=== PATIENT | female | born 1950 | race Two or more races ===

== ENCOUNTER → 2016-09-16 | Outpatient (CLI) | payer MEDICARE, OTHER ==
--- NOTE | 2016-09-16 10:32 | REP ---
Clinical: Cough. Technique: PA and lateral. Comparison: 05/30/2013. Findings: Progressive interstitial changes noted. No acute consolidation, effusion, or pneumothorax. Mediastinum and cardiac silhouette normal. Skeletal structures intact. Impression: Progressive interstitial changes. No acute cardiopulmonary process. If the patient remains symptomatic consider chest CT for further investigation. Signed by Gamaliel Charles MD 09/16/2016 10:22 A
== END ==
LOC: M WUC 09:57
PROVIDERS: ATTEND Nurse Practitioner Family
DX: R05 Cough (principal)

== ENCOUNTER → 2016-10-03 | Outpatient (REF) | payer MEDICARE, OTHER | LOC: M LAB REF 13:34 | PROVIDERS: ATTEND Physician Assistant | DX: M54.5 Low back pain (principal); Z79.899 Other long term (current) drug therapy ==

== ENCOUNTER → 2016-10-06 | Outpatient (CLI) | payer MEDICARE, OTHER ==
--- NOTE | 2016-10-06 17:00 | REP ---
Lumbar spine series: Five views. History: Low back pain. Comparison study: July 17, 2010. Findings: Lumbar vertebral body heights are preserved. There is degenerative disc disease at the L3-4, L4-5 and L5-S1. This is a little more pronounced than on the 2009 prior study, although not new. No subluxation is seen. There is osteoarthritic facet narrowing and sclerosis at L3-4 on the left and at the L4-5 and L5-S1 on the right. Sacrum and SI joints are intact. Psoas margins are symmetric. Impression: Degenerative spondylosis changes radiographically slightly more pronounced than on the June 2010 prior study. Signed by Ananda Keys MD 10/06/2016 07:20 P
== END ==
LOC: M WUC 15:05
PROVIDERS: ATTEND Nurse Practitioner Family
DX: M47.816 Spondylosis without myelopathy or radiculopathy, lumbar region (principal); M47.817 Spondylosis without myelopathy or radiculopathy, lumbosacral region

== ENCOUNTER → 2016-11-25 | Outpatient (REF) | payer MEDICARE, OTHER | LOC: M LAB REF 14:30 | PROVIDERS: ATTEND Physician Assistant | DX: M54.5 Low back pain (principal); Z79.899 Other long term (current) drug therapy ==

== ENCOUNTER → 2017-01-26 | Outpatient (CLI) | payer MEDICARE, OTHER ==
--- NOTE | 2017-01-26 19:49 | REP ---
Clinical: Left lower quadrant abdominal pain. Technique: Upright view of the chest with supine and upright views of the abdomen and pelvis. 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 No acute cardiopulmonary process or free air below the diaphragm to suspect pneumoperitoneum. Supine and upright views of the abdomen and pelvis demonstrate nonspecific bowel gas pattern without obstruction or perforation. No organomegaly. No abnormal calcifications. Skeletal structures demonstrate age-related degenerative changes. Impression: Nonspecific bowel gas pattern. Signed by Gamaliel Charles MD 01/26/2017 07:41 P
== END ==
LOC: M WUC 19:01
PROVIDERS: ATTEND Physician Assistant
DX: R10.32 Left lower quadrant pain (principal)

== ENCOUNTER → 2017-05-06 | Outpatient (CLI) | payer MEDICARE, OTHER ==
--- NOTE | 2017-05-06 14:30 | REP ---
Chest two views HISTORY: Chest pain Comparison: 01/26/2017 A diffuse increase in interstitial markings is present in the lungs consistent with chronic interstitial change. The heart is normal in size. The pulmonary vasculature is normal in appearance. The bony structure is intact. IMPRESSION: Chronic interstitial change. Signed by Berhane Godfrey MD 05/06/2017 02:22 P
== END ==
LOC: M WUC 14:06
PROVIDERS: ATTEND Nurse Practitioner Family
DX: R07.89 Other chest pain (principal)

== ENCOUNTER → 2019-04-19 | Outpatient (CLI) | payer MEDICARE, OTHER ==
[~2019-04-19] MED LIST: ISOVUE-370 76% 100ML VIAL (Q9967) As Ordered ONE
--- NOTE | 2019-04-19 17:25 | REP ---
CT of the abdomen and pelvis: The study is initially performed without IV contrast including the abdomen but excluding the pelvis. This is followed by scanning with IV contrast including the abdomen and pelvis. No bowel contrast is utilized. Comparison is 04/07/2016. There is fecalization almost the entire small bowel content as a distinct interval change. This is accompanied by mild small bowel distension. This is compatible with stasis. There is no evidence of small bowel obstruction.. The there is a mild/moderate volume of bowel content throughout the colon. There is no colonic distension or obstruction. There is no ascites. There is no pneumoperitoneum. There is a minimal volume of subcutaneous and intraperitoneal body fat as previously. The visualized lung aleman are unremarkable. The hepatic parenchyma is homogeneous. There are is enhancement of the gallbladder wall, however the gallbladder is not distended and there is no cholelithiasis. Gallbladder is nondistended and, in fact, is slightly collapsed. This is of uncertain significance, however, acalculous cholecystitis is a possibility. There is no pericholecystic fluid. The pancreas, spleen, adrenals and kidneys are unremarkable. The abdominal aorta is unremarkable. There is no adenopathy or ascites. Pelvis: The bladder is distended but otherwise unremarkable. The There is a hysterectomy. Vaginal cuff and adnexa are unremarkable. There is no ascites. Impression: There is a fecalization almost the entire small bowel as an interval change. This is compatible with small bowel stasis. There is no evidence of small bowel obstruction. There is a moderate volume of fecal residue in the colon. There is no evidence of colon distension or obstruction. There is no pneumoperitoneum or ascites. There is gallbladder wall thickening and gallbladder wall enhancement, however, there is no cholelithiasis or pericholecystic fluid. Gallbladder wall is not distended and is slightly collapsed. This is of uncertain significance but may represent acalculous cholecystitis. These results are discussed with the patient's nurse practitioner, ROSA MARIA Malcolm, upon completion of the study. Electronically Signed by Len Rahman MD 04/19/2019 05:16 P
== END ==
LOC: M RAD 16:14
PROVIDERS: ATTEND Nurse Practitioner Adult Health
DX: R10.9 Unspecified abdominal pain (principal)
CPT/HCPCS: 74178; 82150; 83690; Q9967

== ENCOUNTER → 2019-04-19 | Outpatient (REF) | payer MEDICARE, OTHER ==
[2019-04-19 18:34] LABS: AMYLASE 97 U/L (25-115); LIPASE 406 U/L (73-393)
== END ==
LOC: M LAB REF 18:00
PROVIDERS: ATTEND Nurse Practitioner Adult Health
DX: R10.9 Unspecified abdominal pain (principal)

== ENCOUNTER → 2019-06-27 | Outpatient (CLI) | payer MEDICARE, OTHER ==
[2019-06-27 18:06] LABS: ALBUMIN 3.5 GM/DL (3.2-5.2); ALT/SGPT 35 U/L (12-78); BILIRUBIN,TOTAL 0.4 MG/DL (0.2-1.0); BLOOD UREA NITROGEN 31 MG/DL (7-18); CALCIUM LEVEL 9.2 MG/DL (8.8-10.2); CARBON DIOXIDE LEVEL 27 MEQ/L (21-32); CHLORIDE LEVEL 104 MEQ/L (98-107); CREATININE FOR GFR 0.62 MG/DL (0.55-1.30); GLOMERULAR FILTRATION RATE > 60.0 (>45); GLUCOSE, FASTING 67 MG/DL (70-100); LIPASE 146 U/L (73-393); POTASSIUM SERUM 3.8 MEQ/L (3.5-5.1); SODIUM LEVEL 139 MEQ/L (136-145); TOTAL PROTEIN 6.4 GM/DL (6.4-8.2)
[2019-06-27 18:23] LABS: BASO # 0.1 10^3/uL (0.0-0.2); BASO % 0.5 % (0.0-1.0); EOS % 0.3 % (0.0-3.0); HEMATOCRIT 40.9 % (36.0-47.0); HEMOGLOBIN 12.8 g/dl (12.0-15.5); LYMPH % 20.2 % (24.0-44.0); MEAN CORPUSCULAR HEMOGLOBIN 29.3 pg (27.0-33.0); MEAN CORPUSCULAR HGB CONC 31.3 g/dl (32.0-36.5); MEAN CORPUSCULAR VOLUME 93.6 fl (80.0-96.0); MONO # 0.7 10^3/uL (0.0-0.8); MONO % 6.8 % (0.0-5.0); NEUTROPHILS % 71.9 % (36.0-66.0); PLATELET COUNT, AUTOMATED 236 10^3/uL (150-450); RED BLOOD COUNT 4.37 10^6/uL (4.00-5.40); WHITE BLOOD COUNT 9.8 10^3/uL (4.0-10.0)
== END ==
LOC: M WUC 14:29
PROVIDERS: ATTEND Physician Assistant
DX: R10.9 Unspecified abdominal pain (principal)

== ENCOUNTER → 2019-07-04 | Outpatient (REF) | payer MEDICARE, OTHER | LOC: M LAB REF 16:46 | PROVIDERS: ATTEND Nurse Practitioner Adult Health | DX: R30.0 Dysuria (principal) ==

== ENCOUNTER → 2019-10-18 | Outpatient (CLI) | payer MEDICARE, OTHER ==
[2019-10-18 15:33] LABS: PLATELET COUNT, AUTOMATED 227 10^3/uL (150-450)
[2019-10-18 15:37] LABS: COLLAGEN EPINEPHRINE 162 SECONDS (74-162)
[2019-10-18 15:53] LABS: PROTHROMBIN TIME 12.9 SECONDS (11.8-14.0)
[2019-10-18 15:54] LABS: PARTIAL THROMBOPLASTIN TIME 36.2 SECONDS (25.0-38.4)
== END ==
LOC: M WUC 14:19
PROVIDERS: ATTEND Physician Assistant
DX: M53.3 Sacrococcygeal disorders, not elsewhere classified (principal); M47.817 Spondylosis without myelopathy or radiculopathy, lumbosacral region

== ENCOUNTER → 2019-10-18 | Outpatient (REF) | payer MEDICARE, OTHER | LOC: M LABDRAW1 11:29 | PROVIDERS: ATTEND Physician Assistant | DX: Z01.812 Encounter for preprocedural laboratory examination (principal); D69.1 Qualitative platelet defects; M53.3 Sacrococcygeal disorders, not elsewhere classified; M47.817 Spondylosis without myelopathy or radiculopathy, lumbosacral region ==

== ENCOUNTER → 2019-11-17 | Outpatient (REF) | payer MEDICARE, OTHER | LOC: M LAB REF 16:01 | PROVIDERS: ATTEND Registered Nurse | DX: R30.0 Dysuria (principal); R10.32 Left lower quadrant pain ==

== ENCOUNTER → 2019-11-23 | Outpatient (REF) | payer MEDICARE, OTHER | LOC: M LAB 19:38 | PROVIDERS: ATTEND Physician Assistant | DX: R10.9 Unspecified abdominal pain (principal) ==

== ENCOUNTER → 2019-11-24 | Outpatient (CLI) | payer MEDICARE, OTHER ==
[2019-11-24 11:43] LABS: BASO % 0.4 % (0.0-1.0); HEMATOCRIT 43.7 % (36.0-47.0); HEMOGLOBIN 14.1 g/dl (12.0-15.5); LYMPH # 1.2 10^3/uL (1.5-5.0); LYMPH % 11.6 % (24.0-44.0); MEAN CORPUSCULAR HEMOGLOBIN 29.3 pg (27.0-33.0); MEAN CORPUSCULAR HGB CONC 32.3 g/dl (32.0-36.5); MEAN CORPUSCULAR VOLUME 90.7 fl (80.0-96.0); MONO # 0.7 10^3/uL (0.0-0.8); MONO % 6.4 % (0.0-5.0); NEUTROPHILS # 8.4 10^3/uL (1.5-8.5); NEUTROPHILS % 81.3 % (36.0-66.0); PLATELET COUNT, AUTOMATED 293 10^3/uL (150-450); RED BLOOD COUNT 4.82 10^6/uL (4.00-5.40); WHITE BLOOD COUNT 10.3 10^3/uL (4.0-10.0)
[2019-11-24 12:26] LABS: ALBUMIN 3.9 GM/DL (3.2-5.2); ALT/SGPT 46 U/L (12-78); BILIRUBIN,TOTAL 0.4 MG/DL (0.2-1.0); BLOOD UREA NITROGEN 19 MG/DL (7-18); CALCIUM LEVEL 9.4 MG/DL (8.8-10.2); CARBON DIOXIDE LEVEL 23 MEQ/L (21-32); CHLORIDE LEVEL 105 MEQ/L (98-107); CREATININE FOR GFR 0.69 MG/DL (0.55-1.30); GLOMERULAR FILTRATION RATE > 60.0 (>45); GLUCOSE, FASTING 118 MG/DL (70-100); LIPASE 87 U/L (73-393); POTASSIUM SERUM 3.2 MEQ/L (3.5-5.1); SODIUM LEVEL 138 MEQ/L (136-145); TOTAL PROTEIN 6.9 GM/DL (6.4-8.2)
== END ==
LOC: M WUC 10:17
PROVIDERS: ATTEND Physician Assistant
DX: R10.9 Unspecified abdominal pain (principal)

== ENCOUNTER → 2020-01-04 | Outpatient (REF) | payer MEDICARE, OTHER | LOC: M LAB REF 12:11 | PROVIDERS: ATTEND Internal Medicine | DX: M81.0 Age-related osteoporosis without current pathological fracture (principal) ==

== ENCOUNTER → 2020-05-17 | Outpatient (CLI) | payer MEDICARE, OTHER ==
--- NOTE | 2020-05-17 16:12 | REPMRS ---
Patient History The patient states she had a clinical breast exam in April 2020. No known family history of cancer. Benign radio exam breast specimen, June 01, 2015. Benign localization of breast nodule of the left breast, June 01, 2015. Benign radio exam breast specimen of the left breast, November 27, 2014. Benign localization of breast nodule of the left breast, November 27, 2014. 3D TOMOSYNTHESIS WAS PERFORMED. [facility] lifetime risk for breast cancer is 3.1%. Volpara breast density d. Digital Woman Screen Mammo: May 17, 2020 - Exam #: [id number] Bilateral CC and MLO view(s) were taken. Technologist: RT Richard Prior study comparison: January 16, 2016, digital mammo diagnostic bilateral, performed at [facility]. April 30, 2015, left breast digital mammo diagnostic unilateral, performed at [facility]. FINDINGS: The breast tissue is heterogeneously dense. This may lower the sensitivity of mammography. There has been no change in the appearance of the mammogram from the prior studies. There is a moderate amount of residual fibroglandular tissue which is fairly symmetric. There is no interval development of dominant mass, areas of architectural distortion, or clustered microcalcification typical of malignancy. Assessment: BI-RADS/ACR category 1 mammogram. Negative Mammogram. Recommendation Routine screening mammogram in 1 year (for women over age 40). This mammogram was interpreted with the aid of an FDA-approved computer-aided dectection system. Electronically Signed By: Len Vick MD 05/17/20 [id number]
--- NOTE | 2020-05-17 17:07 | REP ---
INDICATION: DENSE BREASTS. COMPARISON: 07/04/2016. TECHNIQUE: Real-time sonographic evaluation of bilateral breasts performed diffusely including the retroareolar regions bilaterally.. FINDINGS: No cystic or solid nodule is seen in any portion of either breast. IMPRESSION: BIRADS/ACR category 1, negative bilateral whole breast ultrasound. RECOMMENDATION: Follow-up recommended in 1 year if clinically indicated. <Electronically signed by Len Vick > 05/17/20 [id number]
== END ==
LOC: M WHC 14:07
PROVIDERS: ATTEND Internal Medicine
DX: Z12.31 Encounter for screening mammogram for malignant neoplasm of breast (principal)

== ENCOUNTER → 2020-07-06 | Outpatient (REF) | payer MEDICARE, OTHER | LOC: M LAB REF 10:32 | PROVIDERS: ATTEND Internal Medicine | DX: M81.0 Age-related osteoporosis without current pathological fracture (principal) ==

== ENCOUNTER → 2020-08-17 | Outpatient (REF) | payer MEDICARE, OTHER ==
[~2020-08-17] MED LIST changes: +AMIT24CA7 PO; +ATOR1TAB19 PO; +BEPR1.5D2 OU; +CEQU0.09 OU; +HYDR2.5C; +INVE1SUS OS; -ISOVUE-370 76% 100ML VIAL (Q9967) As Ordered ONE; +K-TA10TA2 PO; +KLOR20TA42 PO; +LINZ290C PO; +MUPI2OI; +PROL60SO IM; +VITA50005 PO
== END ==
LOC: M WUC 19:14
PROVIDERS: ATTEND Physician Assistant
DX: R30.0 Dysuria (principal)

== ENCOUNTER 2020-08-22 14:07 | Emergency (ER) | payer MEDICARE, OTHER ==
[~2020-08-22] VITALS: Ht 154.9 cm; Wt 45.0 kg
[2020-08-22] MEDS ORDERED: INVE1SUS OS (14:24)
[2020-08-22] MEDS ORDERED: ATOR1TAB19 PO (14:24)
[2020-08-22] MEDS ORDERED: PROL60SO IM (14:24)
[2020-08-22] MEDS ORDERED: KLOR20TA42 PO (14:24)
[2020-08-22] MEDS ORDERED: BEPR1.5D2 OU (14:24)
[2020-08-22] MEDS ORDERED: AMIT24CA7 PO (14:24)
[2020-08-22] MEDS ORDERED: VITA50005 PO (14:24)
[2020-08-22] MEDS ORDERED: CEQU0.09 OU (14:24)
[2020-08-22] MEDS ORDERED: MUPI2OI (14:24)
[2020-08-22] MEDS ORDERED: LINZ290C PO (14:24)
[2020-08-22] MEDS ORDERED: HYDR2.5C (14:24)
[2020-08-22 16:21] LABS: BASO # 0.1 10^3/uL (0.0-0.2); BASO % 0.7 % (0.0-1.0); EOS # 0.3 10^3/uL (0.0-0.5); EOS % 3.7 % (0.0-3.0); HEMATOCRIT 39.7 % (36.0-47.0); HEMOGLOBIN 12.7 g/dl (12.0-15.5); LYMPH # 1.1 10^3/uL (1.5-5.0); LYMPH % 12.4 % (24.0-44.0); MEAN CORPUSCULAR HEMOGLOBIN 28.8 pg (27.0-33.0); MONO # 0.7 10^3/uL (0.0-0.8); MONO % 8.1 % (0.0-5.0); NEUTROPHILS # 6.5 10^3/uL (1.5-8.5); NEUTROPHILS % 74.8 % (36.0-66.0); PLATELET COUNT, AUTOMATED 235 10^3/uL (150-450); RED BLOOD COUNT 4.41 10^6/uL (4.00-5.40); WHITE BLOOD COUNT 8.7 10^3/uL (4.0-10.0)
[2020-08-22 16:50] LABS: BLOOD UREA NITROGEN 22 MG/DL (7-18); CARBON DIOXIDE LEVEL 24 MEQ/L (21-32); CHLORIDE LEVEL 107 MEQ/L (98-107); CK-MB VALUE MASS 4.1 NG/ML (<3.6); CPK CREATINE PHOSPHOKINASE 122 U/L (26-192); CREATININE FOR GFR 0.64 MG/DL (0.55-1.30); GLOMERULAR FILTRATION RATE > 60.0 (>45); GLUCOSE, FASTING 85 MG/DL (70-100); MAGNESIUM LEVEL 2.1 MG/DL (1.8-2.4); MB/CK RELATIVE INDEX 3.36 (< OR =4); SODIUM LEVEL 142 MEQ/L (136-145); TROPONIN I < 0.02 NG/ML (< 0.10)
[2020-08-22] MEDS ORDERED: K-TA10TA2 PO (17:12)
[2020-08-22] MEDS ORDERED: POTASSIUM CHLORIDE 10 MEQ SR TABLET PO ONE (17:15)
[2020-08-22 17:28] VITALS: BP 120/59
--- NOTE | 2020-08-22 19:16 | ECGEPIP ---
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
== END 2020-08-22 17:52 | disposition home or self-care (01) ==
LOC: M ED 14:07
DX: E87.6 Hypokalemia (principal); E78.5 Hyperlipidemia, unspecified; K58.9 Irritable bowel syndrome, unspecified; Z79.899 Other long term (current) drug therapy; Z88.0 Allergy status to penicillin; Z88.5 Allergy status to narcotic agent; Z88.8 Allergy status to other drugs, medicaments and biological substances

== ENCOUNTER → 2020-09-12 | Outpatient (REF) | payer MEDICARE, OTHER | LOC: M LAB REF 16:15 | PROVIDERS: ATTEND Physician Assistant Medical | DX: R30.0 Dysuria (principal) ==

== ENCOUNTER → 2020-10-16 | Outpatient (CLI) | payer MEDICARE, OTHER ==
[2020-10-16 16:42] LABS: BASO # 0.1 10^3/uL (0.0-0.2); BASO % 0.8 % (0.0-1.0); EOS # 0.1 10^3/uL (0.0-0.5); EOS % 0.8 % (0.0-3.0); HEMATOCRIT 40.5 % (36.0-47.0); HEMOGLOBIN 12.8 g/dl (12.0-15.5); LYMPH # 1.9 10^3/uL (1.5-5.0); LYMPH % 24.5 % (24.0-44.0); MEAN CORPUSCULAR HGB CONC 31.6 g/dl (32.0-36.5); MEAN CORPUSCULAR VOLUME 91.8 fl (80.0-96.0); MONO # 0.6 10^3/uL (0.0-0.8); MONO % 8.1 % (2.0-8.0); NEUTROPHILS % 65.4 % (36.0-66.0); PLATELET COUNT, AUTOMATED 268 10^3/uL (150-450); RED BLOOD COUNT 4.41 10^6/uL (4.00-5.40); WHITE BLOOD COUNT 7.7 10^3/uL (4.0-10.0)
[2020-10-16 17:41] LABS: ALBUMIN 3.9 GM/DL (3.2-5.2); ALT/SGPT 42 U/L (12-78); BILIRUBIN,TOTAL 0.5 MG/DL (0.2-1.0); BLOOD UREA NITROGEN 22 MG/DL (7-18); CALCIUM LEVEL 8.8 MG/DL (8.8-10.2); CARBON DIOXIDE LEVEL 27 MEQ/L (21-32); CHLORIDE LEVEL 109 MEQ/L (98-107); CK-MB VALUE MASS 3.2 NG/ML (<3.6); CPK CREATINE PHOSPHOKINASE 73 U/L (26-192); CREATININE FOR GFR 0.68 MG/DL (0.55-1.30); FREE T4 0.83 NG/DL (0.76-1.46); GLOMERULAR FILTRATION RATE > 60.0 (>45); GLUCOSE, FASTING 83 MG/DL (70-100); MB/CK RELATIVE INDEX 4.38 (< OR =4); POTASSIUM SERUM 3.5 MEQ/L (3.5-5.1); SODIUM LEVEL 141 MEQ/L (136-145); TOTAL PROTEIN 6.6 GM/DL (6.4-8.2); TROPONIN I < 0.02 NG/ML (< 0.10)
== END ==
LOC: M WUC 15:37
PROVIDERS: ATTEND Physician Assistant
DX: R07.1 Chest pain on breathing (principal); R12 Heartburn; Z79.899 Other long term (current) drug therapy

== ENCOUNTER → 2020-10-30 | Outpatient (CLI) | payer MEDICARE, OTHER ==
--- NOTE | 2020-11-03 04:24 | ECWPNPC ---
PATIENT NAME: AUGUSTINE SANTOYO : 1950 GENDER: FEMALE VISIT DATE: 10/30/2020 DISCHARGE DATE: 10/30/20 1507 VISIT LOCKED DATE TIME: PHYSICIAN: ALLY MEDINA RESOURCE: ALLY MEDINA REASON FOR APPOINTMENT 1. CERVICAL PAIN/TPI HISTORY OF PRESENT ILLNESS GENERAL: 70-YEAR-OLD FEMALE BEING REFERRED BY [facility] FOR LEFT SIDED NECK PAIN. PATIENT NOTICED PAIN IN THIS REGION AFTER LIFTING HEAVY BAGS THIS PAST FALL. ALSO SUFFERS FROM RIGHT TROCHANTERIC BURSITIS WHICH RESPONDED WELL TO STEROID INJECTION A MONTH AGO. STATES SHE HAD AN INJECTION IN THE MUSCLE TISSUE IN THE LEFT NECK WHICH HELPED BUT SHE HAS ONE SPECIFIC SPOT ON THE LEFT SIDE OCCIPITAL REGION THAT REMAINS TENDER WITH PALPATION. SHE NOTICES THIS MAINLY AT NIGHT AND SOMETIMES IT WILL EVOLVE INTO A HEADACHE. REVIEWED MRI OF THE CERVICAL SPINE AND DISCUSSED TREATMENT PLAN. - - -. FALL RISK SCREENING: SCREENING : NO FALLS REPORTED IN THE LAST YEAR , : NO FALLS REPORTED IN THE LAST YEAR. PAIN SCREENING: PATIENT HAS A COMPLAINT OF ACUTE OR CHRONIC PAIN :YES LOCATION OF PAIN:NECK INTENSITY OF PAIN (SCALE OF 1 TO 10):3 WHAT DOES YOUR PAIN FEEL LIKE:SORE DURATION:MAINLY DURING THE NIGHT PAIN IS INCREASED BY:OTHERS DULL HEADACHE PAIN IS DECREASED BY:USE OF PAIN MEDICATIONS NURSING NOTE: - - -. PAIN CENTER INTAKE QUESTIONS: DO YOU HAVE A HISTORY OF MRSA? :NO DO YOU TAKE A BLOOD THINNERS? :NO BABY ASPRIN DO YOU HAVE ANY BLEEDING DISORDERS? :NO ANY NEW NUMBNESS OR WEAKNESS IN YOUR LEGS OR ARMS? :NO ANY PACEMAKER,DEFIBRILLATOR, OR DORSAL COLUMN STIMULATOR? :NO DO YOU HAVE ANY RASHES OR OPEN SORES? :NO ARE YOU ALLERGIC TO IV DYE? :NO ARE YOU DIABETIC? :NO ANY NEW PROBLEMS WITH YOUR MEDICATIONS? :NO HAVE YOU RECEIVED A VACCINE IN THE PAST 30 DAYS? :YES IF SO WHAT VACCINE AND WHEN? 2ND COVID 09/26/2020 DO YOU PLAN TO RECEIVE A VACCINE IN THE NEXT 21 DAYS? :NO DO YOU NEED ANY PRESCRIPTION? :NO DO YOU TAKE ANY IMMUNOSUPPRESSIVE MEDICATIONS? :NO CURRENT MEDICATIONS TAKING VITAMIN D 09922 U CAPSULE 1 CAPSULE ORALLY ONCE A WK. TAKING AMITIZA 24 MCG CAPSULE 1 CAPSULE WITH FOOD ORALLY TWICE A DAY TAKING LINZESS 290 MCG CAPSULE 1 CAPSULE ORALLY ONCE A DAY TAKING LODOXAMIDE TROMETHAMINE 0.1 % SOLUTION 1 DROP INTO AFFECTED EYE OPHTHALMIC FOUR TIMES A DAY TAKING ZOCOR 10 10 MG TABLET 1 TAB(S) ORAL ONCE A DAY TAKING ASPIRIN 81 81 MG TABLET DELAYED RELEASE 1 TABLET ORALLY ONCE A DAY TAKING ATORVASTATIN CALCIUM 10 MG TABLET 1 TABLET ORALLY ONCE A DAY NOT-TAKING PROLIA 60 MG/ML SOLUTION 1 ML SUBCUTANEOUS Q6M NOT-TAKING EUFLEXXA 20 MG/2ML SOLUTION PREFILLED SYRINGE 2 ML INTRA-ARTICULAR NOT-TAKING TIZANIDINE HCL 4 MG TABLET 1 TABLET NEEDED ORALLY THREE TIMES A DAY NOT-TAKING SIMVASTATIN 10 MG TABLET 1 TABLET IN THE EVENING ORALLY ONCE A DAY MEDICATION LIST REVIEWED AND RECONCILED WITH THE PATIENT PAST MEDICAL HISTORY POSTMENOPAUSE HIGH CHOLESTEROL IBS VIT D DEFICIENCY ALLERGIES HX ENDOMETRIOSIS/DUB OSTEOPOROSIS ON PROLIA DISABLED DUE TO BACK INJURY ENTHESSOPATHY OF HIP REGION PURE HYPERCHOLESTEROLEMIA IBM ANXIETY TUBERCULOSIS ALLERGIES PENICILLIN: RASH - SIDE EFFECTS - ONSET DATE 08/10/2013 PREDNISONE: HIVES - SIDE EFFECTS - ONSET DATE 04/05/2020 SURGICAL HISTORY TONSILLECTOMY LEFT EYE SURGERY 2010 HYSTERECTOMY/BSO--DUE TO BLEEDING AND ENDOMETRIOSIS 1985 LAPAROSCOPIC/ENDOMETRIOSIS 1984 COLONOSCOPY ([facility]ANTOS) 11/2013 BREAST BIOPSY BENIGN 11/27/14 & 06/01/15 BACK SURG RIGHT SHOULDER ROTATOR CUFF SURGERY BREAST BIOPSIES 2X PLANTAR FASCIITIS RIGHT FOOT CORNEA TRANS PLANT LEFT EYE FAMILY HISTORY FATHER: 85 YRS, LIVER CANCER MOTHER: ALIVE 100 YRS, HTN, HYPOTHYROIDISM, KIDNEY DISEASE, HEART DISEASE W/STENTS SIBLINGS: 21 YRS, SISTER-HODGKIN'S DISEASE. OTHER SISTERS, LIVING, NO HEALTH CONCERNS 3 SISTER(S) - HEALTHY. DENIES BREAST, COLON OR OVARIAN CANCERS. NO CHILDREN. SOCIAL HISTORY GENERAL: TOBACCO USE ARE YOU A:NEVER SMOKER LATEX QUESTIONNAIRE LATEX ALLERGY : HAVE YOU EVER DEVELOPED ANY TYPE OF REACTION AFTER HANDLING LATEX PRODUCTS SUCH RUBBER GLOVES, CONDOMS, DIAPHRAGMS, BALLOONS, SOCKS, OR UNDERWEAR?NO LATEX ALLERGY : HAVE YOU EVER DEVELOPED ANY TYPE OF REACTION DURING OR AFTER DENTAL APPOINTMENT, VAGINAL/RECTAL EXAMINATION, SURGICAL PROCEDURE, OR ANY OTHER EXPOSURE?NO LATEX RISK : HAVE YOU EVER HAD ANY DIFFICULTY BREATHING OR HIVES AFTER EATING OR HANDLING ANY FRUITS, OR VEGETABLES; SUCH KIWI, BANANAS, STONE FRUITS, OR CHESTNUTSNO LATEX RISK : DO YOU HAVE A PREVIOUS PERSONAL HISTORY OF MORE THAN NINE SURGERIES, SPINA BIFIDA, OR REPEATED CATHERIZATIONS? NO LATEX RISK : ARE YOU FREQUENTLY EXPOSED TO LATEX PRODUCTS IN YOUR OCCUPATION?NO DATE ASKED : 10/30/2020 ALCOHOL USE: NO. RECREATIONAL DRUG USE DENIES. CAFFEINE NONE. LANGUAGE LANGUAGES SPOKEN:COMORAN LEARNING BARRIERS / SPECIAL NEEDS BARRIERS TO LEARNING?NO HEARING IMPAIRED?NO VISION IMPAIRED?YES :CORRECTIVE LENSES COGNITIVELY IMPAIRED?NO READINESS TO LEARN?YES LEARNING PREFERENCES?NO LEARNING CAPABILITIES PRESENT?YES EMOTIONAL BARRIERS?NO SPECIAL DEVICES?NO DIRECTOR DERMATOLOGY NEEDED?NO DOMESTIC VIOLENCE DENIES, 11/02/14 HITS=N/A, NO PARTNER. 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 EXERCISE: GOES TO [employer], ALSO WALKS. MARITAL STATUS: SINGLE. OTHERS AT HOME: LIVES WITH MOTHER. HOUSING: OWNS HOME. HOSPITALIZATION/MAJOR DIAGNOSTIC PROCEDURE SEE ABOVE REVIEW OF SYSTEMS CONSTITUTIONAL: ANY RECENT FEVER NO . CHILLS NO . WEIGHT CHANGE OF UNKNOWN REASONS NO . GASTROENTEROLOGY: NEW UNEXPLAINABLE CHANGES IN BOWEL CONTROL NO . CONSTIPATION NO . GENITOURINARY: ANY NEW CHANGE IN BLADDER CONTROL? NO . NEUROLOGY: NEW ONSET DIZZINESS OR NEUROLOGICAL CHANGES NOT MENTIONED NO . NEW NUMBNESS OR PAIN PATTERNS NOT MENTIONED AND PERTINENT TO TODAY'S VISIT NO . CARDIOLOGY: NEW CHEST PRESSURE NO . PATIENT DENIES NO . RESPIRATORY: UNEXPLAINABLE COUGH NO . NEW SHORTNESS OF BREATH NO . VITAL SIGNS WT 100 LBS, HT 61 IN, BMI 18.89 INDEX, BP 104/59 MM HG, HR 58 /MIN, RR 18 /MIN, TEMP 96.7 F, OXYGEN SAT % 99%, SAFE IN ENV? (Y/N) YEST.ARLET LEA. EXAMINATION GENERAL EXAMINATION: GENERALNO ACUTE DISTRESS, WELL NOURISHED AND HYDRATED. PSYCHAPPROPRIATE MOOD AND AFFECT . FACE:UNREMARKABLE. NECK:NO LYMPHADENOPATHY, SUPPLE, NO THYROMEGALLY. LUNGS:CLEAR TO AUSCULTATION BILATERALLY, NO WHEEZES, RHONCHI, RALES. HEART:NO MURMURS, REGULAR RATE AND RHYTHM. MUSCULOSKELETAL: MUSCLE STRENGTH TESTING 5/5 BILATERAL UPPER/LOWER EXTREMITIES. CERVICAL: FIBROUS BAND OF TISSUE AT PROXIMAL TRAPEZIUS 5 CM DIAMETER.PAIN IN THIS AREA IS AGGREVATED WITH ROJM NECK. DIAGNOSTIC TESTS REVIEWED CERVICAL MRI. ASSESSMENTS MYALGIA, OTHER SITE - M79.18 (PRIMARY) TREATMENT MYALGIA, OTHER SITE NOTES: DISCUSSED TREATMENT OPTIONS TO INCLUDE TRIGGER POINT INJECTIONS AND MYOFASCIAL RELEASE TECHNIQUES IN PHYSICAL THERAPY. I WILL SEND HER TO PHYSICAL THERAPY 2 TIMES A WEEK FOR 6 WEEKS SPECIFICALLY FOR MYOFASCIAL RELEASE/MASSAGE LEFT TRAPEZIUS, SCALENE PROXIMAL REGION/OCCIPITAL. FOLLOW-UP PT /MYOFASCIAL RELEASE IN 6-8 WEEKS. CONSIDER SOFT TISSUE IMAGING OF THE LEFT NECK SHOULD SYMPTOMS PERSIST. REFERRAL TO:PHYSICAL THERAPY INNOVATIVEPHYSICAL THERAPIST REASON:PT 2 TIMES A WEEK X6 WEEKS SPECIFICALLY FOR MYOFASCIAL RELEASE LEFT NECK AND PROXIMAL TRAPEZIUS SCALENE OCCIPITAL REGION PROCEDURE CODES FA211 ESTABILISHED PATIENT [facility] CHARGE DISPOSITION & COMMUNICATION FOLLOW UP 6 WEEKS/8 WEEKS (REASON: FOLLOW-UP ON PT LEFT NECK/MYOFASCIAL RELEASE) ELECTRONICALLY SIGNED BY ROSA MARIA OSEGUERA ON 11/02/2020 AT 03:54 PM EDT DISCLAIMER : THIS IS A VISIT SUMMARY EXTRACTED FROM THE [employer] CHART. IT IS NOT A COPY OF THE [employer] PROGRESS NOTE. TARUN
== END ==
LOC: M PAIN 14:00
PROVIDERS: ATTEND Nurse Practitioner Family
DX: M79.18 Myalgia, other site (principal); E78.00 Pure hypercholesterolemia, unspecified; K58.9 Irritable bowel syndrome, unspecified; E55.9 Vitamin D deficiency, unspecified; F41.9 Anxiety disorder, unspecified; Z79.82 Long term (current) use of aspirin; Z79.899 Other long term (current) drug therapy; Z88.0 Allergy status to penicillin; Z88.8 Allergy status to other drugs, medicaments and biological substances

== ENCOUNTER → 2020-11-07 | Outpatient (CLI) | payer MEDICARE, OTHER ==
--- NOTE | 2020-11-07 12:31 | REP ---
INDICATION: PAIN. COMPARISON: 05/06/2017 the latest prior FINDINGS: The superior mediastinal structures are midline. The cardiac silhouette is unremarkable in size, shape, and position. The diaphragmatic surfaces of the lungs are regular, and the costophrenic angles are clear. The pulmonary aleman are unchanged. Scattered fibrotic changes and lung field hyperexpansion noted status quo.. No acute patchy parenchymal opacities or pleural effusions have developed. The imaged osseous structures are intact. IMPRESSION: There is no acute cardiopulmonary disease. Stable chest. <Electronically signed by Nate Camarena > 11/07/20 [id number]
--- NOTE | 2020-11-07 12:33 | REP ---
INDICATION: PAIN. COMPARISON: None TECHNIQUE: Four views FINDINGS: Multiple views of the left ribs show no fracture or osseous lesion. IMPRESSION: Negative left rib series. <Electronically signed by Nate Camarena > 11/07/20 [id number]
== END ==
LOC: M WUC 11:40
PROVIDERS: ATTEND Nurse Practitioner Adult Health
DX: R10.9 Unspecified abdominal pain (principal)

== ENCOUNTER → 2020-11-13 | Outpatient (REF) | payer MEDICARE, OTHER | LOC: M LAB REF 15:41 | PROVIDERS: ATTEND Physician Assistant | DX: R30.0 Dysuria (principal) ==

== ENCOUNTER → 2020-12-18 | Outpatient (CLI) | payer MEDICARE, OTHER ==
--- NOTE | 2020-12-20 04:16 | ECWPNPC ---
PATIENT NAME: AUGUSTINE SANTOYO : 1950 GENDER: FEMALE VISIT DATE: 12/18/2020 DISCHARGE DATE: 12/18/20 1442 VISIT LOCKED DATE TIME: PHYSICIAN: ALLY MEDINA RESOURCE: ALLY MEDINA REASON FOR APPOINTMENT 1. FOLLOW-UP ON PT LEFT NECK/MYOFASCIAL RELEASE HISTORY OF PRESENT ILLNESS DEPRESSION SCREENING: PHQ-2 (2015 EDITION) LITTLE INTEREST OR PLEASURE IN DOING THINGS?NOT AT ALL FEELING DOWN, DEPRESSED, OR HOPELESS?NOT AT ALL TOTAL SCORE0 GENERAL: HERE FOR F/U AFTER PT THAT WAS STARTED 6 WEEKS AGO.PATIENT REPORTS >80 % IMPROVEMENT IN LEFT NECK PAIN SINCE STARTING PT.REPORTING RESOLUTION OF HEADACHES SINCE STARTING PT.CONTINUES WITH SOME RESIDUAL TRAPEZIUS PAIN.REPORTING SIGNIFICANT IMPROVEMENT WITH ROJM OF NECK.REPORTING IMPROVEMENT WITH TOLERATING HOUSEWORK ACTIVITIES. -. FALL RISK SCREENING: SCREENING : NO FALLS REPORTED IN THE LAST YEAR. PAIN SCREENING: PATIENT HAS A COMPLAINT OF ACUTE OR CHRONIC PAIN :YES LOCATION OF PAIN:NECK INTENSITY OF PAIN (SCALE OF 1 TO 10):3 WHAT DOES YOUR PAIN FEEL LIKE:CONTINOUS IT JUST HURTS DURATION:CONTINOUS, CONSTANT PAIN IS INCREASED BY:OTHERS PHYSICAL THERAPY PAIN IS DECREASED BY:USE OF PAIN MEDICATIONS NURSING NOTE: -. PAIN CENTER INTAKE QUESTIONS: DO YOU HAVE A HISTORY OF MRSA? :NO DO YOU TAKE A BLOOD THINNERS? :NO BABY ASPRIN DO YOU HAVE ANY BLEEDING DISORDERS? :NO ANY NEW NUMBNESS OR WEAKNESS IN YOUR LEGS OR ARMS? :NO ANY PACEMAKER,DEFIBRILLATOR, OR DORSAL COLUMN STIMULATOR? :NO DO YOU HAVE ANY RASHES OR OPEN SORES? :NO ARE YOU ALLERGIC TO IV DYE? :NO ARE YOU DIABETIC? :NO ANY NEW PROBLEMS WITH YOUR MEDICATIONS? :NO HAVE YOU RECEIVED A VACCINE IN THE PAST 30 DAYS? :YES IF SO WHAT VACCINE AND WHEN? 2ND COVID 09/26/2020 DO YOU PLAN TO RECEIVE A VACCINE IN THE NEXT 21 DAYS? :NO DO YOU NEED ANY PRESCRIPTION? :NO DO YOU TAKE ANY IMMUNOSUPPRESSIVE MEDICATIONS? :NO CURRENT MEDICATIONS TAKING VITAMIN D 32585 U CAPSULE 1 CAPSULE ORALLY ONCE A WK. TAKING AMITIZA 24 MCG CAPSULE 1 CAPSULE WITH FOOD ORALLY TWICE A DAY TAKING LINZESS 290 MCG CAPSULE 1 CAPSULE ORALLY ONCE A DAY TAKING LODOXAMIDE TROMETHAMINE 0.1 % SOLUTION 1 DROP INTO AFFECTED EYE OPHTHALMIC FOUR TIMES A DAY TAKING ZOCOR 10 10 MG TABLET 1 TAB(S) ORAL ONCE A DAY TAKING ASPIRIN 81 81 MG TABLET DELAYED RELEASE 1 TABLET ORALLY ONCE A DAY TAKING ATORVASTATIN CALCIUM 10 MG TABLET 1 TABLET ORALLY ONCE A DAY NOT-TAKING PROLIA 60 MG/ML SOLUTION 1 ML SUBCUTANEOUS Q6M NOT-TAKING EUFLEXXA 20 MG/2ML SOLUTION PREFILLED SYRINGE 2 ML INTRA-ARTICULAR NOT-TAKING TIZANIDINE HCL 4 MG TABLET 1 TABLET NEEDED ORALLY THREE TIMES A DAY NOT-TAKING SIMVASTATIN 10 MG TABLET 1 TABLET IN THE EVENING ORALLY ONCE A DAY MEDICATION LIST REVIEWED AND RECONCILED WITH THE PATIENT PAST MEDICAL HISTORY POSTMENOPAUSE HIGH CHOLESTEROL IBS VIT D DEFICIENCY ALLERGIES HX ENDOMETRIOSIS/DUB OSTEOPOROSIS ON PROLIA DISABLED DUE TO BACK INJURY ENTHESSOPATHY OF HIP REGION PURE HYPERCHOLESTEROLEMIA IBM ANXIETY TUBERCULOSIS ALLERGIES PENICILLIN: RASH - SIDE EFFECTS - ONSET DATE 08/10/2013 PREDNISONE: HIVES - SIDE EFFECTS - ONSET DATE 04/05/2020 SOCIAL HISTORY GENERAL: TOBACCO USE ARE YOU A:: NEVER SMOKER. LATEX QUESTIONNAIRE LATEX ALLERGY : HAVE YOU EVER DEVELOPED ANY TYPE OF REACTION AFTER HANDLING LATEX PRODUCTS SUCH RUBBER GLOVES, CONDOMS, DIAPHRAGMS, BALLOONS, SOCKS, OR UNDERWEAR?NO LATEX ALLERGY : HAVE YOU EVER DEVELOPED ANY TYPE OF REACTION DURING OR AFTER DENTAL APPOINTMENT, VAGINAL/RECTAL EXAMINATION, SURGICAL PROCEDURE, OR ANY OTHER EXPOSURE?NO LATEX RISK : HAVE YOU EVER HAD ANY DIFFICULTY BREATHING OR HIVES AFTER EATING OR HANDLING ANY FRUITS, OR VEGETABLES; SUCH KIWI, BANANAS, STONE FRUITS, OR CHESTNUTSNO LATEX RISK : DO YOU HAVE A PREVIOUS PERSONAL HISTORY OF MORE THAN NINE SURGERIES, SPINA BIFIDA, OR REPEATED CATHERIZATIONS? NO LATEX RISK : ARE YOU FREQUENTLY EXPOSED TO LATEX PRODUCTS IN YOUR OCCUPATION?NO DATE ASKED : 12/18/2020 ALCOHOL USE: NO. RECREATIONAL DRUG USE DENIES. CAFFEINE NONE. LANGUAGE LANGUAGES SPOKEN:SLOVAK LEARNING BARRIERS / SPECIAL NEEDS BARRIERS TO LEARNING?NO HEARING IMPAIRED?NO VISION IMPAIRED?YES :CORRECTIVE LENSES COGNITIVELY IMPAIRED?NO READINESS TO LEARN?YES LEARNING PREFERENCES?NO LEARNING CAPABILITIES PRESENT?YES EMOTIONAL BARRIERS?NO SPECIAL DEVICES?NO LAW SECRETARY NEEDED?NO DOMESTIC VIOLENCE DENIES, 11/02/14 HITS=N/A, NO PARTNER. 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 EXERCISE: GOES TO [employer], ALSO WALKS. MARITAL STATUS: SINGLE. OTHERS AT HOME: LIVES WITH MOTHER. HOUSING: OWNS HOME. REVIEW OF SYSTEMS CONSTITUTIONAL: ANY RECENT FEVER NO . CHILLS NO . WEIGHT CHANGE OF UNKNOWN REASONS NO . GASTROENTEROLOGY: NEW UNEXPLAINABLE CHANGES IN BOWEL CONTROL NO . CONSTIPATION NO . GENITOURINARY: ANY NEW CHANGE IN BLADDER CONTROL? NO . NEUROLOGY: NEW ONSET DIZZINESS OR NEUROLOGICAL CHANGES NOT MENTIONED NO . NEW NUMBNESS OR PAIN PATTERNS NOT MENTIONED AND PERTINENT TO TODAY'S VISIT NO . CARDIOLOGY: NEW CHEST PRESSURE NO . PATIENT DENIES NO . RESPIRATORY: UNEXPLAINABLE COUGH NO . NEW SHORTNESS OF BREATH NO . VITAL SIGNS WT 99.0 LBS, HT 61 IN, BMI 18.70 INDEX, BP 118/64 MM HG, HR 62 /MIN, RR 18 /MIN, TEMP 97.0 F, OXYGEN SAT % 97%, SAFE IN ENV? (Y/N) YES, NA INITIALS AW 1413T.ARLET LEA. EXAMINATION GENERAL EXAMINATION: GENERALAWAKE,ALERT ,PLEASANT . PSYCHAFFECT NORMAL . LUNGS:LUNG WISEMAN ARE CLEAR TO AUSCULTATION BILATERALLY. GOOD MOVEMENT OF AIR . HEART:S1, S2 IN A REGULAR RATE AND RHYTHM. NO SIGNIFICANT MURMURS, RUBS OR GALLOPS NOTED . ASSESSMENTS MYALGIA, OTHER SITE - M79.18 (PRIMARY) TREATMENT MYALGIA, OTHER SITE NOTES: CONTINUE PT/HOME EXCERSISE AND STRETCHING. PROCEDURE CODES FA211 ESTABILISHED PATIENT [facility] CHARGE DISPOSITION & COMMUNICATION FOLLOW UP 2 MONTHS (REASON: F/U PT/CONSIDER TPI) ELECTRONICALLY SIGNED BY ROSA MARIA OSEGUERA ON 12/19/2020 AT 02:36 PM EDT DISCLAIMER : THIS IS A VISIT SUMMARY EXTRACTED FROM THE [employer] CHART. IT IS NOT A COPY OF THE [employer] PROGRESS NOTE. PRAKASHD
== END ==
LOC: M PAIN 14:00
PROVIDERS: ATTEND Nurse Practitioner Family
DX: M79.18 Myalgia, other site (principal); E78.00 Pure hypercholesterolemia, unspecified; K58.9 Irritable bowel syndrome, unspecified; E55.9 Vitamin D deficiency, unspecified; M81.0 Age-related osteoporosis without current pathological fracture; F41.9 Anxiety disorder, unspecified; Z79.82 Long term (current) use of aspirin; Z79.899 Other long term (current) drug therapy; Z88.0 Allergy status to penicillin; Z88.8 Allergy status to other drugs, medicaments and biological substances

== ENCOUNTER → 2020-12-25 | Outpatient (REF) | payer MEDICARE, OTHER | LOC: M WUC 22:10 | PROVIDERS: ATTEND Nurse Practitioner Family | DX: R30.0 Dysuria (principal) ==

== ENCOUNTER → 2021-01-09 | Outpatient (CLI) | payer MEDICARE, OTHER ==
--- NOTE | 2021-01-09 09:14 | REP ---
INDICATION: PULSATILE MASS,? ANEURYSM. COMPARISON: None. TECHNIQUE: Real-time sonographic evaluation of the abdominal aorta performed. FINDINGS: There is no sonographic evidence of abdominal aortic aneurysm. Maximum AP diameter of abdominal aorta: Proximal (at diaphragm):1.9 cm. At renal artery level: 1.6 cm Mid abdominal aorta:1.4 cm. Distal abdominal aorta (prebifurcation): 1.3 cm. Maximum AP diameter common iliac arteries: Right: 7 mm. Left: 7mm. IMPRESSION: No sonographic evidence of abdominal aortic aneurysm. <Electronically signed by Len Vick > 01/09/21 0935
== END ==
LOC: M RAD 07:22
PROVIDERS: ATTEND Nurse Practitioner Adult Health
DX: E87.6 Hypokalemia (principal)

== ENCOUNTER → 2021-01-18 | Outpatient (CLI) | payer MEDICARE, OTHER ==
[~2021-01-18] MED LIST changes: +ERGO500029 PO; -VITA50005 PO
--- NOTE | 2021-01-21 23:21 | ECWPNPC ---
PATIENT NAME: AUGUSTINE SANTOOY : 1950 GENDER: FEMALE VISIT DATE: 01/18/2021 DISCHARGE DATE: 01/18/21 1207 VISIT LOCKED DATE TIME: PHYSICIAN: ALLY MEDINA RESOURCE: ALLY MEDINA REASON FOR APPOINTMENT 1. INCREASED PAIN HISTORY OF PRESENT ILLNESS GENERAL: HERE FOR FOLLOW-UP OF PERSISTENT LEFT-SIDED NECK PAIN. PATIENT HAS BEEN ATTENDING PHYSICAL THERAPY PER OUR ORDER AND REPORTS IMPROVEMENT BUT CONTINUES TO HAVE PERSISTENT LEFT NECK PAIN. PAIN DOES NOT AWAKEN HER AT NIGHT. PAIN DOES NOT DISRUPT HER ACTIVITIES. STATES SHE WANTS TO GO TO PHYSICAL THERAPY 1 TIME A WEEK AND NOT TWICE. DISCUSSED TRIGGER POINT INJECTIONS AND POTENTIAL RISKS AND BENEFITS WERE REVIEWED. PATIENT WOULD LIKE TO HOLD OFF ON INJECTIONS BUT MAY CALL US ON THURSDAY IF SHE FEELS PAIN IS NOT IMPROVING . SHE WILL TRY TOPICAL VOLTAREN GEL WE DISCUSSED TODAY WELL NEW MUSCLE RELAXANT WHICH I PRIMARY CARE STARTED A FEW DAYS AGO. -. FALL RISK SCREENING: SCREENING : NO FALLS REPORTED IN THE LAST YEAR. PAIN SCREENING: PATIENT HAS A COMPLAINT OF ACUTE OR CHRONIC PAIN :YES LOCATION OF PAIN:NECK LEFT INTENSITY OF PAIN (SCALE OF 1 TO 10):0 WHAT DOES YOUR PAIN FEEL LIKE:OTHER NOT IN ANY PAIN PAIN IS INCREASED BY:OTHERS TURNING HER HEAD PAIN IS DECREASED BY:USE OF PAIN MEDICATIONS ALEVE NURSING NOTE: -. PAIN CENTER INTAKE QUESTIONS: DO YOU HAVE A HISTORY OF MRSA? :NO DO YOU TAKE A BLOOD THINNERS? :NO BABY ASPRIN DO YOU HAVE ANY BLEEDING DISORDERS? :NO ANY NEW NUMBNESS OR WEAKNESS IN YOUR LEGS OR ARMS? :NO ANY PACEMAKER,DEFIBRILLATOR, OR DORSAL COLUMN STIMULATOR? :NO DO YOU HAVE ANY RASHES OR OPEN SORES? :NO ARE YOU ALLERGIC TO IV DYE? :NO ARE YOU DIABETIC? :NO ANY NEW PROBLEMS WITH YOUR MEDICATIONS? :NO HAVE YOU RECEIVED A VACCINE IN THE PAST 30 DAYS? :YES IF SO WHAT VACCINE AND WHEN? 2ND COVID 09/26/2020 DO YOU PLAN TO RECEIVE A VACCINE IN THE NEXT 21 DAYS? :NO DO YOU NEED ANY PRESCRIPTION? :NO DO YOU TAKE ANY IMMUNOSUPPRESSIVE MEDICATIONS? :NO CURRENT MEDICATIONS TAKING VITAMIN D 45365 U CAPSULE 1 CAPSULE ORALLY ONCE A WK. TAKING AMITIZA 24 MCG CAPSULE 1 CAPSULE WITH FOOD ORALLY TWICE A DAY TAKING LINZESS 290 MCG CAPSULE 1 CAPSULE ORALLY ONCE A DAY TAKING ASPIRIN 81 81 MG TABLET DELAYED RELEASE 1 TABLET ORALLY ONCE A DAY TAKING ATORVASTATIN CALCIUM 10 MG TABLET 1 TABLET ORALLY ONCE A DAY TAKING ALEVE 220 MG TABLET 1 TABLET WITH FOOD OR MILK NEEDED ORALLY EVERY 12 HRS TAKING POTASSIUM 20MG 1 TAB ORAL TWICE A DAY NOT-TAKING LODOXAMIDE TROMETHAMINE 0.1 % SOLUTION 1 DROP INTO AFFECTED EYE OPHTHALMIC FOUR TIMES A DAY NOT-TAKING ZOCOR 10 10 MG TABLET 1 TAB(S) ORAL ONCE A DAY NOT-TAKING IBUPROFEN 800 MG TABLET 1 TABLET WITH FOOD OR MILK NEEDED ORALLY THREE TIMES A DAY NOT-TAKING PROLIA 60 MG/ML SOLUTION 1 ML SUBCUTANEOUS Q6M NOT-TAKING EUFLEXXA 20 MG/2ML SOLUTION PREFILLED SYRINGE 2 ML INTRA-ARTICULAR NOT-TAKING TIZANIDINE HCL 4 MG TABLET 1 TABLET NEEDED ORALLY THREE TIMES A DAY NOT-TAKING SIMVASTATIN 10 MG TABLET 1 TABLET IN THE EVENING ORALLY ONCE A DAY MEDICATION LIST REVIEWED AND RECONCILED WITH THE PATIENT PAST MEDICAL HISTORY POSTMENOPAUSE HIGH CHOLESTEROL IBS VIT D DEFICIENCY ALLERGIES HX ENDOMETRIOSIS/DUB OSTEOPOROSIS ON PROLIA DISABLED DUE TO BACK INJURY ENTHESSOPATHY OF HIP REGION PURE HYPERCHOLESTEROLEMIA IBM ANXIETY TUBERCULOSIS ALLERGIES PENICILLIN: RASH - SIDE EFFECTS - ONSET DATE 08/10/2013 PREDNISONE: HIVES - SIDE EFFECTS - ONSET DATE 04/05/2020 SOCIAL HISTORY GENERAL: TOBACCO USE ARE YOU A:: NEVER SMOKER. LATEX QUESTIONNAIRE LATEX ALLERGY : HAVE YOU EVER DEVELOPED ANY TYPE OF REACTION AFTER HANDLING LATEX PRODUCTS SUCH RUBBER GLOVES, CONDOMS, DIAPHRAGMS, BALLOONS, SOCKS, OR UNDERWEAR?NO LATEX ALLERGY : HAVE YOU EVER DEVELOPED ANY TYPE OF REACTION DURING OR AFTER DENTAL APPOINTMENT, VAGINAL/RECTAL EXAMINATION, SURGICAL PROCEDURE, OR ANY OTHER EXPOSURE?NO LATEX RISK : HAVE YOU EVER HAD ANY DIFFICULTY BREATHING OR HIVES AFTER EATING OR HANDLING ANY FRUITS, OR VEGETABLES; SUCH KIWI, BANANAS, STONE FRUITS, OR CHESTNUTSNO LATEX RISK : DO YOU HAVE A PREVIOUS PERSONAL HISTORY OF MORE THAN NINE SURGERIES, SPINA BIFIDA, OR REPEATED CATHERIZATIONS? NO LATEX RISK : ARE YOU FREQUENTLY EXPOSED TO LATEX PRODUCTS IN YOUR OCCUPATION?NO DATE ASKED : 01/18/2021 ALCOHOL USE: NO. RECREATIONAL DRUG USE DENIES. CAFFEINE NONE. LANGUAGE LANGUAGES SPOKEN:KAZAKH LEARNING BARRIERS / SPECIAL NEEDS BARRIERS TO LEARNING?NO HEARING IMPAIRED?NO VISION IMPAIRED?YES :CORRECTIVE LENSES COGNITIVELY IMPAIRED?NO READINESS TO LEARN?YES LEARNING PREFERENCES?NO LEARNING CAPABILITIES PRESENT?YES EMOTIONAL BARRIERS?NO SPECIAL DEVICES?NO SHIRT TURNER NEEDED?NO DOMESTIC VIOLENCE DENIES, 11/02/14 HITS=N/A, NO PARTNER. 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 EXERCISE: GOES TO [employer], ALSO WALKS. MARITAL STATUS: SINGLE. OTHERS AT HOME: LIVES WITH MOTHER. HOUSING: OWNS HOME. REVIEW OF SYSTEMS CONSTITUTIONAL: ANY RECENT FEVER NO . CHILLS NO . WEIGHT CHANGE OF UNKNOWN REASONS NO . GASTROENTEROLOGY: NEW UNEXPLAINABLE CHANGES IN BOWEL CONTROL NO . CONSTIPATION NO . GENITOURINARY: ANY NEW CHANGE IN BLADDER CONTROL? NO . NEUROLOGY: NEW ONSET DIZZINESS OR NEUROLOGICAL CHANGES NOT MENTIONED NO . NEW NUMBNESS OR PAIN PATTERNS NOT MENTIONED AND PERTINENT TO TODAY'S VISIT NO . CARDIOLOGY: NEW CHEST PRESSURE NO . PATIENT DENIES NO . RESPIRATORY: UNEXPLAINABLE COUGH NO . NEW SHORTNESS OF BREATH NO . VITAL SIGNS WT 97.8 LBS, HT 61 IN, BMI 18.48 INDEX, BP 108/55 MM HG, HR 55 /MIN, RR 18 /MIN, TEMP 98.2 F, OXYGEN SAT % 99%, SAFE IN ENV? (Y/N) YES, NA INITIALS AL 11:29T.ARLET LEA. EXAMINATION GENERAL EXAMINATION: GENERALNO ACUTE DISTRESS, WELL NOURISHED AND HYDRATED. PSYCHAPPROPRIATE MOOD AND AFFECT . LUNGS:CLEAR TO AUSCULTATION BILATERALLY, NO WHEEZES, RHONCHI, RALES. HEART:NO MURMURS, REGULAR RATE AND RHYTHM. MUSCULOSKELETAL: TRIGGER POINTS: NOTED OVER LEFT TRAPEZIUS/SCAPULAR REGION.. ASSESSMENTS MYALGIA, OTHER SITE - M79.18 (PRIMARY) TREATMENT MYALGIA, OTHER SITE NOTES: PATIENT WILL TRY VOLTAREN GEL TO LEFT NECK 2 TIMES A DAY AND WILL DO HOME STRETCHING EXERCISES THAT WE HAVE GIVEN HER A HANDOUT ON TODAY FOR LEFT NECK PAIN. SHE WILL ALSO START MUSCLE RELAXANT, TIZANIDINE 4 MG TABLET THAT PRIMARY CARE HAS ORDERED TODAY. WE HAVE SENT HER PER HER REQUEST TO PHYSICAL THERAPY 1 TIME A WEEK X6 WEEKS AND THEY WILL EVALUATE HER FOR TENS UNIT FOR HOME CARE. PATIENT MAY CALL AND WANT TO HAVE TRIGGER POINT INJECTIONS TO LEFT NECK THAT WE DISCUSSED TODAY BUT SHE WANTS TO TRY CONSERVATIVE CARE FIRST. I REVIEWED POTENTIAL RISKS AND BENEFITS OF TRIGGER POINT INJECTION AND PATIENT WOULD LIKE TO HOLD OFF AND THINK ABOUT THIS POTENTIAL RISKS MAKES HER NERVOUS. FOLLOW-UP AT PAIN CENTER SCHEDULED IN 6 WEEKS. PRINTED INFORMATION ON NECK STRETCHING EXERCISES FOR PATIENT- AMINATA LEA. REFERRAL TO:PHYSICAL THERAPY INNOVATIVEPHYSICAL THERAPIST REASON:1 TIME A WEEK X6 WEEKS FOR LEFT-SIDED NECK PAIN, ESTABLISH HOME STRETCHING EXERCISES, EVALUATE FOR TENS THERAPY FOR HOME PROCEDURE CODES [id number] ESTABILISHED PATIENT [facility] CHARGE DISPOSITION & COMMUNICATION FOLLOW UP 6 WEEKS (REASON: LEFT NECK PAIN, FOLLOW-UP ON PHYSICAL THERAPY) ELECTRONICALLY SIGNED BY ROSA MARIA OSEGUERA ON 01/21/2021 AT 12:47 PM EDT DISCLAIMER : THIS IS A VISIT SUMMARY EXTRACTED FROM THE [employer] CHART. IT IS NOT A COPY OF THE [employer] PROGRESS NOTE. TARUN
== END ==
LOC: M PAIN 11:30
PROVIDERS: ATTEND Nurse Practitioner Family
DX: M79.18 Myalgia, other site (principal); E78.00 Pure hypercholesterolemia, unspecified; M54.2 Cervicalgia; K58.9 Irritable bowel syndrome, unspecified; E55.9 Vitamin D deficiency, unspecified; M81.0 Age-related osteoporosis without current pathological fracture; F41.9 Anxiety disorder, unspecified; Z79.82 Long term (current) use of aspirin; Z79.899 Other long term (current) drug therapy; Z88.0 Allergy status to penicillin; Z88.8 Allergy status to other drugs, medicaments and biological substances

== ENCOUNTER → 2021-02-14 | Outpatient (CLI) | payer MEDICARE, OTHER ==
--- NOTE | 2021-02-20 03:52 | ECWPNPC ---
PATIENT NAME: AUGUSTINE SANTOYO : 1950 GENDER: FEMALE VISIT DATE: 02/14/2021 DISCHARGE DATE: 02/14/21 1450 VISIT LOCKED DATE TIME: PHYSICIAN: ALLY MEDINA RESOURCE: ALLY MEDINA REASON FOR APPOINTMENT 1. WANTS TPI HISTORY OF PRESENT ILLNESS GENERAL: HERE FOR FOLLOW-UP OF PERSISTENT LEFT NECK PAIN. CONTINUES TO HAVE LEFT NECK PAIN THAT RADIATES INTO LEFT-SIDED HEADACHE. CANNOT TOLERATE MUSCLE RELAXANT MEDICATIONS THAT HAVE BEEN TRIED RECENTLY BY PRIMARY CARE. USING VOLTAREN GEL TO THE LEFT NECK THAT IS HELPING. PATIENT WOULD LIKE TO TRY TRIGGER POINT INJECTIONS AFTER DISCUSSING POTENTIAL RISKS THAT WE DISCUSSED TODAY. SHE ATTENDED PHYSICAL THERAPY FOR A SHORT TIME OVER THE PAST 6 WEEKS THAT WAS ONLY SOMEWHAT HELPFUL. -. FALL RISK SCREENING: SCREENING : NO FALLS REPORTED IN THE LAST YEAR. PAIN SCREENING: PATIENT HAS A COMPLAINT OF ACUTE OR CHRONIC PAIN :YES LOCATION OF PAIN:NECK LEFT INTENSITY OF PAIN (SCALE OF 1 TO 10):2 WHAT DOES YOUR PAIN FEEL LIKE:INTERMITTENT, THROBBING, SORE DURATION:INTERMITTENT PAIN IS INCREASED BY:OTHERS HEADACHE PAIN IS DECREASED BY:OTHERS ALEVE NURSING NOTE: -. PAIN CENTER INTAKE QUESTIONS: DO YOU HAVE A HISTORY OF MRSA? :NO DO YOU TAKE A BLOOD THINNERS? :NO BABY ASPRIN DO YOU HAVE ANY BLEEDING DISORDERS? :NO ANY NEW NUMBNESS OR WEAKNESS IN YOUR LEGS OR ARMS? :NO ANY PACEMAKER,DEFIBRILLATOR, OR DORSAL COLUMN STIMULATOR? :NO DO YOU HAVE ANY RASHES OR OPEN SORES? :NO ARE YOU ALLERGIC TO IV DYE? :NO ARE YOU DIABETIC? :NO ANY NEW PROBLEMS WITH YOUR MEDICATIONS? :NO HAVE YOU RECEIVED A VACCINE IN THE PAST 30 DAYS? :NO DO YOU PLAN TO RECEIVE A VACCINE IN THE NEXT 21 DAYS? :NO DO YOU NEED ANY PRESCRIPTION? :NO DO YOU TAKE ANY IMMUNOSUPPRESSIVE MEDICATIONS? :NO CURRENT MEDICATIONS TAKING VITAMIN D 06495 U CAPSULE 1 CAPSULE ORALLY ONCE A WK. TAKING AMITIZA 24 MCG CAPSULE 1 CAPSULE WITH FOOD ORALLY TWICE A DAY TAKING LINZESS 290 MCG CAPSULE 1 CAPSULE ORALLY ONCE A DAY TAKING ASPIRIN 81 81 MG TABLET DELAYED RELEASE 1 TABLET ORALLY ONCE A DAY TAKING ATORVASTATIN CALCIUM 10 MG TABLET 1 TABLET ORALLY ONCE A DAY TAKING ALEVE 220 MG TABLET 1 TABLET WITH FOOD OR MILK NEEDED ORALLY EVERY 12 HRS TAKING POTASSIUM 20MG 1 TAB ORAL TWICE A DAY NOT-TAKING LODOXAMIDE TROMETHAMINE 0.1 % SOLUTION 1 DROP INTO AFFECTED EYE OPHTHALMIC FOUR TIMES A DAY NOT-TAKING ZOCOR 10 10 MG TABLET 1 TAB(S) ORAL ONCE A DAY NOT-TAKING IBUPROFEN 800 MG TABLET 1 TABLET WITH FOOD OR MILK NEEDED ORALLY THREE TIMES A DAY NOT-TAKING PROLIA 60 MG/ML SOLUTION 1 ML SUBCUTANEOUS Q6M NOT-TAKING EUFLEXXA 20 MG/2ML SOLUTION PREFILLED SYRINGE 2 ML INTRA-ARTICULAR NOT-TAKING TIZANIDINE HCL 4 MG TABLET 1 TABLET NEEDED ORALLY THREE TIMES A DAY NOT-TAKING SIMVASTATIN 10 MG TABLET 1 TABLET IN THE EVENING ORALLY ONCE A DAY MEDICATION LIST REVIEWED AND RECONCILED WITH THE PATIENT PAST MEDICAL HISTORY POSTMENOPAUSE HIGH CHOLESTEROL IBS VIT D DEFICIENCY ALLERGIES HX ENDOMETRIOSIS/DUB OSTEOPOROSIS ON PROLIA DISABLED DUE TO BACK INJURY ENTHESSOPATHY OF HIP REGION PURE HYPERCHOLESTEROLEMIA IBM ANXIETY TUBERCULOSIS HEADACHE 2ND COVID 09/26/2020 ALLERGIES PENICILLIN: RASH - SIDE EFFECTS - ONSET DATE 08/10/2013 PREDNISONE: HIVES - SIDE EFFECTS - ONSET DATE 04/05/2020 SOCIAL HISTORY GENERAL: TOBACCO USE ARE YOU A:: NEVER SMOKER. LATEX QUESTIONNAIRE LATEX ALLERGY : HAVE YOU EVER DEVELOPED ANY TYPE OF REACTION AFTER HANDLING LATEX PRODUCTS SUCH RUBBER GLOVES, CONDOMS, DIAPHRAGMS, BALLOONS, SOCKS, OR UNDERWEAR?NO LATEX ALLERGY : HAVE YOU EVER DEVELOPED ANY TYPE OF REACTION DURING OR AFTER DENTAL APPOINTMENT, VAGINAL/RECTAL EXAMINATION, SURGICAL PROCEDURE, OR ANY OTHER EXPOSURE?NO LATEX RISK : HAVE YOU EVER HAD ANY DIFFICULTY BREATHING OR HIVES AFTER EATING OR HANDLING ANY FRUITS, OR VEGETABLES; SUCH KIWI, BANANAS, STONE FRUITS, OR CHESTNUTSNO LATEX RISK : DO YOU HAVE A PREVIOUS PERSONAL HISTORY OF MORE THAN NINE SURGERIES, SPINA BIFIDA, OR REPEATED CATHERIZATIONS? NO LATEX RISK : ARE YOU FREQUENTLY EXPOSED TO LATEX PRODUCTS IN YOUR OCCUPATION?NO DATE ASKED : 02/14/2021 ALCOHOL USE: NO. RECREATIONAL DRUG USE DENIES. CAFFEINE NONE. LANGUAGE LANGUAGES SPOKEN:LIBERIAN LEARNING BARRIERS / SPECIAL NEEDS BARRIERS TO LEARNING?NO HEARING IMPAIRED?NO VISION IMPAIRED?YES :CORRECTIVE LENSES COGNITIVELY IMPAIRED?NO READINESS TO LEARN?YES LEARNING PREFERENCES?NO LEARNING CAPABILITIES PRESENT?YES EMOTIONAL BARRIERS?NO SPECIAL DEVICES?NO CHEMICAL CELL CHANGER NEEDED?NO DOMESTIC VIOLENCE DENIES, 11/02/14 HITS=N/A, NO PARTNER. 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 EXERCISE: GOES TO [employer], ALSO WALKS. MARITAL STATUS: SINGLE. OTHERS AT HOME: LIVES WITH MOTHER. HOUSING: OWNS HOME. REVIEW OF SYSTEMS CONSTITUTIONAL: ANY RECENT FEVER NO . CHILLS NO . WEIGHT CHANGE OF UNKNOWN REASONS NO . GASTROENTEROLOGY: NEW UNEXPLAINABLE CHANGES IN BOWEL CONTROL NO . CONSTIPATION NO . GENITOURINARY: ANY NEW CHANGE IN BLADDER CONTROL? NO . NEUROLOGY: NEW ONSET DIZZINESS OR NEUROLOGICAL CHANGES NOT MENTIONED NO . NEW NUMBNESS OR PAIN PATTERNS NOT MENTIONED AND PERTINENT TO TODAY'S VISIT NO . CARDIOLOGY: NEW CHEST PRESSURE NO . PATIENT DENIES NO . RESPIRATORY: UNEXPLAINABLE COUGH NO . NEW SHORTNESS OF BREATH NO . VITAL SIGNS WT 97.4 LBS, HT 61 IN, BMI 18.40 INDEX, BP 116/65 MM HG, HR 66 /MIN, RR 18 /MIN, TEMP 97.0 F, OXYGEN SAT % 97%, SAFE IN ENV? (Y/N) YES, NA INITIALS AW 1412T.HEMA YEBOAH EXAMINATION GENERAL EXAMINATION: GENERALNO ACUTE DISTRESS, WELL NOURISHED AND HYDRATED. PSYCHAPPROPRIATE MOOD AND AFFECT . LUNGS:CLEAR TO AUSCULTATION BILATERALLY, NO WHEEZES, RHONCHI, RALES. HEART:NO MURMURS, REGULAR RATE AND RHYTHM. MUSCULOSKELETAL: TRIGGER POINTS: NOTED OVER LEFT TRAPEZIUS/SCAPULAR REGION.. ASSESSMENTS MYALGIA, OTHER SITE - M79.18 (PRIMARY) TREATMENT MYALGIA, OTHER SITE NOTES: TRIGGER POINT INJECTIONS LEFT NECK, LEFT SHOULDER, LEFT THORACIC PRINTED AND REVIEWED PRE PROCEDURE INFORMATION, PATIENT VERBALIZED UNDERSTANDING AMINATA YEBOAH PROCEDURE CODES FA211 ESTABILISHED PATIENT [facility] FACILITY CHARGE DISPOSITION & COMMUNICATION FOLLOW UP POSTPROCEDURE (REASON: TRIGGER POINT INJECTIONS LEFT NECK, LEFT SHOULDER, LEFT THORACIC) ELECTRONICALLY SIGNED BY ROSA MARIA OSEGUERA ON 02/19/2021 AT 03:32 PM EDT DISCLAIMER : THIS IS A VISIT SUMMARY EXTRACTED FROM THE [employer] CHART. IT IS NOT A COPY OF THE [employer] PROGRESS NOTE. TARUN
== END ==
LOC: M PAIN 14:00
PROVIDERS: ATTEND Nurse Practitioner Family
DX: M79.18 Myalgia, other site (principal); E78.00 Pure hypercholesterolemia, unspecified; K58.9 Irritable bowel syndrome, unspecified; E55.9 Vitamin D deficiency, unspecified; M81.0 Age-related osteoporosis without current pathological fracture; F41.9 Anxiety disorder, unspecified; Z79.899 Other long term (current) drug therapy; Z79.82 Long term (current) use of aspirin; Z88.0 Allergy status to penicillin; Z88.8 Allergy status to other drugs, medicaments and biological substances

== ENCOUNTER → 2021-02-23 | Outpatient (CLI) | payer MEDICARE, OTHER | LOC: M LABSMTC 09:15 | PROVIDERS: ATTEND Anesthesiology | DX: Z01.812 Encounter for preprocedural laboratory examination (principal); Z20.822 Contact with and (suspected) exposure to COVID-19 ==

== ENCOUNTER → 2021-02-28 | Outpatient (CLI) | payer MEDICARE, OTHER ==
[~2021-02-28] MED LIST changes: +BUPIVACAINE HCL 0.25% 10ML VIAL As Ordered ONE; +BUPIVACAINE HCL 0.25% 30ML VIAL As Ordered ONE
--- NOTE | 2021-03-06 01:16 | ECWPNPC ---
PATIENT NAME: AUGUSTINE SANTOYO : 1950 GENDER: FEMALE VISIT DATE: 02/28/2021 DISCHARGE DATE: 02/28/21 1457 VISIT LOCKED DATE TIME: PHYSICIAN: BELTRAN GALINDO MD RESOURCE: BELTRAN GALINDO MD REASON FOR APPOINTMENT 1. TRIGGER POINT INJECTIONS LEFT NECK, LEFT SHOULDER, LEFT THORACIC HISTORY OF PRESENT ILLNESS GENERAL: -. FALL RISK SCREENING: SCREENING : NO FALLS REPORTED IN THE LAST YEAR. PAIN SCREENING: PATIENT HAS A COMPLAINT OF ACUTE OR CHRONIC PAIN :YES LOCATION OF PAIN:LEFT SHOULDER INTENSITY OF PAIN (SCALE OF 1 TO 10):5 WHAT DOES YOUR PAIN FEEL LIKE:ACHING DURATION:INTERMITTENT PAIN IS INCREASED BY: COLD WEATHER PAIN IS DECREASED BY:USE OF PAIN MEDICATIONS NURSING NOTE: PT SHOWED UP TO PROCEDURE APPOINTMENT DRINKING TEA. PT REPORTS LAST TIME SHE ATE WAS 8:[address] GALINDO IS AWARE AND TO PROCEED WITH PROCEDURE. NO STEROIDS WERE USED TODAY. EM. PAIN CENTER INTAKE QUESTIONS: DO YOU HAVE A HISTORY OF MRSA? :NO DO YOU TAKE A BLOOD THINNERS? :NO DO YOU HAVE ANY BLEEDING DISORDERS? :NO ANY NEW NUMBNESS OR WEAKNESS IN YOUR LEGS OR ARMS? :NO ANY PACEMAKER,DEFIBRILLATOR, OR DORSAL COLUMN STIMULATOR? :NO DO YOU HAVE ANY RASHES OR OPEN SORES? :NO ARE YOU ALLERGIC TO IV DYE? :NO ARE YOU DIABETIC? :NO ANY NEW PROBLEMS WITH YOUR MEDICATIONS? :NO HAVE YOU RECEIVED A VACCINE IN THE PAST 30 DAYS? :NO DO YOU PLAN TO RECEIVE A VACCINE IN THE NEXT 21 DAYS? :NO DO YOU TAKE ANY IMMUNOSUPPRESSIVE MEDICATIONS? :NO ANY HISTORY OF SEIZURES? :NO ANY HISTORY OF CARDIAC ISSUES OR EVENTS? :NO DO YOU HAVE ANY KIDNEY OR LIVER DISEASE? :NO DO YOU HAVE SLEEP APNEA? :NO ANY RECENT HEAD INJURY? :NO DO YOU HAVE ANY NEW INFECTIONS? :NO IS THERE A CHANCE YOU COULD BE ? :NO ARE YOU BREAST FEEDING? :NO WHEN DID YOU LAST EAT? : 02/28/21829 WHEN DID YOU LAST DRINK? : 02/28/21 NOW WHAT DID YOU LAST DRINK? : CLEAR TEA NAME OF PERSON DRIVING YOU HOME? : [employer] DO YOU HAVE ANY OTHER QUESTIONS OR CONCERNS? : - CURRENT MEDICATIONS TAKING VITAMIN D 10419 U CAPSULE 1 CAPSULE ORALLY ONCE A WK. TAKING AMITIZA 24 MCG CAPSULE 1 CAPSULE WITH FOOD ORALLY TWICE A DAY TAKING LINZESS 290 MCG CAPSULE 1 CAPSULE ORALLY ONCE A DAY TAKING ASPIRIN 81 81 MG TABLET DELAYED RELEASE 1 TABLET ORALLY ONCE A DAY TAKING ATORVASTATIN CALCIUM 10 MG TABLET 1 TABLET ORALLY ONCE A DAY TAKING ALEVE 220 MG TABLET 1 TABLET WITH FOOD OR MILK NEEDED ORALLY EVERY 12 HRS TAKING POTASSIUM 20MG 1 TAB ORAL TWICE A DAY, NOTES: CHANGED TO DAILY NOT-TAKING LODOXAMIDE TROMETHAMINE 0.1 % SOLUTION 1 DROP INTO AFFECTED EYE OPHTHALMIC FOUR TIMES A DAY NOT-TAKING ZOCOR 10 10 MG TABLET 1 TAB(S) ORAL ONCE A DAY NOT-TAKING IBUPROFEN 800 MG TABLET 1 TABLET WITH FOOD OR MILK NEEDED ORALLY THREE TIMES A DAY NOT-TAKING PROLIA 60 MG/ML SOLUTION 1 ML SUBCUTANEOUS Q6M NOT-TAKING EUFLEXXA 20 MG/2ML SOLUTION PREFILLED SYRINGE 2 ML INTRA-ARTICULAR NOT-TAKING TIZANIDINE HCL 4 MG TABLET 1 TABLET NEEDED ORALLY THREE TIMES A DAY NOT-TAKING SIMVASTATIN 10 MG TABLET 1 TABLET IN THE EVENING ORALLY ONCE A DAY MEDICATION LIST REVIEWED AND RECONCILED WITH THE PATIENT PAST MEDICAL HISTORY POSTMENOPAUSE HIGH CHOLESTEROL IBS VIT D DEFICIENCY ALLERGIES HX ENDOMETRIOSIS/DUB OSTEOPOROSIS ON PROLIA DISABLED DUE TO BACK INJURY ENTHESSOPATHY OF HIP REGION PURE HYPERCHOLESTEROLEMIA IBM ANXIETY TUBERCULOSIS HEADACHE 2ND COVID 09/26/2020 ALLERGIES PENICILLIN: RASH - SIDE EFFECTS - ONSET DATE 08/10/2013 PREDNISONE: HIVES - SIDE EFFECTS - ONSET DATE 04/05/2020 SOCIAL HISTORY GENERAL: TOBACCO USE ARE YOU A:: NEVER SMOKER. LATEX QUESTIONNAIRE LATEX ALLERGY : HAVE YOU EVER DEVELOPED ANY TYPE OF REACTION AFTER HANDLING LATEX PRODUCTS SUCH RUBBER GLOVES, CONDOMS, DIAPHRAGMS, BALLOONS, SOCKS, OR UNDERWEAR?NO LATEX ALLERGY : HAVE YOU EVER DEVELOPED ANY TYPE OF REACTION DURING OR AFTER DENTAL APPOINTMENT, VAGINAL/RECTAL EXAMINATION, SURGICAL PROCEDURE, OR ANY OTHER EXPOSURE?NO LATEX RISK : HAVE YOU EVER HAD ANY DIFFICULTY BREATHING OR HIVES AFTER EATING OR HANDLING ANY FRUITS, OR VEGETABLES; SUCH KIWI, BANANAS, STONE FRUITS, OR CHESTNUTSNO LATEX RISK : DO YOU HAVE A PREVIOUS PERSONAL HISTORY OF MORE THAN NINE SURGERIES, SPINA BIFIDA, OR REPEATED CATHERIZATIONS? NO LATEX RISK : ARE YOU FREQUENTLY EXPOSED TO LATEX PRODUCTS IN YOUR OCCUPATION?NO DATE ASKED : 02/14/2021 ALCOHOL USE: NO. RECREATIONAL DRUG USE DENIES. CAFFEINE NONE. LANGUAGE LANGUAGES SPOKEN:MEXICAN LEARNING BARRIERS / SPECIAL NEEDS BARRIERS TO LEARNING?NO HEARING IMPAIRED?NO VISION IMPAIRED?YES :CORRECTIVE LENSES COGNITIVELY IMPAIRED?NO READINESS TO LEARN?YES LEARNING PREFERENCES?NO LEARNING CAPABILITIES PRESENT?YES EMOTIONAL BARRIERS?NO SPECIAL DEVICES?NO DELI MANAGER NEEDED?NO DOMESTIC VIOLENCE DENIES, 11/02/14 HITS=N/A, NO PARTNER. 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 EXERCISE: GOES TO [facility], ALSO WALKS. MARITAL STATUS: SINGLE. OTHERS AT HOME: LIVES WITH MOTHER. HOUSING: OWNS HOME. VITAL SIGNS WT 97.0 LBS, WT-KG 44 KG, HT 61 IN, BMI 18.40 INDEX, BP 140/63 MM HG, HR 68 /MIN, RR 18 /MIN, TEMP 97.0 F, OXYGEN SAT % 97%, SAFE IN ENV? (Y/N) Y, NA INITIALS AW 1411, REVIEWED BY: TACO. EXAMINATION GENERAL: A HISTORY AND PHYSICAL EXAM ON THE PATIENT WAS DONE ON 02/14/2021(DATE OF ORIGINAL ASSESSMENT) IN PREPARATION OF SURGERY/PROCEDURE. I HAVE NOW REASSESSED THIS PATIENT'S HEALTH STATUS AND PERFORMED AN UPDATED EXAM TODAY. ALL CHANGES IN THE PATIENT'S HISTORY, PHYSICAL EXAM, PRE-EXISTING CONDITONS, AND INDICATIONS/CONTRAINDICATIONS TO THE PLANNED PROCEDURE AND ANESTHESIA ARE DOCUMENTED AND EVALUATED BELOW. I ATTEST TO THE ADEQUACY AND APPROPRIATENESS OF MY ASSESSMENT, AND CONFIRM THE NECESSITY FOR THE PLANNED PROCEDURE. THE PATIENT IS ALERT, ORIENTED TIMES THREE AND COOPERATIVE. LUNGS ARE CLEAR TO AUSCULTATION. HEART SHOWS REGULAR RHYTHM, NO MURMURS AND NO GALLOPS. ASSESSMENTS MYALGIA, UNSPECIFIED SITE - M79.10 (PRIMARY) TREATMENT MYALGIA, UNSPECIFIED SITE COMPLETION OF PROCEDURAL VISIT WHEN MEETS [id number],ELIZABETH 02/28/2021 3:00:07 PM > CRITERIA MET PROCEDURES PAIN NURSING RECORD PROCEDURE IN ROOM 1410, PHYSICIAN IN ROOM 1441, START 1445, FINISH 1448, PHYSICIAN OUT OF ROOM 1449, OUT OF ROOM 1455, ECG N/A, PATIENT SHIELDED N/A, SAFETY STRAP N/A, PREP ALCOHOL DR. GALINDO, DRESSING ALVARO CUNNINGHAM RN LOC: 1. ALERT, ORIENTEDOCTAVIO ELIZABETH 02/28/2021 2:46:02 PM > RESP: 1. REGULAR, NO DYSPNEA, ALINE CUNNINGHAM 02/28/2021 2:46:07 PM > COLOR: 1. PINK, ALINE CUNNINGHAM 02/28/2021 2:46:11 PM > SKIN: 1. WARM, DRY, ALINE CUNNINGHAM 02/28/2021 2:46:14 PM > POSITION: 5. SITTING, ALINE CUNNINGHAM 02/28/2021 2:46:19 PM > VITALS: 118/67, 59, 16, 100%, ALINE CUNNINGHAM 02/28/2021 2:50:10 PM > NOTES Aleshia CUNNINGHAM RN, SORAIDA CUNNINGHAMBETH 02/28/2021 2:46:25 PM > COMPLETION OF PROCEDURE APPOINTMENT: POST PAIN 0 , DRESSING SITE DRY AND INTACT , IV N/A , GAIT STEADY , TEACHING COMPLETED, PATIENT ACKNOWLEDGES UNDERSTANDING YES , PROCEDURE APPOINTMENT COMPLETED AT 1255 PN TRIGGER POINT INJECTION NO STEROIDS PRE PROCEDURE DIAGNOSIS 1. MYALGIA 2. PAIN AT LEFT NECK AREA, LEFT SHOULDER AREA AND LEFT THORACIC AREA POST PROCEDURE DIAGNOSIS 1. MYALGIA 2. PAIN AT LEFT NECK AREA, LEFT SHOULDER AREA AND LEFT THORACIC AREA PROCEDURE TRIGGER POINT INJECTION AT LEFT NECK AREA, LEFT SHOULDER AREA AND LEFT THORACIC AREA SURGEON DR. BELTRAN GALINDO COMPOSITION FLOOR SETTER NONE ANESTHESIA LOCAL PRE PROCEDURE NOTE PATIENT WITH HISTORY OF CHRONIC PAIN AT LEFT NECK AREA, LEFT SHOULDER AREA AND LEFT THORACIC AREA. I EVALUATED THE PATIENT AND REVIEWED THE CHART. THERE IS EVIDENCE OF BANDS OF TISSUE WITH RESTRICTION OF MOVEMENT AND PRESENCE OF TRIGGER POINT AT THE LEFT NECK AREA, LEFT SHOULDER AREA AND LEFT THORACIC AREA. I WENT OVER THE RISKS, ALTERNATIVES, AND BENEFITS ASSOCIATED WITH THIS PROCEDURE. THE PATIENT WOULD LIKE TO PROCEED AND GAVE CONSENT TO PERFORM THE PROCEDURE. THE PATIENT DENIES UNEXPLAINABLE WEIGHT LOSS, FEVER, CHILLS, OR NEW CHANGES IN URINARY OR BOWEL CONTROL. THE PATIENT IS COVID-19 NEGATIVE DESCRIPTION OF PROCEDURE THE PATIENT WAS BROUGHT TO THE PROCEDURE ROOM AND PLACED IN THE SITTING POSITION. THE AREA WAS CLEANED WITH ALCOHOL. THE PROCEDURE WAS DONE USING ASEPTIC STERILE TECHNIQUES. A TIMEOUT WAS PERFORMED WHERE THE CONSENTED SITE WAS VERIFIED WITH EVERYONE IN THE ROOM. USING A 25-GAUGE NEEDLE, TRIGGER POINTS WERE INJECTED INTO THE LEFT NECK AREA, LEFT SHOULDER AREA AND LEFT THORACIC AREA WITH A TOTAL OF 40 ML OF BUPIVACAINE 0.25%. AGREED WITH THE PATIENT THE PROCEDURE WAS DONE WITHOUT STEROIDS. THERE WAS NO EVIDENCE OF BLOOD, PARESTHESIA OR CEREBROSPINAL FLUID DURING THE PROCEDURE. THE PATIENT WAS SENT TO THE RECOVERY ROOM. THE PATIENT WAS MOVING THE EXTREMITIES AND DOING WELL. THERE WAS NO COMPLICATION DURING THE PROCEDURE. EBL LESS THAN 5 ML. POST PROCEDURE NOTE THE PROCEDURE DONE WAS DISCUSSED WITH THE PATIENT. THE PATIENT WILL BE SEEN IN A FOLLOW UP IN THE NEXT FEW WEEKS. I AM LOOKING FOR LONG LASTING PAIN RELIEF FOR THE PATIENT WITH THIS INTERVENTION. INSTRUCTIONS WERE GIVEN, QUESTIONS WERE ANSWERED, AND THE PATIENT EXPRESSED UNDERSTANDING AND AGREES WITH THE PLAN. I, [employer], DOCUMENTED THE ABOVE INFORMATION ACTING A SCRIBE FOR DR. GALINDO. 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 IT IS NOT A COPY OF THE [employer] PROGRESS NOTE. TARUN
== END ==
LOC: M PAIN 14:00
PROVIDERS: ATTEND Anesthesiology
DX: M79.18 Myalgia, other site (principal); E78.00 Pure hypercholesterolemia, unspecified; K58.9 Irritable bowel syndrome, unspecified; E55.9 Vitamin D deficiency, unspecified; M81.0 Age-related osteoporosis without current pathological fracture; F41.9 Anxiety disorder, unspecified; Z79.899 Other long term (current) drug therapy; Z79.82 Long term (current) use of aspirin; Z88.0 Allergy status to penicillin; Z88.8 Allergy status to other drugs, medicaments and biological substances

== ENCOUNTER → 2021-04-15 | Outpatient (REF) | payer MEDICARE, OTHER ==
[~2021-04-15] MED LIST changes: -BUPIVACAINE HCL 0.25% 10ML VIAL As Ordered ONE; -BUPIVACAINE HCL 0.25% 30ML VIAL As Ordered ONE; -KLOR20TA42 PO; +POTA-141 PO
== END ==
LOC: M LAB REF 16:21
PROVIDERS: ATTEND Nurse Practitioner Adult Health
DX: R30.0 Dysuria (principal)

== ENCOUNTER → 2021-04-19 | Outpatient (CLI) | payer MEDICARE, OTHER | LOC: M PAIN 14:30 | PROVIDERS: ATTEND Anesthesiology | DX: M54.81 Occipital neuralgia (principal); M43.02 Spondylolysis, cervical region; M47.812 Spondylosis without myelopathy or radiculopathy, cervical region; G89.29 Other chronic pain; E55.9 Vitamin D deficiency, unspecified; Z86.59 Personal history of other mental and behavioral disorders; Z88.0 Allergy status to penicillin; Z88.8 Allergy status to other drugs, medicaments and biological substances; Z79.82 Long term (current) use of aspirin; Z79.899 Other long term (current) drug therapy ==

== ENCOUNTER → 2021-04-25 | Outpatient (CLI) | payer MEDICARE, OTHER ==
--- NOTE | 2021-04-25 14:29 | REP ---
INDICATION: CHRONIC SINUSITIS, HEADACHES. COMPARISON: None. TECHNIQUE: Five views of the paranasal sinuses. FINDINGS: The maxillary sinuses are clear. There is no evidence of ethmoid or sphenoid sinus opacification. Mastoid aeration is normal and symmetric. The frontal sinuses are quite small but appear clear. Bony orbital and paranasal sinus margins are intact. Nasopharynx and hypopharynx are unremarkable. There are degenerative disc changes in the cervical spine. IMPRESSION: No radiographic evidence of paranasal sinusitis. <Electronically signed by Hussain Keys > 04/25/21 1865
== END ==
LOC: M WUC 11:48
PROVIDERS: ATTEND Internal Medicine
DX: J32.9 Chronic sinusitis, unspecified (principal); R51.9 Headache, unspecified

== ENCOUNTER → 2021-05-10 | Outpatient (REF) | payer MEDICARE, OTHER | LOC: M WUC 15:49 | PROVIDERS: ATTEND Physician Assistant | DX: R30.0 Dysuria (principal) ==

== ENCOUNTER 2021-05-19 11:48 | Emergency (ER) | payer MEDICARE, OTHER ==
[~2021-05-19] VITALS: Ht 154.9 cm; Wt 44.5 kg
[2021-05-19] MEDS ORDERED: K-TA10TA PO (11:55)
[2021-05-19] MEDS ORDERED: ECOT81TA5 PO (11:55)
--- OUTSIDE RECORDS SUMMARY | 2021-05-19 11:59 | CCD | Continuity of Care Document ---
Author Author Dori KENYON [facility] Unknown Address [address] [place] [address] Phone [phone] Care Team Providers Care Rand Cementer Name Role Phone Zia Villanueva MD AUTM [phone] Salazar Parkeri AUTM [phone] Huong Perla M.D. AUTM [phone] Problems Description No Information Available Social History Type Date Description Comments Sex Unknown ETOH Use Denies alcohol use Tobacco Use Start: Unknown Patient has never smoked Tobacco Use Start: Unknown The Patient Has Never Vaped Smoking Status Reviewed: 05/10/21 The Patient Has Never Vaped Allergies and adverse reactions Active Allergies Criticality Reaction | Severity Comments Date Penicillins Unable to assess criticality 10/03/2008 Aspirin Unable to assess criticality 10/03/2008 Medications Active Medications SIG Qnty Indications Ordering Provide r Date Ondansetron 4mg Tablets Dispers dissolve 1 tablet in mouth every 8 hours as needed for nausea 14tabs R10.84 Zia Villanueva JR., M.D. 05/10/2021 Cephalexin 250mg Capsules take one capsule every 12 hours for 5 days 10caps Zia Villanueva JR., M.D. 05/10/2021 Amitiza 24mcg Capsules bid Unknown Vitamin D 2000Unit Tablets 2x weekly Unknown Potassium Chloride Talia ER 10Meq Tablets ER 20meg 3 times a day Unknown 00 Gas-X 80mg Chewtabs Unknown Atorvastatin Calcium 10mg Tablets Unknown Cequa 0.09% Solution Unknown Inveltys 1% Suspension Instill 1 Drop In The Left Eye Two Times A Day Unknown Linzess 290mcg Capsules Take One Capsule By Mouth Daily Unknown Omeprazole Unknown Spironolactone 25mg Tablets Unknown History Medications Doxycycline Monohydrate 100mg Tabl ets 1 tab by mouth twice a day for 10 days 20tabs J01.10 Zia Villanueva JR., M.D. 04/05/2021 - 05/09/2021 Rzozlctw-Fswrqnfyb-HY 1% Solution instill 4 drops to affected ear three times per day for seven days (both ears) 10ml Zia Villanueva JR., M.D. 04/05/2021 - 05/09/2021 Phenazopyridine HCL 200mg Tablets take one tab by mouth three times a day x 2 days 6tabs R30.0 Zia Villanueva JR., M.D. 11/13/2020 - 11/30/2020 Immunizations CPT Code Status Date Vaccine Lot # [id number] Given 10/16/2018 Tetanus (Td) Vaccine 7 Yrs> Vital Signs Date Vital Result Comment 05/10/2021 12:13pm BP Systolic 126 mmHg BP Diastolic 77 mmHg Heart Rate 93 /min Respiratory Rate 16 /min O2 % BldC Oximetry 96 % Body Temperature 97.5 F Weight 94.00 lb Height 61 inches 5'1" BMI (Body Mass Index) 17.8 kg/m2 Pain Level 5 04/05/2021 7:25pm BP Systolic 113 mmHg BP Diastolic 71 mmHg Heart Rate 59 /min Respiratory Rate 18 /min O2 % BldC Oximetry 98 % Body Temperature 97.9 F Weight 94.00 lb Height 61 inches 5'1" BMI (Body Mass Index) 17.8 kg/m2 Pain Level 6 Results Test Acquired Date Facility Test Result H/L Range Note Laboratory test finding 05/10/2021 [facility] [address] [place] [address] [phone] Urine Culture <pending> Laboratory test finding 12/25/2020 [facility] [address] [place], [place] [address] [phone] Urine Culture FULL REPORT IN L <SEE NOTE> Normal 1 Laboratory test finding 11/13/2020 [facility] [address] [place] [address] [phone] Urine Culture FULL REPORT IN L <SEE NOTE> Normal 2 1 FULL REPORT IN LAB NOTES ([facility] and [facility]). NO GROWTH CLINICAL SIGNIFICANCE 2 OR MORE ORGANISMS 2 FULL REPORT IN LAB NOTES ([facility] and [facility]). NO GROWTH CLINICAL SIGNIFICANCE 2 OR MORE ORGANISMS Procedures Date Code Description Status 05/10/2021 29217 Office/Outpatient Established Lo w MDM 20-29 Min Completed 04/05/2021 81168 Office/Outpatient Established Lo w MDM 20-29 Min Completed 12/25/2020 98693 Office/Outpatient Established Lo w MDM 20-29 Min Completed 11/30/2020 16992 Office/Outpatient Established Mo d MDM 30-39 Min Completed 11/13/2020 16459 Office/Outpatient Established Lo w MDM 20-29 Min Completed Medical Devices Description No Information Available Encounters Type Date Location Provider Dx Diagnosis Office Visit 05/10/2021 10:55a Main Office JUVENAL Johnson R10 .84 Generalized abdominal pain R30.0 Dysuria Office Visit 04/05/2021 6:55p Main Office JUVENAL Johnson H60 .313 Diffuse otitis externa, bilateral J06.9 Acute upper respiratory infe ction, unspecified Z20.828 Contact w and exposure to ot h viral communicable diseases Office Visit 12/25/2020 6:10p Main Office Marlen Mendoza, LYDIA R30. 0 Dysuria Office Visit 11/30/2020 3:35p Main Office JUVENAL Johnson R10 .84 Generalized abdominal pain Office Visit 11/13/2020 11:50a Main Office JUVENAL Johnson R30 .0 Dysuria Assessments Date Code Description Provider 05/10/2021 R10.84 Generalized abdominal pain [place] JUVENAL Bowden 05/10/2021 R30.0 Dysuria JUVENAL Hylton 04/05/2021 H60.313 Diffuse otitis externa, bilatera l JUVENAL Johnson 04/05/2021 J06.9 Acute upper respiratory infectio n, unspecified JUVENAL Johnson 04/05/2021 Z20.828 Contact with and (valadez spected) exposure to other viral communicable diseases JUVENAL Johnson 12/25/2020 R30.0 Dysuria Marlen muhammad NP 11/30/2020 R10.84 Generalized abdominal pain Kennedy JUVENAL Bowden 11/13/2020 R30.0 Dysuria JUVENAL Hylton Plan of Treatment No Information Available Functional Status Description No Information Available Mental Status Description No Information Available Referrals Refer to Reason for Referral Status Appt Date Tim Kenyon PA Created [facility] [address] [place] [address] [phone]
--- OUTSIDE RECORDS SUMMARY | 2021-05-19 11:59 | CCD | Continuity of Care Document ---
Author Author Dori GRIFFITH P.A. 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/17/1999 Enthesopathy of hip region Onset: 2000 Pure hypercholesterolemia Onset: 015 Social History Type Date Description Comments Sex Unknown Cigarette Use Denies Cigarette Use ETOH Use Denies alcohol use Tobacco Use Start: Unknown Patient has never smoked Allergies and adverse reactions Active Allergies Criticality Reaction | Severity Comments Date Penicillin Unable to assess criticality RASH 08/10/2013 Aspirin Unable to assess criticality RASH 08/10/2013 Prednisone Unable to assess criticality pt states is allergic, no systoms reported by patient 04/05/2020 Medications Active Medications SIG Qnty Indications Ordering Provide r Date Gel-One 30mg/3ML Prsy renuka knees MKM/DW 03/11/2021 M17.0 Vinicio Tobin MD 03/11/2021 Tizanidine HCL 4mg Tablets Take 1 Tablet By Mouth Twice Daily as Needed, MDD 2 14tabs Vinciio Tobin MD 04/05/2020 Lidocaine Pain Relief 4% Patches apply patch to affected area for 12 hours no more than two patches daily 10units Vinicio Tobin MD 03/15/2020 Euflexxa 20mg/2ML Soln Prefill Syr seymour renuka knee #1 mkm/ef 06/16/19 renuka knee #2 mkm/ma 07/08/19 renuka knee #3 08/09/2019 mkm/rs Kofi Garza MD 06/16/2019 Amitiza 24mcg Capsules 1 po q d 90caps Unknown Vitamin D (Ergocalciferol) 1.25mg (17727 Ut) Capsules M25.551 Unknown Linzess 290mcg Capsules take one tab by mouth daily, 30 minutes before first meal as needed M25.551 Unknown Immunizations Description No Information Available Vital Signs Date Vital Result Comment 05/02/2021 3:16pm Body Temperature 97.5 F Height 61 inches 5'1" Weight 94.00 lb BMI (Body Mass Index) 17.8 kg/m2 11/02/2018 1:15pm Height 61 inches 5'1" Weight 98.00 lb BMI (Body Mass Index) 18.5 kg/m2 Results Description No Information Available Procedures Date Code Description Status 05/02/2021 24188 Office/Outpatient Established Lo w MDM 20-29 Min Completed 05/02/202157238 Inject/Drain Joint/Bursa Major C ompleted 03/11/2021 31937 Office/Outpatient Established Mo d MDM 30-39 Min Completed 03/11/2021 08778 Inject/Drain Joint/Bursa Major C ompleted 03/11/2021 12831 Inject/Drain Joint/Bursa Major C ompleted 03/11/202117833 Injection Single/Mult Trigger Po int(S) 1 Or 2 Muscle Group(S) Completed 01/16/2021 96604 Office/Outpatient Established Lo w MDM 20-29 Min Completed 01/16/202178201 Inject/Drain Joint/Bursa Major C ompleted Medical Devices Description No Information Available Encounters Type Date Location Provider Dx Diagnosis Office Visit 05/02/2021 3:00p Juan Miguel Griffith PSantoshASantosh M70.61 Trochanteric bursitis, right hip M70.62 Trochanteric bursitis, left hip M17.0 Bilateral primary osteoarthr itis of knee M75.42 Impingement syndrome of left shoulder M79.18 Myalgia, other site Office Visit 03/11/2021 10:00a Belem Mendoza M17.0 Bilateral primary osteoarthritis of knee M75.42 Impingement syndrome of left shoulder M79.18 Myalgia, other site Office Visit 01/16/2021 2:00p Blanch Tim Grifftih, P.A. M70.61 Trochanteric bursitis, right hip M70.62 Trochanteric bursitis, left hip M17.0 Bilateral primary osteoarthr itis of knee Assessments Date Code Description Provider 05/02/2021 M70.61 Trochanteric bursitis, right hip Tim Griffith, P.A. 05/02/2021 M70.62 Trochanteric bursitis, left hip Tim Griffith, P.A. 05/02/2021 M17.0 Bilateral primary osteoarthritis of knee Tim Griffith, P.A. 05/02/2021 M75.42 Impingement syndrome of left mckayla ulder Tim Griffith, P.A. 05/02/2021 M79.18 Myalgia, other site Tim ernandez, P.A. 03/11/2021 M17.0 Bilateral primary osteoarthritis of knee Tim Griffith, P.A. 03/11/2021 M75.42 Impingement syndrome of left mckayla ulder Tim Griffith, P.A. 03/11/2021 M79.18 Myalgia, other site Tim ernandez, P.A. 01/16/2021 M70.61 Trochanteric bursitis, right hip Tim Griffith, P.A. 01/16/2021 M70.62 Trochanteric bursitis, left hip iTm Griffith, P.A. 01/16/2021 M17.0 Bilateral primary osteoarthritis of knee Tim Griffith, P.A. Plan of Treatment 05/02/2021 - Tim Griffith, P.A.* M70.61 Trochanteric bursitis, right hip * M70.62 Trochanteric bursitis, left hip * M17.0 Bilateral primary osteoarthritis of knee* Follow up:* [address] [facility] for renuka hip re-check * M75.42 Impingement syndrome of left shoulder * M79.18 Myalgia, other site Functional Status Description No Information Available Mental Status Description No Information Available Referrals Refer to Reason for Referral Status Appt Date Tim Griffith, PA Physical therapy neck per me dicare no auth req based on medical necessity, per TFL no auth req based on medical necessity, patient is going to ncog passed to pt dept sw. Created [address] [place] [address] [phone] Tim Griffith PA Physical therapy neck per me dicare no auth req based on medical necessity, per TFL no auth req based on medical necessity, patient is going to ncog passed to pt dept sw. Created [address] [place] [address] [phone] Tim Griffith PA 01/17/21 Gel-One Renuka knee, Pe r ins no auth req based on medical necessity,passed to [facility]. Created [facility] [place] [address] [phone]
--- OUTSIDE RECORDS SUMMARY | 2021-05-19 11:59 | CCD | Continuity of Care Document ---
Author Author Dori KENYON [facility] Unknown Address [address] [place] [address] Phone [phone] Care Team Providers Care Steam Heating Installer Name Role Phone Zia Villanueva MD AUTM [phone] Salazar Parkeri AUTM [phone] Huong Perla M.D. AUTM [phone] Problems Description No Information Available Social History [...] Zia Villanueva JR., M.D. 04/05/2021 - 05/09/2021 Xyrrukvp-Tgedikhvz-YF 1% Solution instill 4 drops to affected ear three times per day for seven days (both ears) 10ml Zia Villanueva JR., M.D. 04/05/2021 - 05/09/2021 Phenazopyridine HCL 200mg Tablets take one tab by mouth three times a day x 2 days 6tabs R30.0 Zia Villanueva JR., M.D. 11/13/2020 - 11/30/2020 Immunizations CPT Code Status Date Vaccine Lot # [id number] Given 10/16/2018 Tetanus (Td) Vaccine 7 Yrs> [...] H/L Range Note Laboratory test finding 05/10/2021 [facility] [address] [place] [address] [phone] Urine Culture <pending> Laboratory test finding 12/25/2020 [facility] [address] [place], [place] [address] [phone] Urine Culture FULL REPORT IN L <SEE NOTE> Normal 1 Laboratory test finding 11/13/2020 [facility] [address] [place] [address] [phone] Urine Culture FULL REPORT IN L <SEE NOTE> Normal 2 1 FULL REPORT IN LAB NOTES (eC W and [facility]). NO GROWTH CLINICAL SIGNIFICANCE 2 OR MORE ORGANISMS 2 FULL REPORT IN LAB NOTES (eC W and [facility]). NO GROWTH CLINICAL SIGNIFICANCE 2 OR MORE ORGANISMS Procedures Date Code Description Status 05/10/2021 03502 Office/Outpatient Established Lo w MDM 20-29 Min Completed 04/05/2021 22396 Office/Outpatient Established Lo w MDM 20-29 Min Completed 12/25/2020 05169 Office/Outpatient Established Lo w MDM 20-29 Min Completed 11/30/2020 10918 Office/Outpatient Established Mo d MDM 30-39 Min Completed 11/13/2020 23967 Office/Outpatient Established Lo w MDM 20-29 Min [...] Status Appt Date Tim Kenyon PA Created [facility] [address] [place] [address] [phone]
--- OUTSIDE RECORDS SUMMARY | 2021-05-19 11:59 | CCD ---
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 Active confirmed 422627086 Problem Other chronic pain G89.29 Active confirmed 8 2466461 Problem 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 Active confirmed 683703975 Problem Postmenopausal atrophic vaginitis 627.3 Active con firmed 37070855 Problem Symptomatic menopausal or female climacteric states 627.2 Active confirmed 68071004 Problem Facet arthropathy, cervical M47.812 Active confirme d 821444361 ALLERGIES Allergen (clinical drug ingredient) Drug/Non Drug Allergy do cumented on EMR Reaction Allergy Type Onset Date Status penicillin V Penicillin Rash Drug Allergy 08/10/2013 Active predniSONE Hives Drug Allergy 04/05/2020 Active ENCOUNTERS from 1950 to 2021-05-17 Encounter Location Date Provider Diagnosis [facility] [address] [facility] 3rd Floor [phone] [place] [address] Apr, Raf Wilson IMMUNIZATIONS No Information SOCIAL HISTORY Sex Assigned At : Social History Observation Description Sex Assigned At Unknown Language: Question Answer Notes Languages spoken: Malagasy REASON FOR REFERRAL No Information VITAL SIGNS No information MEDICATIONS Medication SIG (Take, Route, Frequency, Duration) Notes Start Da te End Date Status Zocor 10 10 mg 1 tab(s) oral once a day Not-Taking Simvastatin 10 MG 1 tablet in the evening Orally Once a day Not-Taking Euflexxa 20 MG/2ML 2 ml Intra-articular for 30 day(s) Not-Taking Aleve 220 MG 1 tablet with food or milk as needed Orally every 12 hrs Active Vitamin D 34866 U 1 capsule Orally twice a week Active Aspirin 81 81 MG 1 tablet Orally Once a day for 30 day(s) Active tiZANidine HCl 4 MG 1 tablet as needed Orally Three times a day Not-Taking Amitiza 24 MCG 1 capsule with food Orally Twice a day Active Spironolactone 25 MG 1 tablet Orally for 30 day(s) Active potassium 20mg 1 tab oral twice a day TID Active Linzess 290 MCG 1 capsule Orally Once a day Active Lodoxamide Tromethamine 0.1 % 1 drop into affected eye Ophthalmic Four times a day Not-Taking Atorvastatin Calcium 10 MG 1 tablet Orally Once a day for 30 day(s) Active Prolia 60 MG/ML 1 ml Subcutaneous q6m Not-Taking Ibuprofen 800 MG 1 tablet with food or milk a s needed Orally Three times a day for 30 Days November, Not-Taking PROCEDURES No Information RESULTS No Results REASON FOR VISIT Transportation issue MEDICAL (GENERAL) HISTORY Type Description Date Medical History postmenopause Medical History high cholesterol Medical History IBS Medical History Vit D deficiency Medical History allergies Medical History hx endometriosis/DUB Medical History osteoporosis on Prolia Medical History disabled due to back injury Medical History enthessopathy of hip region Medical History pure hypercholesterolemia Medical History [employer] Medical History ANXIETY Medical History TUBERCULOSIS Medical History HEADACHE Medical History 2nd covid 09/26/2020 Surgical History tonsillectomy Surgical History left eye surgery 2010 Surgical History hysterectomy/BSO--due to bleeding and en dometriosis 1984 Surgical History laparoscopic/endometriosis 1984 Surgical History colonoscopy (Abdoul) 11/2013 Surgical History breast biopsy benign 11/27/14 & 06/01/15 Surgical History BACK SURG Surgical History RIGHT shoulder rotator cuff surgery Surgical History breast biopsies 2x Surgical History plantar fasciitis right foot Surgical History cornea trans plant left eye Hospitalization History see above Goals Section No Information Health Concerns No Information MEDICAL EQUIPMENT No Information MENTAL STATUS No Information FUNCTIONAL STATUS No Information ASSESSMENTS No Information PLAN OF TREATMENT Next Appt Details Provider Name:Raf Steve, 2021-05-28 02:20:00 PM, [address], , [place], [address], Provider Name:Raf Wilson, 2021-07-12 02:30:00 PM, [address], , [place], [address], Insurance Providers Payer Name Payer Address Payer Phone Insured Name Patient Relati onship to Insured Coverage Start Date Coverage End Date FOR LIFE [address] [facility] [phone] [facility]INE NDIAYE [facility] MEDICARE Part A and B [phone] [facility] [phone] AUGUSTINE SANTOYO self
--- OUTSIDE RECORDS SUMMARY | 2021-05-19 11:59 | CCD | Continuity of Care Document ---
Author Author Dori KENYON [facility] Unknown Address [address] [place] [address] Phone [phone] Care Team Providers Care Police Chief Deputy Name Role Phone Zia Villanueva MD AUTM [phone] Salazar Parkeri AUTM [phone] Huong Perla M.D. AUTM [phone] Problems Description No Information Available Social History [...] Zia Villanueva JR., M.D. 04/05/2021 - 05/09/2021 Zzzcxnat-Wmjufmmfs-IH 1% Solution instill 4 drops to affected ear three times per day for seven days (both ears) 10ml Zia Villaneuva JR., M.D. 04/05/2021 - 05/09/2021 Phenazopyridine HCL 200mg Tablets take one tab by mouth three times a day x 2 days 6tabs R30.0 Zia Villanueva JR., M.D. 11/13/2020 - 11/30/2020 Immunizations CPT Code Status Date Vaccine Lot # [id number] Given 10/16/2018 Tetanus (Td) Vaccine 7 Yrs> [...] H/L Range Note Laboratory test finding 05/10/2021 [facility] [address] [place] [address] [phone] Urine Culture <pending> Laboratory test finding 12/25/2020 [facility] [address] [place], [place] [address] [phone] Urine Culture FULL REPORT IN L <SEE NOTE> Normal 1 Laboratory test finding 11/13/2020 [facility] [address] [place] [address] [phone] Urine Culture FULL REPORT IN L <SEE NOTE> Normal 2 1 FULL REPORT IN LAB NOTES (eC W and [facility]). NO GROWTH CLINICAL SIGNIFICANCE 2 OR MORE ORGANISMS 2 FULL REPORT IN LAB NOTES (eC W and [facility]). NO GROWTH CLINICAL SIGNIFICANCE 2 OR MORE ORGANISMS Procedures Date Code Description Status 05/10/2021 02403 Office/Outpatient Established Lo w MDM 20-29 Min Completed 04/05/2021 51531 Office/Outpatient Established Lo w MDM 20-29 Min Completed 12/25/2020 60237 Office/Outpatient Established Lo w MDM 20-29 Min Completed 11/30/2020 95261 Office/Outpatient Established Mo d MDM 30-39 Min Completed 11/13/2020 43959 Office/Outpatient Established Lo w MDM 20-29 Min [...] Appt Date Tim Kenyon PA Created [facility] [address] [place] [address] [phone]
--- OUTSIDE RECORDS SUMMARY | 2021-05-19 11:59 | CCD | Continuity of Care Document ---
Author Author [facility] Organization Unknown Address [address] [place] [address] [place] [address] Phone [phone] Care Team Providers Care Head Banquet Waitress Name Role Phone Zia Villanueva MD AUTM [phone] Salazar Gordon Publi AUTM [phone] Huong Perla M.D. AUTM [phone] Problems Description No Information Available Social History [...] Zia Villanueva JR., M.D. 04/05/2021 - 05/09/2021 Vtdafpah-Qusijryvd-VR 1% Solution instill 4 drops to affected ear three times per day for seven days (both ears) 10ml Zia Villanueva JR., M.D. 04/05/2021 - 05/09/2021 Phenazopyridine HCL 200mg Tablets take one tab by mouth three times a day x 2 days 6tabs R30.0 Zia Villanueva JR., M.D. 11/13/2020 - 11/30/2020 Immunizations CPT Code Status Date Vaccine Lot # [id number] Given 10/16/2018 Tetanus (Td) Vaccine 7 Yrs> [...] H/L Range Note Laboratory test finding 05/10/2021 [facility] [address] [place] [address] [phone] Urine Culture <pending> Laboratory test finding 12/25/2020 [facility] [address] [place], [place] [address] [phone] Urine Culture FULL REPORT IN L <SEE NOTE> Normal 1 Laboratory test finding 11/13/2020 [facility] [address] [place] [address] [phone] Urine Culture FULL REPORT IN L <SEE NOTE> Normal 2 1 FULL REPORT IN LAB NOTES (eC W and [facility]). NO GROWTH CLINICAL SIGNIFICANCE 2 OR MORE ORGANISMS 2 FULL REPORT IN LAB NOTES (eC W and Medent). NO GROWTH CLINICAL SIGNIFICANCE 2 OR MORE ORGANISMS Procedures Date Code Description Status 05/10/2021 48324 Office/Outpatient Established Lo w MDM 20-29 Min Completed 04/05/2021 14991 Office/Outpatient Established Lo w MDM 20-29 Min Completed 12/25/2020 78067 Office/Outpatient Established Lo w MDM 20-29 Min Completed 11/30/2020 89932 Office/Outpatient Established Mo d MDM 30-39 Min Completed 11/13/2020 55477 Office/Outpatient Established Lo w MDM 20-29 Min [...] Description No Information Available Referrals Refer to Dr Reason for Referral Status Appt Date Tim Bean PA Created [facility] [address] [place] [address] [phone]
--- OUTSIDE RECORDS SUMMARY | 2021-05-19 11:59 | CCD | Continuity of Care Document ---
Author Author Dori KENYON [facility] Unknown Address [address] [place] [address] Phone [phone] Care Team Providers Care Musical Instruments Assembler Name Role Phone Zia Villanueva MD AUTM [phone] Salazar Parkeri AUTM [phone] Huong Perla M.D. AUTM [phone] Problems Description No Information Available Social History [...] 12 hours for 5 days 10caps Zia Villauneva JR., M.D. 05/10/2021 Amitiza 24mcg Capsules bid [...] Zia Villanueva JR., M.D. 04/05/2021 - 05/09/2021 Fwysawmn-Fhmqptwfi-FR 1% Solution instill 4 drops to affected ear three times per day for seven days (both ears) 10ml Zia Villanueva JR., M.D. 04/05/2021 - 05/09/2021 Phenazopyridine HCL 200mg Tablets take one tab by mouth three times a day x 2 days 6tabs R30.0 Zia Villanueva JR., M.D. 11/13/2020 - 11/30/2020 Immunizations CPT Code Status Date Vaccine Lot # [id number] Given 10/16/2018 Tetanus (Td) Vaccine 7 Yrs> [...] H/L Range Note Laboratory test finding 05/10/2021 [facility] [address] [place] [address] [phone] Urine Culture <pending> Laboratory test finding 12/25/2020 [facility] [address] [place], [place] [id number] [phone] Urine Culture FULL REPORT IN L <SEE NOTE> Normal 1 Laboratory test finding 11/13/2020 [facility] [address] [place] [address] [phone] Urine Culture FULL REPORT IN L <SEE NOTE> Normal 2 1 FULL REPORT IN LAB NOTES ([facility] and [facility]). NO GROWTH CLINICAL SIGNIFICANCE 2 OR MORE ORGANISMS 2 FULL REPORT IN LAB NOTES ([facility] and [facility]). NO GROWTH CLINICAL SIGNIFICANCE 2 OR MORE ORGANISMS Procedures Date Code Description Status 05/10/2021 42836 Office/Outpatient Established Lo w MDM 20-29 Min Completed 04/05/2021 75234 Office/Outpatient Established Lo w MDM 20-29 Min Completed 12/25/2020 37522 Office/Outpatient Established Lo w MDM 20-29 Min Completed 11/30/2020 25950 Office/Outpatient Established Mo d MDM 30-39 Min Completed 11/13/2020 90550 Office/Outpatient Established Lo w MDM 20-29 Min [...] Status Appt Date Tim Kenyon PA Created [facility] [address] [place] [address] [phone]
--- OUTSIDE RECORDS SUMMARY | 2021-05-19 12:00 | CCD | Continuity of Care Document ---
Author Author Lab Schedule, Dori Mckinney Organization Unknown Address [address] [place] [address] Phone Unavailable Care Team Providers Care Terrazzo Roller Name Role Phone Berhane Cordova MD AUTM [phone] Fatimah Carolina MD AUTM Unavailable Zia Villanueva JR, MD AUTM Unavailable Juan F Hoskins MD AUTM Unavailable William Quintanilla DPM AUTM [phone] Dick Sorto DO AUTM [phone] Joel Bertrand MD AUTM [phone] Problems Active Problems Provider Date Pure hypercholesterolemia Zia Villanueva MD Onset: 03/25 Irritable bowel syndrome Zia Villanueva MD Onset: 2010 Vitamin D deficiency Zia Villanueva MD Onset: 03/25/2011 Osteoporosis Zia Villanueva MD Onset: 03/25/2011 Social History Type Date Description Comments Sex Unknown ETOH Use Never used alcohol Tobacco Use Start: Unknown Patient has never smoked Allergies, Adverse Reactions, Alerts Active Allergies Criticality Reaction | Severity Comments Date Aspirin Unable to assess criticality RASH 10/14/2010 Penicillins Unable to assess criticality RASH 10/14/2010 Percocet Unable to assess criticality loopy 05/14/2011 Medications Active Medications SIG Qnty Indications Ordering Provide r Date Potassium Chloride ER 20Meq Tablet s ER 1 by mouth three times a day 270tabs Zia Villanueva MD 02/20/2021 Spironolactone 25mg Tablets 1 by mouth every day 30tabs Zia Villanueva MD 02/20/2021 Tizanidine HCL 4mg Capsules take one capsule by mouth every 8 hours as needed 60caps Mckenzie Stewart, HETAL 01/15/2021 Clobetasol Propionate 0.05% Ointme nt apply to rash twice daily on vulva 60units YOSELIN Stratton 01/02/2021 Linzess 290mcg Capsules take one capsule by mouth as needed for exacerbation 90caps Zia patterson MD 09/17/2020 Mupirocin 2% Ointment twice times a day to rash on abdomen for 10 days 22gm Dori Red, [facility] [place] 08/09/2020 Betamethasone Valerate 0.1% Cream twice a day to rash for 14 days then as needed 45gm Mckenzie Stewart, HETAL 07/23/2020 Atorvastatin Calcium 10mg Tablets Take One Tablet By Mouth Every Day 90tabs Zia Villanueva MD 01/04/2020 Vitamin D (Ergocalciferol) 1.25mg (25393 Ut) Capsules Take 1 Capsule By Mouth Twice A Month 16caps Col liliane Villanueva MD 09/16/2019 Clotrimazole 10mg Beth dissolve in mouth 5x/day x 14 days. 70units Zia Villanueva MD 08/27/19 19 Shingrix 50mcg Suspension Rec administer 0.5 milliliters intramuscular, repeat in 2 to 6 months 2units Zia Villanueva MD 01/06/2018 Nystatin [id number] Suspension swish and spit 1 teaspoonful four times a day 150units B37.0 Zia Villanueva MD 09/19/2016 Triamcinolone Acetonide 0.1% Paste apply orally bid 5gm K12.0 ROSA MARIA Montalvo 09/12/2016 Simethicone 80mg Chewtabs one tab 4 times daily after meals and at bedtime 120units R10.9 Francois Montalvo NP 05/12/2016 Probiotic Capsules 1 by mouth every day 30caps K58.8 Zia Villanueva MD 05/12/2016 Amitiza 24mcg Capsules Take One Capsule By Mouth Twice A Day 180caps Zia Villanueva MD 01/07/20 16 Lidocaine HCL 2% Gel apply 1 inch to left buttock (rub in) tid as needed for pain 100ml Dori Kay, [employer] 03/21/2015 Anusol-HC 2.5% Cream apply externally Q12 hours prn 1tube Mckenzie Stewart, ANP 11/01/2013 Anusol-HC 25mg Suppository Insert One Suppository Rectally Every 8 Hours as Needed 12units Patricia Stewart, ANP 05/30/2013 Anusol-HC 2.5% Cream instill pr qid and topical prn 1units Zia Villanueva MD 05/26/2013 Prolia 60mg/ml Soln Prefill Syring e inject 60mg under the skin every 6 months 1units Zia bernard MD 03/15/2013 Furosemide 40mg Tablets Take One Tablet By Mouth Every Day as needed 30tabs Zia Villanueva MD 09/06/2007 History Medications Potassium Chloride ER 20Meq Tablet s ER Take One Tablet By Mouth Twice A Day 60tabs Zia Villanueva MD 12/03/2020 - 02/20/2021 Medications Administered in Office Medication SIG Qnty Indications Ordering Provider Date Prolia (denosumab) 60mg,SC injection, ND C#[id number] Injection Nurse Schedul e 01/11/2021 Therapeutic Injection Injection Nurse Schedule 01/11/2021 Covid-19 vaccine, Unspecified Inj ection Unknown 08/29/2020 Prolia (denosumab) 60mg,SC injection, ND C#[id number] Injection Zia bernard MD 07/06/2020 Therapeutic Injection Injection Zia Villanueva MD 07/06/2020 Administration Of Flu Vaccine Inj ection Zia Villanueva MD 05/02/2020 Prolia (denosumab) 60mg,SC injection, ND C#[id number] Injection Zia bernard MD 01/04/2020 Therapeutic Injection Injection Zia Villanueva MD 01/04/2020 Prolia (denosumab) 60mg,SC injection, ND C#[id number] Injection Zia bernard MD 06/29/2019 Chemotherpy Admin Subcutaneous/Im Non-Ho rmonal Anti-Neoplastic Injection Zia Villanueva MD 06/29/2019 Administration Of Flu Vaccine Inj ection Zia Villanueva MD 05/05/2019 Prolia (denosumab) 60mg,SC injection, ND C#[id number] Injection Zia bernard MD 01/12/2019 Chemotherpy Admin Subcutaneous/Im Non-Ho rmonal Anti-Neoplastic Injection Nurse [facility] 01/12/2019 Prolia (denosumab) 60mg,SC injection, ND C#[id number] Injection Nurse Sched e 06/04/2018 Chemotherpy Admin Subcutaneous/Im Non-Ho rmonal Anti-Neoplastic Injection Nurse [facility] 06/04/2018 Administration Of Flu Vaccine Inj ection Zia Villanueva MD 05/06/2018 Prolia (denosumab) 60mg,SC injection, ND C[facility][id number] [facility]2017 Chemotherpy Admin Subcutaneous/Im Non-Ho rmonal Anti-Neoplastic Injection Nurse [facility] 11/30/2017 Chemotherpy Admin Subcutaneous/Im Non-Ho rmonal Anti-Neoplastic Injection Zia Villanueva MD 06/03/2017 Administration Of Flu Vaccine Inj ection Zia Villanueva MD 05/18/2017 Prolia (denosumab) 60mg,SC injection, ND C#[id number] Injection Zia bernard MD 12/03/2016 Chemotherpy Admin Subcutaneous/Im Non-Ho rmonal Anti-Neoplastic Injection Nurse [facility] 12/03/2016 Chemotherpy Admin Subcutaneous/Im Non-Ho rmonal Anti-Neoplastic Injection Zia Villanueva MD 06/04/2016 Administration Of Flu Vaccine Inj ection Zia Villanueva MD 04/24/2016 Chemotherpy Admin Subcutaneous/Im Non-Ho rmonal Anti-Neoplastic Injection Nurse [facility] 11/29/2015 Chemotherpy Admin Subcutaneous/Im Non-Ho rmonal Anti-Neoplastic Injection Zia Villanueva MD 11/29/2015 Prolia (denosumab) 60mg,SC injection, ND C#[id number] [facility] Chemotherpy Admin Subcutaneous/Im Non-Ho rmonal Anti-Neoplastic Injection Zia Villanueva MD 05/31/2015 Administration Of Flu Vaccine Inj ection Zia Villanueva MD 05/01/2015 Chemotherpy Admin Subcutaneous/Im Non-Ho rmonal Anti-Neoplastic Injection Zia Villanueva MD 11/29/2014 Chemotherpy Admin Subcutaneous/Im Non-Ho rmonal Anti-Neoplastic Injection Zia Villanueva MD 05/31/2014 Administration Of Flu Vaccine Inj jeimyion Zia Villanueva MD 05/19/2014 Chemotherpy Admin Subcutaneous/Im Non-Ho rmonal Anti-Neoplastic Injection Zia Villanueva MD 12/07/2013 Therapeutic Injection Injection Nurse Schedule 12/07/2013 Therapeutic Injection Injection Nurse Schedule 06/08/2013 Administration Of Flu Vaccine Inj jeimyion Zia Villanueva MD 05/27/2013 Administration Of Flu Vaccine Inj sakshi Villanueva MD 04/21/2012 Reclast 1MG [id number] Injection Mckenzie Stewart, HETAL 12/03/2011 IV Infusion Up To 1 Hour Injection Mckenzie Stewart, HETAL 12/03/2011 Administration Of Flu Vaccine Inj sakshi Villanueva MD 05/14/2011 Administration Of Flu Vaccine Inj sakshi Villanueva MD 05/02/2009 Administration Of Flu Vaccine Inj jeimyion Zia Villanueva MD 05/10/2008 Administration Of Flu Vaccine Inj ection Georgia Salazar, HETAL 7 Immunizations CPT Code Status Date Vaccine Lot # [id number] Given 05/02/2020 Influenza Vaccin e Quadrivalent Preser/Antibiotic Free Im Use [id number] Given 01/04/2020 Pneumovax 23 [id number] Given 08/18/2019 Shingrix Zoster Vaccine (HZV), Recombinant, Subunit, Adjuvanted 38335 Given 05/11/2019 Shingrix Zoster Vaccine (HZV), Recombinant, Subunit, Adjuvanted 29493 Given 05/05/2019 Influenza Vaccin e Quadrivalent Preser/Antibiotic Free Im Use [id number] U-PneuC Given 01/04/2019 Prevnar 13 23478 Given 05/06/2018 Influenza Virus Vaccine, Quadrivalent (Cciiv4), Derived From 1 Given 05/18/2017 Influenza Vaccin e Quadrivalent Preser/Antibiotic Free Im Use [id number] Given 04/24/2016 Fluvirin Virus Vaccine 93410 01 94145 Given 01/24/2016 Pneumovax 23 07943 Given 05/06/2015 Zostavax Q2037 Given 05/01/2015 Fluvirin Virus Vaccine 97988 01 Q2037 Given 05/19/2014 Fluvirin Virus Vaccine 27374 21 Q2037 Given 05/27/2013 Fluvirin Virus Vaccine 35440 01 Q2037 Given 04/21/2012 Fluvirin Virus Vaccine 04416 01 Q2037 Given 05/14/2011 Fluvirin Virus Vaccine 47790 Given 05/02/2009 Influenza Virus Vaccine 62447 Given 05/10/2008 Influenza Virus Vaccine 62850 Given 05/06/2007 Influenza Virus Vaccine Vital Signs Date Vital Result Comment 01/15/2021 3:13pm BP Systolic 102 mmHg BP Diastolic 60 mmHg Heart Rate 58 /min Height 61 inches 5'1" Weight 97.00 lb O2 % BldC Oximetry 98 % BMI (Body Mass Index) 18.3 kg/m2 01/09/2021 2:26pm BP Systolic 100 mmHg BP Diastolic 58 mmHg Heart Rate 68 /min Height 61 inches 5'1" Weight 98.00 lb BMI (Body Mass Index) 18.5 kg/m2 Results Test Acquired Date Facility Test Result H/L Range Note Laboratory test finding 04/15/2021 [facility] [address] [place] [address] [phone] Urine Culture FULL REPORT IN L <SEE NOTE> Normal 1 Ua Dipstick Only 04/15/2021 [facility] Alum Plant Supervisor: [place] [address] [phone] Urine Color YELLOW Yellow Urine Appearance CLEAR Clear Urine PH 6.0 units 5.0 - 9.0 Urine Specific Red Bud 1.010 1.005 - 1.030 Urine Leukocytes NEGATIVE Negative Urine Blood NEGATIVE Negative Urine Protein NEGATIVE Negative -Trace Urine Glucose NEGATIVE mg/dL Negative Urine Nitrite NEGATIVE Negative Urine Ketone NEGATIVE mg/dL Negative Urine Bilirubin NEGATIVE Negative Urine Urobilinogen 0.2 mg/dL 0.2 - 1.0 Basic Metabolic Panel 03/27/2021 [facility] [employer] Supervisor: [place] [address] [phone] Glucose 76 mg/dL 74 - 99 2 BUN 20 mg/dL High 7 - 18 Creatinine 0.7 mg/dL 0.6 - 1.3 Sodium 138 mEq/L 136 - 145 Potassium 4.0 mEq/L 3.5 - 5.1 Chloride 103 mEq/L 98 - 107 Carbon Dioxide 30 mEq/L 21 - 32 Calcium 9.5 mg/dL 8.5 - 10.1 GFR >= 60 mL/min >60 GFR >= 60 mL/min >60 3 Basic Metabolic Panel 03/14/2021 [facility] Alum Plant Supervisor: Dr Zia Villanueva [place], [place] [id number] [phone] Glucose 74 mg/dL 74 - 99 4 BUN 26 mg/dL High 7 - 18 Creatinine 0.7 mg/dL 0.6 - 1.3 Sodium 136 mEq/L 136 - 145 Potassium 3.4 mEq/L Low 3.5 - 5.1 Chloride 102 mEq/L 98 - 107 Carbon Dioxide 23 mEq/L 21 - 32 Calcium 9.8 mg/dL 8.5 - 10.1 GFR >= 60 mL/min >60 GFR >= 60 mL/min >60 5 Basic Metabolic Panel 03/01/2021 [facility] Alum Plant Supervisor: [place] [address] [phone] Glucose 51 mg/dL Low 74 - 99 6 BUN 24 mg/dL High 7 - 18 Creatinine 0.6 mg/dL 0.6 - 1.3 Sodium 138 mEq/L 136 - 145 Potassium 3.5 mEq/L 3.5 - 5.1 Chloride 101 mEq/L 98 - 107 Carbon Dioxide 28 mEq/L 21 - 32 Calcium 9.5 mg/dL 8.5 - 10.1 GFR >= 60 mL/min >60 GFR >= 60 mL/min >60 7 Aldosterone/Renin Ratio 01/09/2021 [facility] [address] [place] [address] [phone] Renin Activity 3.831 ng/mL/hr Normal 0.167-5.380 Aldosterone 119.3 ng/dL High 0.0-30.0 Aldos/Renin Ratio 31.1 High 0.0-30.0 8 Complete Blood Count 01/09/2021 [facility] [employer]um Plant Supervisor: [place] [address] [phone] WBC 5.2 x10*3/UL 4.1 - 10.9 RBC 4.94 x10*6/UL 4.20 - 6.30 Hemoglobin 14.5 g/dL 12.0 - 18.0 Hematocrit 43.5 % 37.0 - 51.0 MCV 87.9 fL 80.0 - 97.0 MCH 29.4 pg 26.0 - 32.0 MCHC 33.4 g/dL 31.0 - 38.0 RDW 13.5 % 11.6 - 13.7 PLT 223 x10*3/UL 140 - 440 MPV 9.2 FL 7.8 - 11.0 Lymph % 28.5 % 10.0 - 58.5 Mid % 6.8 % 1.7 - 9.3 Neut % 64.7 % 37.0 - 92.0 Lymph # 1.4 x10*3/UL 0.6 - 4.1 Mid # 0.4 x10*3/UL 0.1 - 0.6 Neut # 3.4 x10*3/UL 2.0 - 7.8 Comprehensive Chem Profile 01/09/2021 [facility] [employer] Supervisor: [place] [address] [phone] Glucose 71 mg/dL Low 74 - 99 9 BUN 19 mg/dL High 7 - 18 Creatinine 0.6 mg/dL 0.6 - 1.3 Sodium 142 mEq/L 136 - 145 Potassium 3.9 mEq/L 3.5 - 5.1 Chloride 104 mEq/L 98 - 107 Carbon Dioxide 26 mEq/L 21 - 32 Calcium 9.4 mg/dL 8.5 - 10.1 Alk. Phosphatase 72 mg/dL 46 - 116 Total Bilirubin 0.3 mg/dL 0.2 - 1.0 Ast (Sgot) 26 U/L 15 - 37 Alt (SGPT) 52 U/L 12 - 78 Albumin 4.0 g/dL 3.4 - 5.0 Total Protein 6.9 g/dL 6.4 - 8.2 A/G Ratio 1.38 CALC 1.00 - 1.90 GFR >= 60 mL/min >60 GFR >= 60 mL/min >60 10 Lipid Profile 01/09/2021 [facility] [employer] Plant Supervisor: Dr Zia Villanueva [place], [place] [id number] [phone] Cholesterol 223 mg/dL High 131 - 200 Triglycerides 74 mg/dL 30 - 150 HDL Cholesterol 100 mg/dL High 35 - 60 LDL (Calculated) 108 CALC 50 - 159 Laboratory test finding 01/09/2021 [facility] Alum Plant Supervisor: Dr Zia Vill[place]ueva [place] [id number] [phone] Magnesium 2.0 mg/dL 1.8 - 2.4 Laboratory test finding 01/09/2021 [facility] [address] [place] [address] [phone] Phosphorus Level 4.2 mg/dL Normal 2.5-4.9 Ua Dipstick Only 01/02/2021 [facility] [employer] Supervisor: [place] [address] [phone] Urine Color YELLOW Yellow Urine Appearance CLEAR Clear Urine PH 6.5 units 5.0 - 9.0 Urine Specific Red Bud 1.020 1.005 - 1.030 Urine Leukocytes NEGATIVE Negative Urine Blood NEGATIVE Negative Urine Protein TRACE Negative -Trace Urine Glucose NEGATIVE mg/dL Negative Urine Nitrite NEGATIVE Negative Urine Ketone NEGATIVE mg/dL Negative Urine Bilirubin NEGATIVE Negative Urine Urobilinogen 0.2 mg/dL 0.2 - 1.0 Laboratory test finding 11/28/2020 [facility] [employer] Plant Supervisor: [place] [address] [phone] Potassium 3.2 mEq/L Low 3.5 - 5.1 11 Laboratory test finding 10/31/2020 [facility] darren Alum Plant Supervisor: [place] [address] [phone] Potassium 3.3 mEq/L Low 3.5 - 5.1 12 1 FULL REPORT IN LAB NOTES (eC W and [facility]). NO GROWTH 2 100-125 mg/dL PRE-DIABET ES/FASTING >126 mg/dL DIABETES/FASTING 3 CHRONIC KIDNEY DISEASE STAGI NG PER NKF STAGE I & II GFR >= 60 NORMAL TO MILDLY DECREASED STAGE III GFR 30-59 MODERATELY DECREASED STAGE IV GFR 15-29 SEVERELY DECREASED STAGE V GFR <15 VERY LITTLE GFR LEFT ESRD GFR <15 ON FULLING MILL OPERATOR 4 100-125 mg/dL PRE-DIABET ES/FASTING >126 mg/dL DIABETES/FASTING 5 CHRONIC KIDNEY DISEASE STAGI NG PER NKF STAGE I & II GFR >= 60 NORMAL TO MILDLY DECREASED STAGE III GFR 30-59 MODERATELY DECREASED STAGE IV GFR 15-29 SEVERELY DECREASED STAGE V GFR <15 VERY LITTLE GFR LEFT ESRD GFR <15 ON FULLING MILL OPERATOR 6 NOTE: RESULT VERIFIED. 100-125 mg/dL PRE-DIABETES/FASTING >126 mg/dL DIABETES/FASTING 7 CHRONIC KIDNEY DISEASE STAGI NG PER NKF STAGE I & II GFR >= 60 NORMAL TO MILDLY DECREASED STAGE III GFR 30-59 MODERATELY DECREASED STAGE IV GFR 15-29 SEVERELY DECREASED STAGE V GFR <15 VERY LITTLE GFR LEFT ESRD GFR <15 ON FULLING MILL OPERATOR 8 Units: ng/dL per ng/mL/ hr Performed at: - [facility] [id number] 61 [employer] Plant Supervisor: Reji Ramos MD, Phone: [phone] 9 100-125 mg/dL PRE-DIABET ES/FASTING >126 mg/dL DIABETES/FASTING 10 CHRONIC KIDNEY DISEASE STAGI NG PER NKF STAGE I & II GFR >= 60 NORMAL TO MILDLY DECREASED STAGE III GFR 30-59 MODERATELY DECREASED STAGE IV GFR 15-29 SEVERELY DECREASED STAGE V GFR <15 VERY LITTLE GFR LEFT ESRD GFR <15 ON FULLING MILL OPERATOR 11 NOTE: RESULT VERIFIED 12 NOTE: RESULT VERIFIED. Procedures Date Code Description Status 02/22/2021 05243 Complex Chronic Care Management SVC 1St 60 Min Completed 01/22/2021 23438 Complex Chronic Care Management SVC 1St 60 Min Completed 01/15/2021 20956 Office/Outpatient Established Lo w MDM 20-29 Min Completed 01/11/2021 93126 Therapeutic Injection Completed 01/09/2021 93039 Office/Outpatient Established Mo d MDM 30-39 Min Completed 01/02/2021 23238 Office/Outpatient Established Mo d MDM 30-39 Min Completed 12/18/2020 97208 Complex Chronic Care Management SVC 1St 60 Min Completed 11/07/2020 82476 Office/Outpatient Established Lo w MDM 20-29 Min Completed 05/17/2020 [id number] Mammogram Completed 01/16/2020 [id number] Bone Mineral Density Test Comple kameron 04/25/2019 [id number] Mammogram Completed 01/12/2019 [id number] Bone Mineral Density Test Comple kameron 04/05/2018 [id number] Mammogram Completed 01/20/2017 97893223 Mammogram Completed 12/16/2016 [id number] Bone Mineral Density Test Comple kameron 12/11/2016 33230225 Mammogram Completed 10/28/2016 400117145 Diabetic Retinal Eye Exam Comple kameron 01/16/2016 55051990 Mammogram Completed 04/30/2015 14588688 Mammogram Completed 10/12/2014 87172184 Mammogram Completed 09/29/2014 [id number] Mammogram Completed 09/29/2014 [id number] Bone Mineral Density Test Comple kameron 12/01/2013 81215186 Colonoscopy Completed 09/16/2013 87122104 Mammogram Completed 08/25/2012 69788703 Mammogram Completed 08/20/2011 69389714 Mammogram Completed 08/20/2011 [id number] Bone Mineral Density Test Comple kameron 08/14/2010 13144861 Mammogram Completed 08/01/2009 [id number] Bone Mineral Density Test Comple kameron 12/15/2005 84222503 Colonoscopy Completed Medical Devices Description No Information Available Encounters Type Date Location Provider Dx Diagnosis Office Visit 01/15/2021 3:00p [facility] ANP M54.2 Cervicalgia R42 Dizziness and giddiness Office Visit 01/09/2021 2:30p [facility] MD E87.6 Hypokalemia M81.0 Age-related osteoporosis w/o current pathological fracture K58.1 Irritable bowel syndrome wit h constipation M54.2 Cervicalgia E55.9 Vitamin D deficiency, unspec ified E78.00 Pure hypercholesterolemia, u nspecified Office Visit 01/02/2021 3:00p [facility] ANP 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, unspecified R10.816 Epigastric abdominal tendern ess Office Visit 11/07/2020 11:00a [facility] ANP R07.89 Other chest pain E87.6 Hypokalemia Assessments Date Code Description Provider 04/15/2021 R30.0 Dysuria Mckenzie Stewart, ANP 04/15/2021 R30.0 Dysuria Lab Schedule 03/27/2021 E87.6 Hypokalemia Zia lizarraga MD 03/27/2021 E87.6 Hypokalemia Lab Schedule 03/14/2021 E87.6 Hypokalemia Zia lizarraga MD 03/14/2021 E87.6 Hypokalemia Lab Schedule 03/01/2021 E87.6 Hypokalemia Zia lizarraga MD 03/01/2021 E87.6 Hypokalemia Lab Schedule 02/22/2021 M81.0 Age-related osteoporosis without current pathological fracture Zia Villanueva MD 02/22/2021 E78.00 Pure hypercholesterolemia, unspe cified Zia Villanueva MD 02/22/2021 E55.9 Vitamin D deficiency, unspecifie d Zia Villanueva MD 01/22/2021 E55.9 Vitamin D deficiency, unspecifie d Zia Villanueva MD 01/22/2021 E78.00 Pure hypercholesterolemia, unspe cified Zia Villanueva MD 01/22/2021 M81.0 Age-related osteoporosis without current pathological fracture Zia Villanueva MD 01/15/2021 M54.2 Cervicalgia Mckenzie Stweart, ANP 01/15/2021 R42 Dizziness and giddiness Mckenzie Stewart, ANP 01/11/2021 M81.0 Age-related osteoporosis without current pathological fracture Zia Villanueva MD 01/11/2021 M81.0 Age-related osteoporosis without current pathological fracture Nurse Schedule 01/09/2021 E87.6 Hypokalemia Zia lizarraga MD 01/09/2021 M81.0 Age-related osteoporosis without current pathological fracture Zia Villanueva MD 01/09/2021 K58.1 Irritable bowel syndrome with co nstipation Zia Villanueva MD 01/09/2021 M54.2 Cervicalgia Zia lizarraga MD 01/09/2021 E55.9 Vitamin D deficiency, unspecifie d Zia Villanueva MD 01/09/2021 E78.00 Pure hypercholesterolemia, unspe cified Zia Villanueva MD 01/02/2021 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6 Hypokalemia Lab Schedule Plan of Treatment Future Appointment(s):* 04/24/2021 11:40 am - Bird Villanueva DO at [facility] * 07/10/2021 7:50 am - Lab Schedule at [facility] * 07/10/2021 2:00 pm - Zia Villanueva MD at [facility] 01/09/2021 - Zia Villanueva MD* E87.6 Hypokalemia * M81.0 Age-related osteoporosis without current pathological fracture * K58.1 Irritable bowel syndrome with constipation * M54.2 Cervicalgia * E55.9 Vitamin D deficiency, unspecified * E78.00 Pure hypercholesterolemia, unspecified Functional Status Description No Information Available Mental Status Description No Information Available Referrals Description No Information Available
--- OUTSIDE RECORDS SUMMARY | 2021-05-19 12:00 | CCD | Continuity of Care Document ---
Author Author Dori GRIFFITH P.A. Organization Unknown Address [address] [place] [address] Phone [phone] Care Team Providers Care Coremaker Machine Name Role Phone Zia Villanueva MD AUTM [phone] Problems Active Problems Provider Date Displacement of [...] Twice Daily as Needed, MDD 2 14tabs Vinicio Tobin MD 04/05/2020 Lidocaine Pain Relief 4% [...] d 90caps Unknown Vitamin D (Ergocalciferol) 1.25mg (48865 Ut) Capsules M25.551 Unknown Linzess 290mcg Capsules [...] Available Procedures Date Code Description Status 05/02/2021 04642 Office/Outpatient Established Lo w MDM 20-29 Min Completed 05/02/2021 29940 Inject/Drain Joint/Bursa Major C ompleted 03/11/2021 46477 Office/Outpatient Established Mo d MDM 30-39 Min Completed 03/11/2021 68956 Inject/Drain Joint/Bursa Major C ompleted 03/11/2021 06299 Inject/Drain Joint/Bursa Major C ompleted 03/11/202171148 Injection Single/Mult Trigger Po int(S) 1 Or 2 Muscle Group(S) Completed 01/16/2021 21420 Office/Outpatient Established Lo w MDM 20-29 Min Completed 01/16/202199242 Inject/Drain Joint/Bursa Major C ompleted Medical Devices Description No Information Available Encounters Type Date Location Provider Dx Diagnosis Office Visit 05/02/2021 3:00p Juan Miguel Griffith, P.A. M17.0 Bilateral primary osteoarthritis of knee M75.42 Impingement syndrome of left shoulder M79.18 Myalgia, other site M70.61 Trochanteric bursitis, right hip M70.62 Trochanteric bursitis, left hip Office Visit 03/11/2021 10:00a Juan Miguel Griffith PSantoshA. M17.0 Bilateral primary osteoarthritis of knee M75.42 Impingement syndrome of left shoulder M79.18 Myalgia, other site Office Visit 01/16/2021 2:00p [place] Tim Griffith, P.A. M70.61 Trochanteric bursitis, right hip M70.62 Trochanteric bursitis, left hip M17.0 Bilateral primary osteoarthr itis of knee Assessments Date Code Description Provider 05/02/2021 M17.0 Bilateral primary osteoarthritis of knee Tim Griffith, P.A. 05/02/2021 M75.42 Impingement syndrome of left mckayla ulder Tim Griffith, P.A. 05/02/2021 M79.18 Myalgia, other site Tim ernandez, P.A. 05/02/2021 M70.61 Trochanteric bursitis, right hip Tim Griffith, P.A. 05/02/2021 M70.62 Trochanteric bursitis, left hip Tim Griffith, P.A. 03/11/2021 M17.0 Bilateral primary osteoarthritis of knee Tim Griffith, P.A. 03/11/2021 M75.42 Impingement syndrome of left mckayla ulder Tim Griffith, P.A. 03/11/2021 M79.18 Myalgia, other site Tim ernandez, P.A. 01/16/2021 M70.61 Trochanteric bursitis, right hip Tim Griffith, P.A. 01/16/2021 M70.62 Trochanteric bursitis, left hip Tim Griffith, P.A. 01/16/2021 M17.0 Bilateral primary osteoarthritis of knee Tim Griffith, P.A. Plan of Treatment 05/02/2021 - Tim Griffith, P.A.* M17.0 Bilateral primary osteoarthritis of knee* Follow up:* 3 months with [facility] for renuka hip re-check * M75.42 Impingement syndrome of left shoulder * M79.18 Myalgia, other site * M70.61 Trochanteric bursitis, right hip * M70.62 Trochanteric bursitis, left hip Functional Status Description No Information Available Mental Status Description No Information Available Referrals Refer to Dr Reason for Referral Status Appt Date Tim Griffith PA 01/17/21 Gel-One Renuka knee, Pe r ins no auth req based on medical necessity,passed to justine darnell Created [address] [place] [address] [address] [place] [id number] [phone]
--- OUTSIDE RECORDS SUMMARY | 2021-05-19 12:00 | CCD | Continuity of Care Document ---
Author Author Dori GRIFFITH P.A. Organization Unknown Address [address] [place] [address] Phone [phone] Care Team Providers Care Keyboard Action Assembler Name Role Phone Zia Villanueva MD AUTM [phone] Problems Active Problems Provider Date Displacement of [...] d 90caps Unknown Vitamin D (Ergocalciferol) 1.25mg (17654 Ut) Capsules M25.551 Unknown Linzess 290mcg Capsules [...] Available Procedures Date Code Description Status 05/02/2021 55643 Office/Outpatient Established Lo w MDM 20-29 Min Completed 05/02/2021 76290 Inject/Drain Joint/Bursa Major C ompleted 03/11/2021 81639 Office/Outpatient Established Mo d MDM 30-39 Min Completed 03/11/2021 95215 Inject/Drain Joint/Bursa Major C ompleted 03/11/2021 41627 Inject/Drain Joint/Bursa Major C ompleted 03/11/202161393 Injection Single/Mult Trigger Po int(S) 1 Or 2 Muscle Group(S) Completed 01/16/2021 78109 Office/Outpatient Established Lo w MDM 20-29 Min Completed 01/16/202170386 Inject/Drain Joint/Bursa Major C ompleted Medical Devices [...] Myalgia, other site Office Visit 01/16/2021 2:00p [place] Tim Griffith, P.A. M70.61 Trochanteric bursitis, right [...] of knee* Follow up:* 3 months with [facility] for renuka hip re-check * M75.42 Impingement [...] on medical necessity,passed to justine darnell Created [address] [place] [address] [address] [place] [id number] [phone]
--- OUTSIDE RECORDS SUMMARY | 2021-05-19 12:00 | CCD | Continuity of Care Document ---
Author Author Lab Schedule, Dori Mckinney Organization Unknown Address [address] [place] [address] Phone Unavailable Care Team Providers Care Shell Sorter Name Role Phone Berhane Cordova MD AUTM [phone] Fatimah Carolina MD AUTM Unavailable Zia Villanueva JR, MD AUTM Unavailable Juan F Hoskins MD AUTM Unavailable William Quintanilla DPM AUTM [phone] Dick Sorto DO AUTM [phone] Joel Bertrand MD AUTM [phone] Problems Active Problems Provider Date Pure hypercholesterolemia [...] for 10 days 22gm Dori Red, [facility] 08/09/2020 Betamethasone Valerate 0.1% Cream twice a day to rash for 14 days then as needed 45gm Mckenzie Stewart, HETAL 07/23/2020 Atorvastatin Calcium 10mg Tablets Take One Tablet By Mouth Every Day 90tabs Zia Villanueva MD 01/04/2020 Vitamin D (Ergocalciferol) 1.25mg (74290 Ut) Capsules Take 1 Capsule By Mouth Twice A Month 16caps Col liliane Villanueva MD 09/16/2019 Clotrimazole 10mg Beth dissolve in mouth 5x/day x 14 days. 70units Zia Villanueva MD 08/27/19 19 Shingrix 50mcg Suspension Rec administer 0.5 milliliters intramuscular, repeat in 2 to 6 months 2units Zia Villanueva MD 01/06/2018 Nystatin 002813Unay/ML Suspension swish and spit 1 teaspoonful four [...] as needed for pain 100ml Dori Kay, PROFESSIONAL DEVELOPMENT DIRECTOR 03/21/2015 Anusol-HC 2.5% Cream apply externally Q12 [...] Provider Date Prolia (denosumab) 60mg,SC injection, ND C#[id number] Injection Nurse Schedul e 01/11/2021 Therapeutic Injection Injection Nurse Schedule 01/11/2021 Covid-19 vaccine, Unspecified Inj ection Unknown 08/29/2020 Prolia (denosumab) 60mg,SC injection, ND C#[id number] Injection Zia bernard MD 07/06/2020 Therapeutic Injection Injection Zia Villanueva MD 07/06/2020 Administration Of Flu Vaccine Inj ection Zia Villanueva MD 05/02/2020 Prolia (denosumab) 60mg,SC injection, ND C#[id number] Injection Zia bernard MD 01/04/2020 Therapeutic Injection Injection Zia Vlilanueva MD 01/04/2020 Prolia (denosumab) 60mg,SC injection, ND C#[id number] Injection Zia bernard MD 06/29/2019 Chemotherpy Admin Subcutaneous/Im Non-Ho rmonal Anti-Neoplastic Injection Zia Villanueva MD 06/29/2019 Administration Of Flu Vaccine Inj ection Zia Villanueva MD 05/05/2019 Prolia (denosumab) 60mg,SC injection, ND C#[id number] Injection Zia bernard MD 01/12/2019 Chemotherpy Admin Subcutaneous/Im Non-Ho rmonal Anti-Neoplastic Injection Nurse [facility] 01/12/2019 Prolia (denosumab) 60mg,SC injection, ND C#[id number] Injection Nurse Sched e 06/04/2018 Chemotherpy Admin Subcutaneous/Im Non-Ho rmonal Anti-Neoplastic Injection Nurse [facility] 06/04/2018 Administration Of Flu Vaccine Inj ection Zia Villanueva MD 05/06/2018 Prolia (denosumab) 60mg,SC injection, ND C#[id number] [facility] 11/30/2017 Chemotherpy Admin Subcutaneous/Im Non-Ho rmonal Anti-Neoplastic Injection Nurse [facility] 11/30/2017 Chemotherpy Admin Subcutaneous/Im Non-Ho rmonal Anti-Neoplastic Injection Zia Villanueva MD 06/03/2017 Administration Of Flu Vaccine Inj ection Zia Villanueva MD 05/18/2017 Prolia (denosumab) 60mg,SC injection, ND C#[id number] Injection Zia bernard MD 12/03/2016 Chemotherpy Admin Subcutaneous/Im Non-Ho rmonal Anti-Neoplastic Injection Nurse [facility] 12/03/2016 Chemotherpy Admin Subcutaneous/Im Non-Ho rmonal Anti-Neoplastic Injection Zia Villanueva MD 06/04/2016 Administration Of Flu Vaccine Inj ection Zia Villanueva MD 04/24/2016 Chemotherpy Admin Subcutaneous/Im Non-Ho rmonal Anti-Neoplastic Injection Nurse [facility] 11/29/2015 Chemotherpy Admin Subcutaneous/Im Non-Ho rmonal Anti-Neoplastic Injection Zia Villanueva MD 11/29/2015 Prolia (denosumab) 60mg,SC injection, ND C#[id number] [facility] 05/31/2015 Chemotherpy Admin Subcutaneous/Im Non-Ho rmonal [...] Inj sakshi Villanueva MD 04/21/2012 Reclast 1MG [id number] Injection Mckenzie Stewart, HETAL 12/03/2011 IV Infusion Up To 1 Hour Injection Mckenzie Stewart, HETAL 12/03/2011 Administration Of Flu Vaccine Inj sakshi Villanueva MD 05/14/2011 Administration Of Flu Vaccine Inj sakshi Villanueva MD 05/02/2009 Administration Of Flu Vaccine Inj jeimyion Zia Villanueva MD 05/10/2008 Administration Of Flu Vaccine Inj ection Georgia Salazar, HETAL 7 Immunizations CPT Code Status Date Vaccine Lot # [id number] Given 05/02/2020 Influenza Vaccin e Quadrivalent Preser/Antibiotic Free Im Use [id number] 11626 Given 01/04/2020 Pneumovax 23 [id number] 92482 Given 08/18/2019 Shingrix Zoster Vaccine (HZV), Recombinant, Subunit, Adjuvanted 92919 Given 05/11/2019 Shingrix Zoster Vaccine (HZV), Recombinant, Subunit, Adjuvanted 98532 Given 05/05/2019 Influenza Vaccin e Quadrivalent Preser/Antibiotic Free Im Use [id number] U-PneuC Given 01/04/2019 Prevnar 13 31407 Given 05/06/2018 Influenza Virus Vaccine, Quadrivalent (Cciiv4), Derived From 0 Given 05/18/2017 Influenza Vaccin e Quadrivalent Preser/Antibiotic Free Im Use Q2037 Given 04/24/2016 Fluvirin Virus Vaccine 47244 01 07307 Given 01/24/2016 Pneumovax 23 01774 Given 05/06/2015 Zostavax Q2037 Given 05/01/2015 Fluvirin Virus Vaccine 30018 01 Q2037 Given 05/19/2014 Fluvirin Virus Vaccine 24641 21 Q2037 Given 05/27/2013 Fluvirin Virus Vaccine 02787 01 Q2037 Given 04/21/2012 Fluvirin Virus Vaccine 61086 01 Q2037 Given 05/14/2011 Fluvirin Virus Vaccine 53971 Given 05/02/2009 Influenza Virus Vaccine 96663 Given 05/10/2008 Influenza Virus Vaccine 32638 Given 05/06/2007 Influenza Virus Vaccine Vital Signs [...] H/L Range Note Laboratory test finding 04/15/2021 [facility] [address] [place] [address] [phone] Urine Culture FULL REPORT IN L <SEE NOTE> Normal 1 Ua Dipstick Only 04/15/2021 [facility] Water Technician: [place] [address] [phone] Urine Color YELLOW Yellow Urine Appearance CLEAR Clear Urine PH 6.0 units 5.0 - 9.0 Urine Specific [place] 1.010 1.005 - 1.030 Urine Leukocytes NEGATIVE Negative Urine Blood NEGATIVE Negative Urine Protein NEGATIVE Negative -Trace Urine Glucose NEGATIVE mg/dL Negative Urine Nitrite NEGATIVE Negative Urine Ketone NEGATIVE mg/dL Negative Urine Bilirubin NEGATIVE Negative Urine Urobilinogen 0.2 mg/dL 0.2 - 1.0 Basic Metabolic Panel 03/27/2021 [facility] Water Technician: [place] [address] [phone] Glucose 76 mg/dL 74 - 99 2 [...] mL/min >60 3 Basic Metabolic Panel 03/14/2021 [facility] Water Technician: Dr Zia Villanueva [place], [place] [id number] [phone] Glucose 74 mg/dL 74 - 99 4 [...] mL/min >60 5 Basic Metabolic Panel 03/01/2021 [facility] Water Technician: [place] [address] [phone] Glucose 51 mg/dL Low 74 - 99 [...] 60 mL/min >60 7 Aldosterone/Renin Ratio 01/09/2021 [facility] [address] [place] [address] [phone] Renin Activity 3.831 ng/mL/hr Normal 0.167-5.380 Aldosterone 119.3 ng/dL High 0.0-30.0 Aldos/Renin Ratio 31.1 High 0.0-30.0 8 Complete Blood Count 01/09/2021 [facility] Water Technician: [place] [address] [phone] WBC 5.2 x10*3/UL 4.1 - 10.9 RBC [...] 2.0 - 7.8 Comprehensive Chem Profile 01/09/2021 [facility] Water Technician: [place] [address] [phone] Glucose 71 mg/dL Low 74 - 99 [...] 60 mL/min >60 10 Lipid Profile 01/09/2021 [facility] Water Technician: Dr Zia Villanueva [place], [place] [id number] [phone] Cholesterol 223 mg/dL High 131 - 200 Triglycerides 74 mg/dL 30 - 150 HDL Cholesterol 100 mg/dL High 35 - 60 LDL (Calculated) 108 CALC 50 - 159 Laboratory test finding 01/09/2021 [facility] Water Technician: Dr Zia [place] [id number] [phone] Magnesium 2.0 mg/dL 1.8 - 2.4 Laboratory test finding 01/09/2021 [facility] [address] [place] [address] [phone] Phosphorus Level 4.2 mg/dL Normal 2.5-4.9 Ua Dipstick Only 01/02/2021 [facility] Water Technician: Dr [place] [address] [phone] Urine Color YELLOW Yellow Urine Appearance CLEAR Clear Urine PH 6.5 units 5.0 - 9.0 Urine Specific Austin 1.020 1.005 - 1.030 Urine Leukocytes NEGATIVE Negative Urine Blood NEGATIVE Negative Urine Protein TRACE Negative -Trace Urine Glucose NEGATIVE mg/dL Negative Urine Nitrite NEGATIVE Negative Urine Ketone NEGATIVE mg/dL Negative Urine Bilirubin NEGATIVE Negative Urine Urobilinogen 0.2 mg/dL 0.2 - 1.0 Laboratory test finding 11/28/2020 [facility] Water Technician: [place] [address] [phone] Potassium 3.2 mEq/L Low 3.5 - 5.1 11 Laboratory test finding 10/31/2020 [facility] darren Water Technician: [place] [address] [phone] Potassium 3.3 mEq/L Low 3.5 - 5.1 [...] LITTLE GFR LEFT ESRD GFR <15 ON ANIMAL NUTRITION TEACHER 4 100-125 mg/dL PRE-DIABET ES/FASTING >126 mg/dL DIABETES/FASTING 5 CHRONIC KIDNEY DISEASE STAGI NG PER NKF STAGE I & II GFR >= 60 NORMAL TO MILDLY DECREASED STAGE III GFR 30-59 MODERATELY DECREASED STAGE IV GFR 15-29 SEVERELY DECREASED STAGE V GFR <15 VERY LITTLE GFR LEFT ESRD GFR <15 ON ANIMAL NUTRITION TEACHER 6 NOTE: RESULT VERIFIED. 100-125 mg/dL PRE-DIABETES/FASTING >126 mg/dL DIABETES/FASTING 7 CHRONIC KIDNEY DISEASE STAGI NG PER NKF STAGE I & II GFR >= 60 NORMAL TO MILDLY DECREASED STAGE III GFR 30-59 MODERATELY DECREASED STAGE IV GFR 15-29 SEVERELY DECREASED STAGE V GFR <15 VERY LITTLE GFR LEFT ESRD GFR <15 ON ANIMAL NUTRITION TEACHER 8 Units: ng/dL per ng/mL/ hr Performed at: - [facility] [id number] Water Technician: Reji Ramos MD, Phone: [phone] 100-125 mg/dL PRE-DIABET ES/FASTING >126 mg/dL DIABETES/FASTING 10 CHRONIC KIDNEY DISEASE STAGI NG PER NKF STAGE I & II GFR >= 60 NORMAL TO MILDLY DECREASED STAGE III GFR 30-59 MODERATELY DECREASED STAGE IV GFR 15-29 SEVERELY DECREASED STAGE V GFR <15 VERY LITTLE GFR LEFT ESRD GFR <15 ON ANIMAL NUTRITION TEACHER 11 NOTE: RESULT VERIFIED 12 NOTE: RESULT VERIFIED. Procedures Date Code Description Status 02/22/2021 98844 Complex Chronic Care Management SVC 1St 60 Min Completed 01/22/2021 78666 Complex Chronic Care Management SVC 1St 60 Min Completed 01/15/2021 42465 Office/Outpatient Established Lo w MDM 20-29 Min Completed 01/11/2021 23335 Therapeutic Injection Completed 01/09/2021 48976 Office/Outpatient Established Mo d MDM 30-39 Min Completed 01/02/2021 48917 Office/Outpatient Established Mo d MDM 30-39 Min Completed 12/18/2020 31995 Complex Chronic Care Management SVC 1St 60 Min Completed 11/07/2020 30735 Office/Outpatient Established Lo w MDM 20-29 Min Completed 05/17/2020 [id number] Mammogram Completed 01/16/2020 [id number] Bone Mineral Density Test Comple akmeron 04/25/2019 [id number] Mammogram Completed 01/12/2019 078861543 Bone Mineral Density Test Comple kameron 04/05/2018 [id number] Mammogram Completed 01/20/2017 09808210 Mammogram Completed 12/16/2016 [id number] Bone Mineral Density Test Comple kameron 12/11/2016 [id number] Mammogram Completed 10/28/2016 [id number] Diabetic Retinal Eye Exam Comple kameron 01/16/2016 [id number] Mammogram Completed 04/30/2015 70160874 Mammogram Completed 10/12/2014 77451009 Mammogram Completed 09/29/2014 [id number] Mammogram Completed 09/29/2014 [id number] Bone Mineral Density Test Comple kameron 12/01/2013 10064993 Colonoscopy Completed 09/16/2013 [id number] Mammogram Completed 08/25/2012 56604030 Mammogram Completed 08/20/2011 [id number] Mammogram Completed 08/20/2011 [id number] Bone Mineral Density Test Comple kameron 08/14/2010 [id number] Mammogram Completed 08/01/2009 [id number] Bone Mineral Density Test Comple kameron 12/15/2005 [id number] Colonoscopy Completed Medical Devices Description No Information Available Encounters Type Date Location Provider Dx Diagnosis Office Visit 01/15/2021 3:00p [facility] M54.2 Cervicalgia R42 Dizziness and giddiness Office Visit 01/09/2021 2:30p [facility] MD E87.6 Hypokalemia M81.0 Age-related osteoporosis w/o current pathological fracture K58.1 Irritable bowel syndrome wit h constipation M54.2 Cervicalgia E55.9 Vitamin D deficiency, unspec ified E78.00 Pure hypercholesterolemia, u nspecified Office Visit 01/02/2021 3:00p [facility] ANP 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 * 07/10/2021 7:50 am - Lab Schedule at [facility] * 07/10/2021 2:00 pm - Zia Villanueva MD at [facility] 01/09/2021 - Zia Villanueva MD* E87.6 Hypokalemia * M81.0 Age-related osteoporosis without current pathological fracture * K58.1 Irritable bowel syndrome with constipation * M54.2 Cervicalgia * E55.9 Vitamin D deficiency, unspecified * E78.00 Pure hypercholesterolemia, unspecified Functional Status Description No Information Available Mental Status Description No Information Available Referrals Description No Information Available
--- OUTSIDE RECORDS SUMMARY | 2021-05-19 12:00 | CCD | Continuity of Care Document ---
Author Author Lab Schedule, Dori Mckinney Organization Unknown Address [address] [place] [address] Phone Unavailable Care Team Providers Care Parker Name Role Phone Berhane Cordova MD AUT[facility] [phone] Fatimah Carolina MD AUT[facility] Unavailable Zia Villanueva JR, MD [facility] Unavailable Juan F Hoskins MD AUTM Unavailable William Quintanilla DPM AUTM [phone] Dick Sorto DO AUTM [phone] Joel Bertrand MD AUTM [phone] Problems Active Problems Provider Date Pure hypercholesterolemia [...] Tablets 1 by mouth every day 30tabs iZa Villanueva MD 02/20/2021 Tizanidine HCL 4mg Capsules [...] abdomen for 10 days 22gm Dori Red, [facility] 08/09/2020 Betamethasone Valerate 0.1% Cream twice a day to rash for 14 days then as needed 45gm Mckenzie Stewart, [facility] 07/23/2020 Atorvastatin Calcium 10mg Tablets Take One Tablet By Mouth Every Day 90tabs Zia Villanueva MD 01/04/2020 Vitamin D (Ergocalciferol) 1.25mg (13755 Ut) Capsules Take 1 Capsule By Mouth Twice A Month 16caps Col liliane Villanueva MD 09/16/2019 Clotrimazole 10mg Beth dissolve in mouth 5x/day x 14 days. 70units Zia Villanueva MD 08/27/19 19 Shingrix 50mcg Suspension Rec administer 0.5 milliliters intramuscular, repeat in 2 to 6 months 2units Zia Villanueva MD 01/06/2018 Nystatin [id number] Suspension swish and spit 1 teaspoonful four [...] as needed for pain 100ml Dori Kay, [facility] 03/21/2015 Anusol-HC 2.5% Cream apply externally Q12 [...] Provider Date Prolia (denosumab) 60mg,SC injection, ND C#[id number] Injection Nurse Schedul e 01/11/2021 Therapeutic Injection Injection Nurse Schedule 01/11/2021 Covid-19 vaccine, Unspecified Inj ection Unknown 08/29/2020 Prolia (denosumab) 60mg,SC injection, ND C#[id number] Injection Zia bernard MD 07/06/2020 Therapeutic Injection Injection Zia Villanueva MD 07/06/2020 Administration Of Flu Vaccine Inj ection Zia Villanueva MD 05/02/2020 Prolia (denosumab) 60mg,SC injection, ND C#[id number] Injection Zia bernard MD 01/04/2020 Therapeutic Injection Injection Zia Villanueva MD 01/04/2020 Prolia (denosumab) 60mg,SC injection, ND C#[id number] Injection Zia bernard MD 06/29/2019 Chemotherpy Admin Subcutaneous/Im Non-Ho rmonal Anti-Neoplastic Injection Zia Villanueva MD 06/29/2019 Administration Of Flu Vaccine Inj ection Zia Villanueva MD 05/05/2019 Prolia (denosumab) 60mg,SC injection, ND C#[id number] Injection Zia bernard MD 01/12/2019 Chemotherpy Admin Subcutaneous/Im Non-Ho rmonal Anti-Neoplastic Injection Nurse [facility] 01/12/2019 Prolia (denosumab) 60mg,SC injection, ND C#[id number] Injection Nurse Sched e 06/04/2018 Chemotherpy Admin Subcutaneous/Im Non-Ho rmonal Anti-Neoplastic Injection Nurse [facility] 06/04/2018 Administration Of Flu Vaccine Inj ection Zia Villanueva MD 05/06/2018 Prolia (denosumab) 60mg,SC injection, ND C[facility][id number] [facility] Chemotherpy Admin Subcutaneous/Im Non-Ho rmonal Anti-Neoplastic Injection Nurse [facility] 11/30/2017 Chemotherpy Admin Subcutaneous/Im Non-Ho rmonal Anti-Neoplastic Injection Zia Villanueva MD 06/03/2017 Administration Of Flu Vaccine Inj ection Zia Villanueva MD 05/18/2017 Prolia (denosumab) 60mg,SC injection, ND C#[id number] Injection Zia bernard MD 12/03/2016 Chemotherpy Admin Subcutaneous/Im Non-Ho rmonal Anti-Neoplastic Injection Nurse [facility] 12/03/2016 Chemotherpy Admin Subcutaneous/Im Non-Ho rmonal Anti-Neoplastic Injection Zia Villanueva MD 06/04/2016 Administration Of Flu Vaccine Inj ection Zia Villanueva MD 04/24/2016 Chemotherpy Admin Subcutaneous/Im Non-Ho rmonal Anti-Neoplastic Injection Nurse [facility] 11/29/2015 Chemotherpy Admin Subcutaneous/Im Non-Ho rmonal Anti-Neoplastic Injection Zia Villanueva MD 11/29/2015 Prolia (denosumab) 60mg,SC injection, ND C#[id number] [facility] 05/31/2015 Chemotherpy Admin Subcutaneous/Im Non-Ho rmonal [...] Inj sakshi Villanueva MD 04/21/2012 Reclast 1MG [id number] Injection Mckenzie Stewart, [facility] 12/03/2011 IV Infusion Up To 1 Hour Injection Mckenzie Stewart, [facility] 12/03/2011 Administration Of Flu Vaccine Inj sakshi Villanueva MD 05/14/2011 Administration Of Flu Vaccine Inj sakshi Villanueva MD 05/02/2009 Administration Of Flu Vaccine Inj jeimyion Zia Villanueva MD 05/10/2008 Administration Of Flu Vaccine Inj ection Georgia Salazar, [facility] 7 Immunizations CPT Code Status Date Vaccine Lot # [id number] Given 05/02/2020 Influenza Vaccin e Quadrivalent Preser/Antibiotic Free Im Use [id number] 98174 Given 01/04/2020 Pneumovax 23 [id number] 24353 Given 08/18/2019 Shingrix Zoster Vaccine (HZV), Recombinant, Subunit, Adjuvanted 55702 Given 05/11/2019 Shingrix Zoster Vaccine (HZV), Recombinant, Subunit, Adjuvanted 21672 Given 05/05/2019 Influenza Vaccin e Quadrivalent Preser/Antibiotic Free Im Use [id number] U-PneuC Given 01/04/2019 Prevnar 13 14742 Given 05/06/2018 Influenza Virus Vaccine, Quadrivalent (Cciiv4), Derived From 1 Given 05/18/2017 Influenza Vaccin e Quadrivalent Preser/Antibiotic Free Im Use Q2037 Given 04/24/2016 Fluvirin Virus Vaccine 60960 01 30638 Given 01/24/2016 Pneumovax 23 04232 Given 05/06/2015 Zostavax Q2037 Given 05/01/2015 Fluvirin Virus Vaccine 98316 01 Q2037 Given 05/19/2014 Fluvirin Virus Vaccine 29962 21 Q2037 Given 05/27/2013 Fluvirin Virus Vaccine 31479 01 Q2037 Given 04/21/2012 Fluvirin Virus Vaccine 00764 01 Q2037 Given 05/14/2011 Fluvirin Virus Vaccine 48773 Given 05/02/2009 Influenza Virus Vaccine 41163 Given 05/10/2008 Influenza Virus Vaccine 33617 Given 05/06/2007 Influenza Virus Vaccine Vital Signs [...] H/L Range Note Laboratory test finding 04/15/2021 [facility] [address] [place] [address] [phone] Urine Culture <pending> Ua Dipstick Only 04/15/2021 [facility] Hydraulic Press Tender: [place] [address] [phone] Urine Color YELLOW Yellow Urine Appearance CLEAR Clear Urine PH 6.0 units 5.0 - 9.0 Urine Specific [place] 1.010 1.005 - 1.030 Urine Leukocytes NEGATIVE Negative Urine Blood NEGATIVE Negative Urine Protein NEGATIVE Negative -Trace Urine Glucose NEGATIVE mg/dL Negative Urine Nitrite NEGATIVE Negative Urine Ketone NEGATIVE mg/dL Negative Urine Bilirubin NEGATIVE Negative Urine Urobilinogen 0.2 mg/dL 0.2 - 1.0 Basic Metabolic Panel 03/27/2021 [facility] Hydraulic Press Tender: [place] [address] [phone] Glucose 76 mg/dL 74 - 99 1 BUN 20 mg/dL High 7 - 18 Creatinine 0.7 mg/dL 0.6 - 1.3 Sodium 138 mEq/L 136 - 145 Potassium 4.0 mEq/L 3.5 - 5.1 Chloride 103 mEq/L 98 - 107 Carbon Dioxide 30 mEq/L 21 - 32 Calcium 9.5 mg/dL 8.5 - 10.1 GFR >= 60 mL/min >60 GFR >= 60 mL/min >60 2 Basic Metabolic Panel 03/14/2021 [facility] Hydraulic Press Tender: Dr Zia Villanueva [place], [place] [id number] [phone] Glucose 74 mg/dL 74 - 99 3 BUN 26 mg/dL High 7 - 18 Creatinine 0.7 mg/dL 0.6 - 1.3 Sodium 136 mEq/L 136 - 145 Potassium 3.4 mEq/L Low 3.5 - 5.1 Chloride 102 mEq/L 98 - 107 Carbon Dioxide 23 mEq/L 21 - 32 Calcium 9.8 mg/dL 8.5 - 10.1 GFR >= 60 mL/min >60 GFR >= 60 mL/min >60 4 Basic Metabolic Panel 03/01/2021 [facility] Hydraulic Press Tender: [place] [address] [phone] Glucose 51 mg/dL Low 74 - 99 5 BUN 24 mg/dL High 7 - 18 Creatinine 0.6 mg/dL 0.6 - 1.3 Sodium 138 mEq/L 136 - 145 Potassium 3.5 mEq/L 3.5 - 5.1 Chloride 101 mEq/L 98 - 107 Carbon Dioxide 28 mEq/L 21 - 32 Calcium 9.5 mg/dL 8.5 - 10.1 GFR >= 60 mL/min >60 GFR >= 60 mL/min >60 6 Aldosterone/Renin Ratio 01/09/2021 [facility] [address] [place] [address] [phone] Renin Activity 3.831 ng/mL/hr Normal 0.167-5.380 Aldosterone 119.3 ng/dL High 0.0-30.0 Aldos/Renin Ratio 31.1 High 0.0-30.0 7 Complete Blood Count 01/09/2021 [facility] Hydraulic Press Tender: [place] [address] [phone] WBC 5.2 x10*3/UL 4.1 - 10.9 RBC [...] 2.0 - 7.8 Comprehensive Chem Profile 01/09/2021 [facility] Hydraulic Press Tender: [place] [address] [phone] Glucose 71 mg/dL Low 74 - 99 8 BUN 19 mg/dL High 7 - 18 [...] mL/min >60 GFR >= 60 mL/min >60 9 Lipid Profile 01/09/2021 [facility] Hydraulic Press Tender: Dr Zia [place]ueva [place] [id number] [phone] Cholesterol 223 mg/dL High 131 - 200 Triglycerides 74 mg/dL 30 - 150 HDL Cholesterol 100 mg/dL High 35 - 60 LDL (Calculated) 108 CALC 50 - 159 Laboratory test finding 01/09/2021 [facility] Hydraulic Press Tender: Dr Zia Villanueva [place] [address] [phone] Magnesium 2.0 mg/dL 1.8 - 2.4 Laboratory test finding 01/09/2021 [facility] [address] [place] [address] [phone] Phosphorus Level 4.2 mg/dL Normal 2.5-4.9 Ua Dipstick Only 01/02/2021 [facility] Hydraulic Press Tender: Dr Zia Villanueva [place] [id number] [phone] Urine Color YELLOW Yellow Urine Appearance CLEAR Clear Urine PH 6.5 units 5.0 - 9.0 Urine Specific [place] 1.020 1.005 - 1.030 Urine Leukocytes NEGATIVE Negative Urine Blood NEGATIVE Negative Urine Protein TRACE Negative -Trace Urine Glucose NEGATIVE mg/dL Negative Urine Nitrite NEGATIVE Negative Urine Ketone NEGATIVE mg/dL Negative Urine Bilirubin NEGATIVE Negative Urine Urobilinogen 0.2 mg/dL 0.2 - 1.0 Laboratory test finding 11/28/2020 [facility], Hydraulic Press Tender: Dr Zia Villanueva [place] [id number] [phone] Potassium 3.2 mEq/L Low 3.5 - 5.1 10 Laboratory test finding 10/31/2020 [facility], Hydraulic Press Tender: Dr [place]ia [place] [address] [phone] Potassium 3.3 mEq/L Low 3.5 - 5.1 11 1 100-125 mg/dL PRE-DIABET ES/FASTING >126 mg/dL DIABETES/FASTING 2 CHRONIC KIDNEY DISEASE STAGI NG PER NKF STAGE I & II GFR >= 60 NORMAL TO MILDLY DECREASED STAGE III GFR 30-59 MODERATELY DECREASED STAGE IV GFR 15-29 SEVERELY DECREASED STAGE V GFR <15 VERY LITTLE GFR LEFT ESRD GFR <15 ON WIDE LOAD ESCORT 3 100-125 mg/dL PRE-DIABET ES/FASTING >126 mg/dL DIABETES/FASTING 4 CHRONIC KIDNEY DISEASE STAGI NG PER NKF STAGE I & II GFR >= 60 NORMAL TO MILDLY DECREASED STAGE III GFR 30-59 MODERATELY DECREASED STAGE IV GFR 15-29 SEVERELY DECREASED STAGE V GFR <15 VERY LITTLE GFR LEFT ESRD GFR <15 ON WIDE LOAD ESCORT 5 NOTE: RESULT VERIFIED. 100-125 mg/dL PRE-DIABETES/FASTING >126 mg/dL DIABETES/FASTING 6 CHRONIC KIDNEY DISEASE STAGI NG PER NKF STAGE I & II GFR >= 60 NORMAL TO MILDLY DECREASED STAGE III GFR 30-59 MODERATELY DECREASED STAGE IV GFR 15-29 SEVERELY DECREASED STAGE V GFR <15 VERY LITTLE GFR LEFT ESRD GFR <15 ON WIDE LOAD ESCORT 7 Units: ng/dL per ng/mL/ hr Performed at: - [address] [id number] Hydraulic Press Tender: Reji Ramos MD, Phone: [phone] 8 100-125 mg/dL PRE-DIABET ES/FASTING >126 mg/dL DIABETES/FASTING 9 CHRONIC KIDNEY DISEASE STAGI NG PER NKF STAGE I & II GFR >= 60 NORMAL TO MILDLY DECREASED STAGE III GFR 30-59 MODERATELY DECREASED STAGE IV GFR 15-29 SEVERELY DECREASED STAGE V GFR <15 VERY LITTLE GFR LEFT ESRD GFR <15 ON WIDE LOAD ESCORT 10 NOTE: RESULT VERIFIED 11 NOTE: RESULT VERIFIED. Procedures Date Code Description Status 02/22/2021 71571 Complex Chronic Care Management SVC 1St 60 Min Completed 01/22/2021 80230 Complex Chronic Care Management SVC 1St 60 Min Completed 01/15/2021 58013 Office/Outpatient Established Lo w MDM 20-29 Min Completed 01/11/2021 09124 Therapeutic Injection Completed 01/09/2021 63316 Office/Outpatient Established Mo d MDM 30-39 Min Completed 01/02/2021 98676 Office/Outpatient Established Mo d MDM 30-39 Min Completed 12/18/2020 59573 Complex Chronic Care Management SVC 1St 60 Min Completed 11/07/2020 85533 Office/Outpatient Established Lo w MDM 20-29 Min Completed 05/17/2020 [id number] Mammogram Completed 01/16/2020 [id number] Bone Mineral Density Test Comple [facility] 04/25/2019 [id number] Mammogram Completed 01/12/2019 [id number] Bone Mineral Density Test Comple [facility] 04/05/2018 [id number] Mammogram Completed 01/20/2017 [id number] Mammogram Completed 12/16/2016 [id number] Bone Mineral Density Test Comple [facility] 12/11/2016 [id number] Mammogram Completed 10/28/2016 [id number] Diabetic Retinal Eye Exam Comple [facility] 01/16/2016 [id number] Mammogram Completed 04/30/2015 [id number] Mammogram Completed 10/12/2014 [id number] Mammogram Completed 09/29/2014 [id number] Mammogram Completed 09/29/2014 [id number] Bone Mineral Density Test Comple [facility] 12/01/2013 82902092 Colonoscopy Completed 09/16/2013 [id number] Mammogram Completed 08/25/2012 [id number] Mammogram Completed 08/20/2011 [id number] Mammogram Completed 08/20/2011 [id number] Bone Mineral Density Test Comple [facility] 08/14/2010 [id number] Mammogram Completed 08/01/2009 [id number] Bone Mineral Density Test Comple [facility] 12/15/2005 [id number] Colonoscopy Completed Medical Devices Description No Information Available Encounters Type Date Location Provider Dx Diagnosis Office Visit 01/15/2021 3:00p [facility]P M54.2 Cervicalgia R42 Dizziness and giddiness Office Visit 01/09/2021 2:30p [facility] MD E87.6 Hypokalemia M81.0 Age-related osteoporosis w/o current pathological fracture K58.1 Irritable bowel syndrome wit h constipation M54.2 Cervicalgia E55.9 Vitamin D deficiency, unspec ified E78.00 Pure hypercholesterolemia, u nspecified Office Visit 01/02/2021 3:00p [facility] ANP 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, unspecified R10.816 Epigastric abdominal tendern ess Office Visit 11/07/2020 11:00a [facility] ANP R07.89 Other chest pain E87.6 Hypokalemia Assessments Date Code Description Provider 03/27/2021 E87.6 Hypokalemia Zia lizarraga MD 03/27/2021 E87.6 Hypokalemia Lab Schedule 03/14/2021 E87.6 Hypokalemia Zia lizarraga MD 03/14/2021 E87.6 Hypokalemia Lab Schedule 03/01/2021 E87.6 Hypokalemia Zia lizarraga MD 03/01/2021 E87.6 Hypokalemia Lab Schedule 02/22/2021 M81.0 Age-related osteoporosis without current pathological fracture Zia Villanueva MD 02/22/2021 E78.00 Pure hypercholesterolemia, unspe cified Zai Villanueva MD 02/22/2021 E55.9 Vitamin D deficiency, [...] MD 01/02/2021 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 * 07/10/2021 7:50 am - Lab Schedule at [facility] * 07/10/2021 2:00 pm - Zia Villanueva MD at [facility] 01/09/2021 - Zia Villanueva MD* E87.6 Hypokalemia * M81.0 Age-related osteoporosis without current pathological fracture * K58.1 Irritable bowel syndrome with constipation * M54.2 Cervicalgia * E55.9 Vitamin D deficiency, unspecified * E78.00 Pure hypercholesterolemia, unspecified Functional Status Description No Information Available Mental Status Description No Information Available Referrals Description No Information Available
--- OUTSIDE RECORDS SUMMARY | 2021-05-19 12:00 | CCD | Continuity of Care Document ---
Author Author Dori TURNER DO Organization Unknown Address [address] [facility] [address] [place] [address] Phone [phone] Care Team Providers Care Innovation Manager Name Role Phone Berhane Cordova MD AUTM [phone] Fatimah Carolina MD AUTM Unavailable Zia Turner JR, MD AUTM Unavailable Juan F Hoskins MD AUTM Unavailable William Quintanilla DPM AUTM [phone] Dick Sorto DO AUTM [phone] Joel Bertrand MD AUTM [phone] Problems Active Problems Provider Date Pure hypercholesterolemia Zia Turner MD Onset: 03/25 Irritable bowel syndrome Zia Turner MD Onset: 2010 Vitamin D deficiency Zia Turner MD Onset: 03/25/2011 Osteoporosis Zia Turner MD Onset: 03/25/2011 Social History Type Date [...] mouth three times a day 270tabs Zia Turner MD 02/20/2021 Spironolactone 25mg Tablets 1 by mouth every day 30tabs Zia Turner MD 02/20/2021 Tizanidine HCL 4mg Capsules take one capsule by mouth every 8 hours as needed 60caps Mckenzie Stewart, HETAL 01/15/2021 Clobetasol Propionate 0.05% Ointme nt apply to rash twice daily on vulva 60units Mckenzie Stewart, YOSELIN P 01/02/2021 Linzess 290mcg Capsules take one capsule by mouth as needed for exacerbation 90caps Zia patterson MD 09/17/2020 Mupirocin 2% Ointment twice times a day to rash on abdomen for 10 days 22gm Dori Sallie Marvin, [facility] 08/09/2020 Betamethasone Valerate 0.1% Cream twice a day to rash for 14 days then as needed 45gm Mckenzie Stewart, ANP 07/23/2020 Atorvastatin Calcium 10mg Tablets Take One Tablet By Mouth Every Day 90tabs Zia Turner MD 01/04/2020 Vitamin D (Ergocalciferol) 1.25mg (82007 Ut) Capsules Take 1 Capsule By Mouth Twice A Month 16caps Col liliane Turner MD 09/16/2019 Clotrimazole 10mg Beth dissolve in mouth 5x/day x 14 days. 70units Zia Turner MD 08/27/19 19 Shingrix 50mcg Suspension Rec administer 0.5 milliliters intramuscular, repeat in 2 to 6 months 2units Zia Turner MD 01/06/2018 Nystatin [id number]/ML Suspension swish and spit 1 teaspoonful four times a day 150units B37.0 Zia Turner MD 09/19/2016 Triamcinolone Acetonide 0.1% Paste apply orally bid 5gm K12.0 ROSA MARIA Montalvo 09/12/2016 Simethicone 80mg Chewtabs one tab 4 times daily after meals and at bedtime 120units R10.9 Francois Montalvo NP 05/12/2016 Probiotic Capsules 1 by mouth every day 30caps K58.8 Zia Turner MD 05/12/2016 Amitiza 24mcg Capsules Take One Capsule By Mouth Twice A Day 180caps Zia Turner MD 01/07/20 16 Lidocaine HCL 2% Gel apply 1 inch to left buttock (rub in) tid as needed for pain 100ml Dori Rizo Eitan salguero, TUB OPERATOR 03/21/2015 Anusol-HC 2.5% Cream apply externally Q12 hours prn 1tube Mckenzie Stewart, ANP 11/01/2013 Anusol-HC 25mg Suppository Insert One Suppository Rectally Every 8 Hours as Needed 12units Patricia Stewart, HETAL 05/30/2013 Anusol-HC 2.5% Cream instill pr qid and topical prn 1units Zia Turner MD 05/26/2013 Prolia 60mg/ml Soln Prefill Syring e inject 60mg under the skin every 6 months 1units Zia bernard MD 03/15/2013 Furosemide 40mg Tablets Take One Tablet By Mouth Every Day as needed 30tabs Zia Turner MD 09/06/2007 History Medications Potassium Chloride ER 20Meq Tablet s ER Take One Tablet By Mouth Twice A Day 60tabs Zia Turner MD 12/03/2020 - 02/20/2021 Medications Administered in Office Medication SIG Qnty Indications Ordering Provider Date Prolia (denosumab) 60mg,SC injection, ND C#[id number] Injection Nurse Antonette e 01/11/2021 Therapeutic Injection Injection Nurse Schedule 01/11/2021 Covid-19 vaccine, Unspecified Inj ection Unknown 08/29/2020 Prolia (denosumab) 60mg,SC injection, ND C#[id number] Injection Zia bernard MD 07/06/2020 Therapeutic Injection Injection Zia Turner MD 07/06/2020 Administration Of Flu Vaccine Inj ection Zia Turner MD 05/02/2020 Prolia (denosumab) 60mg,SC injection, ND C#[id number] Injection Zia benrard MD 01/04/2020 Therapeutic Injection Injection Zia Turner MD 01/04/2020 Prolia (denosumab) 60mg,SC injection, ND C#[id number] Injection Zia bernard MD 06/29/2019 Chemotherpy Admin Subcutaneous/Im Non-Ho rmonal Anti-Neoplastic Injection Zia Turner MD 06/29/2019 Administration Of Flu Vaccine Inj ection Zia Turner MD 05/05/2019 Prolia (denosumab) 60mg,SC injection, ND C#[id number] Injection Zia bernard MD 01/12/2019 Chemotherpy Admin Subcutaneous/Im Non-Ho rmonal Anti-Neoplastic Injection Nurse [facility] 01/12/2019 Prolia (denosumab) 60mg,SC injection, ND C#[id number] Injection Nurse Schedul e 06/04/2018 Chemotherpy Admin Subcutaneous/Im Non-Ho rmonal Anti-Neoplastic Injection Nurse [facility] 06/04/2018 Administration Of Flu Vaccine Inj ection Zia Turner MD 05/06/2018 Prolia (denosumab) 60mg,SC injection, ND C#[id number] Injection Nurse Sched e 11/30/2017 Chemotherpy Admin Subcutaneous/Im Non-Ho rmonal Anti-Neoplastic Injection Nurse [facility] 11/30/2017 Chemotherpy Admin Subcutaneous/Im Non-Ho rmonal Anti-Neoplastic Injection Zia Turner MD 06/03/2017 Administration Of Flu Vaccine Inj ection Zia Turner MD 05/18/2017 Prolia (denosumab) 60mg,SC injection, ND C#[id number] Injection Zia bernard MD 12/03/2016 Chemotherpy Admin Subcutaneous/Im Non-Ho rmonal Anti-Neoplastic Injection Nurse [facility] 12/03/2016 Chemotherpy Admin Subcutaneous/Im Non-Ho rmonal Anti-Neoplastic Injection Zia Turner MD 06/04/2016 Administration Of Flu Vaccine Inj ection Zia Turner MD 04/24/2016 Chemotherpy Admin Subcutaneous/Im Non-Ho rmonal Anti-Neoplastic Injection Nurse [facility] 11/29/2015 Chemotherpy Admin Subcutaneous/Im Non-Ho rmonal Anti-Neoplastic Injection Zia Turner MD 11/29/2015 Prolia (denosumab) 60mg,SC injection, ND C#[id number] Injection Nurse Sched e 05/31/2015 Chemotherpy Admin Subcutaneous/Im Non-Ho rmonal Anti-Neoplastic Injection Zia Turner MD 05/31/2015 Administration Of Flu Vaccine Inj ection Zia Turner MD 05/01/2015 Chemotherpy Admin Subcutaneous/Im Non-Ho rmonal Anti-Neoplastic Injection Zia Turner MD 11/29/2014 Chemotherpy Admin Subcutaneous/Im Non-Ho rmonal Anti-Neoplastic Injection Zia Turner MD 05/31/2014 Administration Of Flu Vaccine Inj sakshi Turner MD 05/19/2014 Chemotherpy Admin Subcutaneous/Im Non-Ho rmonal Anti-Neoplastic Injection Zia Turner MD 12/07/2013 Therapeutic Injection Injection Nurse Schedule 12/07/2013 Therapeutic Injection Injection Nurse Schedule 06/08/2013 Administration Of Flu Vaccine Inj jeimyion Zia Turner MD 05/27/2013 Administration Of Flu Vaccine Inj sakshi Turner MD 04/21/2012 Reclast 1MG [id number] Injection Mckenzie Stewart, HETAL 12/03/2011 IV Infusion Up To 1 Hour Injection Mckenzie Stewart, HETAL 12/03/2011 Administration Of Flu Vaccine Inj sakshi Turner MD 05/14/2011 Administration Of Flu Vaccine Inj jeimyion Zia Turner MD 05/02/2009 Administration Of Flu Vaccine Inj ection Zia Turner MD 05/10/2008 Administration Of Flu Vaccine Inj ection HETAL Jalloh 7 Immunizations CPT Code Status Date Vaccine Lot # [id number] Given 04/24/2021 Influenza Vaccin e Quadrivalent Preser/Antibiotic Free Im Use [id number] 93359 Given 05/02/2020 Influenza Vaccin e Quadrivalent Preser/Antibiotic Free Im Use [id number] 94028 Given 01/04/2020 Pneumovax 23 [id number] 52750 Given 08/18/2019 Shingrix Zoster Vaccine (HZV), Recombinant, Subunit, Adjuvanted 70359 Given 05/11/2019 Shingrix Zoster Vaccine (HZV), Recombinant, Subunit, Adjuvanted 19958 Given 05/05/2019 Influenza Vaccin e Quadrivalent Preser/Antibiotic Free Im Use [id number] U-PneuC Given 01/04/2019 Prevnar 13 57053 Given 05/06/2018 Influenza Virus Vaccine, Quadrivalent (Cciiv4), Derived From 4 Given 05/18/2017 Influenza Vaccin e Quadrivalent Preser/Antibiotic Free Im Use [id number] Given 04/24/2016 Fluvirin Virus Vaccine 87828 01 88255 Given 01/24/2016 Pneumovax 23 29274 Given 05/06/2015 Zostavax Q2037 Given 05/01/2015 Fluvirin Virus Vaccine 30133 01 Q2037 Given 05/19/2014 Fluvirin Virus Vaccine 66787 21 Q2037 Given 05/27/2013 Fluvirin Virus Vaccine 81478 01 Q2037 Given 04/21/2012 Fluvirin Virus Vaccine 18405 01 Q2037 Given 05/14/2011 Fluvirin Virus Vaccine 90828 Given 05/02/2009 Influenza Virus Vaccine 72377 Given 05/10/2008 Influenza Virus Vaccine 78872 Given 05/06/2007 Influenza Virus Vaccine Vital Signs Date Vital Result Comment 04/24/2021 11:29am BP Systolic 110 mmHg BP Diastolic 68 mmHg Heart Rate 68 /min Height 61 inches 5'1" Weight 97.00 lb O2 % BldC Oximetry 98 % BMI (Body Mass Index) 18.3 kg/m2 01/15/2021 3:13pm BP Systolic 102 mmHg BP Diastolic 60 mmHg Heart Rate 58 /min Height 61 inches 5'1" Weight 97.00 lb O2 % BldC Oximetry 98 % BMI (Body Mass Index) 18.3 kg/m2 Results Test Acquired Date Facility Test Result H/L Range Note Basic Metabolic Panel 04/24/2021 [facility] Business Development Analyst: [place] [address] [phone] Glucose 76 mg/dL 74 - 99 1 BUN 22 mg/dL High 7 - 18 Creatinine 0.6 mg/dL 0.6 - 1.3 Sodium 142 mEq/L 136 - 145 Potassium 3.7 mEq/L 3.5 - 5.1 Chloride 107 mEq/L 98 - 107 Carbon Dioxide 25 mEq/L 21 - 32 Calcium 9.4 mg/dL 8.5 - 10.1 GFR >= 60 mL/min >60 GFR >= 60 mL/min >60 2 Laboratory test finding 04/24/2021 [facility] Business Development Analyst: [place] [address] [phone] Magnesium 2.2 mg/dL 1.8 - 2.4 Laboratory test finding 04/15/2021 [facility] [address] [place] [address] [phone] Urine Culture FULL REPORT IN L <SEE NOTE> Normal 3 Ua Dipstick Only 04/15/2021 [facility] , Business Development Analyst: Dr Zia Turner [place], [place] [id number] [phone] Urine Color YELLOW Yellow Urine Appearance CLEAR Clear Urine PH 6.0 units 5.0 - 9.0 Urine Specific Arco 1.010 1.005 - 1.030 Urine Leukocytes NEGATIVE Negative Urine Blood NEGATIVE Negative Urine Protein NEGATIVE Negative -Trace Urine Glucose NEGATIVE mg/dL Negative Urine Nitrite NEGATIVE Negative Urine Ketone NEGATIVE mg/dL Negative Urine Bilirubin NEGATIVE Negative Urine Urobilinogen 0.2 mg/dL 0.2 - 1.0 Basic Metabolic Panel 03/27/2021 Formerly named [facility], Business Development Analyst: [place] [address] [phone] Glucose 76 mg/dL 74 - 99 4 BUN 20 mg/dL High 7 - 18 Creatinine 0.7 mg/dL 0.6 - 1.3 Sodium 138 mEq/L 136 - 145 Potassium 4.0 mEq/L 3.5 - 5.1 Chloride 103 mEq/L 98 - 107 Carbon Dioxide 30 mEq/L 21 - 32 Calcium 9.5 mg/dL 8.5 - 10.1 GFR >= 60 mL/min >60 GFR >= 60 mL/min >60 5 Basic Metabolic Panel 03/14/2021 Formerly named [facility], Business Development Analyst: Dr Zia Turner [place], [place] [id number] [phone] Glucose 74 mg/dL 74 - 99 6 BUN 26 mg/dL High 7 - 18 Creatinine 0.7 mg/dL 0.6 - 1.3 Sodium 136 mEq/L 136 - 145 Potassium 3.4 mEq/L Low 3.5 - 5.1 Chloride 102 mEq/L 98 - 107 Carbon Dioxide 23 mEq/L 21 - 32 Calcium 9.8 mg/dL 8.5 - 10.1 GFR >= 60 mL/min >60 GFR >= 60 mL/min >60 7 Basic Metabolic Panel 03/01/2021 [facility] Business Development Analyst: [place] [address] [phone] Glucose 51 mg/dL Low 74 - 99 8 BUN 24 mg/dL High 7 - 18 Creatinine 0.6 mg/dL 0.6 - 1.3 Sodium 138 mEq/L 136 - 145 Potassium 3.5 mEq/L 3.5 - 5.1 Chloride 101 mEq/L 98 - 107 Carbon Dioxide 28 mEq/L 21 - 32 Calcium 9.5 mg/dL 8.5 - 10.1 GFR >= 60 mL/min >60 GFR >= 60 mL/min >60 9 Comprehensive Chem Profile 01/09/2021 [facility] Business Development Analyst: [place] [address] [phone] Glucose 71 mg/dL Low 74 - 99 10 BUN 19 mg/dL High 7 - 18 [...] mL/min >60 GFR >= 60 mL/min >60 11 Laboratory test finding 01/09/2021 [facility] [address] [place] [address] [phone] Phosphorus Level 4.2 mg/dL Normal 2.5-4.9 Laboratory test finding 01/09/2021 [facility] Business Development Analyst: [place] [address] [phone] Magnesium 2.0 mg/dL 1.8 - 2.4 Lipid Profile 01/09/2021 [facility] Business Development Analyst: [place] [address] [phone] Cholesterol 223 mg/dL High 131 - 200 Triglycerides 74 mg/dL 30 - 150 HDL Cholesterol 100 mg/dL High 35 - 60 LDL (Calculated) 108 CALC 50 - 159 Complete Blood Count 01/09/2021 [facility] Business Development Analyst: [place] [address] [phone] WBC 5.2 x10*3/UL 4.1 - 10.9 RBC [...] Neut # 3.4 x10*3/UL 2.0 - 7.8 Aldosterone/Renin Ratio 01/09/2021 [facility] [address] [place] [address] [phone] Renin Activity 3.831 ng/mL/hr Normal 0.167-5.380 Aldosterone 119.3 ng/dL High 0.0-30.0 Aldos/Renin Ratio 31.1 High 0.0-30.0 12 Ua Dipstick Only 01/02/2021 [facility] Business Development Analyst: [place] [address] [phone] Urine Color YELLOW Yellow Urine Appearance CLEAR Clear Urine PH 6.5 units 5.0 - 9.0 Urine Specific Arco 1.020 1.005 - 1.030 Urine Leukocytes NEGATIVE Negative Urine Blood NEGATIVE Negative Urine Protein TRACE Negative -Trace Urine Glucose NEGATIVE mg/dL Negative Urine Nitrite NEGATIVE Negative Urine Ketone NEGATIVE mg/dL Negative Urine Bilirubin NEGATIVE Negative Urine Urobilinogen 0.2 mg/dL 0.2 - 1.0 Laboratory test finding 11/28/2020 [facility], Business Development Analyst: Dr Zia Turner [place], [place] [id number] [phone] Potassium 3.2 mEq/L Low 3.5 - 5.1 13 Laboratory test finding 10/31/2020 [facility], Business Development Analyst: Dr Zia Turner [place], [place] [id number] [phone] Potassium 3.3 mEq/L Low 3.5 - 5.1 14 1 100-125 mg/dL PRE-DIABET ES/FASTING >126 mg/dL DIABETES/FASTING 2 CHRONIC KIDNEY DISEASE STAGI NG PER NKF STAGE I & II GFR >= 60 NORMAL TO MILDLY DECREASED STAGE III GFR 30-59 MODERATELY DECREASED STAGE IV GFR 15-29 SEVERELY DECREASED STAGE V GFR <15 VERY LITTLE GFR LEFT ESRD GFR <15 ON VALIDATION SCIENTIST 3 FULL REPORT IN LAB NOTES (eC W and Medent). NO GROWTH 4 100-125 mg/dL PRE-DIABET ES/FASTING >126 mg/dL DIABETES/FASTING 5 CHRONIC KIDNEY DISEASE STAGI NG PER NKF STAGE I & II GFR >= 60 NORMAL TO MILDLY DECREASED STAGE III GFR 30-59 MODERATELY DECREASED STAGE IV GFR 15-29 SEVERELY DECREASED STAGE V GFR <15 VERY LITTLE GFR LEFT ESRD GFR <15 ON VALIDATION SCIENTIST 6 100-125 mg/dL PRE-DIABET ES/FASTING >126 mg/dL DIABETES/FASTING 7 CHRONIC KIDNEY DISEASE STAGI NG PER NKF STAGE I & II GFR >= 60 NORMAL TO MILDLY DECREASED STAGE III GFR 30-59 MODERATELY DECREASED STAGE IV GFR 15-29 SEVERELY DECREASED STAGE V GFR <15 VERY LITTLE GFR LEFT ESRD GFR <15 ON VALIDATION SCIENTIST 8 NOTE: RESULT VERIFIED. 100-125 mg/dL PRE-DIABETES/FASTING >126 mg/dL DIABETES/FASTING 9 CHRONIC KIDNEY DISEASE STAGI NG PER NKF STAGE I & II GFR >= 60 NORMAL TO MILDLY DECREASED STAGE III GFR 30-59 MODERATELY DECREASED STAGE IV GFR 15-29 SEVERELY DECREASED STAGE V GFR <15 VERY LITTLE GFR LEFT ESRD GFR <15 ON VALIDATION SCIENTIST 10 100-125 mg/dL PRE-DIABET ES/FASTING >126 mg/dL DIABETES/FASTING 11 CHRONIC KIDNEY DISEASE STAGI NG PER NKF STAGE I & II GFR >= 60 NORMAL TO MILDLY DECREASED STAGE III GFR 30-59 MODERATELY DECREASED STAGE IV GFR 15-29 SEVERELY DECREASED STAGE V GFR <15 VERY LITTLE GFR LEFT ESRD GFR <15 ON VALIDATION SCIENTIST 12 Units: ng/dL per ng/mL/ hr Performed at: - [address] [id number] Business Development Analyst: Reji Ramos MD, Phone: [phone] NOTE: RESULT VERIFIED 14 NOTE: RESULT VERIFIED. Procedures Date Code Description Status 03/26/2021 94156 Complex Chronic Care Management SVC 1St 60 Min Completed 02/22/2021 60672 Complex Chronic Care Management SVC 1St 60 Min Completed 01/22/2021 22170 Complex Chronic Care Management SVC 1St 60 Min Completed 01/15/2021 92927 Office/Outpatient Established Lo w MDM 20-29 Min Completed 01/11/2021 84349 Therapeutic Injection Completed 01/09/2021 44258 Office/Outpatient Established Mo d MDM 30-39 Min Completed 01/02/2021 26329 Office/Outpatient Established Mo d MDM 30-39 Min Completed 12/18/2020 23731 Complex Chronic Care Management SVC 1St 60 Min Completed 11/07/2020 75746 Office/Outpatient Established Lo w MDM 20-29 Min Completed 05/17/2020 [id number] Mammogram Completed 01/16/2020 [id number] Bone Mineral Density Test Comple [facility] 04/25/2019 75928336 Mammogram Completed 01/12/2019 [id number] Bone Mineral Density Test Comple [facility] 04/05/2018 [id number] Mammogram Completed 01/20/2017 [id number] Mammogram Completed 12/16/2016 [id number] Bone Mineral Density Test Comple [facility] 12/11/2016 [id number] Mammogram Completed 10/28/2016 [id number] Diabetic Retinal Eye Exam Comple [facility] 01/16/2016 84408544 Mammogram Completed 04/30/2015 96441605 Mammogram Completed 10/12/2014 07888980 Mammogram Completed 09/29/2014 86640919 Mammogram Completed 09/29/2014 [id number] Bone Mineral Density Test Comple [facility] 12/01/2013 [id number] Colonoscopy Completed 09/16/2013 [id number] Mammogram Completed 08/25/2012 86024775 Mammogram Completed 08/20/2011 59621043 Mammogram Completed 08/20/2011 506251140 Bone Mineral Density Test Comple [facility] 08/14/2010 81378356 Mammogram Completed 08/01/2009 388125411 Bone Mineral Density Test Comple [facility] 12/15/2005 [id number] Colonoscopy Completed Medical Devices Description No Information Available Encounters Type Date Location Provider Dx Diagnosis Office Visit 01/15/2021 3:00p [facility], Brady Stewart, HETAL M54.2 Cervicalgia R42 Dizziness and giddiness Office Visit 01/09/2021 2[facility]p [facility] E87.6 Hypokalemia M81.0 Age-related osteoporosis w/o current pathological fracture K58.1 Irritable bowel syndrome wit h constipation M54.2 Cervicalgia E55.9 Vitamin D deficiency, unspec ified E78.00 Pure hypercholesterolemia, u nspecified Office Visit 01/02/2021 3:00p [facility], ANP 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, unspecified R10.816 Epigastric abdominal tendern ess Office Visit 11/07/2020 11:00a [facility] ANP R07.89 Other chest pain E87.6 Hypokalemia Assessments Date Code Description Provider 04/24/2021 M54.2 Cervicalgia Bird torres, DO 04/24/2021 E87.6 Hypokalemia Bird torres, DO 04/15/2021 R30.0 Dysuria Mckenzie Stewart, ANP 04/15/2021 R30.0 Dysuria Lab Schedule 03/27/2021 E87.6 Hypokalemia Zia lizarraga MD 03/27/2021 E87.6 Hypokalemia Lab Schedule 03/26/2021 E55.9 Vitamin D deficiency, unspecifie d Zia Turner MD 03/26/2021 E78.00 Pure hypercholesterolemia, unspe cified Zia Turner MD 03/26/2021 M81.0 Age-related osteoporosis without current pathological fracture Zia Turner MD 03/14/2021 E87.6 Hypokalemia Zia lizarraga MD 03/14/2021 E87.6 Hypokalemia Lab Schedule 03/01/2021 E87.6 Hypokalemia Zia lizarraga MD 03/01/2021 E87.6 Hypokalemia Lab Schedule 02/22/2021 M81.0 Age-related osteoporosis without current pathological fracture Zia Turner MD 02/22/2021 E78.00 Pure hypercholesterolemia, unspe cified Zia Turner MD 02/22/2021 E55.9 Vitamin D deficiency, unspecifie d Zia Turner MD 01/22/2021 E55.9 Vitamin D deficiency, unspecifie d Zia Turner MD 01/22/2021 E78.00 Pure hypercholesterolemia, unspe cified Zia Turner MD 01/22/2021 M81.0 Age-related osteoporosis without current pathological fracture Zia Turner MD 01/15/2021 M54.2 Cervicalgia Mckenzie Stewart, ANP 01/15/2021 R42 Dizziness and giddiness Mckenzie Stewart, ANP 01/11/2021 M81.0 Age-related osteoporosis without current pathological fracture Zia Turner MD 01/11/2021 M81.0 Age-related osteoporosis without current pathological fracture Nurse Schedule 01/09/2021 E87.6 Hypokalemia Zia lizarraga MD 01/09/2021 M81.0 Age-related osteoporosis without current pathological fracture Zia Turner MD 01/09/2021 K58.1 Irritable bowel syndrome with co nstipation Zia Turner MD 01/09/2021 M54.2 Cervicalgia Zia lizarraga MD 01/09/2021 E55.9 Vitamin D deficiency, unspecifie d Zia Turner MD 01/09/2021 E78.00 Pure hypercholesterolemia, unspe cified Zia Turner MD 01/02/2021 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, unspecified Mckenzie Stewart, HETAL 01/02/2021 R10.816 Epigastric abdominal tenderness Mckenzie Stewart, HETAL 12/18/2020 K58.1 Irritable bowel syndrome with co nstipation Zia Turner MD 12/18/2020 E55.9 Vitamin D deficiency, unspecifie d Zia Turner MD 12/18/2020 E78.00 Pure hypercholesterolemia, unspe cified Zia Turner MD 11/28/2020 E87.6 Hypokalemia Zia lizarraga MD 11/28/2020 E87.6 Hypokalemia Lab Schedule 11/07/2020 R07.89 Other chest pain Mckenzie Stewart , HETAL 11/07/2020 E87.6 Hypokalemia Mckenzie Stewart, HETAL 10/31/2020 E87.6 Hypokalemia Zia lizarraga MD 10/31/2020 E87.6 Hypokalemia Lab Schedule Plan of Treatment Future Appointment(s):* 07/10/2021 7:50 am - Lab Schedule at [facility] * 07/10/2021 2:00 pm - Zia Turner MD at [facility] 01/09/2021 - Zia Turner MD* E87.6 Hypokalemia * M81.0 Age-related osteoporosis without current pathological fracture * K58.1 Irritable bowel syndrome with constipation * M54.2 Cervicalgia * E55.9 Vitamin D deficiency, unspecified * E78.00 Pure hypercholesterolemia, unspecified Functional Status Description No Information Available Mental Status Description No Information Available Referrals Description No Information Available
--- OUTSIDE RECORDS SUMMARY | 2021-05-19 12:00 | CCD ---
Continuity of Care Document (CCD) Created on: 04/24/2021 Dori Rodriguez External Reference #: [id number] : [id number] Sex: Female Author Author Dori TURNER DO Organization Unknown Address [address] [facility] [address] [place] [address] Phone [phone] Care Team Providers Care Hospitality Workers Name Role Phone Berhane Cordova MD AUTM [phone] Fatimah Carolina MD AUTM Unavailable Zia Turner JR, MD AUTM Unavailable Juan F Hoskins MD AUTM Unavailable William Quintanilla DPM AUTM [phone] Dick Sorto DO AUTM [phone] Joel Bertrand MD AUTM [phone] Problems Active Problems Provider Date Pure hypercholesterolemia [...] for 10 days 22gm Dori Sallie Marvin, [facility] 08/09/2020 Betamethasone Valerate 0.1% Cream twice a day to rash for 14 days then as needed 45gm Mckenzie Stewart, ANP 07/23/2020 Atorvastatin Calcium 10mg Tablets Take One Tablet By Mouth Every Day 90tabs Zia Turner MD 01/04/2020 Vitamin D (Ergocalciferol) 1.25mg (87965 Ut) Capsules Take 1 Capsule By Mouth Twice A Month 16caps Col liliane Turner MD 09/16/2019 Clotrimazole 10mg Beth dissolve in mouth 5x/day x 14 days. 70units Zia Turner MD 08/27/19 19 Shingrix 50mcg Suspension Rec administer 0.5 milliliters intramuscular, repeat in 2 to 6 months 2units Zia Turner MD 01/06/2018 Nystatin [id number] Suspension swish and spit 1 teaspoonful four [...] for pain 100ml Dori Rizo Eitan salguero, PILOT 03/21/2015 Anusol-HC 2.5% Cream apply externally Q12 [...] Provider Date Prolia (denosumab) 60mg,SC injection, ND C#[id number] Injection Nurse Antonette e 01/11/2021 Therapeutic Injection Injection Nurse Schedule 01/11/2021 Covid-19 vaccine, Unspecified Inj ection Unknown 08/29/2020 Prolia (denosumab) 60mg,SC injection, ND C#[id number] Injection Zia bernard MD 07/06/2020 Therapeutic Injection Injection Zia Turner MD 07/06/2020 Administration Of Flu Vaccine Inj ection Zia Turner MD 05/02/2020 Prolia (denosumab) 60mg,SC injection, ND C#[id number] Injection Zia bernard MD 01/04/2020 Therapeutic Injection Injection Zia Turner MD 01/04/2020 Prolia (denosumab) 60mg,SC injection, ND C#[id number] Injection Zia bernard MD 06/29/2019 Chemotherpy Admin Subcutaneous/Im Non-Ho rmonal Anti-Neoplastic Injection Zia Turner MD 06/29/2019 Administration Of Flu Vaccine Inj ection Zia Turner MD 05/05/2019 Prolia (denosumab) 60mg,SC injection, ND C#[id number] Injection Zia bernard MD 01/12/2019 Chemotherpy Admin Subcutaneous/Im Non-Ho rmonal Anti-Neoplastic Injection Nurse [facility] 01/12/2019 Prolia (denosumab) 60mg,SC injection, ND C#[id number] Injection Nurse Schedul e 06/04/2018 Chemotherpy Admin Subcutaneous/Im Non-Ho rmonal Anti-Neoplastic Injection Nurse [facility] 06/04/2018 Administration Of Flu Vaccine Inj ection Zia Turner MD 05/06/2018 Prolia (denosumab) 60mg,SC injection, ND C#[id number] Injection Nurse Sched e 11/30/2017 Chemotherpy Admin Subcutaneous/Im Non-Ho rmonal Anti-Neoplastic Injection Nurse [facility] 11/30/2017 Chemotherpy Admin Subcutaneous/Im Non-Ho rmonal Anti-Neoplastic Injection Zia Turner MD 06/03/2017 Administration Of Flu Vaccine Inj ection Zia Turner MD 05/18/2017 Prolia (denosumab) 60mg,SC injection, ND C#[id number] Injection Zia bernard MD 12/03/2016 Chemotherpy Admin Subcutaneous/Im Non-Ho rmonal Anti-Neoplastic Injection Nurse [facility] 12/03/2016 Chemotherpy Admin Subcutaneous/Im Non-Ho rmonal Anti-Neoplastic Injection Zia Turner MD 06/04/2016 Administration Of Flu Vaccine Inj ection Zia Turner MD 04/24/2016 Chemotherpy Admin Subcutaneous/Im Non-Ho rmonal Anti-Neoplastic Injection Nurse [facility] 11/29/2015 Chemotherpy Admin Subcutaneous/Im Non-Ho rmonal Anti-Neoplastic Injection Zia Turner MD 11/29/2015 Prolia (denosumab) 60mg,SC injection, ND C#[id number] Injection Nurse Sched e 05/31/2015 Chemotherpy Admin [...] Inj sakshi Turner MD 04/21/2012 Reclast 1MG [id number] Injection Mckenzie Stewart, HETAL 12/03/2011 IV Infusion Up To 1 Hour Injection Mckenzie Stewart, HETAL 12/03/2011 Administration Of Flu Vaccine Inj sakshi Turner MD 05/14/2011 Administration Of Flu Vaccine Inj jeimyion Zia Turner MD 05/02/2009 Administration Of Flu Vaccine Inj ection Zia Turner MD 05/10/2008 Administration Of Flu Vaccine Inj ection HETAL Jalloh 7 Immunizations CPT Code Status Date Vaccine Lot # [id number] Given 04/24/2021 Influenza Vaccin e Quadrivalent Preser/Antibiotic Free Im Use [id number] 07483 Given 05/02/2020 Influenza Vaccin e Quadrivalent Preser/Antibiotic Free Im Use [id number] 77922 Given 01/04/2020 Pneumovax 23 [id number] 81288 Given 08/18/2019 Shingrix Zoster Vaccine (HZV), Recombinant, Subunit, Adjuvanted 16557 Given 05/11/2019 Shingrix Zoster Vaccine (HZV), Recombinant, Subunit, Adjuvanted 49855 Given 05/05/2019 Influenza Vaccin e Quadrivalent Preser/Antibiotic Free Im Use [id number] U-PneuC Given 01/04/2019 Prevnar 13 13791 Given 05/06/2018 Influenza Virus Vaccine, Quadrivalent (Cciiv4), Derived From 2 Given 05/18/2017 Influenza Vaccin e Quadrivalent Preser/Antibiotic Free Im Use Q2037 Given 04/24/2016 Fluvirin Virus Vaccine 07116 01 21080 Given 01/24/2016 Pneumovax 23 13344 Given 05/06/2015 Zostavax Q2037 Given 05/01/2015 Fluvirin Virus Vaccine 52844 01 Q2037 Given 05/19/2014 Fluvirin Virus Vaccine 99436 21 Q2037 Given 05/27/2013 Fluvirin Virus Vaccine 82603 01 Q2037 Given 04/21/2012 Fluvirin Virus Vaccine 03147 01 Q2037 Given 05/14/2011 Fluvirin Virus Vaccine 42599 Given 05/02/2009 Influenza Virus Vaccine 20637 Given 05/10/2008 Influenza Virus Vaccine 61401 Given 05/06/2007 Influenza Virus Vaccine Vital Signs [...] Result H/L Range Note Laboratory test finding 04/24/2021 [facility] Structural Rigger: Dr Zia Turner [place], [place] [id number] [phone] Magnesium, Serum <pending> Laboratory test finding 04/15/2021 [facility] [address] [place], [place] [id number] [phone] Urine Culture FULL REPORT IN L <SEE NOTE> Normal 1 Ua Dipstick Only 04/15/2021 [facility] Structural Rigger: [place] [address] [phone] Urine Color YELLOW Yellow Urine Appearance CLEAR Clear Urine PH 6.0 units 5.0 - 9.0 Urine Specific [place] 1.010 1.005 - 1.030 Urine Leukocytes NEGATIVE Negative Urine Blood NEGATIVE Negative Urine Protein NEGATIVE Negative -Trace Urine Glucose NEGATIVE mg/dL Negative Urine Nitrite NEGATIVE Negative Urine Ketone NEGATIVE mg/dL Negative Urine Bilirubin NEGATIVE Negative Urine Urobilinogen 0.2 mg/dL 0.2 - 1.0 Basic Metabolic Panel 03/27/2021 [facility], Structural Rigger: Dr [place]ia [place] [id number] [phone] Glucose 76 mg/dL 74 - 99 2 [...] mL/min >60 3 Basic Metabolic Panel 03/14/2021 [facility], Structural Rigger: [place] [address] [phone] Glucose 74 mg/dL 74 - 99 4 [...] mL/min >60 5 Basic Metabolic Panel 03/01/2021 [facility], Structural Rigger: Dr [place] [address] [phone] Glucose 51 mg/dL Low 74 - 99 6 BUN 24 mg/dL High 7 - 18 Creatinine 0.6 mg/dL 0.6 - 1.3 Sodium 138 mEq/L 136 - 145 Potassium 3.5 mEq/L 3.5 - 5.1 Chloride 101 mEq/L 98 - 107 Carbon Dioxide 28 mEq/L 21 - 32 Calcium 9.5 mg/dL 8.5 - 10.1 GFR >= 60 mL/min >60 GFR >= 60 mL/min >60 7 Comprehensive Chem Profile 01/09/2021 [facility] Structural Rigger: [place] [address] [phone] Glucose 71 mg/dL Low 74 - 99 [...] >60 GFR >= 60 mL/min >60 9 Laboratory test finding 01/09/2021 [facility] [address] [place] [address] [phone] Phosphorus Level 4.2 mg/dL Normal 2.5-4.9 Laboratory test finding 01/09/2021 [facility] Structural Rigger: [place] [address] [phone] Magnesium 2.0 mg/dL 1.8 - 2.4 Lipid Profile 01/09/2021 [facility] Structural Rigger: Dr Z[place] [address] [phone] Cholesterol 223 mg/dL High 131 - 200 Triglycerides 74 mg/dL 30 - 150 HDL Cholesterol 100 mg/dL High 35 - 60 LDL (Calculated) 108 CALC 50 - 159 Complete Blood Count 01/09/2021 [facility] Structural Rigger: [place] [address] [phone] WBC 5.2 x10*3/UL 4.1 - 10.9 RBC [...] x10*3/UL 2.0 - 7.8 Aldosterone/Renin Ratio 01/09/2021 [facility] [address] [place] [address] [phone] Renin Activity 3.831 ng/mL/hr Normal 0.167-5.380 Aldosterone 119.3 ng/dL High 0.0-30.0 Aldos/Renin Ratio 31.1 High 0.0-30.0 10 Ua Dipstick Only 01/02/2021 [facility] , Structural Rigger: [place] [address] [phone] Urine Color YELLOW Yellow Urine Appearance CLEAR Clear Urine PH 6.5 units 5.0 - 9.0 Urine Specific [place] 1.020 1.005 - 1.030 Urine Leukocytes NEGATIVE Negative Urine Blood NEGATIVE Negative Urine Protein TRACE Negative -Trace Urine Glucose NEGATIVE mg/dL Negative Urine Nitrite NEGATIVE Negative Urine Ketone NEGATIVE mg/dL Negative Urine Bilirubin NEGATIVE Negative Urine Urobilinogen 0.2 mg/dL 0.2 - 1.0 Laboratory test finding 11/28/2020 [facility], Structural Rigger: [place] [address] [phone] Potassium 3.2 mEq/L Low 3.5 - 5.1 11 Laboratory test finding 10/31/2020 [facility], Structural Rigger: [place] [address] [phone] Potassium 3.3 mEq/L Low 3.5 - 5.1 [...] LITTLE GFR LEFT ESRD GFR <15 ON LUMBER PLANER 4 100-125 mg/dL PRE-DIABET ES/FASTING >126 mg/dL DIABETES/FASTING 5 CHRONIC KIDNEY DISEASE STAGI NG PER NKF STAGE I & II GFR >= 60 NORMAL TO MILDLY DECREASED STAGE III GFR 30-59 MODERATELY DECREASED STAGE IV GFR 15-29 SEVERELY DECREASED STAGE V GFR <15 VERY LITTLE GFR LEFT ESRD GFR <15 ON LUMBER PLANER 6 NOTE: RESULT VERIFIED. 100-125 mg/dL PRE-DIABETES/FASTING >126 mg/dL DIABETES/FASTING 7 CHRONIC KIDNEY DISEASE STAGI NG PER NKF STAGE I & II GFR >= 60 NORMAL TO MILDLY DECREASED STAGE III GFR 30-59 MODERATELY DECREASED STAGE IV GFR 15-29 SEVERELY DECREASED STAGE V GFR <15 VERY LITTLE GFR LEFT ESRD GFR <15 ON LUMBER PLANER 8 100-125 mg/dL PRE-DIABET ES/FASTING >126 mg/dL DIABETES/FASTING 9 CHRONIC KIDNEY DISEASE STAGI NG PER NKF STAGE I & II GFR >= 60 NORMAL TO MILDLY DECREASED STAGE III GFR 30-59 MODERATELY DECREASED STAGE IV GFR 15-29 SEVERELY DECREASED STAGE V GFR <15 VERY LITTLE GFR LEFT ESRD GFR <15 ON LUMBER PLANER 10 Units: ng/dL per ng/mL/ hr Performed at: - [address] [id number] Structural Rigger: Reji Ramos MD, Phone: [phone] NOTE: RESULT VERIFIED 12 NOTE: RESULT VERIFIED. Procedures Date Code Description Status 03/26/2021 99163 Complex Chronic Care Management SVC 1St 60 Min Completed 02/22/2021 13172 Complex Chronic Care Management SVC 1St 60 Min Completed 01/22/2021 17119 Complex Chronic Care Management SVC 1St 60 Min Completed 01/15/2021 91802 Office/Outpatient Established Lo w MDM 20-29 Min Completed 01/11/2021 77501 Therapeutic Injection Completed 01/09/2021 23775 Office/Outpatient Established Mo d MDM 30-39 Min Completed 01/02/2021 19450 Office/Outpatient Established Mo d MDM 30-39 Min Completed 12/18/2020 22009 Complex Chronic Care Management SVC 1St 60 Min Completed 11/07/2020 66520 Office/Outpatient Established Lo w MDM 20-29 Min Completed 05/17/2020 27411972 Mammogram Completed 01/16/2020 166098489 Bone Mineral Density Test Comple [place]on 04/25/2019 54666626 Mammogram Completed 01/12/2019 [id number] Bone Mineral Density Test Comple k[place]on 04/05/2018 52534648 Mammogram Completed 01/20/2017 76934496 Mammogram Completed 12/16/2016 [id number] Bone Mineral Density Test Comple [place]on 12/11/2016 89749684 Mammogram Completed 10/28/2016 340090496 Diabetic Retinal Eye Exam Comple k[place]on 01/16/2016 72477596 Mammogram Completed 04/30/2015 92344618 Mammogram Completed 10/12/2014 85393542 Mammogram Completed 09/29/2014 76156150 Mammogram Completed 09/29/2014 005251279 Bone Mineral Density Test Comple kameron 12/01/2013 15781639 Colonoscopy Completed 09/16/2013 76021497 Mammogram Completed 08/25/2012 41937789 Mammogram Completed 08/20/2011 49964713 Mammogram Completed 08/20/2011 222653509 Bone Mineral Density Test Comple k[place]on 08/14/2010 32247633 Mammogram Completed 08/01/2009 982776769 Bone Mineral Density Test Comple k[place]on 12/15/2005 14045087 Colonoscopy Completed Medical Devices Description No Information Available Encounters Type Date Location Provider Dx Diagnosis Office Visit 01/15/2021 3[facility]p [facility]ETAL M54.2 Cervicalgia R42 Dizziness and giddiness Office Visit 01/09/2021 2:30p [facility] 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 * 07/10/2021 2:00 pm - [facility] 01/09/2021 - Zia Turner MD* E87.6 Hypokalemia * M81.0 Age-related osteoporosis without current pathological fracture * K58.1 Irritable bowel syndrome with constipation * M54.2 Cervicalgia * E55.9 Vitamin D deficiency, unspecified * E78.00 Pure hypercholesterolemia, unspecified Functional Status Description No Information Available Mental Status Description No Information Available Referrals Description No Information Available
--- OUTSIDE RECORDS SUMMARY | 2021-05-19 12:00 | CCD ---
Author Author [facility] Organization 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.01 Active confirmed 453872362 Problem Abnormal mammogram, unspecified 793.80 Active confi rmed 954489365 Problem Cervical spondylolysis M43.02 Active confirmed 158577080 Problem Other chronic pain G89.29 Active confirmed 8 4187593 Problem 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 Active confirmed 299705448 Problem Postmenopausal atrophic vaginitis 627.3 Active con firmed 36694874 Problem Symptomatic menopausal or female climacteric states 627.2 Active confirmed 04798534 Problem Facet arthropathy, cervical M47.812 Active confirme d 866407032 ALLERGIES Allergen (clinical drug ingredient) Drug/Non Drug Allergy do cumented on EMR Reaction Allergy Type Onset Date Status Prednisone prednisone Hives Non Drug Allergy 04/05/2020 Active Penicillin Penicillin Rash Non Drug Allergy 08/10/2013 Active ENCOUNTERS from 1950 to 2021-04-24 Encounter Location Date Provider Diagnosis [facility] [address] Floor [phone] [place] [address] Mar, Raf Steve Other chronic pain G 89.29 ; Occipital neuralgia M54.81 ; Cervical spondylolysis M43.02 and Facet arthropathy, cervical M47.812 IMMUNIZATIONS No Information SOCIAL HISTORY Sex Assigned At : Social History Observation Description Sex Assigned At Unknown Language: Question Answer Notes Languages spoken: Slovenian REASON FOR REFERRAL No Information VITAL SIGNS Weight 96.8 lbs Mar, Weight-kg 43.91 kg Mar, Height 61 in Mar, BMI 18.29 kg/m2 Mar, Heart Rate 60 /min Mar, Respiratory Rate 16 /min Mar, Temperature 97.5 degrees Fahrenheit Mar, Oximetry 98 Mar, Blood pressure systolic 115 mm Hg Mar, Blood pressure diastolic 61 mm Hg Mar, MEDICATIONS Medication SIG (Take, Route, Frequency, Duration) [...] Orally every 12 hrs Active Vitamin D 71642 U 1 capsule Orally twice a week [...] Information RESULTS No Results REASON FOR VISIT POST Trigger point injections left neck, left shoulder, left thoracic MEDICAL (GENERAL) HISTORY Type Description Date Medical [...] No Information FUNCTIONAL STATUS No Information ASSESSMENTS Encounter Date Diagnosis Assessment Notes Treatment Notes Treatm ent Clinical Notes Mar, Other chronic pain (ICD-10 - G89.29) Mar, Occipital neuralgia (ICD-10 - M54.81) I discussed alternatives with Ms. Santoyo I will request authorization for bilateral occipital nerve block. I am looking for long lasting pain relief with this intervention. Depending on the results further recommendations may be done, which may include working with her facet joints of her neck. Patient verbalizes understanding and agrees with the plan of doing the bilateral occipital nerve block. I Yuliya Rolle RN documented the above information acting as scribe for Dr Wilson. I have reviewed the above document, written by Yuliya Rolle RN, and I verify that it is accurate. Mar, Cervical spondylolysis (ICD-10 - M43.02) Mar, Facet arthropathy, cervical (ICD-10 - M47.812) Mar, Other Printed and revi ewed pre procedure instructions and information, patient verbalized understanding. Venu LEA PLAN OF TREATMENT Treatment Notes Assessment Notes Clinical Notes Occipital neuralgia I discussed alternat jocelyn with Ms. Santoyo I will request authorization for bilateral occipital nerve block. I am looking for long lasting pain relief with this intervention. Depending on the results further recommendations may be done, which may include working with her facet joints of her neck. Patient verbalizes understanding and agrees with the plan of doing the bilateral occipital nerve block. I Yuliya Rolle RN documented the above information acting as scribe for Dr Wilson. I have reviewed the above document, written by Yuliya Rolle RN, and I verify that it is accurate. Treatment Notes Test Name Order Date Pain Procedure Log 2021-04-19 Next Appt Details Request auth for bilateral occipital ner ve block Reason:Request auth for bilateral occipital nerve block Provider Name:Raf Wilson, 2021-05-28 02:20:00 PM, [address], , [place], [address], Provider Name:Raf Wilson, 2021-07-12 02:30:00 PM, [address], , [place], [address], Follow Up:Request auth for bilateral occipital nerve blockRequest auth for bilateral occipital nerve block Insurance Providers Payer Name Payer Address Payer Phone Insured Name Patient Relati onship to Insured Coverage Start Date Coverage End Date MEDICARE Part A and B [address] [facility] [phone] AUGUSTINE SANTOYO FOR LIFE [address] [facility] [address] AUGUSTINE NDIAYE self
--- OUTSIDE RECORDS SUMMARY | 2021-05-19 12:00 | CCD ---
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 A ctive confirmed 266173205 Problem Postmenopausal osteoporosis 733.01 Active confirmed 288036826 Problem Abnormal mammogram, unspecified 793.80 Active confi rmed 863464868 Problem Cervical spondylolysis M43.02 Active confirmed 165914412 Problem Other chronic pain G89.29 Active confirmed 8 6510478 Problem 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 Active confirmed 567571561 Problem Postmenopausal atrophic vaginitis 627.3 Active con firmed 36934013 Problem Symptomatic menopausal or female climacteric states 627.2 Active confirmed 21885517 Problem Facet arthropathy, cervical M47.812 Active confirme d 138276131 ALLERGIES Allergen (clinical drug ingredient) Drug/Non Drug Allergy do cumented on EMR Reaction Allergy Type Onset Date Status Prednisone prednisone Hives Non Drug Allergy 04/05/2020 Active Penicillin Penicillin Rash Non Drug Allergy 08/10/2013 Active ENCOUNTERS from 1950 to 2021-04-25 Encounter Location Date Provider Diagnosis [facility] [address] Floor [phone] [place] [address] Mar, Raf Wilson IMMUNIZATIONS No Information SOCIAL HISTORY Sex Assigned At : Social History Observation Description Sex Assigned At Unknown Language: Question Answer Notes Languages spoken: Portuguese REASON FOR REFERRAL No Information VITAL SIGNS [...] Orally every 12 hrs Active Vitamin D 36838 U 1 capsule Orally twice a week [...] Information RESULTS No Results REASON FOR VISIT NURSE MEDICAL (GENERAL) HISTORY Type Description Date Medical [...] and en dometriosis 1984 Surgical History laparoscopic/endometriosis 1985 Surgical History colonoscopy (Abdoul) 11/2013 Surgical History [...] Provider Name:Raf Steve, 2021-05-28 02:20:00 PM, [address], , [place], [address], Provider Name:Raf Wilson, 2021-07-12 02:30:00 PM, [address], , [place], [address], Insurance Providers Payer Name Payer Address Payer Phone Insured Name Patient Relati onship to Insured Coverage Start Date Coverage End Date FOR LIFE [address] [facility] [phone] AUGUSTINE NDIAYE [facility] MEDICARE Part A and B [address] [facility] [id number] [phone] AUGUSTINE SANTOYO self
--- OUTSIDE RECORDS SUMMARY | 2021-05-19 12:01 | CCD | Continuity of Care Document ---
Author Author Dori DICKINSON Organization Unknown Address [address] [place] [address], [address] [place] [address] Phone [phone] Care Team Providers Care Insole Taper Name Role Phone Zia Villanueva MD @ [facility] Int AUTM Dori De Leon AUTM [phone] AUTM Unavailable [facility] Rehab AUTM [phone] Problems Active Problems Provider Date Impacted cerumen Jose Bal MD Onset: 03/02/2013 Chronic otitis externa Jose Bal MD Onset: 03/02/20 13 Dysfunction of eustachian tube Jose Bal MD Onset: 04/11/2014 Microcalcifications of the breast Julia Pathak D.O. Onset : 12/08/2014 Fibrocystic disease of breast Julia Pathak D.O. Onset: Chronic otitis externa Ted Dickinson II, PA-C Onset: 05/17/20 15 Impacted cerumen Ted Dickinson II, PA-C Onset: 05/17/2015 Benign tumor of breast Julia Pathak D.O. Onset: 7 Breast lump Julia Pathak D.O. Onset: 04/14/2017 Social History Type Date Description Comments Sex Unknown ETOH Use Denies alcohol use Tobacco Use Start: Unknown Patient has never smoked Recreational Drug Use Denies Drug Use Allergies, Adverse Reactions, Alerts Active Allergies Criticality Reaction | Severity Comments Date Steroids Unable to assess criticality 01/01/2012 Penicillin Unable to assess criticality 11/10/2018 Medications Active Medications SIG Qnty Indications Ordering Provide r Date Amitiza 24mcg Capsules 1 tab by mouth twice a day 180mary jos Alpesh Schreiber JR, MD 09/08/2016 Roberto [id number] Capsules 1 tab 2x/wk 16caps Mckenzie Stewart A.N.PSantosh 10/05/2014 Prolia 60mg/ml Solution sq every 6m 1units Mckenzie Stewart A.N.PSantosh 03/15/2013 Linzess 145mcg Capsules take 1 capsule by mouth daily Unknown Gas-X 80mg Chewtabs as needed Unknown Aspirin [address] 1 by mouth every day Unknown Potassium Chloride ER 20Meq Tablet s ER 1tab po bid Unknown Atorvastatin Calcium 10mg Tablets 1 by mouth every day Unknown Nexium 20mg Capsules DR 1cap po qd Unknown Xiidra 5% Solution Dick Sorto D.O. History Medications Preparation H 0.25-88.44% Supposit ory one suppository rashmi night at bedtime for 7 days 12units Malvin Thompson M.D. 12/10/2020 - 07/27/2020 Immunizations Description No Information Available Vital Signs Date Vital Result Comment 04/10/2021 11:29am Height 61 inches 5'1" Weight 94.12 lb BMI (Body Mass Index) 17.8 kg/m2 [place] Body Weight 105 lb Weight 42.695 kg BSA (Body Surface Area) 1.37 m2 01/24/2021 1:57pm BP Systolic 98 mmHg BP Diastolic 60 mmHg Heart Rate 56 /min O2 % BldC Oximetry 99 % Height 61 inches 5'1" Weight 97.25 lb BMI (Body Mass Index) 18.4 kg/m2 [place] Body Weight 105 lb Weight 44.113 kg BSA (Body Surface Area) 1.39 m2 Results Description No Information Available Procedures Date Code Description Status 04/10/2021 23282 Office/Outpatient Established Lo w MDM 20-29 Min Completed 04/10/2021 64519 Remove Impacted Cerumen Complete d 01/24/2021 47639 Office/Outpatient Established Lo w MDM 20-29 Min Completed 12/05/2020 45723 Office/Outpatient Established Lo w MDM 20-29 Min Completed Medical Devices Description No Information Available Encounters Type Date Location Provider Dx Diagnosis Office Visit 04/10/2021 11:30a [facility] Ted Dickinson II, PA-C M26.601 Right temporomandibular joint disorder, unspecified H61.23 Impacted cerumen, bilateral Office Visit 01/24/2021 2:00p [facility] Hank Pepper R51.9 Headache, unspecified Office Visit 12/05/2020 10:00a [facility]ice Malvin Thompson M.D. K58.1 Irritable bowel syndrome wit h constipation R10.33 Periumbilical pain Assessments Date Code Description Provider 04/10/2021 M26.601 Right temporomandibular joint di sorder, unspecified Ted Dickinson II, PA-C 04/10/2021 H61.23 Impacted cerumen, bilateral David as Alok MONTERO PA-C 01/24/2021 R51.9 Headache, unspecified Joel flores MD 12/05/2020 K58.1 Irritable bowel syndrome with co nstipation Malvin Thompson M.D. 12/05/2020 R10.33 Periumbilical pain Malvin rivera M.D. Plan of Treatment 04/10/2021 - Ted Dickinson II, PA-C* M26.601 Right temporomandibular joint disorder, unspecified* Comments:* Patient has normal examination of the ears. She is tender to palpation over the right temporomandibular joint. I believe this is the source of her pain. She will be referred to physical therapy for evaluation and management.Referral To: [facility] Rehab * Follow up:* prn * H61.23 Impacted cerumen, bilateral* Comments:* Cleared from canals without difficulty Functional Status Description No Information Available Mental Status Description No Information Available Referrals Refer to Reason for Referral Status Appt Date [facility] Rehab Right TMJ pain, please eval and treat Sent PT/OT/Rehab [address] [place] [address] [phone]
--- OUTSIDE RECORDS SUMMARY | 2021-05-19 12:01 | CCD | Continuity of Care Document ---
Author Author Dori DICKINSON Organization Unknown Address [address] [place] [address], [address] [place] [address] Phone [phone] Care Team Providers Care Machine Cutter Name Role Phone Zia Villanueva MD @ [facility] Int AUTM Dori De Leon AUTM [phone] AUTM Unavailable Problems Active Problems Provider Date Impacted cerumen [...] 1 tab by mouth twice a day 180caps Alpesh Schreiber JR, MD 09/08/2016 Roberto [id number] Capsules 1 tab 2x/wk 16caps Mckenzie Stewart A.NSantoshPSantosh 10/05/2014 Prolia 60mg/ml Solution sq every 6m [...] lb BMI (Body Mass Index) 17.8 kg/m2 [place] Body Weight 105 lb Weight 42.695 kg BSA (Body Surface Area) 1.37 m2 01/24/2021 1:57pm BP Systolic 98 mmHg BP Diastolic 60 mmHg Heart Rate 56 /min O2 % BldC Oximetry 99 % Height 61 inches 5'1" Weight 97.25 lb BMI (Body Mass Index) 18.4 kg/m2 [place] Body Weight 105 lb Weight 44.113 kg BSA (Body Surface Area) 1.39 m2 Results Description No Information Available Procedures Date Code Description Status 01/24/2021 02328 Office/Outpatient Established Lo w MDM 20-29 Min Completed 12/05/2020 61146 Office/Outpatient Established Lo w MDM 20-29 Min Completed Medical Devices Description No Information Available Encounters Type Date Location Provider Dx Diagnosis Office Visit 01/24/2021 2:00p [facility] Hank Pepper R51.9 Headache, unspecified Office Visit 12/05/2020 10:00a [facility] G[facility] Malvin Thompson M.D. K58.1 Irritable bowel syndrome wit h constipation R10.33 Periumbilical pain Assessments Date Code Description Provider 04/10/2021 M26.601 Right temporomandibular joint di sorder, unspecified Ted Dickinson II, PA-C 04/10/2021 H61.23 Impacted cerumen, bilateral David duane Dickinson II, PA-C 01/24/2021 R51.9 Headache, unspecified Joel flores, 12/05/2020 K58.1 Irritable bowel syndrome with co nstipation Malvin Thompson M.D. 12/05/2020 R10.33 Periumbilical pain Malvin rivera M.D. Plan of Treatment 04/10/2021 - Ted Dickinson II, PA-C* M26.601 Right temporomandibular joint disorder, unspecified* Comments:* ref to [facility] pt * Follow up:* prn * H61.23 Impacted cerumen, bilateral Functional Status Description No Information Available Mental Status Description No Information Available Referrals Description No Information Available
--- OUTSIDE RECORDS SUMMARY | 2021-05-19 12:01 | CCD | Continuity of Care Document ---
Author Author Lab Schedule, Dori Mckinney Organization Unknown Address [address] [place] [address] Phone Unavailable Care Team Providers Care Superintendent Power Name Role Phone Berhane Cordova MD AUTM [phone] Fatimah Carolina MD AUTM Unavailable Zia Villanueva JR, MD AUTM Unavailable Juan F Hoskins MD AUTM Unavailable William Quintanilla DPM AUTM [phone] Dick Sorto DO AUTM [phone] Joel Bertrand MD AUTM [phone] Problems Active Problems Provider Date Pure hypercholesterolemia [...] abdomen for 10 days 22gm Dori Red, [facility] 08/09/2020 Betamethasone Valerate 0.1% Cream twice a day to rash for 14 days then as needed 45gm Mckenzie Stewart, HETAL 07/23/2020 Atorvastatin Calcium 10mg Tablets Take One Tablet By Mouth Every Day 90tabs Zia Villanueva MD 01/04/2020 Vitamin D (Ergocalciferol) 1.25mg (15087 Ut) Capsules Take 1 Capsule By Mouth Twice A Month 16caps Col liliane Villanueva MD 09/16/2019 Clotrimazole 10mg Beth dissolve in mouth 5x/day x 14 days. 70units Zia Villanueva MD 08/27/19 19 Shingrix 50mcg Suspension Rec administer 0.5 milliliters intramuscular, repeat in 2 to 6 months 2units Zia Villanueva MD 01/06/2018 Nystatin 063108Urym/ML Suspension swish and spit 1 teaspoonful four [...] as needed for pain 100ml Dori Kay, [employer] TRA[employer]ER 03/21/2015 Anusol-HC 2.5% Cream apply externally Q12 [...] Provider Date Prolia (denosumab) 60mg,SC injection, ND C#[id number] Injection Nurse Schedul e 01/11/2021 Therapeutic Injection Injection Nurse Schedule 01/11/2021 Covid-19 vaccine, Unspecified Inj ection Unknown 08/29/2020 Prolia (denosumab) 60mg,SC injection, ND C#[id number] Injection Zia bernard MD 07/06/2020 Therapeutic Injection Injection Zia Villanueva MD 07/06/2020 Administration Of Flu Vaccine Inj ection Zia Villanueva MD 05/02/2020 Prolia (denosumab) 60mg,SC injection, ND C#[id number] Injection Zia bernard MD 01/04/2020 Therapeutic Injection Injection Zia Villanueva MD 01/04/2020 Prolia (denosumab) 60mg,SC injection, ND C#[id number] Injection Zia bernard MD 06/29/2019 Chemotherpy Admin Subcutaneous/Im Non-Ho rmonal Anti-Neoplastic Injection Zia Villanueva MD 06/29/2019 Administration Of Flu Vaccine Inj ection Zia Villanueva MD 05/05/2019 Prolia (denosumab) 60mg,SC injection, ND C#[id number] Injection Zia bernard MD 01/12/2019 Chemotherpy Admin Subcutaneous/Im Non-Ho rmonal Anti-Neoplastic Injection Nurse [facility] 01/12/2019 Prolia (denosumab) 60mg,SC injection, ND C#[id number] Injection Nurse Sched e 06/04/2018 Chemotherpy Admin Subcutaneous/Im Non-Ho rmonal Anti-Neoplastic Injection Nurse [facility] 06/04/2018 Administration Of Flu Vaccine Inj ection Zia Villanueva MD 05/06/2018 Prolia (denosumab) 60mg,SC injection, ND C[facility][id number] [facility]2017 Chemotherpy Admin Subcutaneous/Im Non-Ho rmonal Anti-Neoplastic Injection Nurse [facility] 11/30/2017 Chemotherpy Admin Subcutaneous/Im Non-Ho rmonal Anti-Neoplastic Injection Zia Villanueva MD 06/03/2017 Administration Of Flu Vaccine Inj ection Zia Villanueva MD 05/18/2017 Prolia (denosumab) 60mg,SC injection, ND C#[id number] Injection Zia bernard MD 12/03/2016 Chemotherpy Admin Subcutaneous/Im Non-Ho rmonal Anti-Neoplastic Injection Nurse [facility] 12/03/2016 Chemotherpy Admin Subcutaneous/Im Non-Ho rmonal Anti-Neoplastic Injection Zia Villanueva MD 06/04/2016 Administration Of Flu Vaccine Inj ection Zia Villanueva MD 04/24/2016 Chemotherpy Admin Subcutaneous/Im Non-Ho rmonal Anti-Neoplastic Injection Nurse [facility] 11/29/2015 Chemotherpy Admin Subcutaneous/Im Non-Ho rmonal Anti-Neoplastic Injection Zia Villanueva MD 11/29/2015 Prolia (denosumab) 60mg,SC injection, ND C#[id number] [facility] 05/31/2015 Chemotherpy Admin Subcutaneous/Im Non-Ho rmonal Anti-Neoplastic [...] Inj sakshi Villanueva MD 04/21/2012 Reclast 1MG [id number] Injection Mckenzie Stewart, HETAL 12/03/2011 IV Infusion Up To 1 Hour Injection Mckenzie Stewart, HETAL 12/03/2011 Administration Of Flu Vaccine Inj sakshi Villanueva MD 05/14/2011 Administration Of Flu Vaccine Inj sakshi Villanueva MD 05/02/2009 Administration Of Flu Vaccine Inj jeimyion Zia Villanueva MD 05/10/2008 Administration Of Flu Vaccine Inj ection [place]azar, HETAL 7 Immunizations CPT Code Status Date Vaccine Lot # [id number] Given 05/02/2020 Influenza Vaccin e Quadrivalent Preser/Antibiotic Free Im Use [id number] 20344 Given 01/04/2020 Pneumovax 23 [id number] 14633 Given 08/18/2019 Shingrix Zoster Vaccine (HZV), Recombinant, Subunit, Adjuvanted 11562 Given 05/11/2019 Shingrix Zoster Vaccine (HZV), Recombinant, Subunit, Adjuvanted 75845 Given 05/05/2019 Influenza Vaccin e Quadrivalent Preser/Antibiotic Free Im Use [id number] U-PneuC Given 01/04/2019 Prevnar 13 98957 Given 05/06/2018 Influenza Virus Vaccine, Quadrivalent (Cciiv4), Derived From 9 Given 05/18/2017 Influenza Vaccin e Quadrivalent Preser/Antibiotic Free Im Use [id number] Given 04/24/2016 Fluvirin Virus Vaccine 07999 01 94206 Given 01/24/2016 Pneumovax 23 81600 Given 05/06/2015 Zostavax Q2037 Given 05/01/2015 Fluvirin Virus Vaccine 40188 01 Q2037 Given 05/19/2014 Fluvirin Virus Vaccine 50617 21 Q2037 Given 05/27/2013 Fluvirin Virus Vaccine 20840 01 Q2037 Given 04/21/2012 Fluvirin Virus Vaccine 45765 01 Q2037 Given 05/14/2011 Fluvirin Virus Vaccine 46711 Given 05/02/2009 Influenza Virus Vaccine 96268 Given 05/10/2008 Influenza Virus Vaccine 87764 Given 05/06/2007 Influenza Virus Vaccine Vital Signs [...] Result H/L Range Note Basic Metabolic Panel 03/27/2021 [facility], Tape Coater: [place] [address] [phone] Glucose 76 mg/dL 74 - 99 1 [...] mL/min >60 2 Basic Metabolic Panel 03/14/2021 [facility] jorge valencia Tape Coater: [place] [address] [phone] Glucose 74 mg/dL 74 - 99 3 [...] mL/min >60 4 Basic Metabolic Panel 03/01/2021 [facility]: Dr Zia Villanueva [place], [place] [id number] [phone] Glucose 51 mg/dL Low 74 - 99 [...] 60 mL/min >60 6 Aldosterone/Renin Ratio 01/09/2021 [facility] [address] [place], [place] [address] [phone] Renin Activity 3.831 ng/mL/hr Normal 0.167-5.380 Aldosterone 119.3 ng/dL High 0.0-30.0 Aldos/Renin Ratio 31.1 High 0.0-30.0 7 Complete Blood Count 01/09/2021 [facility] Tape Coater: Dr Zia Villanueva [place], [place] [id number] [phone] WBC 5.2 x10*3/UL 4.1 - 10.9 RBC [...] 2.0 - 7.8 Comprehensive Chem Profile 01/09/2021 [facility] Tape Coater: [place] [address] [phone] Glucose 71 mg/dL Low 74 - 99 [...] 60 mL/min >60 9 Lipid Profile 01/09/2021 [facility] Tape Coater: [place] [address] [phone] Cholesterol 223 mg/dL High 131 - 200 Triglycerides 74 mg/dL 30 - 150 HDL Cholesterol 100 mg/dL High 35 - 60 LDL (Calculated) 108 CALC 50 - 159 Laboratory test finding 01/09/2021 [facility] Tape Coater: [place] [address] [phone] Magnesium 2.0 mg/dL 1.8 - 2.4 Laboratory test finding 01/09/2021 [facility] [address] [place] [address] [phone] Phosphorus Level 4.2 mg/dL Normal 2.5-4.9 Ua Dipstick Only 01/02/2021 [facility] , Tape Coater: [place] [address] [phone] Urine Color YELLOW Yellow Urine Appearance CLEAR Clear Urine PH 6.5 units 5.0 - 9.0 Urine Specific [place] 1.020 1.005 - 1.030 Urine Leukocytes NEGATIVE Negative Urine Blood NEGATIVE Negative Urine Protein TRACE Negative -Trace Urine Glucose NEGATIVE mg/dL Negative Urine Nitrite NEGATIVE Negative Urine Ketone NEGATIVE mg/dL Negative Urine Bilirubin NEGATIVE Negative Urine Urobilinogen 0.2 mg/dL 0.2 - 1.0 Laboratory test finding 11/28/2020 [facility], Tape Coater: [place] [address] [phone] Potassium 3.2 mEq/L Low 3.5 - 5.1 10 Laboratory test finding 10/31/2020 [facility], Tape Coater: Dr [place] [address] [phone] Potassium 3.3 mEq/L Low 3.5 - 5.1 11 1 100-125 mg/dL PRE-DIABET ES/FASTING >126 mg/dL DIABETES/FASTING 2 CHRONIC KIDNEY DISEASE STAGI NG PER NKF STAGE I & II GFR >= 60 NORMAL TO MILDLY DECREASED STAGE III GFR 30-59 MODERATELY DECREASED STAGE IV GFR 15-29 SEVERELY DECREASED STAGE V GFR <15 VERY LITTLE GFR LEFT ESRD GFR <15 ON BIAS CUTTING MACHINE OPERATOR VERTICAL 3 100-125 mg/dL PRE-DIABET ES/FASTING >126 mg/dL DIABETES/FASTING 4 CHRONIC KIDNEY DISEASE STAGI NG PER NKF STAGE I & II GFR >= 60 NORMAL TO MILDLY DECREASED STAGE III GFR 30-59 MODERATELY DECREASED STAGE IV GFR 15-29 SEVERELY DECREASED STAGE V GFR <15 VERY LITTLE GFR LEFT ESRD GFR <15 ON BIAS CUTTING MACHINE OPERATOR VERTICAL 5 NOTE: RESULT VERIFIED. 100-125 mg/dL PRE-DIABETES/FASTING >126 mg/dL DIABETES/FASTING 6 CHRONIC KIDNEY DISEASE STAGI NG PER NKF STAGE I & II GFR >= 60 NORMAL TO MILDLY DECREASED STAGE III GFR 30-59 MODERATELY DECREASED STAGE IV GFR 15-29 SEVERELY DECREASED STAGE V GFR <15 VERY LITTLE GFR LEFT ESRD GFR <15 ON BIAS CUTTING MACHINE OPERATOR VERTICAL 7 Units: ng/dL per ng/mL/ hr Performed at: - [facility] [id number] T[employer] Coater: Reji Ramos MD, Phone: [phone] 100-125 mg/dL PRE-DIABET ES/FASTING >126 mg/dL DIABETES/FASTING 9 CHRONIC KIDNEY DISEASE STAGI NG PER NKF STAGE I & II GFR >= 60 NORMAL TO MILDLY DECREASED STAGE III GFR 30-59 MODERATELY DECREASED STAGE IV GFR 15-29 SEVERELY DECREASED STAGE V GFR <15 VERY LITTLE GFR LEFT ESRD GFR <15 ON BIAS CUTTING MACHINE OPERATOR VERTICAL 10 NOTE: RESULT VERIFIED 11 NOTE: RESULT VERIFIED. Procedures Date Code Description Status 02/22/2021 73015 Complex Chronic Care Management SVC 1St 60 Min Completed 01/22/2021 22231 Complex Chronic Care Management SVC 1St 60 Min Completed 01/15/2021 92294 Office/Outpatient Established Lo w MDM 20-29 Min Completed 01/11/2021 36192 Therapeutic Injection Completed 01/09/2021 55284 Office/Outpatient Established Mo d MDM 30-39 Min Completed 01/02/2021 72136 Office/Outpatient Established Mo d MDM 30-39 Min Completed 12/18/2020 62270 Complex Chronic Care Management SVC 1St 60 Min Completed 11/07/2020 96454 Office/Outpatient Established Lo w MDM 20-29 Min Completed 05/17/2020 [id number] Mammogram Completed 01/16/2020 [id number] Bone Mineral Density Test Comple [facility] 04/25/2019 [id number] Mammogram Completed 01/12/2019 [id number] Bone Mineral Density Test Comple [facility] 04/05/2018 [id number] Mammogram Completed 01/20/2017 [id number] Mammogram Completed 12/16/2016 [id number] Bone Mineral Density Test Comple [facility] 12/11/2016 [id number] Mammogram Completed 10/28/2016 [id number] Diabetic Retinal Eye Exam Comple [facility] 01/16/2016 [id number] Mammogram Completed 04/30/2015 [id number] Mammogram Completed 10/12/2014 [id number] Mammogram Completed 09/29/2014 [id number] Mammogram Completed 09/29/2014 [id number] Bone Mineral Density Test Comple [facility] 12/01/2013 [id number] Colonoscopy Completed 09/16/2013 [id number] Mammogram Completed 08/25/2012 [id number] Mammogram Completed 08/20/2011 [id number] Mammogram Completed 08/20/2011 [id number] Bone Mineral Density Test Comple [facility] 08/14/2010 [id number] Mammogram Completed 08/01/2009 [id number] Bone Mineral Density Test Comple [facility] 12/15/2005 [id number] Colonoscopy Completed Medical Devices Description No Information Available Encounters Type Date Location Provider Dx Diagnosis Office Visit [facility] M[facility]2 Cervicalgia R42 Dizziness and giddiness Office Visit 01/09/2021 2[facility] E87.6 Hypokalemia M81.0 Age-related osteoporosis w/o current pathological fracture K58.1 Irritable bowel syndrome wit h constipation M54.2 Cervicalgia E55.9 Vitamin D deficiency, unspec ified E78.00 Pure hypercholesterolemia, u nspecified Office Visit 01/02/2021 3:00p [facility]P 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 * 07/10/2021 7:50 am - Lab Schedule at [facility] * 07/10/2021 2:00 pm - Zia Villanueva MD at [facility] 01/09/2021 - Zia Villanueva MD* E87.6 Hypokalemia * M81.0 Age-related osteoporosis without current pathological fracture * K58.1 Irritable bowel syndrome with constipation * M54.2 Cervicalgia * E55.9 Vitamin D deficiency, unspecified * E78.00 Pure hypercholesterolemia, unspecified Functional Status Description No Information Available Mental Status Description No Information Available Referrals Description No Information Available
--- OUTSIDE RECORDS SUMMARY | 2021-05-19 12:01 | CCD | Continuity of Care Document ---
Author Author Dori KENYON [facility] Unknown Address [address] [place] [id number] Phone [phone] Care Team Providers Care Container Finishing Inspector Name Role Phone Zia Villanueva MD AUTM [phone] Salazar Gordon [employer] AUTM [phone] Huong Perla M.D. AUTM [phone] Problems Description No Information Available Social History Type Date Description Comments Sex Unknown ETOH Use Denies alcohol use Tobacco Use Start: Unknown Patient has never smoked Smoking Status Reviewed: 12/25/20 Patient has never smoked Allergies, Adverse Reactions, Alerts Active Allergies Criticality Reaction | Severity Comments Date Penicillins Unable to assess criticality 10/03/2008 Aspirin Unable to assess criticality 10/03/2008 Medications Active Medications SIG Qnty Indications Ordering Provide r Date Doxycycline Monohydrate 100mg Tabl ets 1 tab by mouth twice a day for 10 days 20tabs J01.10 Zia Villanueva JR., M.D. 04/05/2021 Oaggutqs-Bttwdxues-UC 1% Solution instill 4 drops to affected ear three times per day for seven days (both ears) 10ml Zia Villanueva JR., M.D. 04/05/2021 Amitiza 24mcg Capsules bid Unknown Vitamin D 2000Unit Tablets 2x weekly Unknown Potassium Chloride Talia ER 10Meq Tablets ER Unknown Gas-X 80mg Chewtabs Unknown Atorvastatin Calcium 10mg Tablets Unknown Cequa 0.09% Solution Unknown Inveltys 1% Suspension Instill 1 Drop In The Left Eye Two Times A Day Unknown Linzess 290mcg Capsules Take One Capsule By Mouth Daily Unknown Omeprazole Unknown History Medications Phenazopyridine HCL 200mg Tablets take one tab by mouth three times a day x 2 days 6tabs R30.0 Zia Villanueva JR., M.D. 11/13/2020 - 11/30/2020 Immunizations CPT Code Status Date Vaccine Lot # [id number] Given 10/16/2018 Tetanus (Td) Vaccine 7 Yrs> Vital Signs Date Vital Result Comment 04/05/2021 7:25pm BP Systolic 113 mmHg BP Diastolic 71 mmHg Heart Rate 59 /min Respiratory Rate 18 /min O2 % BldC Oximetry 98 % Body Temperature 97.9 F Weight 94.00 lb Height 61 inches 5'1" BMI (Body Mass Index) 17.8 kg/m2 Pain Level 6 12/25/2020 7:00pm BP Systolic 110 mmHg BP Diastolic 71 mmHg Heart Rate 56 /min Respiratory Rate 16 /min O2 % BldC Oximetry 98 % Body Temperature 97.0 F Weight 94.00 lb Height 61 inches 5'1" BMI (Body Mass Index) 17.8 kg/m2 Pain Level 4 Results Test Acquired Date Facility Test Result H/L Range Note Laboratory test finding 12/25/[address] [address] [phone] Urine Culture FULL REPORT IN L <SEE NOTE> Normal 1 Laboratory test finding 11/13/[address] [address] [phone] Urine Culture FULL REPORT IN L <SEE NOTE> Normal 2 CBC With Differential 10/16/[address] [address] [phone] White Blood Count 7.7 10 Normal 4.0-10.0 3 Red Blood Count 4.41 10 Normal 4.00-5.40 Hemoglobin 12.8 g/dL Normal 12.0-15.5 Hematocrit 40.5 % Normal 36.0-47.0 Mean Corpuscular Volume 91.8 fl Normal 80.0-96.0 Mean Corpuscular Hemoglobin 29.0 pg Normal 27.0-33.0 Mean Corpuscular HGB Conc 31.6 g/dL Low 32.0-36.5 Red Cell Distribution Width 13.2 % Normal 11.5-14.5 Platelet Count, Automated 268 10 Normal 150-450 Neutrophils % 65.4 % Normal 36.0-66.0 Lymph % 24.5 % Normal 24.0-44.0 Caroline % 8.1 % High 2.0-8.0 Eos % 0.8 % Normal 0.0-3.0 Baso % 0.8 % Normal 0.0-1.0 Immature Granulocyte % 0.4 % Normal 0-3.0 Nucleated Red Blood Cell % 0.0 % Normal 0-0 Neutrophils # 5.0 10 Normal 1.5-8.5 Lymph # 1.9 10 Normal 1.5-5.0 Caroline # 0.6 10 Normal 0.0-0.8 Eos # 0.1 10 Normal 0.0-0.5 Baso # 0.1 10 Normal 0.0-0.2 Comprehensive Metabolic Profil 10/16/[address] [address] [phone] Glucose, Fasting 83 mg/dL Normal 70-100 Blood Urea Nitrogen 22 mg/dL High 7-18 Creatinine For GFR 0.68 mg/dL Normal 0.55-1.30 Glomerular Filtration Rate > 60.0 Normal >45 4 Sodium Level 141 mEq/L Normal 136-145 Potassium Serum 3.5 mEq/L Normal 3.5-5.1 Chloride Level 109 mEq/L High 98-107 Carbon Dioxide Level 27 mEq/L Normal 21-32 Anion Gap 5 mEq/L Low 8-16 Calcium Level 8.8 mg/dL Normal 8.8-10.2 Ast/Sgot 15 U/L Normal 7-37 Alt/SGPT 42 U/L Normal 12-78 Alkaline Phosphatase 61 U/L Normal 45-117 Bilirubin,Total 0.5 mg/dL Normal 0.2-1.0 Total Protein 6.6 GM/DL Normal 6.4-8.2 Albumin 3.9 GM/DL Normal 3.2-5.2 Albumin/Globulin Ratio 1.4 Normal 1.2-2.2 Cardiac Marker Panel 10/16/[address] [address] [phone] CPK Creatine Phosphokinase 73 U/L Normal 26-19 2 CK-MB Value Mass 3.2 NG/ML Normal <3.6 MB/CK Relative Index 4.38 High < Or =4 5 Troponin I < 0.02 NG/ML Normal < 0.10 6 FT4&TSH Panel 10/16/2020 [facility] [address] [place] [address] [phone] Thyroid Stimulating Hormone 1.640 uIU/ML Normal 0. 358-3.740 Free T4 0.83 ng/dL Normal 0.76-1.46 1 FULL REPORT IN LAB NOTES ([facility] and [facility]). NO GROWTH CLINICAL SIGNIFICANCE 2 OR MORE ORGANISMS 2 FULL REPORT IN LAB NOTES ([facility]). NO GROWTH CLINICAL SIGNIFICANCE 2 OR MORE ORGANISMS 3 see Progress note 4 Units are mL/min/1.73 m2 Chronic Kidney Disease Staging per NKF: Stage I & II GFR >=60 Normal to Mildly Decreased Stage III GFR 30-59 Moderately Decreased Stage IV GFR 15-29 Severely Decreased Stage V GFR <15 Very Little GFR Left ESRD GFR <15 on HOME PARAPROFESSIONAL 5 DIAGNOSIS CRITERIA MMB ng/ml Relative Index (RI) NON-AMI < or = 5 N/A PLASCENCIA ZONE > 5 < or = 4 AMI > 5 > 4 6 Troponin I Reference Interva l for [place] LOCI: 99th Percentile= 0.00-0.045 ng/ml Risk Stratification: <= 0.10 ng/ml Decreased Risk for Adverse Clinical Events. 0.10-1.50 ng/ml Increased Risk for Adv erse Clinical Events. Evaluation of additional criterion and/or repeat testing in 2-6 hours is suggested to rule out myocardial damage. >= 1.50 ng/ml Indicative of Myocardial Injury. Procedures Date Code Description Status 04/05/2021 69440 Office/Outpatient Established Lo w MDM 20-29 Min Completed 12/25/2020 38036 Office/Outpatient Established Lo w MDM 20-29 Min Completed 11/30/2020 90891 Office/Outpatient Established Mo d MDM 30-39 Min Completed 11/13/2020 28990 Office/Outpatient Established Lo w MDM 20-29 Min Completed 10/16/2020 40694 Office/Outpatient Established Mo d MDM 30-39 Min Completed 10/16/2020 09706 Electrocardiogram Complete Compl eted Medical Devices Description No Information Available Encounters Type Date Location Provider Dx Diagnosis Office Visit 04/05/2021 6:55p Main Office JUVENAL Johnson H60 .313 Diffuse otitis externa, bilateral J06.9 Acute upper respiratory infe ction, unspecified Z20.828 Contact w and exposure to ot h viral communicable diseases Office Visit 12/25/2020 6:10p Main Office Marlen Mendoza NP R30. 0 Dysuria Office Visit 11/30/2020 3:35p Main Office JUVENAL Johnson R10 .84 Generalized abdominal pain Office Visit 11/13/2020 11:50a Main Office JUVENAL Johnson R30 .0 Dysuria Office Visit 10/16/2020 3:15p Main Office JUVENAL Johnson R07 .1 Chest pain on breathing R12 Heartburn Assessments Date Code Description Provider 04/05/2021 H60.313 Diffuse otitis externa, bilatera l JUVENAL Johnson 04/05/2021 J06.9 Acute upper respiratory infectio n, unspecified JUVENAL Johnson 04/05/2021 Z20.828 Contact with and (valadez spected) exposure to other viral communicable diseases JUVENAL Johnson 12/25/2020 R30.0 Dysuria Marlen muhammad NP 11/30/2020 R10.84 Generalized abdominal pain [place] JUVENAL Bowden 11/13/2020 R30.0 Dysuria JUVENAL Hylton 10/16/2020 R07.1 Chest pain on breathing JUVENAL Johnson 10/16/2020 R12 Heartburn JUVENAL Hylton Plan of Treatment No Information Available Functional Status Description No Information Available Mental Status Description No Information Available Referrals Refer to Reason for Referral Status Appt Date Huong Perla M.D. further assessment Patient Declined [id number] [facility], [address] [place] [id number] [phone]
--- OUTSIDE RECORDS SUMMARY | 2021-05-19 12:03 | CCD ---
Author Author [facility] Organization [facility] Address Unknown Phone Unavailable Care Team Providers Care Trades Helper Name Role Phone Francois Villanueva MD Unavailable Unavailable Francois Villanueva MD Unavailable Unavailable Francois Villanueva MD Unavailable Unavailable Francois Villanueva MD Unavailable Unavailable Francois Villanueva MD Unavailable Unavailable Francois Villanueva MD Unavailable Unavailable Francois Villanueva MD Unavailable Unavailable Francois Villanueva MD Unavailable Unavailable Francois Villanueva MD Unavailable Unavailable Francois Villanueva MD Unavailable Unavailable Francois Villanueva MD Unavailable Unavailable Francois Villanueva MD Unavailable Unavailable Francois Villanueva MD Unavailable Unavailable Francois Villanueva MD Unavailable Unavailable Francois Villanueva MD Unavailable Unavailable Francois Villanueva MD Unavailable Unavailable Francois Villanueva MD Unavailable Unavailable Francois Villanueva MD Unavailable Unavailable Francois Villanueva MD Unavailable Unavailable Francois Villanueva MD Unavailable Unavailable RichFrancois MD Unavailable Unavailable MosheimFrancois MD Unavailable Unavailable MosheimFrancois MD Unavailable Unavailable MosheimFrancois MD Unavailable Unavailable MosheimFrancois MD Unavailable Unavailable RichFrancois MD Unavailable Unavailable MosheimFrancois MD Unavailable Unavailable MosheimFrancois MD Unavailable Unavailable RichFrancois MD Unavailable Unavailable RichFrancois MD Unavailable Unavailable RichFrancois MD Unavailable Unavailable RichFrancois MD Unavailable Unavailable RichFrancois MD Unavailable Unavailable RichFrancois MD Unavailable Unavailable MosheimFrancois MD Unavailable Unavailable RichFrancois MD Unavailable Unavailable MosheimFrancois MD Unavailable Unavailable RichFrancois MD Unavailable Unavailable MosheimFrancois MD Unavailable Unavailable RichFrancois MD Unavailable Unavailable RichFrancois MD Unavailable Unavailable MosheimFrancois MD Unavailable Unavailable RichFrancois MD Unavailable Unavailable RichFrancois MD Unavailable Unavailable MosheimFrancois MD Unavailable Unavailable RichFrancois MD Unavailable Unavailable RichFrancois MD Unavailable Unavailable RichFrancois MD Unavailable Unavailable RichFrancois livingston MD Unavailable Unavailable RichFrancois MD Unavailable Unavailable RichFrancois MD Unavailable Unavailable MosheimFrancois MD Unavailable Unavailable MosheimFrancois MD Unavailable Unavailable RichFrancois MD Unavailable Unavailable MosheimFrancois livingston MD Unavailable Unavailable MosheimFrancois livingston MD Unavailable Unavailable RichFrancois livingston MD Unavailable Unavailable RichFrancois MD Unavailable Unavailable RichFrancois livingston MD Unavailable Unavailable MosheimFrancois MD Unavailable Unavailable MosheimFrancois MD Unavailable Unavailable MosheimFrancois livingston MD Unavailable Unavailable MosheimrFancois livingston MD Unavailable Unavailable MosheimFrancois livingston MD Unavailable Unavailable MosheimFrancois MD Unavailable Unavailable RichFrancois MD Unavailable Unavailable MosheimFrancois MD Unavailable Unavailable RichFrancois MD Unavailable Unavailable RichFrancois MD Unavailable Unavailable MosheimFrancois MD Unavailable Unavailable RichFrancois MD Unavailable Unavailable RichFrancois MD Unavailable Unavailable RichFrancois MD Unavailable Unavailable RichFrancois MD Unavailable Unavailable MosheimFrancois MD Unavailable Unavailable MosheimFrancois MD Unavailable Unavailable Rich, F Lizarraga MD Unavailable Unavailable Francois Villanueva MD Unavailable Unavailable Francois Villanueva MD Unavailable Unavailable Francois Villanueva MD Unavailable Unavailable RichFrancois livingston MD Unavailable Unavailable MosheimFrancois livingston MD Unavailable Unavailable MosheimFrancois livingston MD Unavailable Unavailable Francois Villanueva MD Unavailable Unavailable RichFrancois livingston MD Unavailable Unavailable RichFrancois livingston MD Unavailable Unavailable HARSH, CULLEN PA Unavailable Unavailable HARSH, CULLEN PA Unavailable Unavailable HARSH, CULLEN PA Unavailable Unavailable HARSH, CULLEN PA Unavailable Unavailable HARSH, CULLEN PA Unavailable Unavailable HARSH, CULLEN PA Unavailable Unavailable HARSH, CULLEN PA Unavailable Unavailable HARSH, CULLEN PA Unavailable Unavailable HARSH, CULLEN PA Unavailable Unavailable HARSH, CULLEN PA Unavailable Unavailable HARSH, CULLEN PA Unavailable Unavailable HARSH, CULLEN PA Unavailable Unavailable HARSH, CULLEN PA Unavailable Unavailable HARSH, CULLEN PA Unavailable Unavailable HARSH, CULLEN PA Unavailable Unavailable HARSH, CULLEN PA Unavailable Unavailable HARSH, CULLEN PA Unavailable Unavailable HARSH, CULLEN PA Unavailable Unavailable HARSH, CULLEN PA Unavailable Unavailable HARSH, CULLEN PA Unavailable Unavailable HARSH, CULLEN PA Unavailable Unavailable HARSH, CULLEN PA Unavailable Unavailable HARSH, CULLEN PA Unavailable Unavailable HARSH, CULLEN PA Unavailable Unavailable HARSH, CULLEN PA Unavailable Unavailable HARSH, CULLEN PA Unavailable Unavailable HARSH, CULLEN PA Unavailable Unavailable HARSH, CULLEN PA Unavailable Unavailable HARSH, CULLEN PA Unavailable Unavailable HARSH, CULLEN PA Unavailable Unavailable HARSH, CULLEN PA Unavailable Unavailable HARSH, CULLEN PA Unavailable Unavailable HARSH, CULLEN PA Unavailable Unavailable HARSH, CULLEN PA Unavailable Unavailable HARSH, CULLEN PA Unavailable Unavailable HARSH, CULLEN PA Unavailable Unavailable Asaf Watikns MD, FACS Unavailable Unavailable Asaf Watkins MD, FACS Unavailable Unavailable Asaf Watkins MD, FACS Unavailable Unavailable Asaf Watkins MD, FACS Unavailable Unavailable Asaf Watkins MD, FACS Unavailable Unavailable Asaf Watkins MD, FACS Unavailable Unavailable Asaf Watkins MD, FACS Unavailable Unavailable Asaf Watkins MD, FACS Unavailable Unavailable Keith Gonzalez, Asaf Maldonado MD, FACS Unavailable Unavailable Keith Gonzalez, Asaf Maldonado MD, FACS Unavailable Unavailable Keith Gonzalez, Asaf Maldonado MD, FACS Unavailable Unavailable Keith Gonzalez, Asaf Maldonado MD, FACS Unavailable Unavailable Keith Gonzalez, Asaf Maldonado MD, FACS Unavailable Unavailable Keith Gonzalez, Asaf Maldonado MD, FACS Unavailable Unavailable Keith Gonzalez, Asaf Maldonado MD, FACS Unavailable Unavailable Keith Gonzalez, Asaf Maldonado MD, FACS Unavailable Unavailable Keith Gonzalez, Asaf Maldonado MD, FACS Unavailable Unavailable Keith Gonzalez, Asaf Maldonado MD, FACS Unavailable Unavailable Keith Gonzalez, Asaf Maldonado MD, FACS Unavailable Unavailable Keith Gonzalez, Asaf Maldonado MD, FACS Unavailable Unavailable Keith Gonzalez, Asaf Maldonado MD, FACS Unavailable Unavailable Keith Gonzalez, Asaf Maldonado MD, FACS Unavailable Unavailable Keith Gonzalez, Asaf Maldonado MD, FACS Unavailable Unavailable Keith Gonzalez, Asaf Maldonado MD, FACS Unavailable Unavailable Keith Gonzalez, Asaf Maldonado MD, FACS Unavailable Unavailable Keith Gonzalez, Asaf Maldonado MD, FACS Unavailable Unavailable Keith Gonzalez, Asaf Maldonado MD, FACS Unavailable Unavailable Keith Gonzalez, Asaf Maldonado MD, FACS Unavailable Unavailable Keith Gonzalez, Asaf Maldonado MD, FACS Unavailable Unavailable Keith Gonzalez, Asaf Maldonado MD, FACS Unavailable Unavailable Keith Gonzalez, Asaf Maldonado MD, FACS Unavailable Unavailable Keith Gonzalez, Asaf Maldonado MD, FACS Unavailable Unavailable Keith Gonzalez, Asaf Maldonado MD, FACS Unavailable Unavailable Keith Gonzalez, Asaf Maldonado MD, FACS Unavailable Unavailable Keith Gonzalez, Asaf Maldonado MD, FACS Unavailable Unavailable Keith Gonzalez, Asaf Maldonado MD, FACS Unavailable Unavailable Keith Gonzalez, Asaf Maldonado MD, FACS Unavailable Unavailable Keith Gonzalez, Asaf Maldonado MD, FACS Unavailable Unavailable Keith Gonzalez, Asaf Maldonado MD, FACS Unavailable Unavailable SARAI, J Mckenzie ANP Unavailable Unavailable SARAI, J Mckenzie ANP Unavailable Unavailable SARAI, J Mckenzie ANP Unavailable Unavailable SARAI, J Mckenzie ANP Unavailable Unavailable SARAI, J Mckenzie ANP Unavailable Unavailable SARAI, J Mckenzie ANP Unavailable Unavailable SARAI, J Mckenzie ANP Unavailable Unavailable SARAI, J Mckenzie ANP Unavailable Unavailable SARAI, J Mckenzie ANP Unavailable Unavailable SARAI, J Mckenzie ANP Unavailable Unavailable SARAI, J Mckenzie ANP Unavailable Unavailable SARAI, J Mckenzie ANP Unavailable Unavailable SARAI, J Mckenzie ANP Unavailable Unavailable SARAI, J Mckenzie ANP Unavailable Unavailable SARAI, J Mckenzie ANP Unavailable Unavailable SARAI, J Mckenzie ANP Unavailable Unavailable SARAI, J Mckenzie ANP Unavailable Unavailable SARAI, J Mckenzie ANP Unavailable Unavailable SARAI, J Mckenzie ANP Unavailable Unavailable SARAI, J Mckenzie ANP Unavailable Unavailable SARAI, J Mckenzie ANP Unavailable Unavailable SARAI, J Mckenzie ANP Unavailable Unavailable SARAI, J Mckenzie ANP Unavailable Unavailable SARAI, J Mckenzie ANP Unavailable Unavailable SARAI, J Mckenzie ANP Unavailable Unavailable SARAI, J Mckenzie ANP Unavailable Unavailable SARAI, J Mckenzie ANP Unavailable Unavailable SARAI, J Mckenzie ANP Unavailable Unavailable SARAI, J Mckenzie ANP Unavailable Unavailable SARAI, J Mckenzie ANP Unavailable Unavailable SARAI, J Mckenzie ANP Unavailable Unavailable SARAI, J Mckenzie ANP Unavailable Unavailable SARAI, J Mckenzie ANP Unavailable Unavailable SARAI, J Mckenzie ANP Unavailable Unavailable SARAI, J Mckenzie ANP Unavailable Unavailable SARAI, J Mckenzie ANP Unavailable Unavailable SARAI, J Mckenzie ANP Unavailable Unavailable SARAI, J Mckenzie ANP Unavailable Unavailable SARAI, J Mckenzie ANP Unavailable Unavailable SARAI, J Mckenzie ANP Unavailable Unavailable SARAI, J Mckenzie ANP Unavailable Unavailable SARAI, J Mckenzie ANP Unavailable Unavailable SARAI, J Mckenzie ANP Unavailable Unavailable SARAI, J Mckenzie ANP Unavailable Unavailable SARAI, J Mckenzie ANP Unavailable Unavailable SARAI, J Mckenzie ANP Unavailable Unavailable SARAI, J Mckenzie ANP Unavailable Unavailable SARAI, J Mckenzie ANP Unavailable Unavailable SARAI, J Mckenzie ANP Unavailable Unavailable SARAI, J Mckenzie ANP Unavailable Unavailable SARAI, J Mckenzie ANP Unavailable Unavailable SARAI, J Mckenzie ANP Unavailable Unavailable SARAI, J Mckenzie ANP Unavailable Unavailable SARAI, J Mckenzie ANP Unavailable Unavailable SARAI, J Mckenzie ANP Unavailable Unavailable SARAI, J Mckenzie ANP Unavailable Unavailable SARAI, J Mckenzie ANP Unavailable Unavailable SARAI, J Mckenzie ANP Unavailable Unavailable SARAI, J Mckenzie ANP Unavailable Unavailable SARAI, J Mckenzie ANP Unavailable Unavailable SARAI, J Mckenzie ANP Unavailable Unavailable SARAI, J Mckenzie ANP Unavailable Unavailable SARAI, J Mckenzie ANP Unavailable Unavailable SARAI, J Mckenzie ANP Unavailable Unavailable Jorge YOUNG MD Unavailable Unavailable Jorge YOUNG MD Unavailable Unavailable Jorge YOUNG MD Unavailable Unavailable Jorge YOUNG MD Unavailable Unavailable Jorge YOUNG MD Unavailable Unavailable Jorge YOUNG MD Unavailable Unavailable Jorge YOUNG MD Unavailable Unavailable Jorge YOUNG MD Unavailable Unavailable Jorge YOUNG MD Unavailable Unavailable Jorge YOUNG MD Unavailable Unavailable Jorge YOUNG MD Unavailable Unavailable Jorge YOUNG MD Unavailable Unavailable Jorge YOUNG MD Unavailable Unavailable Jorge YOUNG MD Unavailable Unavailable Jorge YOUNG MD Unavailable Unavailable Jorge YOUNG MD Unavailable Unavailable Jorge YOUNG MD Unavailable Unavailable Jorge YOUNG MD Unavailable Unavailable Jorge YOUNG MD Unavailable Unavailable Joreg YOUNG MD Unavailable Unavailable Jorge YOUNG MD Unavailable Unavailable Jorge YOUNG MD Unavailable Unavailable Jorge YOUNG MD Unavailable Unavailable Jorge YOUNG MD Unavailable Unavailable Jorge YOUNG MD Unavailable Unavailable Jorge YOUNG MD Unavailable Unavailable Jorge YOUGN MD Unavailable Unavailable Jorge YOUNG MD Unavailable Unavailable Jorge YOUNG MD Unavailable Unavailable Jorge YOUNG MD Unavailable Unavailable Jorge YOUNG MD Unavailable Unavailable Jorge YOUNG MD Unavailable Unavailable Jorge YOUNG MD Unavailable Unavailable Alok II, Ted PA Unavailable Unavailable Alok II, Ted PA Unavailable Unavailable Alok II, Ted PA Unavailable Unavailable Alok II, Ted PA Unavailable Unavailable Alok II, Ted PA Unavailable Unavailable Alok II, Ted PA Unavailable Unavailable Alok II, Ted PA Unavailable Unavailable Alok II, Ted PA Unavailable Unavailable Alok II, Ted PA Unavailable Unavailable Alok II, Ted PA Unavailable Unavailable Alok II, Ted PA Unavailable Unavailable Alok II, Ted PA Unavailable Unavailable Alok II, Ted PA Unavailable Unavailable Alok II, Ted PA Unavailable Unavailable Alok II, Ted PA Unavailable Unavailable Alok II, Ted PA Unavailable Unavailable Alok II, Ted PA Unavailable Unavailable Alok II, Ted PA Unavailable Unavailable Alok II, Ted PA Unavailable Unavailable Mendoza, Marlen STRIKE WARFARE/MISSILE SYSTEMS OFFICER Unavailable Unavailable Mendoza, Marlen STRIKE WARFARE/MISSILE SYSTEMS OFFICER Unavailable Unavailable Mendoza, Marlen STRIKE WARFARE/MISSILE SYSTEMS OFFICER Unavailable Unavailable Mendoza, Marlen STRIKE WARFARE/MISSILE SYSTEMS OFFICER Unavailable Unavailable Mendoza, Marlen STRIKE WARFARE/MISSILE SYSTEMS OFFICER Unavailable Unavailable Mendoza, Marlen STRIKE WARFARE/MISSILE SYSTEMS OFFICER Unavailable Unavailable Mendoza, Marlen STRIKE WARFARE/MISSILE SYSTEMS OFFICER Unavailable Unavailable Mendoza, Marlen STRIKE WARFARE/MISSILE SYSTEMS OFFICER Unavailable Unavailable Mendoza, Marlen STRIKE WARFARE/MISSILE SYSTEMS OFFICER Unavailable Unavailable Mendoza, Marlen STRIKE WARFARE/MISSILE SYSTEMS OFFICER Unavailable Unavailable Mendoza, Marlen STRIKE WARFARE/MISSILE SYSTEMS OFFICER Unavailable Unavailable Mendoza, Marlen STRIKE WARFARE/MISSILE SYSTEMS OFFICER Unavailable Unavailable Mendoza, Marlen STRIKE WARFARE/MISSILE SYSTEMS OFFICER Unavailable Unavailable LETTIERE, A NOVA PA Unavailable Unavailable LETTIERE, A NOVA PA Unavailable Unavailable LETTIERE, A NOVA PA Unavailable Unavailable LETTIERE, A NOVA PA Unavailable Unavailable LETTIERE, A NOVA PA Unavailable Unavailable LETTIERE, A NOVA PA Unavailable Unavailable LETTIERE, A NOVA PA Unavailable Unavailable LETTIERE, A NOVA PA Unavailable Unavailable LETTIERE, A NOVA PA Unavailable Unavailable LETTIERE, A NOVA PA Unavailable Unavailable LETTIERE, A NOVA PA Unavailable Unavailable LETTIERE, A NOVA PA Unavailable Unavailable LETTIERE, A NOVA PA Unavailable Unavailable LETTIERE, A NOVA PA Unavailable Unavailable LETTIERE, A NOVA PA Unavailable Unavailable LETTIERE, A NOVA PA Unavailable Unavailable LETTIERE, A NOVA PA Unavailable Unavailable LETTIERE, A NOVA PA Unavailable Unavailable LETTIERE, A NOVA PA Unavailable Unavailable LETTIERE, A NOVA PA Unavailable Unavailable LETTIERE, A NOVA PA Unavailable Unavailable LETTIERE, A NOVA PA Unavailable Unavailable LETTIERE, A NOVA PA Unavailable Unavailable LETTIERE, A NOVA PA Unavailable Unavailable LETTIERE, A NOVA PA Unavailable Unavailable LETTIERE, A NOVA PA Unavailable Unavailable LETTIERE, A NOVA PA Unavailable Unavailable LETTIERE, A NOVA PA Unavailable Unavailable LETTIERE, A NOVA PA Unavailable Unavailable LETTIERE, A NOVA PA Unavailable Unavailable LETTIERE, A NOVA PA Unavailable Unavailable MCELHERAN, NOVA PA Unavailable Unavailable MCELHERAN, NOVA PA Unavailable Unavailable MCELHERAN, NOVA PA Unavailable Unavailable MCELHERAN, NOVA PA Unavailable Unavailable MCELHERAN, NOVA PA Unavailable Unavailable MCELHERAN, NOVA PA Unavailable Unavailable MCELHERAN, NOVA PA Unavailable Unavailable MCELHERAN, NOVA PA Unavailable Unavailable MCELHERAN, NOVA PA Unavailable Unavailable MCELHERAN, NOVA PA Unavailable Unavailable MCELHERAN, NOVA PA Unavailable Unavailable MCELHERAN, NOVA PA Unavailable Unavailable MCELHERAN, NOVA PA Unavailable Unavailable MCELHERAN, NOVA PA Unavailable Unavailable MCELHERAN, NOVA PA Unavailable Unavailable MCELHERAN, NOVA PA Unavailable Unavailable MCELHERAN, NOVA PA Unavailable Unavailable MCELHERAN, NOVA PA Unavailable Unavailable MCELHERAN, NOVA PA Unavailable Unavailable MCELHERAN, NOVA PA Unavailable Unavailable MCELHERAN, NOVA PA Unavailable Unavailable MCELHERAN, NOVA PA Unavailable Unavailable MCELHERAN, NOVA PA Unavailable Unavailable MCELHERAN, NOVA PA Unavailable Unavailable MCELHERAN, NOVA PA Unavailable Unavailable MCELHERAN, NOVA PA Unavailable Unavailable MCELHERAN, NOVA PA Unavailable Unavailable MCELHERAN, NOVA PA Unavailable Unavailable MCELHERAN, NOVA PA Unavailable Unavailable PICKERAL JR, J BETH PA-C Unavailable Unavailable PICKERAL JR, J BETH PA-C Unavailable Unavailable PICKERAL JR, J BETH PA-C Unavailable Unavailable PICKERAL JR, J BETH PA-C Unavailable Unavailable PICKERAL JR, J BETH PA-C Unavailable Unavailable PICKERAL JR, J BETH PA-C Unavailable Unavailable PICKERAL JR, J BETH PA-C Unavailable Unavailable PICKERAL JR, J BETH PA-C Unavailable Unavailable PICKERAL JR, J BETH PA-C Unavailable Unavailable PICKERAL JR, J BETH PA-C Unavailable Unavailable PICKERAL JR, J BETH PA-C Unavailable Unavailable PICKERAL JR, J BETH PA-C Unavailable Unavailable PICKERAL JR, J BETH PA-C Unavailable Unavailable PICKERAL JR, J BETH PA-C Unavailable Unavailable PICKERAL JR, J BETH PA-C Unavailable Unavailable PICKERAL JR, J BETH PA-C Unavailable Unavailable PICKERAL JR, J BETH PA-C Unavailable Unavailable PICKERAL JR, J BETH PA-C Unavailable Unavailable PICKERAL JR, J BETH PA-C Unavailable Unavailable PICKERAL JR, J BETH PA-C Unavailable Unavailable PICKERAL JR, J BETH PA-C Unavailable Unavailable PICKERAL JR, J BETH PA-C Unavailable Unavailable PICKERAL JR, J BETH PA-C Unavailable Unavailable PICKERAL JR, J BETH PA-C Unavailable Unavailable PICKERAL JR, J BETH PA-C Unavailable Unavailable PICKERAL JR, J BETH PA-C Unavailable Unavailable PICKERAL JR, J BETH PA-C Unavailable Unavailable Delonte Schreiber JR, MD Unavailable Unavailable Delonte Schreiber JR, MD Unavailable Unavailable Delonte Schreiber JR, MD Unavailable Unavailable Delonte Schreiber JR, MD Unavailable Unavailable Delonte Schreiber JR, MD Unavailable Unavailable Delonte Schreiber JR, MD Unavailable Unavailable Delonte Schreiber JR, MD Unavailable Unavailable Delonte Schreiber JR, MD Unavailable Unavailable Delonte Schreiber JR, MD Unavailable Unavailable Delonte Schreiber JR, MD Unavailable Unavailable Delonte Schreiber JR, MD Unavailable Unavailable Delonte Schreiber JR, MD Unavailable Unavailable Delonte Schreiber JR, MD Unavailable Unavailable Delonte Schreiber JR, MD Unavailable Unavailable AbdoulDelonte lusi JR, MD Unavailable Unavailable AbdoulDelonte luis JR, MD Unavailable Unavailable AbdoulDelonte luis JR, MD Unavailable Unavailable Delonte Schreiber JR, MD Unavailable Unavailable Delonte Schreiber JR, MD Unavailable Unavailable AbdoulDelonte luis JR, MD Unavailable Unavailable Delonte Schreiber JR, MD Unavailable Unavailable AbdoulDelonte luis JR, MD Unavailable Unavailable AbdoulDelonte luis JR, MD Unavailable Unavailable AbdoulDelonte luis JR, MD Unavailable Unavailable Delonte Schreiber JR, MD Unavailable Unavailable Delonte Schreiber JR, MD Unavailable Unavailable AbdoulDelonte luis JR, MD Unavailable Unavailable Delonte Schreiber JR, MD Unavailable Unavailable Delonte Schreiber JR, MD Unavailable Unavailable Delonte Schreiber JR, MD Unavailable Unavailable Delonte Schreiber JR, MD Unavailable Unavailable Delonte Schreiber JR, MD Unavailable Unavailable Delonte Schreiber JR, MD Unavailable Unavailable Delonte Schreiber JR, MD Unavailable Unavailable Delonte Schreiber JR, MD Unavailable Unavailable Delonte Schreiber JR, MD Unavailable Unavailable Delonte Schreiber JR, MD Unavailable Unavailable Delonte Schreiber JR, MD Unavailable Unavailable Delonte Schreiber JR, MD Unavailable Unavailable Deolnte Schreiber JR, MD Unavailable Unavailable Delonte Schreiber JR, MD Unavailable Unavailable Delonte Schreiber JR, MD Unavailable Unavailable Delonte Schreiber JR, MD Unavailable Unavailable Delonte Schreiber JR, MD Unavailable Unavailable Delonte Schreiber JR, MD Unavailable Unavailable Delonte Schreiber JR, MD Unavailable Unavailable Delonte Schreiber JR, MD Unavailable Unavailable Delonte Schreiber JR, MD Unavailable Unavailable Delonte Schreiber JR, MD Unavailable Unavailable Delonte Schreiber JR, MD Unavailable Unavailable Delonte Schreiber JR, MD Unavailable Unavailable Delonte Schreiber JR, MD Unavailable Unavailable Delonte Schreiber JR, MD Unavailable Unavailable Delonte Schreiber JR, MD Unavailable Unavailable CARMELINA, A MIKE DO Unavailable Unavailable CARMELINA, A MIKE DO Unavailable Unavailable CARMELINA, A MIKE DO Unavailable Unavailable CARMELINA, A MIKE DO Unavailable Unavailable CARMELINA, A MIKE DO Unavailable Unavailable CARMELINA, A MIKE DO Unavailable Unavailable CARMELINA, A MIKE DO Unavailable Unavailable CARMELINA, A MIKE DO Unavailable Unavailable CARMELINA, A MIKE DO Unavailable Unavailable CARMELINA, A MIKE DO Unavailable Unavailable CARMELINA, A MIKE DO Unavailable Unavailable CARMELINA, A MIKE DO Unavailable Unavailable CARMELINA, A MIKE DO Unavailable Unavailable CARMELINA, A MIKE DO Unavailable Unavailable CARMELINA, A MIKE DO Unavailable Unavailable CARMELINA, A MIKE DO Unavailable Unavailable CARMELINA, A MIKE DO Unavailable Unavailable CARMELINA, A MIKE DO Unavailable Unavailable CARMELINA, A MIKE DO Unavailable Unavailable CARMELINA, A MIKE DO Unavailable Unavailable CARMELINA, A MIKE DO Unavailable Unavailable CARMELINA, A MIKE DO Unavailable Unavailable Sorin, Kaveh Maldonado PH.D., M.D. Unavailable Unavailable Sorin, Kaveh Maldonado PH.D., M.D. Unavailable Unavailable Sorin, Kaveh Maldonado PH.D., M.D. Unavailable Unavailable Sorin, Kaveh Maldonado PH.D., M.D. Unavailable Unavailable Sorin, Kaveh Maldonado PH.D., M.D. Unavailable Unavailable Sorin, Kaveh Maldonado PH.D., M.D. Unavailable Unavailable Sorin, Kaveh Maldonado PH.D., M.D. Unavailable Unavailable Sorin, Kaveh Maldonado PH.D., M.D. Unavailable Unavailable Sorin, Kaveh Maldonado PH.D., M.D. Unavailable Unavailable Sorin, Kaveh Maldonado PH.D., M.D. Unavailable Unavailable Sorin, Kaveh Maldonado PH.D., M.D. Unavailable Unavailable Sorin, Kaveh Maldonado PH.D., M.D. Unavailable Unavailable Sorin, Kaveh Maldonado PH.D., M.D. Unavailable Unavailable Sorin, Kaveh Maldonado PH.D., M.D. Unavailable Unavailable Sorin, Kaveh Maldonado PH.D., M.D. Unavailable Unavailable Sorin, Kaveh Maldonado PH.D., M.D. Unavailable Unavailable Sorin, Kaveh Maldonado PH.D., M.D. Unavailable Unavailable Sorin, Kaveh Maldonado PH.D., M.D. Unavailable Unavailable Sorin, Kaveh Maldonado PH.D., M.D. Unavailable Unavailable Sorin, Kaveh Maldonado PH.D., M.D. Unavailable Unavailable Sorin, Kaveh Maldonado PH.D., M.D. Unavailable Unavailable Sorin, Kaveh Maldonado PH.D., M.D. Unavailable Unavailable Sorin, Kaveh Maldonado PH.D., M.D. Unavailable Unavailable Sorin, Kaveh Maldonado PH.D., M.D. Unavailable Unavailable Sorin, Kaveh Maldonado PH.D., M.D. Unavailable Unavailable Sorin, C Joel PH.D., M.D. Unavailable Unavailable Sorin, C Joel PH.D., M.D. Unavailable Unavailable Sorin, C Joel PH.D., M.D. Unavailable Unavailable Sorin, C Joel PH.D., M.D. Unavailable Unavailable Sorin, C Joel PH.D., M.D. Unavailable Unavailable Sorin, C Joel PH.D., M.D. Unavailable Unavailable Sorin, C Joel PH.D., M.D. Unavailable Unavailable Sorin, C Joel PH.D., M.D. Unavailable Unavailable Sorin, C Joel PH.D., M.D. Unavailable Unavailable Sorin, C Joel PH.D., M.D. Unavailable Unavailable Sorin, C Joel PH.D., M.D. Unavailable Unavailable Sorin, C Joel PH.D., M.D. Unavailable Unavailable Sorin, C Joel PH.D., M.D. Unavailable Unavailable Sorin, C Joel PH.D., M.D. Unavailable Unavailable Sorin, C Joel PH.D., M.D. Unavailable Unavailable Sorin, C Jeol PH.D., M.D. Unavailable Unavailable Sorin, C Joel PH.D., M.D. Unavailable Unavailable Sorin, C Joel PH.D., M.D. Unavailable Unavailable Sorin, C Joel PH.D., M.D. Unavailable Unavailable Sorin, C Joel PH.D., M.D. Unavailable Unavailable Sorin, C Joel PH.D., M.D. Unavailable Unavailable Sorin, C Joel PH.D., M.D. Unavailable Unavailable Sorin, C Joel PH.D., M.D. Unavailable Unavailable Sorin, C Joel PH.D., M.D. Unavailable Unavailable Sorin, C Joel PH.D., M.D. Unavailable Unavailable Sorin, C Joel PH.D., M.D. Unavailable Unavailable Sorin, C Joel PH.D., M.D. Unavailable Unavailable Sorin, C Joel PH.D., M.D. Unavailable Unavailable Sorin, C Joel PH.D., M.D. Unavailable Unavailable Sorin, C Joel PH.D., M.D. Unavailable Unavailable Sorin, C Joel PH.D., M.D. Unavailable Unavailable Sorin, C Joel PH.D., M.D. Unavailable Unavailable Sorin, C Joel PH.D., M.D. Unavailable Unavailable Sorin, C Joel PH.D., M.D. Unavailable Unavailable Sorin, Kaveh Maldonado PH.D., M.D. Unavailable Unavailable Sorin, Kaveh Maldonado PH.D., M.D. Unavailable Unavailable Sorin, Kaveh Maldonado PH.D., M.D. Unavailable Unavailable Sorin, Kaveh Maldonado PH.D., M.D. Unavailable Unavailable Sorin, Kaveh Maldonado PH.D., M.D. Unavailable Unavailable Sorin, Kaveh Maldonado PH.D., M.D. Unavailable Unavailable Sorin, Kaveh Maldonado PH.D., M.D. Unavailable Unavailable Sorin, Kaveh Maldonado PH.D., M.D. Unavailable Unavailable Sorin, Kaveh Maldonado PH.D., M.D. Unavailable Unavailable Sorin, Kaveh Maldonado PH.D., M.D. Unavailable Unavailable Sorin, Kaveh Maldonado PH.D., M.D. Unavailable Unavailable Sorin, Kaveh Maldonado PH.D., M.D. Unavailable Unavailable Sorin, Kaveh Maldonado PH.D., M.D. Unavailable Unavailable Sorin, Kaveh Maldonado PH.D., M.D. Unavailable Unavailable Sorin, Kaveh Maldonado PH.D., M.D. Unavailable Unavailable Sorin, Kaveh Maldonado PH.D., M.D. Unavailable Unavailable Sorin, Kaveh Maldonado PH.D., M.D. Unavailable Unavailable Sorin, Kaveh Maldonado PH.D., M.D. Unavailable Unavailable Sorin, Kaveh Maldonado PH.D., M.D. Unavailable Unavailable Sorin, Kaveh Maldonado PH.D., M.D. Unavailable Unavailable Sorin, Kaveh Maldonado PH.D., M.D. Unavailable Unavailable Sorin, Kaveh Maldonado PH.D., M.D. Unavailable Unavailable Sorin, Kaveh Maldonado PH.D., M.D. Unavailable Unavailable Re-disclosure Warning The records that you are about to access may contain information from federally-assisted alcohol or drug abuse programs. If such information is present, then the following federally mandated warning applies: This information has been disclosed to you from records protected by federal confidentiality rules (42 CFR part 2). The federal rules prohibit you from making any further disclosure of this information unless further disclosure is expressly permitted by the written consent of the person to whom it pertains or as otherwise permitted by 42 CFR part 2. A general authorization for the release of medical or other information is NOT sufficient for this purpose. The Federal rules restrict any use of the information to criminally investigate or prosecute any alcohol or drug abuse patient.The records that you are about to access may contain highly sensitive health information, the redisclosure of which is protected by Article 27-F of the [facility] Public Health law. If you continue you may have access to information: Regarding HIV / AIDS; Provided by facilities licensed or operated by the [facility] Office of Mental Health; or Provided by the [facility] Office for People With Developmental Disabilities. If such information is present, then the following [facility] mandated warning applies: This information has been disclosed to you from confidential records which are protected by state law. State law prohibits you from making any further disclosure of this information without the specific written consent of the person to whom it pertains, or as otherwise permitted by law. Any unauthorized further disclosure in violation of state law may result in a fine or skilled nursing sentence or both. A general authorization for the release of medical or other information is NOT sufficient authorization for further disc losure. Allergies and Adverse Reactions Type Description Substance Reaction Status Data Source(s ) Propensity to adverse reactions predniSONE 7309 Hives Acti ve eCW1 ([facility]) Prednisone prednisone Prednisone Hives Active eCW1 ([facility]) Prednisone prednisone Prednisone Hives Active eCW1 ([facility]) Prednisone prednisone Prednisone Hives Active eCW1 ([facility]) Prednisone prednisone Prednisone Hives Active eCW1 ([facility]) Propensity to adverse reactions prednisone Propensity to ad verse reactions Hives Active eCW1 ([facility]) Propensity to adverse reactions prednisone Propensity to ad verse reactions Hives Active eCW1 ([facility]) Propensity to adverse reactions prednisone Propensity to ad verse reactions Hives Active eCW1 ([facility]) Propensity to adverse reactions prednisone Propensity to ad verse reactions Hives Active eCW1 ([facility]) Propensity to adverse reactions prednisone Propensity to ad verse reactions Hives Active eCW1 ([facility]) Propensity to adverse reactions prednisone Propensity to ad verse reactions Hives Active eCW1 ([facility]) Propensity to adverse reactions prednisone Propensity to ad verse reactions Hives Active eCW1 ([facility]) Propensity to adverse reactions prednisone Propensity to ad verse reactions Hives Active eCW1 ([facility]) Propensity to adverse reactions prednisone Propensity to ad verse reactions Hives Active eCW1 ([facility]) Propensity to adverse reactions prednisone Propensity to ad verse reactions Hives Active eCW1 ([facility]) Propensity to adverse reactions prednisone Propensity to ad verse reactions Hives Active eCW1 ([facility]) Propensity to adverse reactions prednisone Propensity to ad verse reactions Hives Active eCW1 ([facility]) Family History Family Member Name Family Member Gender Family Member Status Date o f Status Description Data Source(s) Unknown Unknown Problem MEDENT ([facility], ) SISTER Encounters Encounter Providers Location Date Indications Data Source(s ) Unknown [address] [facility] [place] [id number] 05/14/2021 12:00:00 AM EDT eCW1 ([facility]) Outpatient Attender: NOVA hamilton 05/10/2021 10:55:00 AM EDT MEDENT ([facility]) OFFICE OUTPATIENT VISIT 15 MINUTES Attender: NOVA SANFORD Physical Therapy 05/02/2021 03:00:00 PM EDT MEDENT ([facility] ) [place] [address] [facility] [place] [address] 04/25/2021 12:00:00 AM EDT eCW1 ([facility]) Outpatient [address] [facility] [place] [address] 04/19/2021 12:00:00 AM EDT eCW1 ([facility]) Outpatient Attender: Ted Cerda/Stan/Rafa/Victoriano beltran 04/10/2021 11:30:00 AM EDT MEDENT ([facility], ) Outpatient Attender: NOVA hamilton 04/05/2021 06:55:00 PM EDT MEDENT ([facility]) Outpatient<td ID="encounterTypeDescripti onID0">Rx Refills/Changes</td><td>Joel Herrmann MD, FACS</td><td>Joel Herrmann MD [facility]</td><td>04/03/2021</td><td>2:20PM</td><td>2:39PM</td><td></td> Attender: Joel Gonzalez MD, CAITIE Herrmann MD [facility] 04/03/2021 02:20:00 PM EDT - 04/03/2021 02:39:00 PM EDT MARIEL (Joel frost MD [facility]) Outpatient<td ID="encounterTypeDescripti onID1">REFRACTION</td><td></td><td>Joel Herrmann MD [facility]</td><td>03/14/2021</td><td>1:38PM</td><td>2:36PM</td><td></td> Joel Herrmann MD [facility] 03/14/2021 01:38:00 PM EDT - 03/14/2021 02:36:00 PM EDT MARIEL (Joel Gonzalez MD [facility]) Outpatient Attender: NOVA SANFORD Physical Therapy 03/11/2021 10:00:00 AM EDT [place]LIN ([facility] ) Outpatient<td ID="encounterTypeDescripti onID2">6 Month Follow-Up</td><td>Miek Sorto DO</td><td>Joel Herrmann MD [facility]</td><td>03/06/2021</td><td>1:51PM</td><td>3:55PM</td><td><content ID="encounterDiagnosisID2-0">Blepharitis Squamous</content>, <content ID="encounterDiagnosisID2-1">Dry Eye Syndrome</content>, <content ID="encounterDiagnosisID2-2">Corneal Transplant Status</content></td> Attender: MIKE Larson MD [facility] 03/06/2021 01:51:00 PM EDT - 03/06/2021 03:55:00 PM EDT Blepharitis SquamousBlepharitis Squamous Blepharitis SquamousBlepharitis SquamousCorneal Transplant StatusDry Eye SyndromeCorneal Transplant StatusDry Eye SyndromeCorneal Transplant StatusDry Eye Synd romeCorneal Transplant StatusDry Eye Syndrome [place] (Joel Gonzalez MD [facility]) 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 [id number] 02/21/2021 12:00:00 AM EDT eCW1 ([facility]) Unknown [address] [facility] [id number] 02/15/2021 12:00:00 AM EDT eCW1 ([facility]) Outpatient [address] [facility] [id number] 02/14/2021 12:00:00 AM EDT eCW1 ([facility]) Unknown [address] [facility] [id number] 01/30/2021 12:00:00 AM EDT eCW1 ([facility]) Outpatient Attender: Joel Rowell PH.D., M.D. Zaida/Stan/Asaf holland/Jerzy 01/24/2021 02:00:00 PM EDT MEDENT ([facility] E[facility] sumner, [facility]) Unknown [address] [facility] [id number] 01/22/2021 12:00:00 AM EDT eCW1 ([facility]) Unknown [address] [facility] [id number] 01/21/2021 12:00:00 AM EDT eCW1 ([facility]) Outpatient [address] [place] [id number] 01/18/2021 12:00:00 AM EDT eCW1 ([facility]) OFFICE OUTPATIENT VISIT 15 MINUTES Attender: NOVA SANFORD Physical Therapy 01/16/2021 02:00:00 PM EDT MEDENT ([facility]) Outpatient Attender: Mckenzie Mac 03:00:00 PM EDT MEDENT ([facility] ) Outpatient Attender: Zia Mac 0 01/09/2021 02:30:00 PM EDT MEDENT ([facility] ) [place] [address] [facility] [address] 01/09/2021 12:00:00 AM EDT eCW1 ([facility]) [place] [address] [facility] [address] 01/08/2021 12:00:00 AM EDT eCW1 ([facility]) Outpatient Attender: Mckenzie Mac 03/2021 03:00:00 PM EDT MEDENT ([facility] ) [place] [address] [facility] [address] 12/26/2020 12:00:00 AM EDT eCW1 ([facility]) Outpatient Attender: Marlen leung 12/25/2020 06:10:00 PM EDT MEDENT ([facility]) [place] [address] [facility] [address] 12/19/2020 12:00:00 AM EDT eCW1 ([facility]) Outpatient [address] [facility] [place] [address] 12/18/2020 12:00:00 AM EDT eCW1 ([facility]) [place] [address] [facility] [place] [address] 12/10/2020 12:00:00 AM EDT eCW1 ([facility]) Outpatient Attender: KUN Cerda/Stan/Rodrigo huynh/Reinruby 12/05/2020 10:00:00 AM EDT MEDENT ([facility]) Outpatient Attender: NOVA hamilton 11/30/2020 03:35:00 PM EDT MEDENT ([facility], [facility]) Outpatient Attender: NOVA hamilton 11/13/2020 11:50:00 AM EDT MEDENT ([facility], [facility]) Outpatient Attender: Mckenzie Mac 11:00:00 AM EDT MEDENT ([facility] ) Outpatient Attender: NOVA hamilton 10/16/2020 03:15:00 PM EDT MEDENT ([facility], [facility]) Outpatient<td ID="encounterTypeDescripti onID3">Rx Refills/Changes</td><td>Mike Sorto DO</td><td></td><td>01/09/2021</td><td>10/10/2020 3:16PM</td><td>10/10/2020 11:59PM</td><td></td> Attender: MIKE SORTO DO 021 03:16:00 PM EDT - 10/10/2020 11:59:00 PM EDT [place] (Joel Gonzalez MD [facility]) Outpatient<td ID="encounterTypeDescripti onID6">TRIAGE NON URGENT</td><td>Mike Sorto DO</td><td>Joel Herrmann MD [facility]</td><td>10/10/2020</td><td>1:56PM</td><td>2:58PM</td><td><content ID="encounterDiagnosisID6-0">Blepharitis Squamous</content>, <content ID="encounterDiagnosisID6-1">Dry Eye Syndrome</content>, <content ID="encounterDiagnosisID6-2">Corneal Transplant Status</content>, <content ID="encounterDiagnosisID6-3">Trichiasis of Eyelid</content></td> Attender: MIKE Larson MD [facility] 10/10/2020 01:56:00 PM EDT - 10/10/2020 02:58:00 PM EDT Trichiasis of EyelidTrichiasis of Eyelid Trichiasis of EyelidTrichiasis of EyelidTrichiasis of EyelidTrichiasis of EyelidTrichiasis of EyelidTrichiasis of EyelidTrichiasis of EyelidTrichiasis of EyelidTrichiasis of EyelidTrichiasis of EyelidTrichiasis of EyelidTrichiasis of EyelidTrichiasis of EyelidBlepharitis SquamousBlepharitis SquamousBlepharitis SquamousBlepharitis SquamousBlepharitis SquamousBlepharitis SquamousBlepharitis SquamousBlepharitis SquamousBlepharitis SquamousBlepharitis SquamousBlepharitis SquamousBlepharitis SquamousBlepharitis SquamousBlepharitis SquamousBlepharitis SquamousCorneal Transplant StatusDry Eye SyndromeCorneal Transplant StatusDry Eye Syndro meCorneal Transplant StatusDry Eye SyndromeCorneal Transplant StatusDry Eye SyndromeCorneal Transplant StatusDry Eye SyndromeCorneal Transplant StatusDry Eye SyndromeCorneal Transplant StatusDry Eye SyndromeCorneal Transplant StatusDry Eye SyndromeCorneal Transplant StatusDry Eye SyndromeCorneal Transplant StatusDry Eye SyndromeCorneal Transplant StatusDry Eye SyndromeCorneal Transplant StatusDry Eye SyndromeCorneal Transplant StatusDry Eye SyndromeCorneal Transplant StatusDry Eye SyndromeCorneal Transplant StatusDry Eye Syndrome [place] (Joel Gonzalez MD [facility]) 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 of Eyelid 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 Dry Eye Syndrome Corneal Transplant Status Dry Eye Syndrome Corneal Transplant Status Dry Eye Syndrome Corneal Transplant Status Dry Eye Syndrome Corneal Transplant Status Dry Eye Syndrome Corneal Transplant Status Dry Eye Syndrome Corneal Transplant Status Dry Eye Syndrome Corneal Transplant Status Dry Eye Syndrome Corneal Transplant Status Dry Eye Syndrome Corneal Transplant Status Dry Eye Syndrome Corneal Transplant Status Dry Eye Syndrome Corneal Transplant Status Dry Eye Syndrome Corneal Transplant Status Dry Eye Syndrome Corneal Transplant Status Dry Eye Syndrome Corneal Transplant Status Dry Eye Syndrome Outpatient<td ID="encounterTypeDescripti onID4">Rx Refills/Changes</td><td>Mike Sorto DO</td><td></td><td>12/06/2020</td><td>10/10/2020 1:23PM</td><td>10/10/2020 11:59PM</td><td></td> Attender: MIKE SORTO DO 021 01:23:00 PM EDT - 10/10/2020 11:59:00 PM EDT [place] (Joel Gonzalez MD [facility]) Outpatient<td ID="encounterTypeDescripti onID5">Rx Refills/Changes</td><td>Mike Sorto DO</td><td></td><td>11/20/2020</td><td>10/10/2020 8:22AM</td><td>10/10/2020 11:59PM</td><td></td> Attender: MIKE SORTO DO 08:22:00 AM EDT - 10/10/2020 11:59:00 PM EDT MARIEL (Joel Gonzalez MD [facility]) Outpatient Attender: CULLEN koenig 10/01/2020 04:15:00 PM EST MEDENT ([facility], [facility]) <td ID="encounterTypeDescriptionID7">3 M onth Follow-Up</td><td>Mike Sorto DO</td><td>Joel Herrmann MD [facility]</td><td>09/21/2020</td><td>2:09PM</td><td>2:39PM</td><td><content ID="encounterDiagnosisID7-0">Blepharitis Squamous</content>, <content ID="encounterDiagnosisID7-1">Dry Eye Syndrome</content>, <content ID="encounterDiagnosisID7-2">Corneal Transplant Status</content></td>Outpatient Attender: MIKE Larson MD [facility] 09/21/2020 02:09:00 PM EST - 09/21/2020 02:39:00 PM EST Blepharitis SquamousBlepharitis SquamousBlepharitis SquamousBlepharitis SquamousBlepharitis SquamousBlepharitis SquamousBlepharitis SquamousBlepharitis SquamousBlepharitis SquamousBlepharitis SquamousBlepharitis SquamousBlepharitis SquamousBlepharitis SquamousBlepharitis SquamousBlepharitis SquamousBlepharitis SquamousCorneal Transplant StatusDry Eye SyndromeCorneal Transplant StatusDry Eye SyndromeCorneal Transplant StatusDry Eye SyndromeCorneal Transplant StatusDry Eye SyndromeCorneal Transplant StatusDry Eye SyndromeCorneal Transplant StatusDry Eye SyndromeCorneal Transplant StatusDry Eye SyndromeCorneal Transplant StatusDry Eye SyndromeCorneal Transplant StatusDry Eye SyndromeCorneal Transplant StatusDry Eye SyndromeCorneal Transplant StatusDry Eye SyndromeCorneal Transplant StatusDry Eye SyndromeCorneal Transplant StatusDry Eye SyndromeCorneal Transplant StatusDry Eye SyndromeCorneal Transplant StatusDry Eye Syndrome Corneal Transplant StatusDry Eye Syndrome [place] (Joel Gonzalez MD [facility]) 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 Dry Eye Syndrome Corneal Transplant Status Dry Eye Syndrome Corneal Transplant Status Dry Eye Syndrome Corneal Transplant Status Dry Eye Syndrome Corneal Transplant Status Dry Eye Syndrome Corneal Transplant Status Dry Eye Syndrome Corneal Transplant Status Dry Eye Syndrome Corneal Transplant Status Dry Eye Syndrome Corneal Transplant Status Dry Eye Syndrome Corneal Transplant Status Dry Eye Syndrome Corneal Transplant Status Dry Eye Syndrome Corneal Transplant Status Dry Eye Syndrome Corneal Transplant Status Dry Eye Syndrome Corneal Transplant Status Dry Eye Syndrome Corneal Transplant Status Dry Eye Syndrome Corneal Transplant Status Dry Eye Syndrome Outpatient Attender: Alpesh Cerda/Stan/Rafa/Rein dl 09/19/2020 12:15:00 PM EST MEDENT ([facility]) Outpatient Attender: BETH Mac 0 09/12/2020 01:40:00 PM EST MEDENT ([facility] ) Outpatient Attender: Zia Mac 0 09/07/2020 02:00:00 PM EST MEDENT ([facility] ) Outpatient Attender: NOVA hamilton 08/17/2020 09:30:00 AM EST MEDENT ([facility]) Outpatient Attender: Mckenzie Mac 12:00:00 PM EST MEDENT ([facility] ) Outpatient Attender: Zia Mac 1 09/06/2019 01:15:00 PM EST MEDENT ([facility] ) Outpatient Attender: BETH Mac 1 08/14/2019 01:20:00 PM EST MEDENT ([facility] ) Outpatient Attender: NOVA barony 06/06/2020 08:45:00 AM EST MEDENT ([facility]) Outpatient Attender: BETH Mac 1 02:40:00 PM EDT MEDENT ([facility] ) <td ID="encounterTypeDescriptionID9">TRI AGE NON URGENT</td><td>Mike Sorto DO</td><td>Joel Herrmann MD [facility]</td><td>05/15/2020</td><td>12:33PM</td><td>1:23PM</td><td><content ID="encounterDiagnosisID9-0">Blepharitis Squamous</content>, <content ID="encounterDiagnosisID9-1">Dry Eye Syndrome</content>, <content ID="encounterDiagnosisID9-2">Corneal Transplant Status</content>, <content ID="encounterDiagnosisID9-3">Conjunctivitis Acute Follicular</content></td>Outpatient Attender: MIKE Parada MD [facility] 05/15/2020 12:33:00 PM EDT - 05/15/2020 01:23:00 PM ED T Conjunctivitis Acute FollicularConjunctivitis Acute FollicularConjunctivitis Acute FollicularConjunctivitis Acute FollicularConjunctivitis Acute FollicularConjunctivitis Acute FollicularConjunctivitis Acute Follicular Conjunctivitis Acute FollicularConjunctivitis Acute FollicularConjunctivitis Acute FollicularConjunctivitis Acute FollicularConjunctivitis Acute FollicularConjunctivitis Acute FollicularConjunctivitis Acute Follicular Conjunctivitis Acute FollicularConjunctivitis Acute FollicularConjunctivitis Acute FollicularConjunctivitis Acute FollicularBlepharitis SquamousBlepharitis SquamousBlepharitis SquamousBlepharitis SquamousBlepharitis SquamousBlepharitis SquamousBlepharitis SquamousBlepharitis SquamousBlepharitis SquamousBlepharitis SquamousBlepharitis SquamousBlepharitis SquamousBlepharitis SquamousBlepharitis SquamousBlepharitis SquamousBlepharitis SquamousBlepharitis SquamousBlepharitis SquamousCorneal Transplant StatusDry Eye SyndromeCorneal Transplant StatusDry Eye SyndromeCorneal Transplant StatusDry Eye SyndromeCorneal Transplant StatusDry Eye SyndromeCorneal Transplant StatusDry Eye SyndromeCorneal Transplant StatusDry Eye SyndromeCorneal Transplant StatusDry Eye SyndromeCorneal Transplant StatusDry Eye SyndromeCorneal Transplant StatusDry Eye SyndromeCorneal Transplant StatusDry Eye SyndromeCorneal Transplant S tatusDry Eye SyndromeCorneal Transplant StatusDry Eye SyndromeCorneal Transplant StatusDry Eye SyndromeCorneal Transplant StatusDry Eye SyndromeCorneal Transplant StatusDry Eye SyndromeCorneal Transplant StatusDry Eye Syn dromeCorneal Transplant StatusDry Eye SyndromeCorneal Transplant StatusDry Eye Syndrome [place] (Joel Gonzalez MD [facility]) Conjunctivitis Acute Follicular Conjunctivitis Acute Follicular Conjunctivitis Acute Follicular Conjunctivitis Acute Follicular Conjunctivitis Acute Follicular Conjunctivitis Acute Follicular Conjunctivitis Acute Follicular Conjunctivitis Acute Follicular Conjunctivitis Acute Follicular Conjunctivitis Acute Follicular Conjunctivitis Acute Follicular Conjunctivitis Acute Follicular Conjunctivitis Acute Follicular Conjunctivitis Acute Follicular Conjunctivitis Acute Follicular Conjunctivitis Acute Follicular Conjunctivitis Acute Follicular Conjunctivitis Acute Follicular 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 Dry Eye Syndrome Corneal Transplant Status Dry Eye Syndrome Corneal Transplant Status Dry Eye Syndrome Corneal Transplant Status Dry Eye Syndrome Corneal Transplant Status Dry Eye Syndrome Corneal Transplant Status Dry Eye Syndrome Corneal Transplant Status Dry Eye Syndrome Corneal Transplant Status Dry Eye Syndrome Corneal Transplant Status Dry Eye Syndrome Corneal Transplant Status Dry Eye Syndrome Corneal Transplant Status Dry Eye Syndrome Corneal Transplant Status Dry Eye Syndrome Corneal Transplant Status Dry Eye Syndrome Corneal Transplant Status Dry Eye Syndrome Corneal Transplant Status Dry Eye Syndrome Corneal Transplant Status Dry Eye Syndrome Corneal Transplant Status Dry Eye Syndrome Corneal Transplant Status Dry Eye Syndrome Outpatient<td ID="encounterTypeDescripti onID8">Rx Refills/Changes</td><td>Mike Sorto DO</td><td></td><td>07/25/2020</td><td>05/15/2020 9:51AM</td><td>05/15/2020 11:59PM</td><td></td> Attender: MIKE SORTO DO 020 09:51:00 AM EDT - 05/15/2020 11:59:00 PM EDT MAR[facility] (Joel Gonzalez [facility]) OFFICE OUTPATIENT VISIT 15 MINUTES Attender: [facility] 05/09/2020 02:30:00 PM EDT [facility] ([facility]) Office Visit Attender: [facility] 04/05/2020 03:30:00 PM EDT MED[facility] ([facility]) Immunizations Vaccine Date Status Description Data Source(s) Influenza, injectable, MDCK, preservative free, socrates valent 04/24/2021 11:57:00 AM EDT completed [facility] ([facility]) COVID-19 VACCINE Moderna 09/26/2020 12:00:00 AM EST completed NY[facility]IS Vaccine Series Complete: YESThis Data wa s Submitted to [facility] [employer]. COVID-19 VACCINE Moderna 08/29/2020 12:00:00 AM EST completed NYSIIS Vaccine Series Complete: NOThis Data was Submitted to [facility] [employer]. Influenza, injectable, MDCK, preservative free, socrates valent 05/02/2020 01:56:00 PM EDT completed [facility] ([facility]) Medications Medication Brand Name Start Date Product Form Dose Route Admi nistrative Instructions Pharmacy Instructions Status Indications Reaction Description Data Source(s) NITROFURANTOIN, MACROCRYSTALS 25 MG / Ni trofurantoin, Monohydrate 75 MG Oral Capsule 100 mg NITROFURANTOIN MONOHYD/M-CRYST 05/16/2021 12:00:00 AM EDT ca psule 10 TAKE ONE CAPSULE BY MOUTH TWICE A DAY FOR 5 DAYS TAKE ONE CAPSULE BY MOUTH TWICE A DAY FOR 5 DAYS SOLD: 05/16/2021 [facility] 250 mg 05/10/2021 12:00:00 AM EDT capsule 10 TAKE ONE CAPSULE BY MOUTH EVERY 12 HOURS FOR 5 DAYS TAKE ONE CAPSULE BY MOUTH EVERY 12 HOURS FOR 5 DAYS SO LD: 05/10/2021 [facility] Ondansetron 4 MG Disintegrating Oral Tablet ONDANSETRON 05/10/2021 12:00:00 AM EDT tablet,disintegrating 14 DISSOLVE O NE TABLET ON TONGUE EVERY 8 HOURS NEEDED FOR NAUSEA DISSOLVE ONE TABLET ON TONGUE EVERY 8 HO URS NEEDED FOR NAUSEA SOLD: 05/10/2021 [facility] Cephalexin 250 MG Oral Capsule Cephalexin 05/10/2021 12:00:00 AM EDT active MEDENT ([facility]) Ondansetron 4 MG Disintegrating Oral Tablet Ondansetron 05/10/2021 12:00:00 AM EDT active MEDENT ([facility]) Cyclosporine 0.9 MG/ML Ophthalmic Solution [Cequa] 0.09 % CY CLOSPORINE 04/26/2021 12:00:00 AM EDT dropperette 180 INSTI LL ONE DROP IN BOTH EYES TWO TIMES A DAY INSTILL ONE DROP IN BOTH EYES TWO TIMES A DAY SOLD: 04/26/2021 [facility] 0.025 % 04/17/2021 12:00:00 AM EDT cream 15 APPLY SPARINGLY TO RASH ON PLANTAR SURFACE OF RIGHT FOOT EVERY 8 HOURS APPLY SPARINGLY TO RASH ON PLANTAR SURFACE OF RIGHT FOOT EVERY 8 HOURS SOLD: 05/15/2021 [facility] 0.025 % 04/17/2021 12:00:00 AM EDT cream 15 APPLY SPARINGLY TO RASH ON PLANTAR SURFACE OF RIGHT FOOT EVERY 8 HOURS APPLY SPARINGLY TO RASH ON PLANTAR SURFACE OF RIGHT FOOT EVERY 8 HOURS SOLD: 04/17/2021 [facility] Hydrocortisone 10 MG/ML / Neomycin 3.5 M G/ML / Polymyxin B 45275 UNT/ML Otic Solution 3.5-10,000-1 mg/mL-unit/mL-% NEOMYCIN/POLYMYXIN B/HYDROCORT 04/06/2021 12:00:00 AM EDT solution 10 INSTILL 4 DROPS INTO BOTH EARS THREE TIMES A DAY FOR 7 DAYS INSTILL 4 DROPS INTO BOTH EARS THREE TIMES A DAY FOR 7 DAYS SOLD: 04/07/2021 [facility] Doxycycline Monohydrate 100 MG Oral Tablet Doxycycline Monoh ydrate 04/05/2021 12:00:00 AM EDT ORAL completed [facility]ENT ([facility]) Hydrocortisone 10 MG/ML / Neomycin 3.5 M G/ML / Polymyxin B 20637 UNT/ML Otic Solution [id number] 04/05/2021 12:00:00 AM EDT AURICU LAR completed MEDENT ([facility]) 100 mg 04/05/2021 12:00:00 AM EDT tablet 20 TAKE ONE TABLET BY MOUTH TWICE A DAY FOR 10 DAYS TAKE ONE TABLET BY MOUTH TWICE A DAY FOR 10 DAYS SOLD: 04/05/2021 [facility] 0.5 % 04/04/2021 12:00:00 AM EDT drops,suspension 5 INSTILL ONE DROP INTO THE LEFT EYE DAILY INSTILL ONE DROP INTO THE LEFT EYE DAILY SOLD: 04/04/2021 [facility] 50 mg 04/03/2021 12:00:00 AM EDT tablet 90 TAKE ONE TABLET BY MOUTH THREE TIMES A DAY NEEDED FOR ITCHING TAKE ONE TABLET BY MOUTH THREE TIMES A D AY NEEDED FOR ITCHING SOLD: 05/03/2021 [facility] 50 mg 04/03/2021 12:00:00 AM EDT tablet 90 TAKE ONE TABLET BY MOUTH THREE TIMES A DAY NEEDED FOR ITCHING TAKE ONE TABLET BY MOUTH THREE TIMES A D AY NEEDED FOR ITCHING SOLD: 04/03/2021 [facility] loteprednol etabonate 5 MG/ML Ophthalmic Suspension [Lotemax] Lotemax 0.5% Ophthalmic Suspension Lotemax 0.5% Ophthalmic Suspension 04/03/2021 12:00:00 AM EDT active lotepred nol etabonate 5 MG/ML Ophthalmic Suspension [Lotemax] [facility] ([facility]el Gonzalez [facility]) 100,000 unit/mL 04/02/2021 12:00:00 AM EDT suspension 150 SWISH & SPIT 5ML (1 TSP) BY MOUTH FOUR TIMES A DAY SWISH & SPIT 5ML (1 TSP) BY MOUTH FOUR T IMES A DAY SOLD: 04/24/2021 [facility] 100,000 unit/mL 04/02/2021 12:00:00 AM EDT suspension 150 SWISH & SPIT 5ML (1 TSP) BY MOUTH FOUR TIMES A DAY SWISH & SPIT 5ML (1 TSP) BY MOUTH FOUR T IMES A DAY SOLD: 04/02/2021 [facility] 20 mEq 04/01/2021 12:00:00 AM EDT tablet extended release 270 TAKE ONE TABLET BY MOUTH THREE TIMES A DAY TAKE ONE TABLET BY MOUTH THREE TIMES A DAY SOLD: 04/02/2021 [facility] 0.025 % 03/21/2021 12:00:00 AM EDT cream 15 APPLY TO RASH TWO TIMES A DAY APPLY TO RASH TWO TIMES A DAY SOLD: 03/21/2021 [facility] 5 % 03/13/2021 12:00:00 AM EDT dropperette 60 INSTILL 1 DROP IN EACH EYE TWO TIMES A DAY INSTILL 1 DROP IN EACH EYE TWO TIMES A DAY SOLD: 03/14/2021 [facility] 3 ML Sodium Hyaluronate 10 MG/ML Prefilled Syringe [Gel-One] Gel-One 03/11/2021 12:00:00 AM EDT active Hank ACHARYA ([facility]) Xiidra 5% Ophthalmic Solution Xiidra 5% Ophthalmic Solution 03/06/2021 12:00:00 AM EDT 1 active lifitegrast 50 MG /ML Ophthalmic Solution [Xiidra] [facility] (Joel Gonzalez MD [facility]) 25 mg 02/21/2021 12:00:00 AM EDT tablet 30 TAKE ONE TABLET BY MOUTH EVERY DAY TAKE ONE TABLET BY MOUTH EVERY DAY SOLD: 04/19/2021 [facility] 25 mg 02/21/2021 12:00:00 AM EDT tablet 30 TAKE ONE TABLET BY MOUTH EVERY DAY TAKE ONE TABLET BY MOUTH EVERY DAY SOLD: 03/21/2021 [facility] 25 mg 02/21/2021 12:00:00 AM EDT tablet 30 TAKE ONE TABLET BY MOUTH EVERY DAY TAKE ONE TABLET BY MOUTH EVERY DAY SOLD: 02/21/2021 [facility] Potassium Chloride 20 MEQ Extended Release Oral Tablet Potas sium Chloride ER 02/20/2021 12:00:00 AM EDT ORAL active MEDENT ([facility]) Spironolactone 25 MG Oral Tablet Spironolactone 02/20/2021 12:00:00 A M EDT ORAL active [facility] ([facility]) 50 mg 02/17/2021 12:00:00 AM EDT tablet 90 TAKE ONE TABLET BY MOUTH THREE TIMES A DAY NEEDED FOR ITCHING TAKE ONE TABLET BY MOUTH THREE TIMES A D AY NEEDED FOR ITCHING SOLD: 02/17/2021 [facility] 20 mEq 01/31/2021 12:00:00 AM EDT tablet extended release 60 TAKE ONE TABLET BY MOUTH TWICE A DAY TAKE ONE TABLET BY MOUTH TWICE A DAY SOLD: 02/01/2021 [facility] 20 mEq 01/31/2021 12:00:00 AM EDT tablet extended release 60 TAKE ONE TABLET BY MOUTH TWICE A DAY TAKE ONE TABLET BY MOUTH TWICE A DAY SOLD: 03/14/2021 [facility] 1 % 01/18/2021 12:00:00 AM EDT drops,suspension 2 INSTILL 1 DROP IN THE LEFT EYE ONCE A DAY INSTILL 1 DROP IN THE LEFT EYE ONCE A DAY SOLD: 03/15/2021 [facility] 1 % 01/18/2021 12:00:00 AM EDT drops,suspension 2 INSTILL 1 DROP IN THE LEFT EYE ONCE A DAY INSTILL 1 DROP IN THE LEFT EYE ONCE A DAY SOLD: 05/10/2021 [facility] 1 % 01/18/2021 12:00:00 AM EDT drops,suspension 2 INSTILL 1 DROP IN THE LEFT EYE ONCE A DAY INSTILL 1 DROP IN THE LEFT EYE ONCE A DAY SOLD: 01/18/2021 [facility] tizanidine 4 MG Oral Tablet TIZANIDINE HCL 01/16/2021 12:00:00 AM EDT tablet 60 TAKE ONE TABLET BY MOUTH EVERY 8 HOURS NEEDED TAKE ONE TABLET BY MOUTH EVERY 8 HOURS NEEDED SOLD: 01/16/2021 [facility] tizanidine 4 MG Oral Tablet TIZANIDINE HCL 01/16/2021 12:00:00 AM EDT tablet 60 TAKE ONE TABLET BY MOUTH EVERY 8 HOURS NEEDED TAKE ONE TABLET BY MOUTH EVERY 8 HOURS NEEDED SOLD: 03/20/2021 [facility] tizanidine 4 MG Oral Capsule Tizanidine HCL 01/15/2021 12:00:00 AM EDT ORAL active MEDENT ([facility]) Therapeutic Injection 01/11/2021 12:00:00 AM EDT completed MEDENT ([facility]) Medication administered onsite Prolia (denosumab) 60mg,SC injection, [facility]#[id number] 01/11/2021 12:00:00 AM EDT completed MEDENT ([facility]) Medication administered onsite Inveltys 1% Ophthalmic Suspension Inveltys 1% Ophthalmic Malissa pension 01/09/2021 12:00:00 AM EDT active loteprednol etabonate 10 MG/ML Ophthalmic Suspension [Inveltys] [place] (Joel Gonzalez MD [facility]) 0.05 % 01/03/2021 12:00:00 AM EDT ointment 60 APPLY TO RASH ON VULVA TWICE DAILY APPLY TO RASH ON VULVA TWICE DAILY SOLD: 01/03/2021 [facility] Clobetasol Propionate 0.0005 MG/MG Topical Ointment Clobetas ol Propionate 01/02/2021 12:00:00 AM EDT active MEDENT ([facility]) atorvastatin 10 MG Oral Tablet ATORVASTATIN CALCIUM 12/26/2020 1 2:00:00 AM EDT tablet 90 TAKE ONE TABLET BY MOUTH EVERY D AY TAKE ONE TABLET BY MOUTH EVERY DAY SOLD: 03/27/2021 [facility] atorvastatin 10 MG Oral Tablet ATORVASTATIN CALCIUM 12/26/2020 1 2:00:00 AM EDT tablet 90 TAKE ONE TABLET BY MOUTH EVERY D AY TAKE ONE TABLET BY MOUTH EVERY DAY SOLD: 12/28/2020 [facility] Ibuprofen 800 MG Oral Tablet Ibuprofen 800 MG 12/19/2020 12:00:00 AM E DT suspended Ibuprofen 800 MG eCW1 ([facility]) Ibuprofen 800 MG Oral Tablet Ibuprofen 800 MG 12/19/2020 12:00:00 AM E DT active Ibuprofen 800 MG eCW1 ([facility]) Ibuprofen 800 MG Oral Tablet Ibuprofen 800 MG 12/19/2020 12:00:00 AM E DT suspended Ibuprofen 800 MG eCW1 ([facility]) Ibuprofen 800 MG Oral Tablet Ibuprofen 800 MG 12/19/2020 12:00:00 AM E DT suspended Ibuprofen 800 MG eCW1 ([facility]) Ibuprofen 800 MG Oral Tablet Ibuprofen 800 MG 12/19/2020 12:00:00 AM E DT suspended Ibuprofen 800 MG eCW1 ([facility]) Ibuprofen 800 MG Oral Tablet Ibuprofen 800 MG 12/19/2020 12:00:00 AM E DT suspended Ibuprofen 800 MG eCW1 ([facility]) Ibuprofen 800 MG Oral Tablet Ibuprofen 800 MG 12/19/2020 12:00:00 AM E DT suspended Ibuprofen 800 MG eCW1 ([facility]) Ibuprofen 800 MG Oral Tablet Ibuprofen 800 MG 12/19/2020 12:00:00 AM E DT suspended Ibuprofen 800 MG eCW1 ([facility]) Ibuprofen 800 MG Oral Tablet Ibuprofen 800 MG 12/19/2020 12:00:00 AM E DT active Ibuprofen 800 MG eCW1 ([facility]) Ibuprofen 800 MG Oral Tablet Ibuprofen 800 MG 12/19/2020 12:00:00 AM E DT suspended Ibuprofen 800 MG eCW1 ([facility]) Ibuprofen 800 MG Oral Tablet Ibuprofen 800 MG 12/19/2020 12:00:00 AM E DT active Ibuprofen 800 MG eCW1 ([facility]) Ibuprofen 800 MG Oral Tablet Ibuprofen 800 MG 12/19/2020 12:00:00 AM E DT suspended Ibuprofen 800 MG eCW1 ([facility]) 800 mg 12/19/2020 12:00:00 AM EDT tablet 90 TAKE ONE TABLET BY MOUTH THREE TIMES A DAY WITH FOOD OR MILK TAKE ONE TABLET BY MOUTH THREE TIMES A D AY WITH FOOD OR MILK SOLD: 12/19/2020 [facility] Ibuprofen 800 MG Oral Tablet Ibuprofen 800 MG 12/19/2020 12:00:00 AM E DT suspended Ibuprofen 800 MG eCW1 ([facility]) Ibuprofen 800 MG Oral Tablet Ibuprofen 800 MG 12/19/2020 12:00:00 AM E DT active Ibuprofen 800 MG eCW1 ([facility]) Ibuprofen 800 MG Oral Tablet Ibuprofen 800 MG 12/19/2020 12:00:00 AM E DT active Ibuprofen 800 MG eCW1 ([facility]) Ibuprofen 800 MG Oral Tablet Ibuprofen 800 MG 12/19/2020 12:00:00 AM E DT suspended Ibuprofen 800 MG eCW1 ([facility]) 24 mcg 12/13/2020 12:00:00 AM EDT capsule 180 TAKE ONE CAPSULE BY MOUTH TWICE A DAY TAKE ONE CAPSULE BY MOUTH TWICE A DAY SOLD: 03/08/2021 [facility] 24 mcg 12/13/2020 12:00:00 AM EDT capsule 180 TAKE ONE CAPSULE BY MOUTH TWICE A DAY TAKE ONE CAPSULE BY MOUTH TWICE A DAY SOLD: 12/13/2020 [facility] cocoa butter 0.884 MG/MG / Phenylephrine Hydrochloride 0.0025 MG/MG Rectal Suppository Preparation H 12/10/2020 12:00:00 AM EDT completed MEDENT ([facility] ) loteprednol etabonate 5 MG/ML Ophthalmic Suspension [Lotemax] Lotemax 0.5% Ophthalmic Suspension Lotemax 0.5% Ophthalmic Suspension 12/06/2020 12:00:00 AM EDT active lotepred nol etabonate 5 MG/ML Ophthalmic Suspension [Lotemax] [facility] (Joel Gonzalez MD [facility]) 20 mEq 12/04/2020 12:00:00 AM EDT tablet extended release 60 TAKE ONE TABLET BY MOUTH TWICE A DAY TAKE ONE TABLET BY MOUTH TWICE A DAY SOLD: 12/06/2020 [facility] 20 mEq 12/04/2020 12:00:00 AM EDT tablet extended release 60 TAKE ONE TABLET BY MOUTH TWICE A DAY TAKE ONE TABLET BY MOUTH TWICE A DAY SOLD: 01/03/2021 [facility] Potassium Chloride 20 MEQ Extended Release Oral Tablet Potas sium Chloride ER 12/03/2020 12:00:00 AM EDT completed MEDENT ([facility]) loteprednol etabonate 5 MG/ML Ophthalmic Suspension Loteprednol Etabonate 0.5% Ophthalmic Suspension Loteprednol Etabonate 0.5% Ophthalmic Suspension 11/20/2020 12:00:00 AM EDT active loteprednol etabonate 5 MG/ML Ophthalmic Suspension [facility] (Joel Gonzalez MD [facility]) 0.5 % 11/20/2020 12:00:00 AM EDT drops,suspension 5 INSTILL ONE DROP IN THE LEFT EYE ONCE DAILY INSTILL ONE DROP IN THE LEFT EYE ONCE DAILY SOLD: 10/26 [facility] 200 mg 11/13/2020 12:00:00 AM EDT tablet 6 TAKE ONE TABLET BY MOUTH THREE TIMES A DAY FOR 2 DAYS TAKE ONE TABLET BY MOUTH THREE TIMES A DAY FOR 2 DAYS SOLD: 11/13/2020 [facility] Phenazopyridine hydrochloride 200 MG Delayed Release O ral Tablet Phenazopyridine HCL 11/13/2020 12:00:00 AM EDT ORAL completed MEDENT ([facility], [facility]) 1,250 mcg (50,000 unit) 11/02/2020 12:00:00 AM EDT capsule 6 TAKE 1 CAPSULE BY MOUTH TWICE A MONTH TAKE 1 CAPSULE BY MOUTH TWICE A MONTH SOLD: 01/28/2021 [facility] 1,250 mcg (50,000 unit) 11/02/2020 12:00:00 AM EDT capsule 6 TAKE 1 CAPSULE BY MOUTH TWICE A MONTH TAKE 1 CAPSULE BY MOUTH TWICE A MONTH SOLD: 04/19/2021 [facility] 1,250 mcg (50,000 unit) 11/02/2020 12:00:00 AM EDT capsule 6 TAKE 1 CAPSULE BY MOUTH TWICE A MONTH TAKE 1 CAPSULE BY MOUTH TWICE A MONTH SOLD: 11/04/2020 [facility] 2.5 % 10/30/2020 12:00:00 AM EDT cream 28 APPLY TO RASH EVERY 8 HOURS NEEDED FOR ITCHING APPLY TO RASH EVERY 8 HOURS NEEDED FOR ITCHING SOLD : 11/03/2020 [facility] 290 mcg 10/22/2020 12:00:00 AM EDT capsule 90 TAKE ONE CAPSULE BY MOUTH EVERY DAY NEEDED FOR EXACERBATION TAKE ONE CAPSULE BY MOUTH EVERY DAY NEEDED FOR EXACERBATION SOLD: 04/19/2021 [facility] 290 mcg 10/22/2020 12:00:00 AM EDT capsule 90 TAKE ONE CAPSULE BY MOUTH EVERY DAY NEEDED FOR EXACERBATION TAKE ONE CAPSULE BY MOUTH EVERY DAY NEEDED FOR EXACERBATION SOLD: 01/21/2021 [facility] 290 mcg 10/22/2020 12:00:00 AM EDT capsule 90 TAKE ONE CAPSULE BY MOUTH EVERY DAY NEEDED FOR EXACERBATION TAKE ONE CAPSULE BY MOUTH EVERY DAY NEEDED FOR EXACERBATION SOLD: 10/24/2020 [facility] Potassium Chloride 10 MEQ Extended Release Oral Tablet POTAS SIUM CHLORIDE 10/19/2020 12:00:00 AM EDT tablet extended release 90 TAKE THREE TABLETS BY MOUTH EVERY DAY TAKE THREE TABLETS BY MOUTH EVERY DAY SOLD: 10/19/2020 [facility] Potassium Chloride 10 MEQ Extended Release Oral Tablet POTAS SIUM CHLORIDE 10/19/2020 12:00:00 AM EDT tablet extended release 90 TAKE THREE TABLETS BY MOUTH EVERY DAY TAKE THREE TABLETS BY MOUTH EVERY DAY SOLD: 11/18/2020 [facility] [id number] 10/04/2020 12:00:00 AM EST suspension 200 SWISH AND SPIT 15 ML BY MOUTH EVERY 4 HOURS NEEDED FOR PAIN SWISH AND SPIT 15 ML BY MOUTH EVERY 4 HOURS NEEDED FOR PAIN SOLD: 10/05/2020 [facility] [id number] 10/01/2020 12:00:00 AM EST suspension 200 SWISH AND SPIT 15 ML BY MOUTH EVERY 4 HOURS NEEDED FOR PAIN SWISH AND SPIT 15 ML BY MOUTH EVERY 4 HOURS NEEDED FOR PAIN SOLD: 10/01/2020 [facility] Magic Mouth Wash 10/01/2020 12:00:00 AM EST c ompleted MEDENT ([facility], [facility]) 290 mcg 09/18/2020 12:00:00 AM EST capsule 14 TAKE ONE CAPSULE BY MOUTH NEEDED FOR EXACERBATION TAKE ONE CAPSULE BY MOUTH NEEDED FOR EXACERBATION SOLD: 09/20/2020 [facility] 290 mcg 09/18/2020 12:00:00 AM EST capsule 14 TAKE ONE CAPSULE BY MOUTH NEEDED FOR EXACERBATION TAKE ONE CAPSULE BY MOUTH NEEDED FOR EXACERBATION SOLD: 10/01/2020 [facility] 290 mcg 09/18/2020 12:00:00 AM EST capsule 14 TAKE ONE CAPSULE BY MOUTH NEEDED FOR EXACERBATION TAKE ONE CAPSULE BY MOUTH NEEDED FOR EXACERBATION SOLD: 10/15/2020 [facility] Potassium Chloride 10 MEQ Extended Release Oral Tablet POTAS SIUM CHLORIDE 09/18/2020 12:00:00 AM EST tablet extended release 90 TAKE THREE TABLETS BY MOUTH EVERY DAY TAKE THREE TABLETS BY MOUTH EVERY DAY SOLD: 09/19/2020 [facility] linaclotide 0.29 MG Oral Capsule [Linzess] Linzess 09/17/2020 12:00:00 AM EST ORAL active [facility] ([facility]) 5 mg 09/09/2020 12:00:00 AM EST tablet 14 TAKE 1/2 TABLET BY MOUTH TWO TIMES A DAY NEEDED FOR NECK SPASMS TAKE 1/2 TABLET BY MOUTH TWO TIMES A DAY NEEDED FOR NECK SPASMS SOLD: 09/09/2020 [facility] Potassium Chloride 10 MEQ Extended Release Oral Tablet Potas sium Chloride ER 09/07/2020 12:00:00 AM EST completed MED[facility] ([facility]) Potassium Chloride 10 MEQ Extended Release Oral Capsule POTA SSIUM CHLORIDE 08/29/2020 12:00:00 AM EST capsule, extended release 60 TAKE TWO CAPSULES BY MOUTH EVERY DAY TAKE TWO CAPSULES BY MOUTH EVERY DAY SOLD: 08/29/2020 [facility] Covid-19 vaccine, Unspecified 08/29/2020 12:00:00 AM EST completed [facility] ([facility]) Medication administered onsite Potassium Chloride 10 MEQ Extended Release Oral Tablet POTAS SIUM CHLORIDE 08/22/2020 12:00:00 AM EST tablet extended release 14 TAKE TWO TABLETS BY MOUTH DAILY TAKE TWO TABLETS BY MOUTH DAILY SOLD: 08/22/2020 [facility] NITROFURANTOIN, MACROCRYSTALS 100 MG Oral Capsule Nitrofuran toin Macrocrystal 08/17/2020 12:00:00 AM EST ORAL completed [facility] ([facility], [facility]) Phenazopyridine hydrochloride 200 MG Delayed Release O ral Tablet Phenazopyridine HCL 08/17/2020 12:00:00 AM EST ORAL completed [facility] ([facility], [facility]) 100 mg 08/17/2020 12:00:00 AM EST capsule 14 TAKE ONE CAPSULE BY MOUTH TWICE A DAY FOR 7 DAYS TAKE ONE CAPSULE BY MOUTH TWICE A DAY FOR 7 DAYS SOLD: 08/17/2020 [facility] 2 % 08/09/2020 12:00:00 AM EST ointment 22 APPLY TWO TIMES A DAY TO RASH ON ABDOMEN FOR 10 DAYS APPLY TWO TIMES A DAY TO RASH ON ABDOMEN FOR 10 DAYS S OLD: 08/09/2020 [facility] Mupirocin 0.02 MG/MG Topical Ointment Mupirocin 08/09/2020 12:00:00 AM EST active [facility] ([facility]) 1.5 % 07/26/2020 12:00:00 AM EST drops 15 INSTILL 1 DROP IN BOTH EYES TWO TIMES A DAY INSTILL 1 DROP IN BOTH EYES TWO TIMES A DAY SOLD: 07/26/2020 [facility] 1.5 % 07/26/2020 12:00:00 AM EST drops 15 INSTILL 1 DROP IN BOTH EYES TWO TIMES A DAY INSTILL 1 DROP IN BOTH EYES TWO TIMES A DAY SOLD: 11/18/2020 [facility] 1.5 % 07/26/2020 12:00:00 AM EST drops 15 INSTILL 1 DROP IN BOTH EYES TWO TIMES A DAY INSTILL 1 DROP IN BOTH EYES TWO TIMES A DAY SOLD: 09/24/2020 [facility] bepotastine besilate 15 MG/ML Ophthalmic Solution [Bepreve] Bepreve 1.5% Ophthalmic Solution Bepreve 1.5% Ophthalmic Solution 07/25/2020 12:00:00 AM EST active bepotastine besi late 15 MG/ML Ophthalmic Solution [Bepreve] [facility] (Joel Gonzalez [facility]) 0.1 % 07/24/2020 12:00:00 AM EST cream 45 APPLY TO RASH TWICE A DAY FOR 14 DAYS THEN NEEDED APPLY TO RASH TWICE A DAY FOR 14 DAYS THEN NEEDED S OLD: 07/24/2020 [facility] Betamethasone 1 MG/ML Topical Cream Betamethasone Valerate 1 09/23/2019 12:00:00 AM EST active [facility] ([facility]) Clobetasol Propionate 0.5 MG/ML Topical Cream [Temovate] Tem ovate 07/17/2020 12:00:00 AM EST completed [facility] ([facility]) Therapeutic Injection 07/06/2020 12:00:00 AM EST completed [facility] ([facility]) Medication administered onsite Prolia (denosumab) 60mg,SC injection, [facility]#[id number] 07/06/2020 12:00:00 AM EST completed [facility] ([facility]) Medication administered onsite Cyclobenzaprine hydrochloride 5 MG Oral Tablet Cyclobenzapri ne HCL 06/19/2020 12:00:00 AM EST ORAL active M EDENT ([facility]) Cyclobenzaprine hydrochloride 5 MG Oral Tablet CYCLOBENZAPRI NE HCL 06/19/2020 12:00:00 AM EST tablet 30 TAKE 1/2 TABLET BY MOUTH TWO TIMES A DAY NEEDED FOR SPASMS TAKE 1/2 TABLET BY MOUTH TWO TIMES A DAY NEEDED FOR SPASMS SOLD: 06/20/2020 [facility] 2 mg 06/14/2020 12:00:00 AM EST tablet 42 TAKE ONE TABLET BY MOUTH TWICE A DAY NEEDED TAKE ONE TABLET BY MOUTH TWICE A DAY NEEDED SOLD: 06/14/2020 [facility] Doxycycline Monohydrate 100 MG Oral Tablet Doxycycline Monoh ydrate 06/06/2020 12:00:00 AM EST ORAL completed [facility] ([facility], [facility]) 100 mg 06/06/2020 12:00:00 AM EST tablet 20 TAKE ONE TABLET BY MOUTH TWICE A DAY FOR 10 DAYS TAKE ONE TABLET BY MOUTH TWICE A DAY FOR 10 DAYS SOLD: 06/06/2020 [facility] Clobetasol Propionate 0.5 MG/ML Topical Cream 0.05 % CLOBETA UNRULY PROPIONATE 06/05/2020 12:00:00 AM EST cream 60 APPLY TO TRUNK/EXTREMITIES SPARINGLY TWICE A DAY FOR 2 WEEKS THEN NEEDED APPLY TO TRUNK/EXTREMITIES SPARINGLY TWI CE A DAY FOR 2 WEEKS THEN NEEDED SOLD: 06/05/2020 [facility] 1 % 05/20/2020 12:00:00 AM EDT drops,suspension 2 INSTILL 1 DROP IN THE LEFT EYE TWO TIMES A DAY INSTILL 1 DROP IN THE LEFT EYE TWO TIMES A DAY SOLD: 05/21/2020 [facility] 1 % 05/20/2020 12:00:00 AM EDT drops,suspension 2 INSTILL 1 DROP IN THE LEFT EYE TWO TIMES A DAY INSTILL 1 DROP IN THE LEFT EYE TWO TIMES A DAY SOLD: 10/20/2020 [facility] 1 % 05/20/2020 12:00:00 AM EDT drops,suspension 2 INSTILL 1 DROP IN THE LEFT EYE TWO TIMES A DAY INSTILL 1 DROP IN THE LEFT EYE TWO TIMES A DAY SOLD: 07/15/2020 [facility] 1 % 05/20/2020 12:00:00 AM EDT drops,suspension 2 INSTILL 1 DROP IN THE LEFT EYE TWO TIMES A DAY INSTILL 1 DROP IN THE LEFT EYE TWO TIMES A DAY SOLD: 09/24/2020 [facility] 1 % 05/20/2020 12:00:00 AM EDT drops,suspension 2 INSTILL 1 DROP IN THE LEFT EYE TWO TIMES A DAY INSTILL 1 DROP IN THE LEFT EYE TWO TIMES A DAY SOLD: 06/18/2020 [facility] 1 % 05/20/2020 12:00:00 AM EDT drops,suspension 2 INSTILL 1 DROP IN THE LEFT EYE TWO TIMES A DAY INSTILL 1 DROP IN THE LEFT EYE TWO TIMES A DAY SOLD: 08/12/2020 [facility] 2 % 05/18/2020 12:00:00 AM EDT cream 30 APPLY TO RIGHT ANKLE SPARINGLY TWO TIMES A DAY FOR 10 DAYS, THEN NEEDED APPLY TO RIGHT ANKLE SPARINGLY TWO TIMES A DAY FOR 10 DAYS, THEN NEEDED SOLD: 05/21/2020 [facility] Inveltys 1% Ophthalmic Suspension Inveltys 1% Ophthalmic Malissa pension 05/15/2020 12:00:00 AM EDT aborted loteprednol etabonate 10 MG/ML Ophthalmic Suspension [Inveltys] MARIEL (Joel Gonzalez MD [facility]) Cequa 0.09% Ophthalmic Solution Cequa 0.09% Ophthalmic Solut ion 05/15/2020 12:00:00 AM EDT active cyclosporine 0.9 MG/ML Ophthalmic Solution [Cequa] MARIEL (Joel Gonzalez MD [facility]) Administration Of Flu Vaccine 05/02/2020 12:00:00 AM EDT completed MEDENT ([facility]) Medication administered onsite 290 mcg 04/13/2020 12:00:00 AM EDT capsule 30 TAKE ONE CAPSULE BY MOUTH DAILY TAKE ONE CAPSULE BY MOUTH DAILY SOLD: 07/15/2020 [facility] 290 mcg 04/13/2020 12:00:00 AM EDT capsule 30 TAKE ONE CAPSULE BY MOUTH DAILY TAKE ONE CAPSULE BY MOUTH DAILY SOLD: 04/15/2020 [facility] 290 mcg 04/13/2020 12:00:00 AM EDT capsule 30 TAKE ONE CAPSULE BY MOUTH DAILY TAKE ONE CAPSULE BY MOUTH DAILY SOLD: 06/13/2020 [facility] 290 mcg 04/13/2020 12:00:00 AM EDT capsule 30 TAKE ONE CAPSULE BY MOUTH DAILY TAKE ONE CAPSULE BY MOUTH DAILY SOLD: 05/14/2020 [facility] 290 mcg 04/13/2020 12:00:00 AM EDT capsule 30 TAKE ONE CAPSULE BY MOUTH DAILY TAKE ONE CAPSULE BY MOUTH DAILY SOLD: 08/12/2020 [facility] tizanidine 4 MG Oral Tablet Tizanidine HCL 04/05/2020 12:00:00 AM EDT active [facility] ([facility]) Medrol Medrol 04/05/2020 12:00:00 AM EDT completed [facility] ([facility]) 4 mg 04/05/2020 12:00:00 AM EDT tablet 14 TAKE ONE TABLET BY MOUTH TWICE A DAY NEEDED TAKE ONE TABLET BY MOUTH TWICE A DAY NEEDED SOLD: 04/05/2020 [facility] Klor-Con Klor-Con 03/28/2020 12:00:00 AM EDT ORAL compl eted MEDENT ([facility]) 20 mEq 03/28/2020 12:00:00 AM EDT packet 60 MIX 1 PACKET WITH 4 OUNCES OF LIQUID EVERY DAY MIX 1 PACKET WITH 4 OUNCES OF LIQUID EVERY DAY SOLD: 0 03/29/2020 [facility] 20 mEq 03/28/2020 12:00:00 AM EDT packet 60 MIX 1 PACKET WITH 4 OUNCES OF LIQUID EVERY DAY MIX 1 PACKET WITH 4 OUNCES OF LIQUID EVERY DAY SOLD: 0 08/08/2020 [facility] 20 mEq 03/28/2020 12:00:00 AM EDT packet 60 MIX 1 PACKET WITH 4 OUNCES OF LIQUID EVERY DAY MIX 1 PACKET WITH 4 OUNCES OF LIQUID EVERY DAY SOLD: 1 07/28/2019 [facility] Cyclosporine 0.9 MG/ML Ophthalmic Solution [Cequa] 0.09 % CY CLOSPORINE 03/21/2020 12:00:00 AM EDT dropperette 180 INSTI LL ONE DROP IN BOTH EYES TWO TIMES A DAY INSTILL ONE DROP IN BOTH EYES TWO TIMES A DAY SOLD: 06/18/2020 [facility] 0.05 % 03/21/2020 12:00:00 AM EDT dropperette 180 INSTILL 1 DROP IN BOTH EYES TWICE A DAY INSTILL 1 DROP IN BOTH EYES TWICE A DAY SOLD: 03/21/2020 [facility] Cyclosporine 0.9 MG/ML Ophthalmic Solution [Cequa] 0.09 % CY CLOSPORINE 03/21/2020 12:00:00 AM EDT dropperette 180 INSTI LL ONE DROP IN BOTH EYES TWO TIMES A DAY INSTILL ONE DROP IN BOTH EYES TWO TIMES A DAY SOLD: 08/17/2020 [facility] Cyclosporine 0.5 MG/ML Ophthalmic Suspen vinicio [Restasis] Restasis 0.05% Ophthalmic Emulsion Restasis 0.05% Ophthalmic Emulsion 03/21/2020 12:00:00 AM EDT aborted cyclospo rine 0.5 MG/ML Ophthalmic Suspension [Restasis] MARIEL (Joel Gonzalez MD [facility]) Cyclosporine 0.9 MG/ML Ophthalmic Solution [Cequa] 0.09 % CY CLOSPORINE 03/21/2020 12:00:00 AM EDT dropperette 180 INSTI LL ONE DROP IN BOTH EYES TWO TIMES A DAY INSTILL ONE DROP IN BOTH EYES TWO TIMES A DAY SOLD: 03/21/2020 [facility] Cyclosporine 0.9 MG/ML Ophthalmic Solution [Cequa] 0.09 % CY CLOSPORINE 03/21/2020 12:00:00 AM EDT dropperette 180 INSTI LL ONE DROP IN BOTH EYES TWO TIMES A DAY INSTILL ONE DROP IN BOTH EYES TWO TIMES A DAY SOLD: 11/13/2020 [facility] Xiidra 5% Ophthalmic Solution Xiidra 5% Ophthalmic Solution 03/21/2020 12:00:00 AM EDT aborted lifitegrast 50 M G/ML Ophthalmic Solution [Xiidra] [place] (Joel Gonzalez MD [facility]) Cequa 0.09% Ophthalmic Solution Cequa 0.09% Ophthalmic Solut ion 03/15/2020 12:00:00 AM EDT aborted cyclosporine 0.9 MG/ML Ophthalmic Solution [Cequa] [facility] (Joel Gonzalez MD [facility]) 2.5 % 03/07/2020 12:00:00 AM EDT cream 28 APPLY TO RASH EVERY 8 HOURS NEEDED FOR ITCHING APPLY TO RASH EVERY 8 HOURS NEEDED FOR ITCHING SOLD : 07/28/2020 [facility] 24 mcg 03/02/2020 12:00:00 AM EDT capsule 8 TAKE ONE CAPSULE BY MOUTH TWICE A DAY TAKE ONE CAPSULE BY MOUTH TWICE A DAY SOLD: 09/20/2020 [facility] 24 mcg 03/02/2020 12:00:00 AM EDT capsule 8 TAKE ONE CAPSULE BY MOUTH TWICE A DAY TAKE ONE CAPSULE BY MOUTH TWICE A DAY SOLD: 09/21/2020 [facility] 24 mcg 03/02/2020 12:00:00 AM EDT capsule 180 TAKE ONE CAPSULE BY MOUTH TWICE A DAY TAKE ONE CAPSULE BY MOUTH TWICE A DAY SOLD: 09/24/2020 [facility] 24 mcg 03/02/2020 12:00:00 AM EDT capsule 180 TAKE ONE CAPSULE BY MOUTH TWICE A DAY TAKE ONE CAPSULE BY MOUTH TWICE A DAY SOLD: 06/01/2020 [facility] 24 mcg 03/02/2020 12:00:00 AM EDT capsule 14 TAKE ONE CAPSULE BY MOUTH TWICE A DAY TAKE ONE CAPSULE BY MOUTH TWICE A DAY SOLD: 09/12/2020 [facility] 24 mcg 03/02/2020 12:00:00 AM EDT capsule 14 TAKE ONE CAPSULE BY MOUTH TWICE A DAY TAKE ONE CAPSULE BY MOUTH TWICE A DAY SOLD: 09/05/2020 [facility] 10 mEq 02/15/2020 12:00:00 AM EDT capsule, extended relea se 60 TAKE ONE CAPSULE BY MOUTH TWICE A DAY TAKE ONE CAPSULE BY MOUTH TWICE A DAY SOLD: 03/19/2020 [facility] Potassium Chloride 10 MEQ Extended Release Oral Capsule Pota ssium Chloride ER 02/13/2020 12:00:00 AM EDT completed [facility] ([facility]) 1 % 02/03/2020 12:00:00 AM EDT drops,suspension 2 INSTILL 1 DROP IN THE LEFT EYE ONCE A DAY INSTILL 1 DROP IN THE LEFT EYE ONCE A DAY SOLD: 03/26/2020 [facility] 1 % 02/03/2020 12:00:00 AM EDT drops,suspension 2 INSTILL 1 DROP IN THE LEFT EYE ONCE A DAY INSTILL 1 DROP IN THE LEFT EYE ONCE A DAY SOLD: 04/29/2020 [facility] Inveltys 1% Ophthalmic Suspension Inveltys 1% Ophthalmic Malissa pension 01/20/2020 12:00:00 AM EDT aborted loteprednol etabonate 10 MG/ML Ophthalmic Suspension [Inveltys] [facility] (Joel Gonzalez MD [facility]) atorvastatin 10 MG Oral Tablet ATORVASTATIN CALCIUM 01/04/2020 1 2:00:00 AM EDT tablet 90 TAKE ONE TABLET BY MOUTH EVERY D AY TAKE ONE TABLET BY MOUTH EVERY DAY SOLD: 06/30/2020 [facility] atorvastatin 10 MG Oral Tablet ATORVASTATIN CALCIUM 01/04/2020 1 2:00:00 AM EDT tablet 90 TAKE ONE TABLET BY MOUTH EVERY D AY TAKE ONE TABLET BY MOUTH EVERY DAY SOLD: 09/28/2020 [facility] atorvastatin 10 MG Oral Tablet ATORVASTATIN CALCIUM 01/04/2020 1 2:00:00 AM EDT tablet 90 TAKE ONE TABLET BY MOUTH EVERY D AY TAKE ONE TABLET BY MOUTH EVERY DAY SOLD: 04/01/2020 [facility] 100,000 unit/mL 11/28/2019 12:00:00 AM EDT suspension 150 SWISH & SPIT 1 TEASPOONFUL (5ML) FOUR TIMES A DAY SWISH & SPIT 1 TEASPOONFUL (5ML) FOUR TI MES A DAY SOLD: 08/29/2020 [facility] 100,000 unit/mL 11/28/2019 12:00:00 AM EDT suspension 150 SWISH & SPIT 1 TEASPOONFUL (5ML) FOUR TIMES A DAY SWISH & SPIT 1 TEASPOONFUL (5ML) FOUR TI MES A DAY SOLD: 04/05/2020 [facility] loteprednol etabonate 5 MG/ML Ophthalmic Suspension [Lotemax] Lotemax 0.5% Ophthalmic Suspension Lotemax 0.5% Ophthalmic Suspension 10/10/2019 12:00:00 AM EDT aborted lotepred nol etabonate 5 MG/ML Ophthalmic Suspension [Lotemax] [place] (Joel Gonzalez MD [facility]) 1,250 mcg (50,000 unit) 09/16/2019 12:00:00 AM EST capsule 6 TAKE 1 CAPSULE BY MOUTH TWICE A MONTH TAKE 1 CAPSULE BY MOUTH TWICE A MONTH SOLD: 05/21/2020 [facility] 1,250 mcg (50,000 unit) 09/16/2019 12:00:00 AM EST capsule 6 TAKE 1 CAPSULE BY MOUTH TWICE A MONTH TAKE 1 CAPSULE BY MOUTH TWICE A MONTH SOLD: 08/12/2020 [facility] 1.5 % 07/14/2019 12:00:00 AM EST drops 5 INSTILL ONE DROP IN EACH EYE EVERY MORNING INSTILL ONE DROP IN EACH EYE EVERY MORNING SOLD: 04/29/2020 [facility] bepotastine besilate 15 MG/ML Ophthalmic Solution [Bepreve] Bepreve 1.5% Ophthalmic Solution Bepreve 1.5% Ophthalmic Solution 07/14/2019 12:00:00 AM EST 1 aborted bepotastine besi late 15 MG/ML Ophthalmic Solution [Bepreve] [facility] (Joel Gonzalez MD [facility]) Insurance Providers Payer name Policy type / Coverage type Policy ID Covered democrat ID Covered democrat's relationship to townsend Policy [place] Plan Information MEDICARE [id number] A MEDICARE A [id number] Self [id number] MEDICARE A [id number] Self [id number] A [facility] Workers Compensation [id number] 2.16.840.1.264780.3.227.99.991.74433.0 Self [id number] [facility] Workers Compensation [id number] 2.16.840.1.826146.3.227.99.991.94495.0 Self [id number] [facility] Workers Compensation [id number] 2.16.840.1.850897.3.227.99.991.36620.0 Self [id number] [facility] Workers Compensation [id number] 2.16.840.1.513271.3.227.99.991.60576.0 Self [id number] [facility] Workers Compensation [id number] 2.16.840.1.594101.3.227.99.991.82357.0 Self [id number] [facility] Workers Compensation [id number] 2.16.840.1.895765.3.227.99.991.32373.0 Self [id number] [facility] Workers Compensation [id number] 2.16.840.1.730967.3.227.99.991.06081.0 Self [id number] [facility] Workers Compensation [id number] 2.16.840.1.555209.3.227.99.991.16463.0 Self [id number] [facility] Workers Compensation [id number] 2.16840.1.457517.3.227.99.991.48747.0 Self [id number] [facility] Workers Compensation [id number] [id number] Self [id number] [facility] Workers Compensation [id number] [id number] Self [id number] [facility] Workers Compensation [id number] 2.16.840.1.542550.3.227.99.991.77429.0 Self [id number] [facility] Workers Compensation [id number] 2.16.840.1.636866.3.227.99.991.30858.0 Self [id number] [facility] Workers [facility] [id number] Self [id number] [facility] Workers Compensation [id number] 2.16.840.1.994938.3.227.99.991.08290.0 Self [id number] [facility] Workers Compensation [id number] 2.16.840.1.054354.3.227.99.991.86320.0 Self [id number] [facility] Workers Compensation [id number] 2.16.840.1.768018.3.227.99.991.15436.0 Self [id number] [facility] Workers Compensation [id number] 2.16.840.1.288813.3.227.99.991.71835.0 Self [id number] [facility] Workers Compensation [id number] 2.16.840.1.202575.3.227.99.991.31355.0 Self [id number] [facility] Workers Compensation [id number] 2.16.840.1.361163.3.227.99.991.90794.0 Self [id number] [facility] Workers Compensation [id number] 2.16.840.1.999713.3.227.99.991.42096.0 Self [id number] [facility] Workers Compensation [id number] 2.16.840.1.210912.3.227.99.991.15781.0 Self [id number] [facility] Workers Compensation [id number] 2.16.840.1.574431.3.227.99.991.27187.0 Self [id number] [facility] Workers Compensation [id number] 2.16.840.1.419868.3.227.99.991.28773.0 Self [id number] [facility] Workers Compensation [id number] 2.16.840.1.428396.3.227.99.991.27263.0 Self [id number] [facility] Workers Compensation [id number] 2.16.840.1.297545.3.227.99.991.27683.0 Self [id number] [facility] Workers Compensation [id number] 2.16.840.1.052497.3.227.99.991.72524.0 Self [id number] [facility] Workers Compensation [id number] 2.16.840.1.140708.3.227.99.991.54166.0 Self [id number] [facility] Workers Compensation [id number] 2.16.840.1.691188.3.227.99.991.14289.0 Self [id number] [facility] Workers Compensation [id number] 2.16.840.1.801508.3.227.99.991.84865.0 Self [id number] [facility] Workers Compensation [id number] 2.16.840.1.182889.3.227.99.991.09612.0 Self [id number] [facility] Workers Compensation [id number] 2.16.840.1.831998.3.227.99.991.19866.0 Self [id number] [facility] Workers Compensation [id number] 2.16.840.1.345343.3.227.99.991.25064.0 Self [id number] Medicare Natl Gov't Servi Medicare Primary [id number] 2.16.840.1.590446.3.227.99.1767.8525.0 Self 0 [id number] Medicare Natl Gov't Servi Medicare Primary [id number] Self Medicare Natl Govt Servic Medicare Primary [id number] 2.840.1.859249.3.227.99.4595.51262.0 Self [id number] Medicare [place] Gov't Servi Medicare Primary [id number] 2.840.1.254753.3.227.99.1767.8525.0 Self [id number] Medicare [place]l Gov't Servi Medicare Primary [id number] 2.840.1.457327.3.227.99.1767.8525.0 Self 0 [id number] MEDICARE [id number] SP [id number] A Medicare Natl Govt Servic Medicare Primary [id number] Self Medicare Natl Govt Servic Medicare Primary [id number] 2.0.1.377702.3.227.99.4595.12661.0 Self [id number] FOR LIFE [id number] SP [id number] FOR LIFE [id number] SP [id number] Medicare Natl Govt Servic Medicare Primary [id number].[id number] Self [id number] Medicare Natl Govt Servic Medicare Primary [id number] 2.0.1.990259.3.227.99.4595.89773.0 Self [id number] Medicare Natl Govt Servic Medicare Primary [id number] 2.840.1.625679.3.227.99.4595.01624.0 Self [id number] Medicare Natl Gov't Servi Medicare Primary [id number] 2.0.1.151153.3.227.99.1767.8525.0 Self 0 [id number] Medicare [place]l Gov't Servi Medicare Primary [id number] 2.840.1.414242.3.227.99.1767.8525.0 Self 0 [id number] Medicare [place]l Gov't Servi Medicare Primary [id number] 2.840.1.773109.3.227.99.1767.8525.0 Self 0 [id number] Medicare Natl Govt Servic Medicare Primary [id number] 2.840.1.429291.3.227.99.4595.37289.0 Self [id number] Medicare [place]l Govt Servic Medicare Primary [id number] 2.0.1.236254.3.227.99.4595.64620.0 Self [id number] Medicare Natl Gov't Servi Medicare Primary [id number] 2.0.1.093681.3.227.99.1767.8525.0 Self [id number] Medicare Natl Govt Servic Medicare Primary [id number] 2.0.1.311396.3.227.99.4595.17702.0 Self [id number] MEDICARE [id number] SP [id number] Medicare Natl Govt Servic Medicare Primary [id number] 2.0.1.481673.3.227.99.4595.99365.0 Self [id number] [facility] Medigap Part B [id number] Self [employer] [facility] Medigap Part B [id number] 2.0.1.062512.3.227.99.991.88437.0 Self 0 [id number] [place] [id number].[id number] Self [id number] [place] Medicare Primary [id number] 2.0.1.544775.3.227.99.991.90793.0 Self 5 [id number] [place] Medicare Primary [id number] MRN.[id number] Self [id number] [place] Medicare Primary [id number] 2.0.1.030713.3.227.99.991.66781.0 Self [id number] [place] Medicare Primary [id number] MRN.[id number] Self [id number] [place] Medicare Primary [id number] 2.0.1.470943.3.227.99.991.54077.0 Self 5 [id number] [place] Medicare Primary [id number] 2..1.214777.3.227.99.991.76584.0 Self 5 [id number] FOR LIFE [id number] SP [id number] FOR LIFE [id number] SP [id number] [place] [facility] (TFL) [facility] Part B [id number] 2..1.086475.3.227.99.991.07696.0 Self [id number] [place] [facility] (TFL) [facility] Part B [id number] 2..1.369969.3.227.99.991.82576.0 Self [id number] [place] [facility] (TFL) [facility] Part B [id number] 2..1.109721.3.227.99.991.17756.0 Self [id number] [place] [facility] (TFL) [facility] Part B [id number] Self [id number] [place] [facility] (TFL) [facility] Part B [id number] 2..1.611256.3.227.99.991.54178.0 Self [id number] [place] [facility] (TFL) [facility] Part B [id number] 2.16.840.1.469373.3.227.99.991.68723.0 Self [id number] [place] [facility] (TFL) [facility] B [id number] 2.16.840.1.928706.3.227.99.991.58200.0 Self 0 [id number] [place] [facility] (TFL) [facility] [id number] 2.16.840.1.431866.3.227.99.991.61650.0 Self [id number] [place] [facility] (TFL) [facility] [id number] 2.16.840.1.290276.3.227.99.991.00615.0 Self [id number] [place] [facility] (TFL) [facility] [id number] 2.16.840.1.826154.3.227.99.991.38609.0 Self [id number] [place] [facility] (TFL) [facility] [id number] 2.16.840.1.780050.3.227.99.991.48083.0 Self [id number] [place] [facility] (TFL) [facility] [id number] 2.16.840.1.924051.3.227.99.991.70030.0 Self [id number] [place] [facility] (TFL) [facility] [id number] Self [id number] [place] [facility] (TFL) [facility] [id number] 2.16.840.1.996355.3.227.99.991.47334.0 Self [id number] [place] [facility] (TFL) [facility] B [id number] 2.16.840.1.341977.3.227.99.991.96577.0 Self 0 [id number] [place] [facility] (TFL) [facility] [id number] 2.16.840.1.574900.3.227.99.991.03264.0 Self 0 [id number] [place] [facility] (TFL) [facility] B [id number] 2.16.840.1.119367.3.227.99.991.33289.0 Self 0 [id number] [place] [facility] (TFL) [facility] B [id number] 2.16.840.1.190482.3.227.99.991.73047.0 Self 0 [id number] [place] [facility] (TFL) [facility] B [id number] 2.16.840.1.917818.3.227.99.991.83826.0 Self 0 [id number] [place] [facility] (TFL) [facility] B [id number] 2.16.840.1.783239.3.227.99.991.43070.0 Self 0 [id number] [place] [facility] (TFL) [facility] B [id number] 2.16.840.1.219866.3.227.99.991.69927.0 Self 0 [id number] [place] [facility] (TFL) [facility] B [id number] 2.16.840.1.280106.3.227.99.991.28216.0 Self 0 [id number] [place] [facility] (TFL) [facility] B [id number] 2.16.840.1.336376.3.227.99.991.96133.0 Self [id number] [place] [facility] (TFL) [facility] B [id number] 2.16.840.1.570549.3.227.99.991.59822.0 Self 0 [id number] [place] [facility] (TFL) [facility] B [id number] 2.16.840.1.357736.3.227.99.991.89859.0 Self [id number] [place] [facility] (TFL) [facility] B [id number] 2.16.840.1.397667.3.227.99.991.96340.0 Self 0 [id number] [place] [facility] (TFL) [facility] B [id number] 2.16.840.1.041777.3.227.99.991.72658.0 Self 0 [id number] [place] [facility] (TFL) [facility] B [id number] 2.16.840.1.168324.3.227.99.991.82236.0 Self 0 [id number] [place] [facility] (TFL) [facility] B [id number] 2.16.840.1.169182.3.227.99.991.40963.0 Self 0 [id number] [place] [facility] (TFL) [facility] B [id number] [place] [facility] (TFL) [facility] B [id number] Self [id number] [place] [facility] (TFL) [facility] B [id number] 2.16.840.1.020910.3.227.99.991.07694.0 Self 0 [id number] [place] [facility] (TFL) [facility] B [id number] 2.16.840.1.352487.3.227.99.991.10196.0 Self 0 [id number] [place] [facility] (TFL) [facility] B [id number] 2.16.840.1.007439.3.227.99.991.68461.0 Self [id number] [place] Medigap Part B [id number] 2.16.840.1.974894.3.227.99.991.18479.0 Self 0 [id number] [place] Med[place] [id number] 2.16.840.1.322404.3.227.99.991.77659.0 Self 0 [id number] [place] Primary [id number] 2.16.840.1.846097.3.227.99.991.08408.0 Self 0 [id number] [place] Primary [id number] 2.16.840.1.445567.3.227.99.991.16782.0 Self 0 [id number] [place] Primary [id number] 2.16.840.1.224645.3.227.99.991.91915.0 Self 0 [id number] [place] [id number] 2.16.840.1.096551.3.227.99.991.57345.0 Self 0 [id number] [place] [id number] 2.16.840.1.846837.3.227.99.991.15597.0 Self 0 [id number] [place] Primary [id number] 2.16.840.1.764254.3.227.99.991.71498.0 Self 0 [id number] [place] B [id number] 2.16.840.1.830105.3.227.99.991.34929.0 Self 0 [id number] [place] [id number] 2.16.840.1.665791.3.227.99.991.67231.0 Self 0 [id number] [place] B [id number] 2.16.840.1.791107.3.227.99.991.41616.0 Self 0 [id number] [place] Primary [id number] 2.16.840.1.618987.3.227.99.991.38263.0 Self 0 [id number] [place] Primary [id number] 2.16.840.1.986167.3.227.99.991.33752.0 Self 0 [id number] [place] Primary [id number] 2.16.840.1.821152.3.227.99.991.96145.0 Self 0 [id number] [place] Primary [id number] 2.840.1.866553.3.227.99.991.48653.0 Self 0 [id number] [place] [id number] 2.0.1.828118.3.227.99.991.09923.0 Self 0 [id number] [place] Primary [id number] 2.0.1.597565.3.227.99.991.03377.0 Self 0 [id number] [place] [id number].[id number] Self [id number] [place] Primary [id number] 2.0.1.196986.3.227.99.991.68275.0 Self 0 [id number] [place] [id number].[id number] Self [id number] [place] Primary [id number] 2.0.1.886989.3.227.99.991.42008.0 Self 0 [id number] [place] Primary [id number] 2.0.1.795500.3.227.99.991.40350.0 Self 0 [id number] [place] [id number] 2.0.1.429224.3.227.99.991.41729.0 Self 0 [id number] [place] [id number].[id number] Self [id number] [place] Primary [id number] [place] Medicare Primary [id number] 2.840.1.028390.3.227.99.991.63864.0 Self 0 [id number] [place] Primary [id number] 2.0.1.691432.3.227.99.991.89679.0 Self 0 [id number] [place] Primary [id number] 2.16.840.1.373774.3.227.99.991.99906.0 Self 0 [id number] [place] Primary [id number] 2.16.840.1.430789.3.227.99.991.12918.0 Self 0 [id number] [place] B [id number] 2.16.840.1.420830.3.227.99.991.86572.0 Self 0 [id number] [place] Primary [id number] 2.16.840.1.045166.3.227.99.991.01825.0 Self 0 [id number] [place] B [id number] 2.16.840.1.796755.3.227.99.991.49303.0 Self 0 [id number] [place] B [id number] 2.16.840.1.414907.3.227.99.991.87015.0 Self 0 [id number] [place] Primary [id number] 2.16.840.1.609125.3.227.99.991.81923.0 Self 0 [id number] Vi [id number] [employer] () Workers Compensation [id number].[id number] Self [id number] WPS For Life [facility] Medical Centergap Part B [id number] 2.16840.1.134700.3.227.99.8646.92376.0 Self [id number] WPS For Life [facility] Medical Centergap Part B [id number] MRN.[id number] Self [id number] MEDICARE A [id number] Self [id number] A FOR LIFE [id number] Self [id number] For Life Commercial [id number] Self Medicare Medicare Primary [id number] Self [employer] Workers Compensation 2.16.840.1.697723. 3.227.99.991.37179.0 Self Medicare Dme Supplies Medigap Part B [id number] Self [employer] Workers Compensation 2.16.840.1.222199. 3.227.99.991.34317.0 Self MEDICARE [id number] SP [id number] A MEDICARE [id number] SP [id number] A [employer] Workers Compensation [id number] Self [employer]) Workers Compensation [id number] Self Aarp Medigap Part B [id number] Self WPS For Life Medigap Part B [id number] [place] [id number] Self [employer]) Workers Compensation [id number] Self [employer]) Workers Compensation [id number] Self For Life Medigap Part B [id number] [place] [id number] Self FOR LIFE-O/P [id number] 18 [id number] MEDICARE -O/P [id number] 18 [id number] FOR LIFE S [id number] S 0 [id number] FOR LIFE [id number] SP [id number] MEDICARE [id number] SP [id number] Medicare Part B of [facility] Other 0 [id number] 6 Self 0 Medicare Part B of [facility] Other 0 [id number] 6 Self 0 Medicare Part B of [facility] Other 0 [id number] 6 Self 0 Medicare Part B of [facility] Other 0 [id number] 6 Self 0 Medicare Part B of [facility] Other 0 [id number] 6 Self 0 Medicare Part B of [facility] Other 0 [id number] Self 0 Medicare Part B of [facility] Other 0 [id number] 6 Self 0 Medicare Part B of [facility] Other 0 [id number] 6 Self 0 Medicare Part B of [facility] Other 0 [id number] 6 Self 0 Medicare Part B of [facility] Other 0 [id number] 6 Self 0 Medicare Part B of [facility] Other 0 [id number] 6 Self 0 Medicare Part B of [facility] Other 0 [id number] 6 Self 0 Medicare Part B of [facility] Other 0 [id number] 6 Self 0 Medicare Part B of [facility] Other 0 [id number] 6 Self 0 Medicare Part B of [facility] Other 0 [id number] 6 Self 0 Medicare Part B of [facility] Other 0 [id number] 6 Self 0 Medicare Part B of [facility] Other 0 [id number] 6 Self 0 MEDICARE C [id number] S [id number] FOR LIFE O [id number] S [id number] Medicare Part B of [facility] Other 0 [id number] 6 Self 0 Medicare Part B of [facility] Other 0 [id number] 6 Self 0 [employer] Workers Compensation [id number] MRN.[id number] Self [id number] Medicare Dme Supplies Medigap Part B [id number] MRN.[id number] Self [id number] [employer] Workers Compensation [id number] MRN.[id number] Self [id number] Medicare Dme Supplies Medigap Part B [id number] MRN.[id number] Self [id number] [employer] Workers Compensation [id number] MRN.[id number] Self [id number] Medicare Dme Supplies Medigap Part B [id number] MRN.[id number] Self [id number] Aarp Medigap Part B [id number] MRN.[id number] Self [id number] [place] Primary [id number] MRN.[id number] Self [id number] WPS For Life Medigap Part B [id number] MRN.4595.[id number] Self [id number] [facility] Opt Medigap Part B [id number] MRN.4595.[id number] Self [id number] [employer] Workers Compensation [id number] 2.0.1.140357.3.227.99.991.55183.0 Self [id number] Medicare Dme Supplies Medigap Part B [id number] 2.0.1.727111.3.227.99.991.29748.0 Self 0 [id number] [employer] Workers Compensation [id number] 2.16.840.1.120484.3.227.99.991.67449.0 Self [id number] Medicare Dme Supplies [facility] Medical Centergap Part B [id number] 2.16.840.1.548328.3.227.99.991.99838.0 Self 0 [id number] [employer] Workers Compensation [id number] [id number] 2.16.840.1.175986.3.227.99.991.79156.0 Self [id number] Medicare Dme Supplies [facility] Medical Centergap Part B [id number] 2.16.840.1.422573.3.227.99.991.13076.0 Self 0 [id number] [employer] Workers Compensation [id number] [id number] 2.16.840.1.754450.3.227.99.991.40119.0 Self [id number] Medicare Dme Supplies [facility] Part B [id number] 2.16.840.1.967876.3.227.99.991.06113.0 Self 0 [id number] Aarp [facility] Medical Centergap Part B [id number] 2.16.840.1.143731.3.227.99.8646.1 7127.0 Self [id number] [place] Medicare Primary [id number] 2.16.840.1.841846.3.227.99.8646.32838.0 Self [id number] For Life WPS [facility] Medical Centergap Part B [id number] 2.16.840.1.084205.3.227.99.1767.8525.0 Self 1 [id number] WPS For Life [facility] Medical Centergap Part B [id number] 2.16.840.1.876485.3.227.99.4595.09121.0 Self [id number] [employer] Workers Compensation [id number] [id number] 2.16.840.1.879985.3.227.99.991.62834.0 Self [id number] Medicare Dme Supplies [facility] Part B [id number] 2.16.840.1.291185.3.227.99.991.57960.0 Self 0 [id number] [place] [id number] 2.16.840.1.261323.3.227.99.991.89243.0 Self 5 [id number] For Life S [facility] Part B [id number] 2.16.840.1.182614.3.227.99.1767.8525.0 Self 1 [id number] [employer] Workers Compensation [id number] [id number] 2.16.840.1.126682.3.227.99.991.61117.0 Self [id number] Medicare Dme Supplies [facility] Part B [id number] 2.16.840.1.188491.3.227.99.991.84452.0 Self 0 [id number] [place] [id number] 2.16.840.1.372962.3.227.99.991.66404.0 Self 5 [id number] MEDICARE C [id number] S [id number] A [employer] Workers Compensation [id number] 2.16.840.1.484799.3.227.99.991.53897.0 Self [id number] Medicare Dme Supplies [facility] Part B [id number] 2.16.840.1.765697.3.227.99.991.33152.0 Self 0 [id number] [place] [id number] 2.16.840.1.497203.3.227.99.991.94419.0 Self 5 [id number] [employer] Workers Compensation [id number] 2.16.840.1.152466.3.227.99.991.66881.0 Self [id number] Medicare Dme Supplies [facility] B [id number] 2.16.840.1.431557.3.227.99.991.60936.0 Self 0 [id number] [place] [id number] 2.16.840.1.998709.3.227.99.991.24513.0 Self 5 [id number] [employer] Workers Compensation [id number] 2.16.840.1.041647.3.227.99.991.27204.0 Self [id number] Medicare Dme Supplies [facility] B [id number] 2.16.840.1.480824.3.227.99.991.28016.0 Self 0 [id number] [place] [id number] 2.16.840.1.120197.3.227.99.991.68351.0 Self 5 [id number] [employer] Workers Compensation [id number] [id number] 2.16.840.1.606566.3.227.99.991.56071.0 Self [id number] Medicare Dme Supplies [facility] B [id number] 2.16.840.1.432855.3.227.99.991.98175.0 Self 0 [id number] [place] Primary [id number] 2.16.840.1.499594.3.227.99.991.17961.0 Self 5 [id number] [employer] Workers Compensation [id number] [id number] 2.16.840.1.340366.3.227.99.991.88320.0 Self [id number] Medicare Dme Supplies [facility] Part B [id number] 2.16.840.1.420308.3.227.99.991.60329.0 Self 0 [id number] [place] [id number] 2.16.840.1.396414.3.227.99.991.03055.0 Self 5 [id number] [employer] Workers Compensation [id number] [id number] 2.16.840.1.174808.3.227.99.991.49690.0 Self [id number] Medicare Dme Supplies [facility] Part B [id number] 2.16.840.1.994856.3.227.99.991.30822.0 Self 0 [id number] For Life WPS [facility] Part B [id number] 2.16.840.1.511133.3.227.99.1767.8525.0 Self 1 [id number] [employer] Workers Compensation [id number] 2.16.840.1.840443.3.227.99.991.61007.0 Self [id number] Medicare Dme Supplies [facility] Part B [id number] 2.16.840.1.318728.3.227.99.991.10787.0 Self 0 [id number] WPS For Life [facility] Medical Centergap Part B [id number] 2.16.840.1.355310.3.227.99.4595.13500.0 Self [id number] For Life WPS [facility] Part B [id number] 2.16.840.1.873910.3.227.99.1767.8525.0 Self 1 [id number] [employer] Workers Compensation [id number] [id number] 2.16.840.1.974565.3.227.99.991.58173.0 Self [id number] Medicare Dme Supplies [facility] Part B [id number] 2.16.840.1.599719.3.227.99.991.78480.0 Self 0 [id number] [employer] Workers Compensation [id number] [id number] 2.16.840.1.040415.3.227.99.991.43642.0 Self [id number] Medicare Dme Supplies [facility] Part B [id number] 2.16.840.1.564297.3.227.99.991.05522.0 Self 0 [id number] [employer] Workers Compensation [id number] 2.16.840.1.982997.3.227.99.991.79995.0 Self [id number] Medicare Dme Supplies [facility] Part B [id number] 2.16.840.1.033600.3.227.99.991.85753.0 Self 0 [id number] [employer] Workers Compensation [id number] [id number] 2.16.840.1.722054.3.227.99.991.79694.0 Self [id number] Medicare Dme Supplies [facility] Part B [id number] 2.16.840.1.096845.3.227.99.991.21692.0 Self 0 [id number] [employer] Workers Compensation [id number] 2.16.840.1.288952.3.227.99.991.13337.0 Self [id number] Medicare Dme Supplies [facility] Part B [id number] 2.16.840.1.690321.3.227.99.991.97580.0 Self 0 [id number] Medicare Dme [facility] Medical Centergap Part B [id number] 2.16.840.1.245753.3.227.99 .936.12723.0 Self [id number] For Life Commercial [id number] 2.16.840.1.105828.3.227. 99.936.96841.0 Self [id number] Medicare Medicare Primary [id number] 2.16.840.1.165320.3.227. 99.936.11696.0 Self [id number] [employer] Workers Compensation [id number] [id number] 2.16.840.1.655396.3.227.99.991.55324.0 Self [id number] Medicare Dme Supplies [facility] Part B [id number] 2.16.840.1.236379.3.227.99.991.10701.0 Self 0 [id number] WPS For Life [facility] Medical Centergap Part B [id number] 2.16.840.1.828861.3.227.99.4595.80130.0 Self [id number] [employer] Workers Compensation [id number] [id number] 2.16.840.1.839047.3.227.99.991.63398.0 Self [id number] Medicare Dme Supplies [facility] [id number] 2.16.840.1.941526.3.227.99.991.94108.0 Self 0 [id number] [employer] Workers Compensation [id number] [id number] 2.16.840.1.462485.3.227.99.991.56146.0 Self [id number] Medicare Dme Supplies [facility] B [id number] 2.16.840.1.641435.3.227.99.991.69292.0 Self 0 [id number] [employer] Workers Compensation [id number] [id number] 2.16.840.1.646018.3.227.99.991.33083.0 Self [id number] Medicare Dme Supplies [facility] B [id number] 2.16.840.1.905420.3.227.99.991.84134.0 Self 0 [id number] [employer] Workers Compensation [id number] [id number] 2.16.840.1.359841.3.227.99.991.91853.0 Self [id number] Medicare Dme Supplies [facility] Part B [id number] 2.16.840.1.174466.3.227.99.991.52080.0 Self 0 [id number] [employer] Workers Compensation [id number] [id number] 2.16.840.1.974434.3.227.99.991.45224.0 Self [id number] Medicare Dme Supplies [facility] Medical Centergap Part B [id number] 2.16.840.1.821757.3.227.99.991.54005.0 Self 0 [id number] Medicare Dme [facility] Medical Centergap Part B [id number] 2.16.840.1.703442.3.227.99 .936.83035.0 Self [id number] For Life Commercial [id number] 2.16.840.1.296822.3.227. 99.936.20640.0 Self [id number] Medicare Medicare Primary [id number] 2.16.840.1.347965.3.227. 99.936.12385.0 Self [id number] Medicare Dme [facility] Medical Centergap Part B [id number] 2.16.840.1.698828.3.227.99 .936.51659.0 Self [id number] For Life Commercial [id number] 2.16.840.1.854913.3.227. 99.936.24844.0 Self [id number] Medicare Medicare Primary [id number] 2.16.840.1.309792.3.227. 99.936.90368.0 Self [id number] [employer] Workers Compensation [id number] 2.16.840.1.598938.3.227.99.991.60449.0 Self [id number] Medicare Dme Supplies [facility] Medical Centergap Part B [id number] 2.16.840.1.362282.3.227.99.991.37500.0 Self 0 [id number] WPS For Life Medigap Part B [id number] 2.16.840.1.750693.3.227.99.4595.07836.0 Self [id number] [employer] Workers Compensation [id number] [id number] 2.16.840.1.633551.3.227.99.991.14248.0 Self [id number] Medicare Dme Supplies Medigap Part B [id number] 2.16.840.1.408075.3.227.99.991.80134.0 Self 0 [id number] WPS For Life Medigap Part B [id number] 2.16.840.1.039027.3.227.99.4595.42121.0 Self [id number] [employer] Medigap Part B [id number] 2.16.840.1.448806.3.227.99.8646.1 7127.0 Self [id number] WPS For Life Medigap Part B [id number] 2.16.840.1.080881.3.227.99.8646.83761.0 Self [id number] [place] Primary [id number] 2.16.840.1.356834.3.227.99.8646.19682.0 Self [id number] [employer] Workers Compensation [id number] 2.16.840.1.097969.3.227.99.991.34783.0 Self [id number] Medicare Dme Supplies Medigap Part B [id number] 2.16.840.1.415694.3.227.99.991.09570.0 Self 0 [id number] [employer] Workers Compensation [id number] [id number] 2.16.840.1.913980.3.227.99.991.88574.0 Self [id number] Medicare Dme Supplies Medigap Part B [id number] 2.16.840.1.393601.3.227.99.991.69328.0 Self 0 [id number] Medicare Dme Medigap Part B [id number] 2.16.840.1.888709.3.227.99 .936.33500.0 Self [id number] For Life Commercial [id number] 2.16.840.1.105457.3.227. 99.936.96988.0 Self [id number] Medicare Medicare Primary [id number] 2.16.840.1.034124.3.227. 99.936.32749.0 Self [id number] WPS For Life Medigap Part B [id number] 2.16840.1.125540.3.227.99.4595.56770.0 Self [id number] For Life WPS Medigap Part B [id number] 2.840.1.908453.3.227.99.1767.8525.0 Self 1 [id number] Medicare Dme Medigap Part B [id number] 2.840.1.196094.3.227.99 .936.33386.0 Self [id number] For Life Commercial [id number] 2.840.1.372242.3.227. 99.936.48174.0 Self [id number] Medicare Medicare Primary [id number] 2.840.1.383064.3.227. 99.936.26818.0 Self [id number] For Life WPS Medigap Part B [id number] 2.16840.1.112747.3.227.99.1767.8525.0 Self 1 [id number] Medicare Dme Medigap Part B [id number] 2.16840.1.799573.3.227.99 .936.82532.0 Self [id number] For Life Commercial [id number] 2.16840.1.882759.3.227. 99.936.11667.0 Self [id number] Medicare Medicare Primary [id number] 2.16.840.1.765801.3.227. 99.936.09696.0 Self [id number] [employer] Workers Compensation [id number] 2.16.840.1.551147.3.227.99.991.91289.0 Self [id number] Medicare Dme Supplies Medigap Part B [id number] 2.16.840.1.948888.3.227.99.991.78162.0 Self 0 [id number] WPS For Life Medigap Part B [id number] 2.160.1.601585.3.227.99.4595.83440.0 Self [id number] For Life WPS Medigap Part B [id number] 2.0.1.698420.3.227.99.1767.8525.0 Self 1 [id number] [employer] Workers Compensation [id number] [id number] 2.160.1.789006.3.227.99.991.62554.0 Self [id number] Medicare Dme Supplies Medigap Part B [id number] 2.160.1.334150.3.227.99.991.17186.0 Self 0 [id number] WPS For Life Medigap Part B [id number] 2.16840.1.990765.3.227.99.4595.31673.0 Self [id number] For Life WPS Medigap Part B [id number] Self [facility] Opt Medigap Part B 46764 Self WPS For Life Medigap Part B 59317 Self Medicare Dme Medicare Primary 2.16840.1.764708.3.227.99.936 .69074.0 Self Problems, Conditions, and Diagnoses Code Display Name Description Problem Type Effective Dates Data Source(s) M47.812 [id number] Facet arthropathy, cervical Problem 04/24/2021 12:00:00 AM EDT eCW1 ([facility]) M43.02 [id number] Cervical spondylolysis Problem 04/24/2021 12 :00:00 AM EDT eCW1 ([facility]) G89.29 82183976 Other chronic pain Problem 04/17/2021 12:00: 00 AM EDT eCW1 ([facility]) 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 Problem 10/10/2020 12:00:00 AM EDT MARIEL (Joel Gonzalez [facility]) 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 Problem 10/10/2020 12:00:00 AM EDT MARIEL (Joel Gonzalez MD [facility]) 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 Problem 10/10/2020 12:00:00 AM EDT MARIEL (Joel Gonzalez MD [facility]) 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 Problem 10/10/2020 12:00:00 AM EDT MARIEL (Joel Gonzalez MD [facility]) 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 Problem 10/10/2020 12:00:00 AM EDT MARIEL (Joel Gonzalez MD [facility]) 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 Problem 10/10/2020 12:00:00 AM EDT MARIEL (Joel Gonzalez MD [facility]) 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 Problem 10/10/2020 12:00:00 AM EDT MARIEL (Joel Gonzalez MD [facility]) 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 Problem 10/10/2020 12:00:00 AM EDT MARIEL (Joel Gonzalez MD [facility]) 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 Problem 10/10/2020 12:00:00 AM EDT MARIEL (Joel Gonzalez MD [facility]) 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 Problem 10/10/2020 12:00:00 AM EDT MARIEL (Joel Gonzalez MD [facility]) 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 Problem 10/10/2020 12:00:00 AM EDT MARIEL (Joel Gonzalez MD [facility]) 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 Problem 10/10/2020 12:00:00 AM EDT MARIEL (Joel Gonzalez MD [facility]) 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 Problem 10/10/2020 12:00:00 AM EDT [facility] (Joel Gonzalez MD [facility]) 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 Problem 10/10/2020 12:00:00 AM EDT [facility] (Joel Gonzalez MD [facility]) 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 Problem 10/10/2020 12:00:00 AM EDT [facility] (Jeol Gonzalez MD [facility]) 372.02 Conjunctivitis Acute Follicular Conjunctivitis Acute F ollicular Problem 05/15/2020 12:00:00 AM EDT - 09/21/2020 12:00:00 AM EST [facility] (Joel Gonzalez MD [facility]) 372.02 Conjunctivitis Acute Follicular Conjunctivitis Acute F ollicular Problem 05/15/2020 12:00:00 AM EDT - 09/21/2020 12:00:00 AM EST [facility] (Joel Gonzalez MD [facility]) 372.02 Conjunctivitis Acute Follicular Conjunctivitis Acute F ollicular Problem 05/15/2020 12:00:00 AM EDT - 09/21/2020 12:00:00 AM EST [facility] (Joel Gonzalez MD [facility]) 372.02 Conjunctivitis Acute Follicular Conjunctivitis Acute F ollicular Problem 05/15/2020 12:00:00 AM EDT - 09/21/2020 12:00:00 AM EST [facility] (Joel Gonzalez MD [facility]) 372.02 Conjunctivitis Acute Follicular Conjunctivitis Acute F ollicular Problem 05/15/2020 12:00:00 AM EDT - 09/21/2020 12:00:00 AM EST [facility] (Joel Gonzalez MD [facility]) 372.02 Conjunctivitis Acute Follicular Conjunctivitis Acute F ollicular Problem 05/15/2020 12:00:00 AM EDT - 09/21/2020 12:00:00 AM EST [facility] (Joel Gonzalez MD [facility]) 372.02 Conjunctivitis Acute Follicular Conjunctivitis Acute F ollicular Problem 05/15/2020 12:00:00 AM EDT - 09/21/2020 12:00:00 AM EST [facility] (Joel Gonzalez MD [facility]) 372.02 Conjunctivitis Acute Follicular Conjunctivitis Acute F ollicular Problem 05/15/2020 12:00:00 AM EDT - 09/21/2020 12:00:00 AM EST [facility] (Joel Gonzalez MD [facility]) 372.02 Conjunctivitis Acute Follicular Conjunctivitis Acute F ollicular Problem 05/15/2020 12:00:00 AM EDT - 09/21/2020 12:00:00 AM EST [facility] (Joel Gonzalez MD [facility]) 372.02 Conjunctivitis Acute Follicular Conjunctivitis Acute F ollicular Problem 05/15/2020 12:00:00 AM EDT - 09/21/2020 12:00:00 AM EST [facility] (Joel Gonzalez MD [facility]) 372.02 Conjunctivitis Acute Follicular Conjunctivitis Acute F ollicular Problem 05/15/2020 12:00:00 AM EDT - 09/21/2020 12:00:00 AM EST [facility] (Joel Gonzalez MD [facility]) 372.02 Conjunctivitis Acute Follicular Conjunctivitis Acute F ollicular Problem 05/15/2020 12:00:00 AM EDT - 09/21/2020 12:00:00 AM EST [facility] (Joel Gonzalez MD [facility]) 372.02 Conjunctivitis Acute Follicular Conjunctivitis Acute F ollicular Problem 05/15/2020 12:00:00 AM EDT - 09/21/2020 12:00:00 AM EST [facility] (Joel Gonzalez MD [facility]) 372.02 Conjunctivitis Acute Follicular Conjunctivitis Acute F ollicular Problem 05/15/2020 12:00:00 AM EDT - 09/21/2020 12:00:00 AM EST [facility] (Joel Gonzalez MD [facility]) 372.02 Conjunctivitis Acute Follicular Conjunctivitis Acute F ollicular Problem 05/15/2020 12:00:00 AM EDT - 09/21/2020 12:00:00 AM EST [facility] (Joel Gonzalez MD [facility]) 372.02 Conjunctivitis Acute Follicular Conjunctivitis Acute F ollicular Problem 05/15/2020 12:00:00 AM EDT - 09/21/2020 12:00:00 AM EST [facility] (Joel Gonzalez MD [facility]) 372.02 Conjunctivitis Acute Follicular Conjunctivitis Acute F ollicular Problem 05/15/2020 12:00:00 AM EDT [place] (Joel Gonzalez MD [facility]) 372.02 Conjunctivitis Acute Follicular Conjunctivitis Acute F ollicular Problem 05/15/2020 12:00:00 AM EDT [facility] (Joel Gonzalez MD [facility]) Surgeries/Procedures Procedure Description Date Indications Data Source(s) OFFICE OUTPATIENT VISIT 15 MINUTES 05/10/2021 12:00:00 AM EDT [facility] ([facility]) ARTHROCENTESIS ASPIR&/INJECTION MAJOR JT/BURSA 12:00:00 AM EDT [facility] ([facility]) OFFICE OUTPATIENT VISIT 15 MINUTES 05/02/2021 12:00:00 AM EDT [facility] ([facility]) Remove Impacted Cerumen 04/10/2021 12:00:00 AM EDT [facility] ([facility]) OFFICE OUTPATIENT VISIT 15 MINUTES 04/10/2021 12:00:00 AM EDT [facility] ([facility]) OFFICE OUTPATIENT VISIT 15 MINUTES 04/05/2021 12:00:00 AM EDT [facility] ([facility]) Complex Chronic Care Management SVC 1St 60 Min 021 12:00:00 AM EDT [facility] ([facility]) INJECTION SINGLE/FUR TANNER TRIGGER POINT /2 MUSCLES 12:00:00 AM EDT MED[facility] ([facility]) ARTHROCENTESIS ASPIR&/INJECTION MAJOR JT/BURSA 12:00:00 AM EDT [facility] ([facility]) ARTHROCENTESIS ASPIR&/INJECTION MAJOR JT/BURSA 021 12:00:00 AM EDT [facility] ([facility]) OFFICE OUTPATIENT VISIT 25 MINUTES 03/11/2021 12:00:00 AM EDT [facility] ([facility]) Complex Chronic Care Management SVC 1St 60 Min 12:00:00 AM EDT [facility] ([facility]) OFFICE OUTPATIENT VISIT 15 MINUTES 01/24/2021 12:00:00 AM EDT [facility] ([facility], ) Complex Chronic Care Management SVC 1St 60 Min 12:00:00 AM EDT [facility] ([facility]) ARTHROCENTESIS ASPIR&/INJECTION MAJOR JT/BURSA 12:00:00 AM EDT [facility] ([facility]) OFFICE OUTPATIENT VISIT 15 MINUTES 01/16/2021 12:00:00 AM EDT [facility] ([facility]) OFFICE OUTPATIENT VISIT 15 MINUTES 01/15/2021 12:00:00 AM EDT [facility] ([facility]) THERAPEUTIC PROPHYLACTIC/DX INJECTION SUBQ/IM 01/12/20 12:00:00 AM EDT [facility] ([facility]) OFFICE OUTPATIENT VISIT 25 MINUTES 01/09/2021 12:00:00 AM EDT [facility] ([facility]) OFFICE OUTPATIENT VISIT 25 MINUTES 01/02/2021 12:00:00 AM EDT [facility] ([facility]) OFFICE OUTPATIENT VISIT 15 MINUTES 12/25/2020 12:00:00 AM EDT [facility] ([facility]) Complex Chronic Care Management SVC 1St 60 Min 12:00:00 AM EDT [facility] ([facility]) OFFICE OUTPATIENT VISIT 15 MINUTES 12/05/2020 12:00:00 AM EDT [facility] ([facility], ) OFFICE OUTPATIENT VISIT 25 MINUTES 11/30/2020 12:00:00 AM EDT [facility] ([facility], [facility]) OFFICE OUTPATIENT VISIT 15 MINUTES 11/13/2020 12:00:00 AM EDT [facility] ([facility], [facility]) OFFICE OUTPATIENT VISIT 15 MINUTES 11/07/2020 12:00:00 AM EDT [facility] ([facility]) ECG ROUTINE ECG W/LEAST 12 LDS W/I&R 10/16/2020 12:00: 00 AM EDT [facility] ([facility], [facility]) OFFICE OUTPATIENT VISIT 25 MINUTES 10/16/2020 12:00:00 AM EDT [facility] ([facility], [facility]) INJECTION SINGLE/FUR TANNER TRIGGER POINT 1/2 [place]CLES 021 12:00:00 AM EDT [facility] ([facility]) ARTHROCENTESIS ASPIR&/INJECTION MAJOR JT/BURSA 021 12:00:00 AM EDT [facility] ([facility]) OFFICE OUTPATIENT VISIT 25 MINUTES 10/11/2020 12:00:00 AM EDT [facility] ([facility]) CORRECTION TRICHIASIS EPILATION FORCEPS ONLY Epilation of Trichiasis (Left side) 10/10/2020 12:00:00 AM EDT MARIEL (Rafael Gonzalez MD [facility]) Intermediate Eye Exam Established Patient Intermediate Eye Exam Established Patient 09/21/2020 12:00:00 AM EST MARIEL (Rafael Gonzalez MD [facility]) Intermediate Eye Exam Established Patient Intermediate Eye Exam Established Patient 09/21/2020 12:00:00 AM EST MARIEL (Rafael Gonzalez MD [facility]) OFFICE OUTPATIENT VISIT 15 MINUTES 09/19/2020 12:00:00 AM EST [facility] ([facility], ) OFFICE OUTPATIENT VISIT 15 MINUTES 09/12/2020 12:00:00 AM EST [facility] ([facility]) OFFICE OUTPATIENT VISIT 15 MINUTES 09/07/2020 12:00:00 AM EST [facility] ([facility]) OFFICE OUTPATIENT VISIT 15 MINUTES 07/17/2020 12:00:00 AM EST [facility] ([facility]) ARTHROCENTESIS ASPIR&/INJECTION MAJOR JT/BURSA 020 12:00:00 AM EST [facility] ([facility]) THERAPEUTIC PROPHYLACTIC/DX INJECTION SUBQ/IM 07/06/20 12:00:00 AM EST [facility] ([facility]) ARTHROCENTESIS ASPIR&/INJECTION MAJOR JT/BURSA 12:00:00 AM EST [facility] ([facility]) Mammogram 05/17/2020 12:00:00 AM EDT M EDKENDY ([facility]) Intermediate Eye Exam Established Patient Intermediate Eye Exam Established Patient 05/15/2020 12:00:00 AM EDT MARIEL (Rafael Gonzalez MD [facility]) Intermediate Eye Exam Established Patient Intermediate Eye Exam Established Patient 05/15/2020 12:00:00 AM EDT [place] (Rafael id Asaf Gonzalez MD [facility]) INJECTION SINGLE/FUR TANNER TRIGGER POINT 1/2 [place]CL[place] 12:00:00 AM EDT [facility] ([facility] ) ARTHROCENTESIS ASPIR&/INJECTION MAJOR JT/BURSA 12:00:00 AM EDT [facility] ([facility]) Results ID Date Data Source [id number] 05/10/2021 12:41:00 PM EDT [facility] ([facility]) Name Value Range Interpretation Code Description Data Nemo rce(s) Supporting Document(s) Bacteria identified in Urine by Culture Laboratory test result [facility] ([facility]) ID Date Data Source [id number] 04/24/2021 12:05:00 PM EDT [facility] ([facility]) Name Value Range Interpretation Code Description Data Nemo rce(s) Supporting Document(s) Magnesium 2.2 mg/dL 1.8-2.4 [facility]) ID Date Data Source [id number] 04/24/2021 12:05:00 PM EDT [facility] ([facility]) Name Value Range Interpretation Code Description Data Nemo rce(s) Supporting Document(s) Glucose [Mass/volume] in Serum or Plasma 76 mg/dL 74-99 [facility] ([facility]) 100-125 mg/dL PRE-DIABETES/FASTING >126 mg/dL DIABETES/FASTING Creatinine 0.6 mg/dL 0.6-1.3 [facility] Urea nitrogen [Mass/volume] in Serum or Plasma 22 mg/dL 7-18 [facility] ([facility]) Chloride [Moles/volume] in Serum or Plasma 107 meq/L 98-107 [facility] ([facility]) Sodium [Moles/volume] in Serum or Plasma 142 meq/L 136-145 [facility] ([facility]) Potassium [Moles/volume] in Serum or Plasma 3.7 meq/L 3.5-5.1 [facility] ([facility]) Carbon dioxide, total [Moles/volume] in Serum or Plasma 25 meq/L 21 -32 [facility] ([facility]) Glomerular filtration rate/1.73 sq M pre dicted among non-blacks [Volume Rate/Area] in Serum or Plasma by Creatinine-based formula (MDRD) Laboratory test result [facility] ([facility] ) Calcium [Mass/volume] in Serum or Plasma 9.4 mg/dL 8.5-10.1 [facility] Glomerular filtration rate/1.73 sq M pre dicted among blacks [Volume Rate/Area] in Serum or Plasma by Creatinine-based formula (MDRD) Laboratory test result [facility] ([facility]) <content>CHRONIC KIDNEY DISEASE STAGING PER NKF</content>
<content></content>
<content>STAGE I & II GFR >= 60 NORMAL TO MILDLY DECREASED</content>
<content>STAGE III GFR 30-59 MODERATELY DECREASED</content>
<content>STAGE IV GFR 15-29 SEVERELY DECREASED</content>
<content>STAGE V GFR <15 VERY LITTLE GFR LEFT</content>
<content>ESRD GFR <15 ON MODEL AND MOLD MAKER PLASTER</content>
<content></content> ID Date Data Source [id number] 04/15/2021 02:04:00 PM EDT [facility] Name Value Range Interpretation Code Description Data Nemo rce(s) Supporting Document(s) Bacteria identified in Urine by Culture Laboratory test result [facility] ([facility]) FULL REPORT IN LAB NOTES (eCW and [facility] ). NO GROWTH ID Date Data Source [id number] 04/15/2021 02:03:00 PM EDT [facility] Name Value Range Interpretation Code Description Data Nemo rce(s) Supporting Document(s) Urine Color Laboratory test result MEDEN T ([facility]) Urine PH 6.0 units 5.0-9.0 [facility]) Urine Appearance [facility] Urine Leukocytes Laboratory test result [facility] Urine Blood Laboratory test result [facility] Specific gravity of Urine 1.010 1.005-1.[address] [facility] ([facility]) Glucose [Presence] in Urine [facility]) Urine Protein Laboratory test result 0-0 [facility] ([facility]) Urine Nitrite Laboratory test result [facility] ([facility]) Urine Ketone Laboratory test result [facility] ([facility]) Bilirubin.total [Mass/volume] in Serum or Plasma Laboratory test resu lt [facility] Urine Urobilinogen 0.2 mg/dL 0.2-1.0 [facility] ([facility]) ID Date Data Source [id number] 04/06/2021 12:00:00 AM EDT [facility] Name Value Range Interpretation Code Description Data Nemo rce(s) Supporting Document(s) SARS-CoV2 Rapid Antigen Negative [facility] This lab was reported by [facility]. ID Date Data Source [id number] 03/27/2021 07:42:00 AM EDT [facility] ([facility] Name Value Range Interpretation Code Description Data Nemo rce(s) Supporting Document(s) Urea nitrogen [Mass/volume] in Serum or Plasma 20 mg/dL 7-18 [facility] ([facility]) Glucose [Mass/volume] in Serum or Plasma 76 mg/dL 74-99 [facility] ([facility]) 100-125 mg/dL PRE-DIABETES/FASTING >126 mg/dL DIABETES/FASTING Creatinine 0.7 mg/dL 0.6-1.3 [facility] Potassium [Moles/volume] in Serum or Plasma 4.0 meq/L 3.5-5.1 [facility] Sodium [Moles/volume] in Serum or Plasma 138 meq/L 136-145 [facility] ([facility]) Chloride [Moles/volume] in Serum or Plasma 103 meq/L 98-107 [facility] ([facility]) Carbon dioxide, total [Moles/volume] in Serum or Plasma 30 meq/L 21 -32 [facility] ([facility]) Glomerular filtration rate/1.73 sq M pre dicted among non-blacks [Volume Rate/Area] in Serum or Plasma by Creatinine-based formula (MDRD) Laboratory test result [facility] Glomerular filtration rate/1.73 sq M pre dicted among blacks [Volume Rate/Area] in Serum or Plasma by Creatinine-based formula (MDRD) Laboratory test result [facility] <content>CHRONIC KIDNEY DISEASE STAGING PER NKF</content>
<content></content>
<content>STAGE I & II GFR >= 60 NORMAL TO MILDLY DECREASED</content>
<content>STAGE III GFR 30-59 MODERATELY DECREASED</content>
<content>STAGE IV GFR 15-29 SEVERELY DECREASED</content>
<content>STAGE V GFR <15 VERY LITTLE GFR LEFT</content>
<content>ESRD GFR <15 ON MODEL AND MOLD MAKER PLASTER</content>
<content></content> Calcium [Mass/volume] in Serum or Plasma 9.5 mg/dL 8.5-10.1 [facility] ([facility]) ID Date Data Source [id number] 03/14/2021 10:25:00 AM EDT [facility] ([facility]) Name Value Range Interpretation Code Description Data Nemo rce(s) Supporting Document(s) Glucose [Mass/volume] in Serum or Plasma 74 mg/dL 74-99 [facility] ([facility]) 100-125 mg/dL PRE-DIABETES/FASTING >126 mg/dL DIABETES/FASTING Creatinine 0.7 mg/dL 0.6-1.3 [facility] Urea nitrogen [Mass/volume] in Serum or Plasma 26 mg/dL 7-18 [facility] ([facility]) Sodium [Moles/volume] in Serum or Plasma 136 meq/L 136-145 [facility] ([facility]) Potassium [Moles/volume] in Serum or Plasma 3.4 meq/L 3.5-5.1 [facility] ([facility]) Chloride [Moles/volume] in Serum or Plasma 102 meq/L 98-107 [facility] ([facility]) Calcium [Mass/volume] in Serum or Plasma 9.8 mg/dL 8.5-10.1 [facility] ([facility]) Carbon dioxide, total [Moles/volume] in Serum or Plasma 23 meq/L 21 -32 [facility] ([facility]) Glomerular filtration rate/1.73 sq M pre dicted among non-blacks [Volume Rate/Area] in Serum or Plasma by Creatinine-based formula (MDRD) Laboratory test result [facility] Glomerular filtration rate/1.73 sq M pre dicted among blacks [Volume Rate/Area] in Serum or Plasma by Creatinine-based formula (MDRD) Laboratory test result [facility] ([facility]) <content>CHRONIC KIDNEY DISEASE STAGING PER NKF</content>
<content></content>
<content>STAGE I & II GFR >= 60 NORMAL TO MILDLY DECREASED</content>
<content>STAGE III GFR 30-59 MODERATELY DECREASED</content>
<content>STAGE IV GFR 15-29 SEVERELY DECREASED</content>
<content>STAGE V GFR <15 VERY LITTLE GFR LEFT</content>
<content>ESRD GFR <15 ON MODEL AND MOLD MAKER PLASTER</content>
<content></content> ID Date Data Source [id number] 03/01/2021 10:18:00 AM EDT [facility] ([facility]) Name Value Range Interpretation Code Description Data Nemo rce(s) Supporting Document(s) Glucose [Mass/volume] in Serum or Plasma 51 mg/dL 74-99 [facility] ([facility]) NOTE: RESULT VERIFIED. 100-125 mg/dL PRE-DIABETES/FASTING >126 mg/dL DIABETES/FASTING Urea nitrogen [Mass/volume] in Serum or Plasma 24 mg/dL 7-18 [facility] ([facility]) Creatinine 0.6 mg/dL 0.6-1.3 [facility] ([facility]) Potassium [Moles/volume] in Serum or Plasma 3.5 meq/L 3.5-5.1 [facility] ([facility]) Sodium [Moles/volume] in Serum or Plasma 138 meq/L 136-145 [facility] ([facility]) Chloride [Moles/volume] in Serum or Plasma 101 meq/L 98-107 [facility] ([facility]) Carbon dioxide, total [Moles/volume] in Serum or Plasma 28 meq/L 21 -32 [facility] ([facility]) Calcium [Mass/volume] in Serum or Plasma 9.5 mg/dL 8.5-10.1 [facility] Glomerular filtration rate/1.73 sq M pre dicted among non-blacks [Volume Rate/Area] in Serum or Plasma by Creatinine-based formula (MDRD) Laboratory test result [facility] ([facility] Glomerular filtration rate/1.73 sq M pre dicted among blacks [Volume Rate/Area] in Serum or Plasma by Creatinine-based formula (MDRD) Laboratory test result [facility] ([facility] <content>CHRONIC KIDNEY DISEASE STAGING PER NKF</content>
<content></content>
<content>STAGE I & II GFR >= 60 NORMAL TO MILDLY DECREASED</content>
<content>STAGE III GFR 30-59 MODERATELY DECREASED</content>
<content>STAGE IV GFR 15-29 SEVERELY DECREASED</content>
<content>STAGE V GFR <15 VERY LITTLE GFR LEFT</content>
<content>ESRD GFR <15 ON MODEL AND MOLD MAKER PLASTER</content>
<content></content> ID Date Data Source [id number] 02/23/2021 11:50:00 AM EDT [facility] Name Value Range Interpretation Code Description Data Nemo rce(s) Supporting Document(s) SARS-CoV-2 (COVID-19) RNA [Presence] in Respiratory specimen by RENETTA with probe detection Not Detected [facility] This lab was ordered by [facility] and reported by [employer] ID Date Data Source [id number] 01/09/2021 07:51:00 AM EDT [facility] ([facility]) Name Value Range Interpretation Code Description Data Nemo rce(s) Supporting Document(s) Aldos/Renin Ratio 31.1 0.0-30.0 [facility] ([facility]) Units: ng/dL per ng/mL/hr Performed at: [address] [id number] Environmental Geologist: Reji Ramos MD, Phone: [phone] Aldosterone 119.3 ng/dL 0.0-30.0 [facility] ([facility]) Renin Activity 3.831 ng/mL/hr 0.167-5.380 [facility] ( [facility]) ID Date Data Source [id number] 01/09/2021 07:51:00 AM EDT [facility] ([facility]) Name Value Range Interpretation Code Description Data Nemo rce(s) Supporting Document(s) Aldosterone/Renin [Ratio] in Plasma Laboratory test result [facility] ([facility] ID Date Data Source [id number] 01/09/2021 07:50:00 AM EDT [facility] ([facility]) Name Value Range Interpretation Code Description Data Nemo rce(s) Supporting Document(s) Leukocytes [#/volume] in Blood by Automated count 5.2 x10*3/UL 4.1-10 .9 [facility] ([facility] Erythrocytes [#/volume] in Blood by Automated count 4.94 x10*6/UL 4.2 0-6.30 [facility] Hemoglobin [Mass/volume] in Blood 14.5 g/dL 12.0-18.0 [facility] ([facility]) MCH 29.4 pg 26.0-32.0 [facility]) MCV 87.9 fL 80.0-97.0 [facility] ([facility]) Hematocrit [Volume Fraction] of Blood by Automated count 43.5 % 3 7.0-51.0 [facility] Platelets [#/volume] in Blood by Automated count 223 x10*3/UL 140-440 [facility] ([facility]) MCHC 33.4 g/dL 31.0-38.0 [facility] ([facility]) Erythrocyte distribution width [Ratio] by Automated count 13.5 % 11.6-13.7 [facility] ([facility]) Lymph % 28.5 % 10.0-58.5 [facility] ([facility]) MPV 9.2 FL 7.8-11.0 [facility]) Neut % 64.7 % 37.0-92.0 [facility]) Mid % 6.8 % 1.7-9.3 [facility]) Mid # 0.4 x10*3/UL 0.1-0.6 [facility] ([facility]) Lymph # 1.4 x10*3/UL 0.6-4.1 [facility] ([facility]) Neut # 3.4 x10*3/UL 2.0-7.8 [facility] ([facility]) ID Date Data Source [id number] 01/09/2021 07:50:00 AM EDT [facility] ([facility]) Name Value Range Interpretation Code Description Data Nemo rce(s) Supporting Document(s) Triglyceride [Mass/volume] in Serum or Plasma 74 mg/dL 30-150 [facility] ([facility]) Cholesterol [Mass/volume] in Serum or Plasma 223 mg/dL 131-200 [facility] ([facility]) Cholesterol in LDL [Mass/volume] in Serum or Plasma by calcu lation 108 CALC 50-159 [facility] ([facility]) Cholesterol in HDL [Mass/volume] in Serum or Plasma 100 mg/dL 35-60 [facility] ([facility]) ID Date Data Source [id number] 01/09/2021 07:50:00 AM EDT [facility] ([facility]) Name Value Range Interpretation Code Description Data Nemo rce(s) Supporting Document(s) Magnesium 2.0 mg/dL 1.8-2.4 [facility] ID Date Data Source [id number] 01/09/2021 07:50:00 AM EDT [facility] ([facility]) Name Value Range Interpretation Code Description Data Nemo rce(s) Supporting Document(s) Phosphate [Moles/volume] in Serum or Plasma 4.2 mg/dL 2.5-4.9 [facility] ([facility]) ID Date Data Source [id number] 01/09/2021 07:50:00 AM EDT [facility] ([facility]) Name Value Range Interpretation Code Description Data Nemo rce(s) Supporting Document(s) Glucose [Mass/volume] in Serum or Plasma 71 mg/dL 74-99 [facility] ([facility]) 100-125 mg/dL PRE-DIABETES/FASTING >126 mg/dL DIABETES/FASTING Urea nitrogen [Mass/volume] in Serum or Plasma 19 mg/dL 7-18 [facility] ([facility]) Creatinine 0.6 mg/dL 0.6-1.3 [facility] Sodium [Moles/volume] in Serum or Plasma 142 meq/L 136-145 [facility] ([facility]) Potassium [Moles/volume] in Serum or Plasma 3.9 meq/L 3.5-5.1 [facility] ([facility]) Chloride [Moles/volume] in Serum or Plasma 104 meq/L 98-107 [facility] ([facility]) Carbon dioxide, total [Moles/volume] in Serum or Plasma 26 meq/L 21 -32 [facility] ([facility]) Calcium [Mass/volume] in Serum or Plasma 9.4 mg/dL 8.5-10.1 [facility] ([facility]) Total Bilirubin 0.3 mg/dL 0.2-1.0 [facility] ([facility]) Alkaline phosphatase isoenzyme [Units/volume] in Serum or Pl asma 72 mg/dL 46-116 [facility] ([facility]) Alanine aminotransferase [Enzymatic activity/volume] in Seru m or Plasma 52 U/L 12-78 [facility] ([facility]) Aspartate aminotransferase [Enzymatic activity/volume] in Serum or Plasma 26 U/L 15-37 [facility] ([facility] ) Albumin [Mass/volume] in Serum or Plasma 4.0 g/dL 3.4-5.0 [facility] ([facility]) A/G Ratio 1.38 CALC 1.00-1.90 [facility] ([facility]) Proteinase 3 Ab [Units/volume] in Serum 6.9 g/dL 6.4-8.2 [facility] ([facility]) Glomerular filtration rate/1.73 sq M pre dicted among blacks [Volume Rate/Area] in Serum or Plasma by Creatinine-based formula (MDRD) Laboratory test result [facility] ([facility]) <content>CHRONIC KIDNEY DISEASE STAGING PER NKF</content>
<content></content>
<content>STAGE I & II GFR >= 60 NORMAL TO MILDLY DECREASED</content>
<content>STAGE III GFR 30-59 MODERATELY DECREASED</content>
<content>STAGE IV GFR 15-29 SEVERELY DECREASED</content>
<content>STAGE V GFR <15 VERY LITTLE GFR LEFT</content>
<content>ESRD GFR <15 ON MODEL AND MOLD MAKER PLASTER</content>
<content></content> Glomerular filtration rate/1.73 sq M pre dicted among non-blacks [Volume Rate/Area] in Serum or Plasma by Creatinine-based formula (MDRD) Laboratory test result [facility] ([facility] ) ID Date Data Source [id number] 01/02/2021 03:26:00 PM EDT [facility] ([facility]) Name Value Range Interpretation Code Description Data Nemo rce(s) Supporting Document(s) Urine Appearance Laboratory test result [facility] ([facility]) Urine Color Laboratory test result [facility] ([facility]) Urine Leukocytes Laboratory test result [facility] ([facility]) Specific gravity of Urine 1.020 1.005-1.[address] [facility] ([facility]) Urine PH 6.5 units 5.0-9.0 [facility]) Urine Blood Laboratory test result [facility] ([facility]) Urine Protein Laboratory test result 0-0 [facility] ([facility]) Glucose [Presence] in Urine Laboratory test result [facility] ([facility]) Urine Nitrite Laboratory test result [facility] ([facility]) Urine Ketone Laboratory test result [facility] ([facility]) Bilirubin.total [Mass/volume] in Serum or Plasma Laboratory test resu lt [facility] ([facility]) Urine Urobilinogen 0.2 mg/dL 0.2-1.0 [facility] ([facility]) ID Date Data Source [id number] 12/25/2020 07:09:00 PM EDT [facility] ([facility]) Name Value Range Interpretation Code Description Data Nemo rce(s) Supporting Document(s) Bacteria identified in Urine by Culture Laboratory test result [facility] ([facility]) FULL REPORT IN LAB NOTES (eCW and [facility] ). NO GROWTH CLINICAL SIGNIFICANCE 2 OR MORE ORGANISMS ID Date Data Source [id number] 11/28/2020 10:26:00 AM EDT [facility] ([facility]) Name Value Range Interpretation Code Description Data Nemo rce(s) Supporting Document(s) Potassium [Moles/volume] in Serum or Plasma 3.2 meq/L 3.5-5.1 [facility] ([facility]) NOTE: RESULT VERIFIED ID Date Data Source [id number] 11/13/2020 11:49:00 AM EDT [facility] ([facility]) Name Value Range Interpretation Code Description Data Nemo rce(s) Supporting Document(s) Bacteria identified in Urine by Culture Laboratory test result [facility] ([facility]) FULL REPORT IN LAB NOTES (eCW and [facility] ). NO GROWTH CLINICAL SIGNIFICANCE 2 OR MORE ORGANISMS ID Date Data Source [id number] 10/31/2020 10:07:00 AM EDT [facility] ([facility]) Name Value Range Interpretation Code Description Data Nemo rce(s) Supporting Document(s) Potassium [Moles/volume] in Serum or Plasma 3.3 meq/L 3.5-5.1 [facility] NOTE: RESULT VERIFIED. ID Date Data Source [id number] 10/16/2020 03:37:00 PM EDT [facility] ([facility]) Name Value Range Interpretation Code Description Data Nemo rce(s) Supporting Document(s) Free T4 0.83 ng/dL 0.76-1.46 [facility] ([facility]) see Progress note Thyroid Stimulating Hormone 1.640 uIU/ML 0.358-3.740 [facility] ([facility]) see Progress note ID Date Data Source [id number] 10/16/2020 03:37:00 PM EDT [facility] ([facility]) Name Value Range Interpretation Code Description Data Nemo rce(s) Supporting Document(s) CPK Creatine Phosphokinase 73 U/L 26-192 [facility] ([facility]) see Progress note MB/CK Relative Index 4.38 [facility] ([facility]) see Progress note Troponin I Laboratory test result [facility] ([facility]) see Progress note CK-MB Value Mass 3.2 ng/mL [facility] ([facility]) see Progress note ID Date Data Source [id number] 10/16/2020 03:37:00 PM EDT [facility] ([facility]) Name Value Range Interpretation Code Description Data Nemo rce(s) Supporting Document(s) Glucose, Fasting 83 mg/dL 70-100 [facility] ([facility]) see Progress note Creatinine For GFR 0.68 mg/dL 0.55-1.30 [facility] ([facility]) see Progress note Blood Urea Nitrogen 22 mg/dL 7-18 [facility] ([facility]) see Progress note Glomerular Filtration Rate Laboratory test result [facility] ([facility]) see Progress note Sodium Level 141 meq/L 136-145 [facility] ([facility]) see Progress note Chloride Level 109 meq/L 98-107 [facility] ([facility]) see Progress note Potassium Serum 3.5 meq/L 3.5-5.1 [facility] ([facility]) see Progress note Anion Gap 5 meq/L 8-16 [facility] ([facility]) see Progress note Carbon Dioxide Level 27 meq/L 21-32 [facility] ([facility]) see Progress note Calcium Level 8.8 mg/dL 8.8-10.2 [facility] ([facility]) see Progress note Ast/Sgot 15 U/L 7-37 [facility] ([facility]) see Progress note Alkaline Phosphatase 61 U/L 45-117 [facility] ([facility]) see Progress note Alt/SGPT 42 U/L 12-78 [facility] ([facility], [facility]) see Progress note Bilirubin,Total 0.5 mg/dL 0.2-1.0 [facility] ([facility]) see Progress note Total Protein 6.6 GM/DL 6.4-8.2 [facility] ([facility], [facility]) see Progress note Albumin 3.9 GM/DL 3.2-5.2 [facility] ([facility], [facility]) see Progress note Albumin/Globulin Ratio 1.4 1.2-2.2 [facility] ([facility], [facility]) see Progress note ID Date Data Source [id number] 10/16/2020 03:37:00 PM EDT [facility] ([facility]) Name Value Range Interpretation Code Description Data Nemo rce(s) Supporting Document(s) White Blood Count 7.7 10 4.0-10.0 [facility] ([facility], [facility]) see Progress note Red Blood Count 4.41 10 4.00-5.40 [facility] ([facility], [facility]) see Progress note Hematocrit 40.5 % 36.0-47.0 [facility] ([facility]) see Progress note Hemoglobin 12.8 g/dL 12.0-15.5 [facility] ([facility]) see Progress note Mean Corpuscular Volume 91.8 fl 80.0-96.0 M EDENT ([facility], [facility]) see Progress note Mean Corpuscular Hemoglobin 29.0 pg 27.0-33.0 [facility] ([facility], [facility]) see Progress note Mean Corpuscular HGB Conc 31.6 g/dL 32.0-36.5 [facility] ([facility], [facility]) see Progress note Red Cell Distribution Width 13.2 % 11.5-14.5 [facility] ([facility], [facility]) see Progress note Neutrophils % 65.4 % 36.0-66.0 [facility] ([facility], [facility]) see Progress note Platelet Count, Automated 268 10 150-450 [facility] ([facility], [facility]) see Progress note Lymph % 24.5 % 24.0-44.0 [facility] ([facility], [facility]) see Progress note Real % 8.1 % 2.0-8.0 [facility] ([facility]) see Progress note Baso % 0.8 % 0.0-1.0 [facility] ([facility], [facility]) see Progress note Eos % 0.8 % 0.0-3.0 [facility] ([facility], [facility]) see Progress note Nucleated Red Blood Cell % 0.0 % 0-0 MED E[facility] ([facility]) see Progress note Immature Granulocyte % 0.4 % 0-3.0 [facility] ([facility]) see Progress note Neutrophils # 5.0 10 1.5-8.5 [facility] ([facility]) see Progress note Lymph # 1.9 10 1.5-5.0 [facility] ([facility], [facility]) see Progress note Real # 0.6 10 0.0-0.8 [facility] ([facility], [facility]) see Progress note Baso # 0.1 10 0.0-0.2 [facility] ([facility], [facility]) see Progress note Eos # 0.1 10 0.0-0.5 [facility] ([facility]) see Progress note ID Date Data Source [id number] 10/03/2020 10:22:00 AM EST [facility] ([facility]) Name Value Range Interpretation Code Description Data Nemo rce(s) Supporting Document(s) Potassium [Moles/volume] in Serum or Plasma 3.4 meq/L 3.5-5.1 [facility] ([facility]) ID Date Data Source [id number] 10/01/2020 12:00:00 AM EST [facility] Name Value Range Interpretation Code Description Data Nemo rce(s) Supporting Document(s) SARS-CoV2 Rapid Antigen Negative [facility] This lab was reported by [facility]. ID Date Data Source [id number] 09/19/2020 10:26:00 AM EST [facility] ([facility]) Name Value Range Interpretation Code Description Data Nemo rce(s) Supporting Document(s) Potassium [Moles/volume] in Serum or Plasma 3.2 meq/L 3.5-5.1 [facility] ([facility]) ID Date Data Source [id number] 09/12/2020 02:25:00 PM EST [facility] Name Value Range Interpretation Code Description Data Nemo rce(s) Supporting Document(s) Urine Color Laboratory test result MEDEN T ([facility]) Urine Appearance Laboratory test result [facility] Urine PH 6.0 units 5.0-9.0 [facility] ([facility]) Specific gravity of Urine 1.020 1.005-1.030 [place] [facility] ([facility]) Urine Leukocytes Laboratory test result Abnormal (applies to non-numeric results) [facility] ([facility]) Urine Blood Laboratory test result MEDEN T ([facility]) Urine Protein Laboratory test result 0-0 MED [facility] ([facility]) Urine Nitrite Laboratory test result [facility] ([facility]) Glucose [Presence] in Urine Laboratory test result [facility] ([facility]) Urine Ketone Laboratory test result [facility] Bilirubin.total [Mass/volume] in Serum or Plasma Laboratory test resu lt [facility] ([facility] Urine Urobilinogen 0.2 mg/dL 0.2-1.0 [facility] ([facility]) ID Date Data Source [id number] 09/12/2020 02:24:00 PM EST [facility] Name Value Range Interpretation Code Description Data Nemo rce(s) Supporting Document(s) Bacteria identified in Urine by Culture Laboratory test result [facility] <content>FULL REPORT IN LAB NOTES ([facility]</content>
<content></content>
<content>ORGANISM 1: STREP GALLOLYTICUS SP PASTEU</content>
<content></content>
<content>COLONY COUNT 25,000</content>
<content></content>
<content></content>
<content>OR GANISM 1: STREP GALLOLYTICUS SP PASTEU</content>
<content></content>
<content>STREP GALLOLYTICUS SP PASTEU: REACTION</content>
<content>TETRACYCLINE PO 250 mg qid >=16 R</content>
<content> PENICILLIN G IV 1 mu q6H 0.12 S</content>
<content>PENICILLIN G IV 1 mu q6h 0.12 S</content>
<content>PENICILLIN G PO 250mg q6h fasting 0.12 S</content>
<content>AMPICILLIN IV 500mg q6h <=0.25 S</content>
<content>AMPICILLIN PO 500mg q6h fasting <=0.25 S</content>
<content>ERYTHROMYCIN IV 500mg q6h <=0.12 S</content>
<content>ERYTHROMYCIN PO 500mg q6h <=0.12 S</content>
<content>CLINDAMYCIN IV 600mg q6h <=0.25 S</content>
<content>CLINDAMYCIN PO 150mg q6h <=0.25 S</content>
<content>LEVOFLOXACIN IV 500mg qd 2 S</content>
<content>LEVOFLOXACIN PO 250mg qd 2 S</content>
<content>LEVOFLOXACIN PO 500mg qd 2 S</content>
<content>VANCOMYCIN IV 500mg q8h 0.25 S</content>
<content>MOXIFLOXACIN (AVELOX) IV 400MG QD 0.25 S</content>
<content> MOXIFLOXACIN (AVELOX) PO 400MG QD 0.25 S</content>
<content>CEFTRIAXONE IV 1gm q24h 0.25 S</content>
<content>CEFOTAXIME IV 1gm q8h <=0.12 S</content>
<content></content> ID Date Data Source [id number] 09/03/2020 10:48:00 AM EST [facility] ([facility]) Name Value Range Interpretation Code Description Data Nemo rce(s) Supporting Document(s) Magnesium 2.0 mg/dL 1.8-2.4 [facility] Potassium [Moles/volume] in Serum or Plasma 3.3 meq/L 3.5-5.1 [facility] ([facility]) NOTE: RESULT VERIFIED. ID Date Data Source [id number] 08/27/2020 10:22:00 AM EST [facility] ([facility]) Name Value Range Interpretation Code Description Data Nemo rce(s) Supporting Document(s) Glucose [Mass/volume] in Serum or Plasma 69 mg/dL 74-99 [facility] ([facility]) 100-125 mg/dL PRE-DIABETES/FASTING >126 mg/dL DIABETES/FASTING Urea nitrogen [Mass/volume] in Serum or Plasma 24 mg/dL 7-18 [facility] ([facility]) Creatinine 0.6 mg/dL 0.6-1.3 [facility] ([facility]) Potassium [Moles/volume] in Serum or Plasma 3.8 meq/L 3.5-5.1 [facility] ([facility]) Sodium [Moles/volume] in Serum or Plasma 142 meq/L 136-145 [facility] ([facility]) Carbon dioxide, total [Moles/volume] in Serum or Plasma 26 meq/L 21 -32 [facility] ([facility]) Chloride [Moles/volume] in Serum or Plasma 104 meq/L 98-107 [facility] ([facility]) Calcium [Mass/volume] in Serum or Plasma 9.7 mg/dL 8.5-10.1 [facility] ([facility]) Glomerular filtration rate/1.73 sq M pre dicted among non-blacks [Volume Rate/Area] in Serum or Plasma by Creatinine-based formula (MDRD) Laboratory test result [facility] ([facility] ) Glomerular filtration rate/1.73 sq M pre dicted among blacks [Volume Rate/Area] in Serum or Plasma by Creatinine-based formula (MDRD) Laboratory test result [facility] ([facility]) <content>CHRONIC KIDNEY DISEASE STAGING PER NKF</content>
<content></content>
<content>STAGE I & II GFR >= 60 NORMAL TO MILDLY DECREASED</content>
<content>STAGE III GFR 30-59 MODERATELY DECREASED</content>
<content>STAGE IV GFR 15-29 SEVERELY DECREASED</content>
<content>STAGE V GFR <15 VERY LITTLE GFR LEFT</content>
<content>ESRD GFR <15 ON MODEL AND MOLD MAKER PLASTER</content>
<content></content> ID Date Data Source [id number] 08/27/2020 10:22:00 AM EST [facility] ([facility]) Name Value Range Interpretation Code Description Data Nemo rce(s) Supporting Document(s) Magnesium 2.1 mg/dL 1.8-2.4 [facility] ([facility]) ID Date Data Source [id number] 08/22/2020 10:17:00 AM EST [facility] ([facility]) Name Value Range Interpretation Code Description Data Nemo rce(s) Supporting Document(s) Potassium [Moles/volume] in Serum or Plasma 2.7 meq/L 3.5- 5.1 Below lower panic limits [facility] ([facility]) CRITICAL: RESULT VERIFIED. Provider notified. ID Date Data Source [id number] 08/17/2020 11:15:00 AM EST [facility] ([facility], [facility]) Name Value Range Interpretation Code Description Data Nemo rce(s) Supporting Document(s) Bacteria identified in Urine by Culture Laboratory test result [facility] ([facility], [facility]) advised to stop Macrobid ID Date Data Source [id number] 08/08/2020 12:00:00 AM EST [facility] Patient Name: AUGUSTINE SANTOYO [id number] [place] Date of : 1950[address] [birth year] Date of Exam: 08/08/2020THAO Bullard [id number]#: Fax: [phone] EXAM: MRI CERVICAL SPINE WITHOUT CONTRASTPROCEDURE INFORMATION:Exam: MR Cervical Spine Without ContrastExam date and time: 08/08/2020 10:22 AM Age: 70 years oldClinical indication: Neck painTECHNIQUE: Imaging protocol: Multiplanar magnetic resonance images of thecervical spine without contrast.COMPARISON: MRI CERVICAL SPINE WITHOUT CONTRAST 05/26/2017 1:12 PMFINDINGS:Vertebrae: There is mild reversal the normal cervical lordosis. There is 3mm of grade 1 retrolisthesis of C5 with respect to C6. Normal vertebralbody alignment is otherwise preserved. There is moderate intervertebraldisc space loss at C5/6 and severe intervertebral disc space loss at C6/7.Spinal cord: Normal signal. No cord compression.C2-C3: There is a shallow disc osteophyte complex. There is mild right andmoderate left facet hypertrophy. There is mild left neural foraminalnarrowing.C3-C4: N there is a diffuse disc osteophyte complex. There is moderatefacet hypertrophy. There is mild right and severe left neural foraminalnarrowing. There is mild canal stenosis.C4-C5: There is a shallow disc osteophyte complex. There is moderate facethypertrophy. There is mild left neural foraminal narrowing.C5-C6: There is a diffuse disc osteophyte complex/uncovering related tolisthesis. There is moderate facet hypertrophy. There is mild right andmoderate to severe left neural foraminal narrowing.C6-C7: There is a diffuse disc osteophyte complex. There is moderate facethypertrophy. There is moderate to severe bilateral neural foraminalnarrowing.C7-T1: There is a shallow disc osteophyte complex. There is mild facethypertrophy. There is mild bilateral neural foraminal narrowing.Vertebral arteries: Expected flow voids in the vertebral arteries.Soft tissues: Unremarkable.IMPRESSION:Degenerative disc disease and spondylosis. Changes contribute to multilevelneural foraminal narrowing, most pronounced at C6/7, where it is moderateto severe bilaterally.Thank you for allowing us to participate in the care of your patient.Dictated and Authenticated by: Lucía Miller MD 08/08/2020 1:14 PMEastern Time ([place] & [place])VradV/jmcThank you for referring AUGUSTINE SANTOYO to our office. Electronically Signed - [facility] 08/08/20 15:20 Name Value Range Interpretation Code Description Data Nemo rce(s) Supporting Document(s) ID Date Data Source [id number] 07/23/2020 10:22:00 AM EST [facility] ([facility]) Name Value Range Interpretation Code Description Data Nemo rce(s) Supporting Document(s) Potassium [Moles/volume] in Serum or Plasma 3.3 meq/L 3.5-5.1 [facility]) ID Date Data Source [id number] 07/17/2020 01:17:00 PM EST [facility] ([facility]) Name Value Range Interpretation Code Description Data Nemo rce(s) Supporting Document(s) Urine Color Laboratory test result [facility] T ([facility]) Urine Appearance Laboratory test result [facility] ([facility]) Urine PH 6.0 units 5.0-9.0 [facility] Specific gravity of Urine 1.025 1.005-1.030 [place] [facility] ([facility]) Urine Leukocytes Laboratory test result [facility] ([facility]) Urine Blood Laboratory test result [facility] T ([facility]) Glucose [Presence] in Urine Laboratory test result [facility] ([facility]) Urine Protein Laboratory test result 0-0 Abnormal (applies to non-numeric results) [facility] ([facility]) Urine Ketone Laboratory test result MEDE NT ([facility]) Urine Nitrite Laboratory test result [facility] ([facility]) Bilirubin.total [Mass/volume] in Serum or Plasma Laboratory test resu lt [facility] ([facility]) Urine Urobilinogen 0.2 mg/dL 0.2-1.0 [facility] ([facility]) ID Date Data Source [id number] 07/06/2020 08:10:00 AM EST [facility] ([facility]) Name Value Range Interpretation Code Description Data Nemo rce(s) Supporting Document(s) Phosphate [Moles/volume] in Serum or Plasma 3.5 mg/dL 2.5-4.9 [facility] ([facility]) ID Date Data Source [id number] 07/06/2020 08:09:00 AM EST [facility] ([facility]) Name Value Range Interpretation Code Description Data Nemo rce(s) Supporting Document(s) Calcidiol [Mass/volume] in Serum or Plasma 29.5 24.0-80.0 [facility] ([facility]) This test was performed using [employer] I P Vitamin D immunoassay kit. Values obtained with different assay methods should not be used interchangeably. ID Date Data Source [id number] 07/06/2020 08:09:00 AM EST [facility] ([facility]) Name Value Range Interpretation Code Description Data Nemo rce(s) Supporting Document(s) Cholesterol [Mass/volume] in Serum or Plasma 207 mg/dL 131-200 [facility] ([facility]) Triglyceride [Mass/volume] in Serum or Plasma 54 mg/dL 30-150 [facility] ([facility]) Cholesterol in HDL [Mass/volume] in Serum or Plasma 110 mg/dL 35-60 [facility] ([facility]) Cholesterol in LDL [Mass/volume] in Serum or Plasma by calcu lation 86 CALC 50-159 [facility] ([facility]) ID Date Data Source [id number] 07/06/2020 08:09:00 AM EST [facility] ([facility]) Name Value Range Interpretation Code Description Data Nemo rce(s) Supporting Document(s) Glucose [Mass/volume] in Serum or Plasma 74 mg/dL 74-99 [facility] ([facility]) 100-125 mg/dL PRE-DIABETES/FASTING >126 mg/dL DIABETES/FASTING Urea nitrogen [Mass/volume] in Serum or Plasma 18 mg/dL 7-18 [facility] ([facility]) Creatinine 0.6 mg/dL 0.6-1.3 [facility] ([facility]) Sodium [Moles/volume] in Serum or Plasma 142 meq/L 136-145 [facility] ([facility]) Potassium [Moles/volume] in Serum or Plasma 3.1 meq/L 3.5-5.1 [facility] ([facility]) Chloride [Moles/volume] in Serum or Plasma 104 meq/L 98-107 [facility] ([facility]) Carbon dioxide, total [Moles/volume] in Serum or Plasma 27 meq/L 21 -32 [facility] ([facility]) Calcium [Mass/volume] in Serum or Plasma 8.6 mg/dL 8.5-10.1 [facility] ([facility]) Alkaline phosphatase isoenzyme [Units/volume] in Serum or Pl asma 58 mg/dL 46-116 [facility] Total Bilirubin 0.6 mg/dL 0.2-1.0 [facility] ([facility]) Aspartate aminotransferase [Enzymatic activity/volume] in Serum or Plasma 28 U/L 15-37 [facility] ([facility] ) Alanine aminotransferase [Enzymatic activity/volume] in Seru m or Plasma 50 U/L 12-78 [facility] ([facility]) Albumin [Mass/volume] in Serum or Plasma 3.8 g/dL 3.4-5.0 [facility] ([facility]) Proteinase 3 Ab [Units/volume] in Serum 6.4 g/dL 6.4-8.2 [facility] ([facility]) A/G Ratio 1.46 CALC 1.00-1.90 [facility] ([facility]) Glomerular filtration rate/1.73 sq M pre dicted among non-blacks [Volume Rate/Area] in Serum or Plasma by Creatinine-based formula (MDRD) Laboratory test result [facility] Glomerular filtration rate/1.73 sq M pre dicted among blacks [Volume Rate/Area] in Serum or Plasma by Creatinine-based formula (MDRD) Laboratory test result [facility] ([facility]) <content>CHRONIC KIDNEY DISEASE STAGING PER NKF</content>
<content></content>
<content>STAGE I & II GFR >= 60 NORMAL TO MILDLY DECREASED</content>
<content>STAGE III GFR 30-59 MODERATELY DECREASED</content>
<content>STAGE IV GFR 15-29 SEVERELY DECREASED</content>
<content>STAGE V GFR <15 VERY LITTLE GFR LEFT</content>
<content>ESRD GFR <15 ON MODEL AND MOLD MAKER PLASTER</content>
<content></content> ID Date Data Source [id number] 07/06/2020 08:09:00 AM EST [facility] ([facility]) Name Value Range Interpretation Code Description Data Nemo rce(s) Supporting Document(s) Magnesium 2.2 mg/dL 1.8-2.4 [facility] ([facility]) ID Date Data Source [id number] 07/06/2020 08:09:00 AM EST [facility] ([facility]) Name Value Range Interpretation Code Description Data Nemo rce(s) Supporting Document(s) Leukocytes [#/volume] in Blood by Automated count 5.3 x10*3/UL 4.1-10 .9 [facility] ([facility]) Erythrocytes [#/volume] in Blood by Automated count 4.50 x10*6/UL 4.2 0-6.30 [facility] ([facility]) Hemoglobin [Mass/volume] in Blood 13.3 g/dL 12.0-18.0 [facility] ([facility]) Hematocrit [Volume Fraction] of Blood by Automated count 39.1 % 3 7.0-51.0 [facility] ([facility]) MCV 87.0 fL 80.0-97.0 [facility] MCH 29.5 pg 26.0-32.0 [facility] MCHC 33.9 g/dL 31.0-38.0 [facility] ([facility]) Erythrocyte distribution width [Ratio] by Automated count 13.1 % 11.6-13.7 [facility] ([facility]) Platelets [#/volume] in Blood by Automated count 291 x10*3/UL 140-440 [facility] MPV 9.0 FL 7.8-11.0 [facility] ([facility]) Lymph % 32.1 % 10.0-58.5 [facility] ([facility]) Neut % 61.1 % 37.0-92.0 [facility] ([facility]) Mid % 6.8 % 1.7-9.3 [facility] ([facility]) Lymph # 1.7 x10*3/UL 0.6-4.1 [facility] ([facility]) Mid # 0.4 x10*3/UL 0.1-0.6 [facility] ([facility]) Neut # 3.2 x10*3/UL 2.0-7.8 [facility] ([facility]) ID Date Data Source [id number] 05/23/2020 10:31:00 AM EDT [facility] ([facility]) Name Value Range Interpretation Code Description Data Nemo rce(s) Supporting Document(s) Potassium [Moles/volume] in Serum or Plasma 3.6 meq/L 3.5-5.1 [facility] ID Date Data Source [id number] 05/15/2020 02:44:00 PM EDT [facility] Name Value Range Interpretation Code Description Data Nemo rce(s) Supporting Document(s) Urine Appearance Laboratory test result [facility] ([facility]) Urine Color Laboratory test result [facility] Urine PH 6.5 units 5.0-9.0 [facility] Specific gravity of Urine 1.020 1.005-1.030 [place] [facility] ([facility]) Urine Leukocytes Laboratory test result [facility] Urine Protein Laboratory test result 0-0 Abnormal (applies to non-numeric results) [facility] Urine Blood Laboratory test result [facility] Glucose [Presence] in Urine Laboratory test result [facility] ([facility]) Urine Nitrite Laboratory test result [facility] ([facility]) Urine Ketone Laboratory test result [facility] NT ([facility]) Urine Urobilinogen 0.2 mg/dL 0.2-1.0 [facility] ([facility]) Bilirubin.total [Mass/volume] in Serum or Plasma Laboratory test resu lt MEDENT ([facility]) ID Date Data Source [id number] 04/26/2020 10:36:00 AM EDT MEDENT ([facility]) Name Value Range Interpretation Code Description Data Nemo rce(s) Supporting Document(s) Potassium [Moles/volume] in Serum or Plasma 4.0 meq/L 3.5-5.1 MEDENT ([facility]) ID Date Data Source [id number] 04/04/2020 10:28:00 AM EDT MEDENT ([facility]) Name Value Range Interpretation Code Description Data Nemo rce(s) Supporting Document(s) Potassium [Moles/volume] in Serum or Plasma 3.3 meq/L 3.5-5.1 [facility] ([facility]) NOTE: RESULT VERIFIED. ID Date Data Source [id number] 03/21/2020 10:25:00 AM EDT MEDENT ([facility]) Name Value Range Interpretation Code Description Data Nemo rce(s) Supporting Document(s) Potassium [Moles/volume] in Serum or Plasma 3.3 meq/L 3.5-5.1 [facility] ([facility]) Procedure Social History Code Duration Value Status Description Data Source(s ) Smoking 03/23/2021 10:29:11 PM EDT Never smoked tobacco (findi ng) completed Never smoked tobacco (finding) [place] (Joel Gonzalez MD [facility]) Smoking 03/06/2021 03:57:24 PM EDT Never smoked tobacco (findi ng) completed Never smoked tobacco (finding) [place] (Joel Gonzalez MD [facility]) Smoking 01/16/2021 04:16:21 PM EDT Never smoked tobacco (findi ng) completed Never smoked tobacco (finding) [place] (Joel Gonzalez MD [facility]) Smoking 01/16/2021 04:14:06 PM EDT Never smoked tobacco (findi ng) completed Never smoked tobacco (finding) [place] (Joel Gonzalez MD [facility]) Smoking 01/16/2021 04:13:38 PM EDT Never smoked tobacco (findi ng) completed Never smoked tobacco (finding) [place] (Joel Gonzalez MD [facility]) Smoking 01/16/2021 04:12:42 PM EDT Never smoked tobacco (findi ng) completed Never smoked tobacco (finding) [place] (Joel Gonzalez MD [facility]) Smoking 01/16/2021 04:11:25 PM EDT Never smoked tobacco (findi ng) completed Never smoked tobacco (finding) [place] (Joel Gonzalez MD [facility]) Smoking 01/16/2021 04:09:08 PM EDT Never smoked tobacco (findi ng) completed Never smoked tobacco (finding) [place] (Joel Gonzalez MD [facility]) Smoking 01/16/2021 04:08:33 PM EDT Never smoked tobacco (findi ng) completed Never smoked tobacco (finding) [place] (Joel Gonzalez MD [facility]) Smoking 12/25/2020 12:00:00 AM EDT Patient has never smoked co mpleted Patient has never smoked MEDENT ([facility]) Smoking 09/21/2020 02:42:24 PM EST Never smoked tobacco (findi ng) completed Never smoked tobacco (finding) [place] (Joel Gonzalez MD [facility]) Smoking 09/20/2020 01:38:50 PM EST Never smoked tobacco (findi ng) completed Never smoked tobacco (finding) [place] (Joel Gonzalez MD [facility]) Smoking 05/15/2020 01:29:15 PM EDT Never smoked tobacco (findi ng) completed Never smoked tobacco (finding) [place] (Joel Gonzalez MD [facility]) Vital Signs ID Date Data Source UNK Name Value Range Interpretation Code Description Data Source(s) Diastolic blood pressure 77 mm[Hg] 77 mm[Hg] MEDENT ([facility]) Systolic blood pressure 126 mm[Hg] 126 mm[Hg] M EDENT ([facility]) Heart rate 93 /min 93 /min MED[facility] ([facility]) Respiratory rate 16 /min 16 /min [facility] ( [facility]) Oxygen saturation in Arterial blood by Pulse oximetry 96 % 96 % [facility], [facility]) Body temperature 97.5 [degF] 97.5 [degF] MEDENT ([facility], [facility]) Body weight 94.00 [lb_av] 94.00 [lb_av] MEDENT ([facility], [facility]) Body height 61 [in_i] 61 [in_i] MEDENT ([facility]) 5'1" Body mass index (BMI) [Ratio] 17.8 kg/m2 17.8 k g/m2 MEDENT ([facility], [facility]) Body temperature 97.5 [degF] 97.5 [degF] MEDENT ([facility]) Body height 61 [in_i] 61 [in_i] MEDENT ([facility]) 5'1" Body weight 94.00 [lb_av] 94.00 [lb_av] MEDENT ([facility]) Body mass index (BMI) [Ratio] 17.8 kg/m2 17.8 k g/m2 MEDENT ([facility]) Systolic blood pressure 110 mm[Hg] 110 mm[Hg] EDENT ([facility]) Diastolic blood pressure 68 mm[Hg] 68 mm[Hg] [facility]) Heart rate 68 /min 68 /min MEDENT ([facility]) Body height 61 [in_i] 61 [in_i] MEDENT ([facility]) 5'1" Body weight 97.00 [lb_av] 97.00 [lb_av] MEDENT ([facility]) Oxygen saturation in Arterial blood by Pulse oximetry 98 % 98 % MEDENT ([facility]) Body mass index (BMI) [Ratio] 18.3 kg/m2 18.3 k g/m2 MEDENT ([facility]) Body weight 96.8 [lb_av] 96.8 [lb_av] W1 ([facility]) Body weight 43.91 kg 43.91 kg eCW1 ([facility]) Body height 61 [in_i] 61 [in_i] eCW1 ([facility]) Body mass index (BMI) [Ratio] 18.29 kg/m2 18.29 kg/m2 eCW1 ([facility]) Heart rate 60 /min 60 /min eCW1 ([facility]) Respiratory rate 16 /min 16 /min eCW1 ([facility]) Body temperature 97.5 [degF] 97.5 [degF] eCW1 ( [facility]) Systolic blood pressure 115 mm[Hg] 115 mm[Hg] e CW1 ([facility]) Diastolic blood pressure 61 mm[Hg] 61 mm[Hg] eCW1 ([facility]) Body height 61 [in_i] 61 [in_i] MEDENT ([facility]) 5'1" Body weight 94.12 [lb_av] 94.12 [lb_av] MEDENT ([facility]) Body mass index (BMI) [Ratio] 17.8 kg/m2 17.8 k g/m2 [facility] ([facility]) [place] body weight 105 [lb_av] 105 [lb_av] MEDEN T ([facility]) Body weight 42.695 kg 42.695 [facility] Body surface area Derived from formula 1.37 m2 1.37 m2 [facility] ([facility]) Respiratory rate 18 /min 18 /min MEDENT ( [facility], [facility]) Heart rate 59 /min 59 /min MEDENT ([facility], [facility]) Oxygen saturation in Arterial blood by Pulse oximetry 98 % 98 % MEDENT ([facility], [facility]) Body temperature 97.9 [degF] 97.9 [degF] MEDENT ([facility], [facility]) Body height 61 [in_i] 61 [in_i] MEDENT ([facility], [facility]) 5'1" Body mass index (BMI) [Ratio] 17.8 kg/m2 17.8 k g/m2 MEDENT ([facility], [facility]) Systolic blood pressure 113 mm[Hg] 113 mm[Hg] M EDENT ([facility], [facility]) Diastolic blood pressure 71 mm[Hg] 71 mm[Hg] MEDENT ([facility]) Body weight 94.00 [lb_av] 94.00 [lb_av] MEDENT ([facility], [facility]) Body weight 97.0 [lb_av] 97.0 [lb_av] eCW1 ([facility]) Body weight 44 kg 44 kg eCW1 ([facility]) Body height 61 [in_i] 61 [in_i] eCW1 ([facility]) Body mass index (BMI) [Ratio] 18.40 kg/m2 18.40 kg/m2 eCW1 ([facility]) Heart rate 68 /min 68 /min eCW1 ([facility]) Respiratory rate 18 /min 18 /min eCW1 ([facility]) Body temperature 97.0 [degF] 97.0 [degF] eCW1 ( [facility]) Systolic blood pressure 140 mm[Hg] 140 mm[Hg] e CW1 ([facility]) Diastolic blood pressure 63 mm[Hg] 63 mm[Hg] eCW1 ([facility]) Body weight 97.4 [lb_av] 97.4 [lb_av] eCW1 ([facility]) Body height 61 [in_i] 61 [in_i] eCW1 ([facility]) Body mass index (BMI) [Ratio] 18.40 kg/m2 18.40 kg/m2 eCW1 ([facility]) Heart rate 66 /min 66 /min eCW1 ([facility]) Respiratory rate 18 /min 18 /min eCW1 ([facility]) Body temperature 97.0 [degF] 97.0 [degF] eCW1 ( [facility]) Systolic blood pressure 116 mm[Hg] 116 mm[Hg] e CW1 ([facility]) Diastolic blood pressure 65 mm[Hg] 65 mm[Hg] eCW1 ([facility]) Body weight 44.113 kg 44.113 kg [facility] Systolic blood pressure 98 mm[Hg] 98 mm[facility]Hg] [facility] Diastolic blood pressure 60 mm[Hg] 60 mm[Hg] [facility]) Heart rate 56 /min 56 /min [facility] ([facility]) Oxygen saturation in Arterial blood by Pulse oximetry 99 % 99 % [facility] ([facility]) Body height 61 [in_i] 61 [in_i] [facility] ([facility]) 5'1" Body weight 97.25 [lb_av] 97.25 [lb_av] [facility] ([facility]) Body mass index (BMI) [Ratio] 18.4 kg/m2 18.4 k g/m2 [facility] ([facility]) [place] body weight 105 [lb_av] 105 [lb_av] MEDEN T ([facility]) Body surface area Derived from formula 1.39 m2 1.39 m2 [facility] ([facility]) Body weight 97.8 [lb_av] 97.8 [lb_av] W1 ([facility]) Body height 61 [in_i] 61 [in_i] eCW1 ([facility]) Body mass index (BMI) [Ratio] 18.48 kg/m2 18.48 kg/m2 [facility] ([facility]) Heart rate 55 /min 55 /min eCW1 ([facility]) Respiratory rate 18 /min 18 /min eCW1 ([facility]) Body temperature 98.2 [degF] 98.2 [degF] eCW1 ( [facility]) Systolic blood pressure 108 mm[Hg] 108 mm[Hg] e CW1 ([facility]) Diastolic blood pressure 55 mm[Hg] 55 mm[Hg] eCW1 ([facility]) Systolic blood pressure 102 mm[Hg] 102 mm[Hg] M EDENT ([facility]) Diastolic blood pressure 60 mm[Hg] 60 mm[Hg] MEDENT ([facility]) Body height 61 [in_i] 61 [in_i] MEDENT ([facility]) 5'1" Body weight 97.00 [lb_av] 97.00 [lb_av] MEDENT ([facility]) Oxygen saturation in Arterial blood by Pulse oximetry 98 % 98 % MEDENT ([facility]) Body mass index (BMI) [Ratio] 18.3 kg/m2 18.3 k g/m2 MEDENT ([facility]) Heart rate 58 /min 58 /min MEDENT ([facility]) Body weight 98.00 [lb_av] 98.00 [lb_av] [facility]) Body mass index (BMI) [Ratio] 18.5 kg/m2 18.5 k g/m2 [facility] ([facility]) Systolic blood pressure 100 mm[Hg] 100 mm[facility]Hg] [facility]) Diastolic blood pressure 58 mm[Hg] 58 mm[Hg] [facility] ([facility]) Heart rate 68 /min 68 /min [facility] ([facility]) Body height 61 [in_i] 61 [in_i] [facility] ([facility]) 5'1" Body weight 97.00 [lb_av] 97.00 [lb_av] [facility]) Oxygen saturation in Arterial blood by Pulse oximetry 98 % 98 % [facility] ([facility]) Systolic blood pressure 92 mm[Hg] 92 mm[Hg] [facility]) Diastolic blood pressure 56 mm[Hg] 56 mm[Hg] [facility] ([facility]) Heart rate 76 /min 76 /min [facility] ([facility]) Body height 61 [in_i] 61 [in_i] [facility] ([facility]) 5'1" Body mass index (BMI) [Ratio] 18.3 kg/m2 18.3 k g/m2 [facility] ([facility]) Systolic blood pressure 110 mm[Hg] 110 mm[Hg] [facility], [facility]) Diastolic blood pressure 71 mm[Hg] 71 mm[Hg] [facility] ([facility], [facility]) Heart rate 56 /min 56 /min [facility] ([facility], [facility]) Respiratory rate 16 /min 16 /min MEDENT ( [facility], [facility]) Oxygen saturation in Arterial blood by Pulse oximetry 98 % 98 % MEDENT ([facility], [facility]) Body height 61 [in_i] 61 [in_i] MEDENT ([facility], [facility]) 5'1" Body mass index (BMI) [Ratio] 17.8 kg/m2 17.8 k g/m2 MEDENT ([facility], [facility]) Body temperature 97.0 [degF] 97.0 [degF] MEDENT ([facility], [facility]) Body weight 94.00 [lb_av] 94.00 [lb_av] MEDENT ([facility], [facility]) Body weight 99.0 [lb_av] 99.0 [lb_av] eCW1 ([facility]) Body height 61 [in_i] 61 [in_i] eCW1 ([facility]) Body mass index (BMI) [Ratio] 18.70 kg/m2 18.70 kg/m2 W1 ([facility]) Heart rate 62 /min 62 /min eCW1 ([facility]) Respiratory rate 18 /min 18 /min eCW1 ([facility]) Body temperature 97.0 [degF] 97.0 [degF] eCW1 ( [facility]) Systolic blood pressure 118 mm[Hg] 118 mm[Hg] e CW1 ([facility]) Diastolic blood pressure 64 mm[Hg] 64 mm[Hg] eCW1 ([facility]) Systolic blood pressure 113 mm[Hg] 113 mm[Hg] M EDENT ([facility], [facility]) Diastolic blood pressure 77 mm[Hg] 77 mm[Hg] MEDENT ([facility], [facility]) Heart rate 52 /min 52 /min MEDENT ([facility], [facility]) Respiratory rate 16 /min 16 /min MEDENT ( [facility], [facility]) Body temperature 97.3 [degF] 97.3 [degF] MEDENT ([facility], [facility]) Body weight 94.00 [lb_av] 94.00 [lb_av] [facility] ([facility], [facility]) Body height 61 [in_i] 61 [in_i] [facility] ([facility]) 5'1" Body mass index (BMI) [Ratio] 17.8 kg/m2 17.8 k g/m2 [facility] ([facility]) Oxygen saturation in Arterial blood by Pulse oximetry 99 % 99 % [facility] ([facility], [facility]) Systolic blood pressure 108 mm[Hg] 108 mm[Hg] M EDENT ([facility], [facility]) Diastolic blood pressure 67 mm[Hg] 67 mm[Hg] [facility] ([facility], [facility]) Heart rate 74 /min 74 /min [facility] ([facility], [facility]) Respiratory rate 12 /min 12 /min [facility] ( [facility], [facility]) Oxygen saturation in Arterial blood by Pulse oximetry 98 % 98 % [facility] ([facility], [facility]) Body temperature 97.1 [degF] 97.1 [degF] [facility] ([facility], [facility]) Body weight 94.00 [lb_av] 94.00 [lb_av] [facility] ([facility], [facility]) Body height 61 [in_i] 61 [in_i] [facility] ([facility]) 5'1" Body mass index (BMI) [Ratio] 17.8 kg/m2 17.8 k g/m2 [facility] ([facility]) Heart rate 72 /min 72 /min [facility] ([facility]) Body height 61 [in_i] 61 [in_i] [facility] ([facility]) 5'1" Oxygen saturation in Arterial blood by Pulse oximetry 98 % 98 % [facility] ([facility]) Systolic blood pressure 110 mm[Hg] 110 mm[Hg] M EDENT ([facility]) Diastolic blood pressure 60 mm[Hg] 60 mm[Hg] [facility]) Body weight 97.00 [lb_av] 97.00 [lb_av] [facility] ([facility]) Body mass index (BMI) [Ratio] 18.3 kg/m2 18.3 k g/m2 MEDENT ([facility]) Diastolic blood pressure 74 mm[Hg] 74 mm[Hg] MEDENT ([facility], [facility]) Heart rate 64 /min 64 /min [facility]) Body temperature 97.5 [degF] 97.5 [degF] MEDENT ([facility], [facility]) Body weight 94.00 [lb_av] 94.00 [lb_av] MEDENT ([facility], [facility]) Body height 61 [in_i] 61 [in_i] MEDENT ([facility], [facility]) 5'1" Body mass index (BMI) [Ratio] 17.8 kg/m2 17.8 k g/m2 MEDENT ([facility], [facility]) Systolic blood pressure 126 mm[Hg] 126 mm[Hg] M EDENT ([facility], [facility]) Respiratory rate 16 /min 16 /min MEDENT ( [facility], [facility]) Oxygen saturation in Arterial blood by Pulse oximetry 99 % 99 % MEDENT ([facility], [facility]) Respiratory rate 12 /min 12 /min MEDENT ( [facility], [facility]) Oxygen saturation in Arterial blood by Pulse oximetry 99 % 99 % [facility] ([facility], [facility]) Systolic blood pressure 107 mm[Hg] 107 mm[Hg] M EDENT ([facility], [facility]) Diastolic blood pressure 71 mm[Hg] 71 mm[Hg] MEDENT ([facility], [facility]) Heart rate 68 /min 68 /min MEDENT [facility], [facility]) Body temperature 97.7 [degF] 97.7 [degF] MEDENT ([facility], [facility]) Body weight 94.00 [lb_av] 94.00 [lb_av] MEDENT ([facility], [facility]) Body height 61 [in_i] 61 [in_i] MEDENT ([facility], [facility]) 5'1" Body mass index (BMI) [Ratio] 17.8 kg/m2 17.8 k g/m2 MEDENT ([facility], [facility]) Systolic blood pressure 104 mm[Hg] 104 mm[Hg] M EDENT ([facility]) Diastolic blood pressure 65 mm[Hg] 65 mm[Hg] [facility] ([facility]) Body height 61 [in_i] 61 [in_i] MEDENT ([facility]) 5'1" Body weight 98.00 [lb_av] 98.00 [lb_av] MEDENT ([facility]) Body mass index (BMI) [Ratio] 18.5 kg/m2 18.5 k g/m2 [facility] ([facility]) [place] body weight 105 [lb_av] 105 [lb_av] MEDEN T ([facility]) Body weight 44.453 kg 44.453 kg [facility] ([facility]) Body surface area Derived from formula 1.39 m2 1.39 m2 [facility] ([facility]) Body height 61 [in_i] 61 [in_i] MEDENT ([facility]) 5'1" Body weight 98.00 [lb_av] 98.00 [lb_av] [facility] ([facility]) Body mass index (BMI) [Ratio] 18.5 kg/m2 18.5 k g/m2 [facility] ([facility]) [place] body weight 105 [lb_av] 105 [lb_av] MEDEN T ([facility]) Body weight 44.453 kg 44.453 kg [facility] ([facility]) Body surface area Derived from formula 1.39 m2 1.39 m2 [facility] ([facility]) Body weight 98.00 [lb_av] 98.00 [lb_av] [facility]) Body mass index (BMI) [Ratio] 18.5 kg/m2 18.5 k g/m2 MEDENT ([facility]) Systolic blood pressure 100 mm[Hg] 100 mm[Hg] M EDENT ([facility]) Diastolic blood pressure 68 mm[Hg] 68 mm[Hg] MEDENT ([facility]) Body height 61 [in_i] 61 [in_i] MEDENT ([facility]) 5'1" Body height 61 [in_i] 61 [in_i] MEDENT ([facility]) 5'1" Body weight 96.00 [lb_av] 96.00 [lb_av] MEDENT ([facility]) Body mass index (BMI) [Ratio] 18.1 kg/m2 18.1 k g/m2 [facility] ([facility]) Oxygen saturation in Arterial blood by Pulse oximetry 98 % 98 % [facility] ([facility], [facility]) Body temperature 98.0 [degF] 98.0 [degF] [facility] ([facility], [facility]) Systolic blood pressure 96 mm[Hg] 96 mm[Hg] M EDENT ([facility], [facility]) Diastolic blood pressure 65 mm[Hg] 65 mm[Hg] [facility] ([facility], [facility]) Heart rate 84 /min 84 /min [facility] ([facility], [facility]) Respiratory rate 14 /min 14 /min [facility] ( [facility], [facility]) Body weight 94.00 [lb_av] 94.00 [lb_av] [facility] ([facility], [facility]) Systolic blood pressure 108 mm[Hg] 108 mm[Hg] [facility]) Diastolic blood pressure 66 mm[Hg] 66 mm[Hg] [facility] ([facility]) Heart rate 58 /min 58 /min [facility] ([facility]) Body height 61 [in_i] 61 [in_i] MEDENT ([facility]) 5'1" Body weight 97.00 [lb_av] 97.00 [lb_av] [facility]) Body mass index (BMI) [Ratio] 18.3 kg/m2 18.3 k g/m2 [facility] ([facility]) Body weight 96.00 [lb_av] 96.00 [lb_av] [facility] ([facility]) Body mass index (BMI) [Ratio] 18.1 kg/m2 18.1 k g/m2 [facility] ([facility]) Systolic blood pressure 102 mm[Hg] 102 mm[Hg] [facility]) Diastolic blood pressure 70 mm[Hg] 70 mm[Hg] [facility] ([facility]) Body height 61 [in_i] 61 [in_i] [facility] [facility]) 5'1" Systolic blood pressure 110 mm[Hg] 110 mm[Hg] [facility], [facility]) Diastolic blood pressure 78 mm[Hg] 78 mm[Hg] [facility] ([facility], [facility]) Heart rate 65 /min 65 /min [facility] ([facility], [facility]) Respiratory rate 16 /min 16 /min [facility] ( [facility], [facility]) Oxygen saturation in Arterial blood by Pulse oximetry 98 % 98 % [facility] ([facility], [facility]) Body temperature 98.4 [degF] 98.4 [degF] [facility] ([facility], [facility]) Body weight 94.00 [lb_av] 94.00 [lb_av] [facility] ([facility], [facility]) Body height 61 [in_i] 61 [in_i] [facility] ([facility], [facility]) 5'1" Body mass index (BMI) [Ratio] 17.8 kg/m2 17.8 k g/m2 [facility] ([facility], [facility]) Systolic blood pressure 100 mm[Hg] 100 mm[Hg] [facility] Diastolic blood pressure 68 mm[Hg] 68 mm[Hg] [facility] Heart rate 67 /min 67 /min [facility] ([facility]) Body height 61 [in_i] 61 [in_i] [facility] ([facility]) 5'1" Body weight 94.00 [lb_av] 94.00 [lb_av] [facility] ([facility]) Oxygen saturation in Arterial blood by Pulse oximetry 99 % 99 % [facility] ([facility]) Body mass index (BMI) [Ratio] 17.8 kg/m2 17.8 k g/m2 [facility] Patient Treatment Plan of Care Planned Activity Planned Date Details Description Data Source (s) loteprednol etabonate 5 MG/ML Ophthalmic Suspension [L otemax] 04/03/2021 12:00:00 AM EDT MARIEL (Joel Gonzalez MD [facility]) Xiidra 5% Ophthalmic Solution 03/06/2021 12:00:00 AM EDT MARIEL (Joel Gonzalez MD [facility]) Inveltys 1% Ophthalmic Suspension 01/09/2021 12:00:00 AM EDT MAR[facility]EL (Joel Gonzalez MD [facility]) Ibuprofen 800 MG Oral Tablet 12/19/2020 12:00:00 AM EDT eCW1 ([facility]) Ibuprofen 800 MG Oral Tablet 12/19/2020 12:00:00 AM EDT eCW1 ([facility]) Ibuprofen 800 MG Oral Tablet 12/19/2020 12:00:00 AM EDT eCW1 ([facility]) Ibuprofen 800 MG Oral Tablet 12/19/2020 12:00:00 AM EDT eCW1 ([facility]) Ibuprofen 800 MG Oral Tablet 12/19/2020 12:00:00 AM EDT eCW1 ([facility]) loteprednol etabonate 5 MG/ML Ophthalmic Suspension [L otemax] 12/06/2020 12:00:00 AM EDT MARIEL (Joel Gonzalez MD [facility]) loteprednol etabonate 5 MG/ML Ophthalmic Suspension 11/21/19 12:00:00 AM EDT MARIEL (Joel Gonzalez MD [facility]) bepotastine besilate 15 MG/ML Ophthalmic Solution [Bep reve] 07/25/2020 12:00:00 AM EST [facility]IEL (Joel Gonzalez MD [facility]) Inveltys 1% Ophthalmic Suspension 05/15/2020 12:00:00 AM EDT MAR[facility] (Joel Gonzalez MD [facility]) Cequa 0.09% Ophthalmic Solution 05/15/2020 12:00:00 AM EDT [facility] (Joel Gonzalez MD [facility]) Xiidra 5% Ophthalmic Solution 03/21/2020 12:00:00 AM EDT [facility] (Joel Gonzalez MD [facility]) Cyclosporine 0.5 MG/ML Ophthalmic Suspension [Restasis ] 03/21/2020 12:00:00 AM EDT MARIEL (Joel KAY) Cequa 0.09% Ophthalmic Solution 03/15/2020 12:00:00 AM EDT MARIEL (Joel KAY) Inveltys 1% Ophthalmic Suspension 01/20/2020 12:00:00 AM EDT MARIEL (Joel FRENCH) loteprednol etabonate 5 MG/ML Ophthalmic Suspension [L otemax] 10/10/2019 12:00:00 AM EDT [facility] (Joel Gonzalez MD [facility]) bepotastine besilate 15 MG/ML Ophthalmic Solution [Bep reve] 07/14/2019 12:00:00 AM EST [facility]
--- OUTSIDE RECORDS SUMMARY | 2021-05-19 12:49 | CCD ---
Author Author [facility] Organization [facility] Address Unknown Phone Unavailable Care Team Providers Care Firesetter Name Role Phone Francois Villanueva MD Unavailable [...] MD Unavailable Unavailable RichFrancois MD Unavailable Unavailable [place]ois MD Unavailable Unavailable [place] MD Unavailable Unavailable [place] MD Unavailable Unavailable [place] MD Unavailable Unavailable RichFrancois MD Unavailable Unavailable [place] MD Unavailable Unavailable [place] MD Unavailable Unavailable RichFrancois MD Unavailable Unavailable RichFrancois MD Unavailable Unavailable RichFrancois MD Unavailable Unavailable RichFrancois MD Unavailable Unavailable RichFrancois MD Unavailable Unavailable RichFrancois MD Unavailable Unavailable [place] MD Unavailable Unavailable RichFrancois MD Unavailable Unavailable [place] MD Unavailable Unavailable RichFrancois MD Unavailable Unavailable [place] MD Unavailable Unavailable RichFrancois MD Unavailable Unavailable RichFrancois MD Unavailable Unavailable [place] MD Unavailable Unavailable RichFrancois MD Unavailable Unavailable RichFrancois MD Unavailable Unavailable [place] MD Unavailable Unavailable RichFrancois MD Unavailable Unavailable RichFrancois MD Unavailable Unavailable RichFrancois MD Unavailable Unavailable RichFrancois livingston MD Unavailable Unavailable RichFrancois MD Unavailable Unavailable RichFrancois MD Unavailable Unavailable [place] MD Unavailable Unavailable [place] MD Unavailable Unavailable RichFrancois MD Unavailable Unavailable [place] MD Unavailable Unavailable [place] MD Unavailable Unavailable RichFrancois livingston MD Unavailable Unavailable RichFrancois MD Unavailable Unavailable RichFrancois livingston MD Unavailable Unavailable [place] MD Unavailable Unavailable [place] MD Unavailable Unavailable [place] living[place] MD Unavailable Unavailable [place] MD Unavailable Unavailable [place] MD Unavailable Unavailable [place] MD Unavailable Unavailable RichFrancois MD Unavailable Unavailable [place] MD Unavailable Unavailable RichFrancois MD Unavailable Unavailable RichFrancois MD Unavailable Unavailable [place] MD Unavailable Unavailable RichFrancois MD Unavailable Unavailable RichFrancois MD Unavailable Unavailable RichFrancois MD Unavailable Unavailable RichFrancois MD Unavailable Unavailable [place] MD Unavailable Unavailable [place]Francois MD Unavailable Unavailable Rich, F Lizarraga MD Unavailable Unavailable Francois Villanueva MD Unavailable Unavailable Francois Villanueva MD Unavailable Unavailable Francois Villanueva MD Unavailable Unavailable RichFrancois livingston MD Unavailable Unavailable [place] SpringsFrancois livingston MD Unavailable Unavailable [place] SpringsFrancois livingston MD Unavailable Unavailable Francois Villanueva MD [...] Unavailable HARSH, CULLEN PA Unavailable Unavailable Asaf Watkins MD, FACS Unavailable [...] MD, FACS Unavailable Unavailable Keith Gonzalez, Asaf Maldnoado MD, FACS Unavailable Unavailable Keith Gonzalez, Asaf [...] Unavailable SARAI, J Mckenzie ANP Unavailable Unavailable SARIA, J Mckenzie ANP Unavailable Unavailable SARAI, J Mckenzie ANP Unavailable Unavailable SARAI, J Mckenzie ANP Unavailable Unavailable SARAI, J Mckenzie ANP Unavailable Unavailable SARAI, J Mckenzie ANP Unavailable Unavailable SARIA, J Mckenzie ANP Unavailable Unavailable SARAI, J [...] II, Ted PA Unavailable Unavailable Mendoza, Marlen MEAL ATTENDANT Unavailable Unavailable Mendoza, Marlen MEAL ATTENDANT Unavailable Unavailable Mendoza, Marlen MEAL ATTENDANT Unavailable Unavailable Mendoza, Marlen MEAL ATTENDANT Unavailable Unavailable Mendoza, Marlen MEAL ATTENDANT Unavailable Unavailable Mendoza, Marlen MEAL ATTENDANT Unavailable Unavailable Mendoza, Marlen MEAL ATTENDANT Unavailable Unavailable Mendoza, Marlen MEAL ATTENDANT Unavailable Unavailable Mendoza, Marlen MEAL ATTENDANT Unavailable Unavailable Mendoza, Marlen MEAL ATTENDANT Unavailable Unavailable Mendoza, Marlen MEAL ATTENDANT Unavailable Unavailable Mendoza, Marlen MEAL ATTENDANT Unavailable Unavailable Mendoza, Marlen MEAL ATTENDANT Unavailable Unavailable LETTIERE, A NOVA PA Unavailable [...] A NOVA PA Unavailable Unavailable LETTIERE, A NVOA PA Unavailable Unavailable LETTIERE, A NOVA PA Unavailable Unavailable MCELHERAN, NOVA PA Unavailable Unavailable MCELHERAN, NOVA PA Unavailable Unavailable MCELHERAN, NOVA PA Unavailable Unavailable MCELHERAN, NOVA PA Unavailable Unavailable MCELHERAN, NOVA PA Unavailable Unavailable MCELHERAN, NVOA PA Unavailable Unavailable MCELHERAN, NOVA PA Unavailable [...] Unavailable MCELHERAN, NOVA PA Unavailable Unavailable MCELHERAN, NOAV PA Unavailable Unavailable MCELHERAN, NOVA PA Unavailable [...] Unavailable Delonte Schreiber JR, MD Unavailable Unavailable eDlonte Schreiber JR, MD Unavailable Unavailable Delonte Schreiber [...] is protected by Article 27-F of the [facility] Public Health law. If you continue you may have access to information: Regarding HIV / AIDS; Provided by facilities licensed or operated by the [facility] Office of Mental Health; or Provided by the [facility] Office for People With Developmental Disabilities. If such information is present, then the following [facility] mandated warning applies: This information has been [...] law may result in a fine or long term sentence or both. A general authorization for the release of medical or other information is NOT sufficient authorization for further disc losure. Allergies and Adverse Reactions Type Description Substance Reaction Status Data Source(s ) Propensity to adverse reactions predniSONE 7309 Hives Acti ve eCW1 ([facility]) Prednisone prednisone Prednisone Hives Active eCW1 ([facility]) Prednisone prednisone Prednisone Hives Active eCW1 ([facility] hospital) Prednisone prednisone Prednisone Hives Active eCW1 ([facility]) Prednisone prednisone Prednisone Hives Active eCW1 ([facility] hospital) Propensity to adverse reactions prednisone Propensity to ad verse reactions Hives Active eCW1 ([facility]) Propensity to adverse reactions prednisone Propensity to ad verse reactions Hives Active eCW1 ([facility]) Propensity to adverse reactions prednisone Propensity to ad verse reactions Hives Active eCW1 ([facility]) Propensity to adverse reactions prednisone Propensity to ad verse reactions Hives Active eCW1 ([facility]) Propensity to adverse reactions prednisone Propensity to ad verse reactions Hives Active eCW1 ([facility]) Propensity to adverse reactions prednisone Propensity to ad verse reactions Hives Active eCW1 ([facility]) Propensity to adverse reactions prednisone Propensity to ad verse reactions Hives Active eCW1 ([facility]) Propensity to adverse reactions prednisone Propensity to ad verse reactions Hives Active eCW1 ([facility]) Propensity to adverse reactions prednisone Propensity to ad verse reactions Hives Active eCW1 ([facility]) Propensity to adverse reactions prednisone Propensity to ad verse reactions Hives Active eCW1 ([facility]) Propensity to adverse reactions prednisone Propensity to ad verse reactions Hives Active eCW1 ([facility]) Propensity to adverse reactions prednisone Propensity to ad verse reactions Hives Active eCW1 ([facility]) Family History Family Member Name Family Member Gender Family Member Status Date o f Status Description Data Source(s) Unknown Unknown Problem MEDENT ([facility], ) SISTER Encounters Encounter Providers Location Date Indications Data Source(s ) Unknown [address] [facility] [place] [id number] 05/14/2021 12:00:00 AM EDT eCW1 ([facility]) Outpatient Attender: NOVA hamilton 05/10/2021 10:55:00 AM EDT MEDENT ([facility]) OFFICE OUTPATIENT VISIT 15 MINUTES Attender: NOVA SANFORD Physical Therapy 05/02/2021 03:00:00 PM EDT MEDENT ([facility] ) Unknown [address] [facility] [place] [address] 04/25/2021 12:00:00 AM EDT eCW1 ([facility]) Outpatient [address] [facility] [place] [id number] 04/19/2021 12:00:00 AM EDT eCW1 ([facility]) Outpatient Attender: Ted Cerda/Stan/Rafa/Victoriano beltran 04/10/2021 11:30:00 AM EDT MEDENT ([facility] ) Outpatient Attender: NOVA hamilton 04/05/2021 06:55:00 PM EDT MEDENT ([facility]) Outpatient<td ID="encounterTypeDescripti onID0">Rx Refills/Changes</td><td>Joel Herrmann MD, FACS</td><td>Joel Herrmann MD [facility]</td><td>04/03/2021</td><td>2:20PM</td><td>2:39PM</td><td></td> Attender: Joel Gonzalez MD, CAITIE Herrmann MD [facility] 04/03/2021 02:20:00 PM EDT - 04/03/2021 02:39:00 PM EDT MARIEL (Joel frost MD [facility]) <td ID="encounterTypeDescriptionID1">REF RACTION</td><td></td><td>Joel Gonzalez MD [facility]</td><td>03/14/2021</td><td>1:38PM</td><td>2:36PM</td><td></td>Outpatient Joel Herrmann MD [facility] 03/14/2021 01:38:00 PM EDT - 03/14/2021 02:36:00 PM EDT MARIEL (Joel Gonzalez MD [facility]) Outpatient Attender: NOVA SANFORD Physical Therapy 03/11/2021 10:00:00 AM EDT [place] ([facility] ) Outpatient<td ID="encounterTypeDescripti onID2">6 Month Follow-Up</td><td>Mike Sorto DO</td><td>Joel Herrmann MD [facility]</td><td>03/06/2021</td><td>1:51PM</td><td>3:55PM</td><td><content ID="encounterDiagnosisID2-0">Blepharitis Squamous</content>, <content ID="encounterDiagnosisID2-1">Dry Eye Syndrome</content>, <content ID="encounterDiagnosisID2-2">Corneal Transplant Status</content></td> Attender: MIKE Larson MD [facility] 03/06/2021 01:51:00 PM EDT - 03/06/2021 03:55:00 PM EDT Blepharitis SquamousBlepharitis Squamous Blepharitis SquamousBlepharitis SquamousCorneal Transplant StatusDry Eye SyndromeCorneal Transplant StatusDry Eye SyndromeCorneal Transplant StatusDry Eye Synd romeCorneal Transplant StatusDry Eye Syndrome [facility] (Joel Gonzalez MD [facility]) 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 Dry Eye Syndrome Corneal Transplant Status Dry Eye Syndrome Corneal Transplant Status Dry Eye Syndrome Corneal Transplant Status Dry Eye Syndrome (PN Proc 45) Pain Procedure 45 [address] [place] [address] 02/28/2021 12:00:00 AM EDT eCW1 ([facility]) Unknown [address] [id number] 02/21/2021 12:00:00 AM EDT [facility]CW1 [facility] Unknown [address] [id number] 02/15/2021 12:00:00 AM EDT eCW1 ([facility] Outpatient [address] [id number] 02/14/2021 12:00:00 AM EDT eCW1 ([facility]) Unknown [address] [id number] 01/30/2021 12:00:00 AM EDT eCW1 ([facility]) Outpatient Attender: Joel Rowell PH.D., M.D. Zaida/Stan/Asaf holland/Jerzy 01/24/2021 02:00:00 PM EDT MEDENT ([facility] E[facility] sumner, NAS[facility]) Unknown [address] [id number] 01/22/2021 12:00:00 AM EDT eCW1 ([facility]) Unknown [address] [id number] 01/21/2021 12:00:00 AM EDT eCW1 ([facility]) Outpatient [address] [id number] 01/18/2021 12:00:00 AM EDT eCW1 ([facility]) OFFICE OUTPATIENT VISIT 15 MINUTES Attender: NOVA SANFORD Physical Therapy 01/16/2021 02:00:00 PM EDT MEDENT ([facility]) Outpatient Attender: Mckenzie Mac 03:00:00 PM EDT MEDENT ([facility] ) Outpatient Attender: Zia Mac 0 01/09/2021 02:30:00 PM EDT MEDENT ([facility] ) Unknown [address] [facility] [place] [id number] 01/09/2021 12:00:00 AM EDT eCW1 ([facility]) Unknown [address] [facility] [place] [id number] 01/08/2021 12:00:00 AM EDT eCW1 ([facility]) Outpatient Attender: Mckenzie Mac 03/2021 03:00:00 PM EDT MEDENT ([facility] ) Unknown [address] [facility] [place] [id number] 12/26/2020 12:00:00 AM EDT eCW1 ([facility]) Outpatient Attender: Marlen leung 12/25/2020 06:10:00 PM EDT MEDENT ([facility]) Unknown [address] [facility] [address] 12/19/2020 12:00:00 AM EDT eCW1 ([facility]) Outpatient [address] [facility] [place] [id number] 12/18/2020 12:00:00 AM EDT eCW1 ([facility]) Unknown [address] [facility] [place] [id number] 12/10/2020 12:00:00 AM EDT eCW1 ([facility]) Outpatient Attender: KUN Cerda/Stan/Rodrigo huynh/Reinruby 12/05/2020 10:00:00 AM EDT MEDENT ([facility] Outpatient Attender: NOVA hamilton 11/30/2020 03:35:00 PM EDT MEDENT ([facility]) Outpatient Attender: NOVA hamilton 11/13/2020 11:50:00 AM EDT MEDENT ([facility], [facility]) Outpatient Attender: Mckenzie Mac 11:00:00 AM EDT MEDENT ([facility] ) Outpatient Attender: NOVA hamilton 10/16/2020 03:15:00 PM EDT MEDENT ([facility], [facility]) <td ID="encounterTypeDescriptionID3">Rx Refills/Changes</td><td>Mike Sorto DO</td><td></td><td>01/09/2021</td><td>10/10/2020 3:16PM</td><td>10/10/2020 11:59PM</td><td></td>Outpatient Attender: MIKE SORTO DO 10/10/2020 03:16:00 PM EDT - 10/10/2020 11:59:00 PM EDT [place] (Joel Gonzalez MD [facility]) Outpatient<td ID="encounterTypeDescripti onID6">TRIAGE NON URGENT</td><td>Mike Sorto DO</td><td>Joel Herrmann MD [facility]</td><td>10/10/2020</td><td>1:56PM</td><td>2:58PM</td><td><content ID="encounterDiagnosisID6-0">Blepharitis Squamous</content>, <content ID="encounterDiagnosisID6-1">Dry Eye Syndrome</content>, <content ID="encounterDiagnosisID6-2">Corneal Transplant Status</content>, <content ID="encounterDiagnosisID6-3">Trichiasis of Eyelid</content></td> Attender: MIKE Larson MD [facility] 10/10/2020 01:56:00 PM EDT - 10/10/2020 02:58:00 [...] StatusDry Eye SyndromeCorneal Transplant StatusDry Eye Syndrome [place] (Joel Gonzalez MD [facility]) 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 [...] DO</td><td></td><td>12/06/2020</td><td>10/10/2020 1:23PM</td><td>10/10/2020 11:59PM</td><td></td> Attender: MIKE SORTO DO 01:23:00 PM EDT - 10/10/2020 11:59:00 PM EDT [facility] (Joel Gonzalez MD [facility]) Outpatient<td ID="encounterTypeDescripti onID5">Rx Refills/Changes</td><td>Mike Sorto DO</td><td></td><td>11/20/2020</td><td>10/10/2020 8:22AM</td><td>10/10/2020 11:59PM</td><td></td> Attender: MIKE SORTO DO 08:22:00 AM EDT - 10/10/2020 11:59:00 PM EDT [facility] (Joel Gonzalez MD [facility]) Outpatient Attender: CULLEN koenig 10/01/2020 04:15:00 PM EST MEDENT ([facility], [facility]) Outpatient<td ID="encounterTypeDescripti onID7">3 Month Follow-Up</td><td>Mike Sorto DO</td><td>Joel Herrmann MD [facility]</td><td>09/21/2020</td><td>2:09PM</td><td>2:39PM</td><td><content ID="encounterDiagnosisID7-0">Blepharitis Squamous</content>, <content ID="encounterDiagnosisID7-1">Dry Eye Syndrome</content>, <content ID="encounterDiagnosisID7-2">Corneal Transplant Status</content></td> Attender: MIKE Larson MD [facility] 09/21/2020 02:09:00 PM EST - 09/21/2020 02:39:00 PM EST Blepharitis SquamousBlepharitis Squamous Blepharitis SquamousBlepharitis SquamousBlepharitis SquamousBlepharitis SquamousBlepharitis SquamousBlepharitis SquamousBlepharitis SquamousBlepharitis SquamousBlepharitis SquamousBlepharitis SquamousBlepharitis SquamousBlepharitis SquamousBlepharitis SquamousBlepharitis SquamousCorneal Transplant StatusDry Eye SyndromeCorneal Transplant StatusDry Eye SyndromeCorneal Transplant StatusDry Eye Syndr omeCorneal Transplant StatusDry Eye SyndromeCorneal Transplant StatusDry Eye SyndromeCorneal Transplant StatusDry Eye SyndromeCorneal Transplant StatusDry Eye SyndromeCorneal Transplant StatusDry Eye SyndromeCorneal Transplant StatusDry Eye SyndromeCorneal Transplant StatusDry Eye SyndromeCorneal Transplant StatusDry Eye SyndromeCorneal Transplant StatusDry Eye SyndromeCorneal Transplant StatusDry Eye SyndromeCorneal Transplant StatusDry Eye SyndromeCorneal Transplant StatusDry Eye SyndromeCorneal Transplant StatusDry Eye Syndrome [place] (Joel Gonzalez MD [facility]) 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 Blepharitis [...] Cerda/Stan/Rafa/Rein dl 09/19/2020 12:15:00 PM EST MEDENT ([facility] Outpatient Attender: BETH Mac 0 09/12/2020 01:40:00 PM EST MEDENT ([facility] ) Outpatient Attender: Zia Mac 0 09/07/2020 02:00:00 PM EST MEDENT ([facility] ) Outpatient Attender: NOVA hamilton 08/17/2020 09:30:00 AM EST [facility] ([facility]) Outpatient Attender: Mckenzie Mac 12:00:00 PM EST MEDENT ([facility] ) Outpatient Attender: Zia Mac 1 09/06/2019 01:15:00 PM EST MEDENT ([facility] ) Outpatient Attender: BEHT aMc 1 08/14/2019 01:20:00 PM EST MEDENT ([facility] ) Outpatient Attender: NOVA barony 06/06/2020 08:45:00 AM EST MED[facility] ([facility]) Outpatient Attender: BEHT Mac 1 02:40:00 PM EDT MEDENT ([facility] ) Outpatient<td ID="encounterTypeDescripti onID9">TRIAGE NON URGENT</td><td>Mike Sorto DO</td><td>Joel Herrmann MD [facility]</td><td>05/15/2020</td><td>12:33PM</td><td>1:23PM</td><td><content ID="encounterDiagnosisID9-0">Blepharitis Squamous</content>, <content ID="encounterDiagnosisID9-1">Dry Eye Syndrome</content>, <content ID="encounterDiagnosisID9-2">Corneal Transplant Status</content>, <content ID="encounterDiagnosisID9-3">Conjunctivitis Acute Follicular</content></td> Attender: MIKE Larson MD [facility] 05/15/2020 12:33:00 PM EDT - 05/15/2020 01:23:00 PM EDT Conjunctivitis Acute FollicularConjuncti vitis Acute FollicularConjunctivitis Acute FollicularConjunctivitis Acute FollicularConjunctivitis Acute [...] StatusDry Eye SyndromeCorneal Transplant StatusDry Eye Syndrome [place] (Joel Gonzalez MD [facility]) Conjunctivitis Acute Follicular Conjunctivitis Acute Follicular Conjunctivitis [...] Syndrome Corneal Transplant Status Dry Eye Syndrome <td ID="encounterTypeDescriptionID8">Rx Refills/Changes</td><td>Mike Sorto DO</td><td></td><td>07/25/2020</td><td>05/15/2020 9:51AM</td><td>05/15/2020 11:59PM</td><td></td>Outpatient Attender: MIKE SORTO DO 05/15/2020 09:51:00 AM EDT - 05/15/2020 11:59:00 PM EDT [facility] (Joel Gonzalez MD [facility]) OFFICE OUTPATIENT VISIT 15 MINUTES Attender: NOVA SANFORD Physical Therapy 05/09/2020 02:30:00 PM EDT MEDENT ([facility]) Office Visit Attender: NOVA SANFORD Physical Therapy 04/05/2020 03:30:00 PM EDT MEDENT ([facility]) Immunizations Vaccine Date Status Description Data Source(s) Influenza, injectable, MDCK, preservative free, socrates valent 04/24/2021 11:57:00 AM EDT completed MEDENT ([facility]) COVID-19 VACCINE Moderna 09/26/2020 12:00:00 AM EST completed [facility]IS Vaccine Series Complete: YESThis Data wa s Submitted to [facility] Via [employer]. COVID-19 VACCINE Moderna 08/29/2020 12:00:00 AM EST completed [facility]IS Vaccine Series Complete: NOThis Data was Submitted to [facility] Via [employer]. Influenza, injectable, MDCK, preservative free, socrates valent [...] Cephalexin 05/10/2021 12:00:00 AM EDT active MEDENT ([facility], [facility]) Ondansetron 4 MG Disintegrating Oral Tablet Ondansetron 05/10/2021 12:00:00 AM EDT active MEDENT ([facility], [facility]) Cyclosporine 0.9 MG/ML Ophthalmic Solution [Cequa] 0.09 [...] Neomycin 3.5 M G/ML / Polymyxin B 82141 UNT/ML Otic Solution 3.5-10,000-1 mg/mL-unit/mL-% NEOMYCIN/POLYMYXIN B/HYDROCORT 04/06/2021 12:00:00 AM EDT solution 10 INSTILL 4 DROPS INTO BOTH EARS THREE TIMES A DAY FOR 7 DAYS INSTILL 4 DROPS INTO BOTH EARS THREE TIMES A DAY FOR 7 DAYS SOLD: 04/07/2021 [facility] Doxycycline Monohydrate 100 MG Oral Tablet Doxycycline Monoh ydrate 04/05/2021 12:00:00 AM EDT ORAL completed MEDENT ([facility]) Hydrocortisone 10 MG/ML / Neomycin 3.5 M G/ML / Polymyxin B [id number] UNT/ML Otic Solution [id number]-[id number]-KZ 04/05/2021 12:00:00 AM EDT AUR[facility] LAR completed MEDENT ([facility]) 100 mg 04/05/2021 12:00:00 AM EDT tablet [...] Ophthalmic Suspension [Lotemax] [facility] (Joel Gonzalez MD [facility]) 100,000 unit/mL 04/02/2021 12:00:00 AM EDT suspension [...] 03/11/2021 12:00:00 AM EDT active Hank ACHARYA ([facility]) Xiidra 5% Ophthalmic Solution Xiidra 5% Ophthalmic Solution 03/06/2021 12:00:00 AM EDT 1 active lifitegrast 50 MG /ML Ophthalmic Solution [Xiidra] [facility] (Joel Gonzalez MD [facility]) 25 mg 02/21/2021 12:00:00 AM EDT tablet [...] 02/20/2021 12:00:00 AM EDT ORAL active MEDENT ([facility]) Spironolactone 25 MG Oral Tablet Spironolactone 02/20/2021 12:00:00 A M EDT ORAL active MEDENT ([facility]) 50 mg 02/17/2021 12:00:00 AM EDT [...] 01/15/2021 12:00:00 AM EDT ORAL active MEDENT ([facility]) Therapeutic Injection 01/11/2021 12:00:00 AM EDT completed MEDENT ([facility]) Medication administered onsite Prolia (denosumab) 60mg,SC injection, [facility]#[id number] 01/11/2021 12:00:00 AM EDT completed MEDENT ([facility]) Medication administered onsite Inveltys 1% Ophthalmic Suspension Inveltys 1% Ophthalmic Malissa pension 01/09/2021 12:00:00 AM EDT active loteprednol etabonate 10 MG/ML Ophthalmic Suspension [Inveltys] [place] (Joel Gonzalez MD [facility]) 0.05 % 01/03/2021 12:00:00 AM EDT ointment 60 APPLY TO RASH ON VULVA TWICE DAILY APPLY TO RASH ON VULVA TWICE DAILY SOLD: 01/03/2021 [facility] Clobetasol Propionate 0.0005 MG/MG Topical Ointment Clobetas ol Propionate 01/02/2021 12:00:00 AM EDT active MEDENT ([facility]) atorvastatin 10 MG Oral Tablet ATORVASTATIN [...] E DT suspended Ibuprofen 800 MG eCW1 ([facility]) Ibuprofen 800 MG Oral Tablet Ibuprofen 800 MG 12/19/2020 12:00:00 AM E DT active Ibuprofen 800 MG eCW1 ([facility]) Ibuprofen 800 MG Oral Tablet Ibuprofen 800 MG 12/19/2020 12:00:00 AM E DT suspended Ibuprofen 800 MG eCW1 ([facility]) Ibuprofen 800 MG Oral Tablet Ibuprofen 800 MG 12/19/2020 12:00:00 AM E DT suspended Ibuprofen 800 MG eCW1 ([facility]) Ibuprofen 800 MG Oral Tablet Ibuprofen 800 MG 12/19/2020 12:00:00 AM E DT suspended Ibuprofen 800 MG eCW1 ([facility]) Ibuprofen 800 MG Oral Tablet Ibuprofen 800 MG 12/19/2020 12:00:00 AM E DT suspended Ibuprofen 800 MG eCW1 ([facility]) Ibuprofen 800 MG Oral Tablet Ibuprofen 800 MG 12/19/2020 12:00:00 AM E DT suspended Ibuprofen 800 MG eCW1 ([facility]) Ibuprofen 800 MG Oral Tablet Ibuprofen 800 MG 12/19/2020 12:00:00 AM E DT suspended Ibuprofen 800 MG eCW1 ([facility]) Ibuprofen 800 MG Oral Tablet Ibuprofen 800 MG 12/19/2020 12:00:00 AM E DT active Ibuprofen 800 MG eCW1 ([facility]) Ibuprofen 800 MG Oral Tablet Ibuprofen 800 MG 12/19/2020 12:00:00 AM E DT suspended Ibuprofen 800 MG eCW1 ([facility]) Ibuprofen 800 MG Oral Tablet Ibuprofen 800 MG 12/19/2020 12:00:00 AM E DT active Ibuprofen 800 MG eCW1 ([facility]) Ibuprofen 800 MG Oral Tablet Ibuprofen 800 MG 12/19/2020 12:00:00 AM E DT suspended Ibuprofen 800 MG eCW1 ([facility]) 800 mg 12/19/2020 12:00:00 AM EDT tablet 90 TAKE ONE TABLET BY MOUTH THREE TIMES A DAY WITH FOOD OR MILK TAKE ONE TABLET BY MOUTH THREE TIMES A D AY WITH FOOD OR MILK SOLD: 12/19/2020 [facility] Ibuprofen 800 MG Oral Tablet Ibuprofen 800 MG 12/19/2020 12:00:00 AM E DT suspended Ibuprofen 800 MG eCW1 ([facility]) Ibuprofen 800 MG Oral Tablet Ibuprofen 800 MG 12/19/2020 12:00:00 AM E DT active Ibuprofen 800 MG eCW1 ([facility]) Ibuprofen 800 MG Oral Tablet Ibuprofen 800 MG 12/19/2020 12:00:00 AM E DT active Ibuprofen 800 MG eCW1 ([facility]) Ibuprofen 800 MG Oral Tablet Ibuprofen 800 MG 12/19/2020 12:00:00 AM E DT suspended Ibuprofen 800 MG eCW1 ([facility]) 24 mcg 12/13/2020 12:00:00 AM EDT capsule [...] H 12/10/2020 12:00:00 AM EDT completed MEDENT ([facility], ) loteprednol etabonate 5 MG/ML Ophthalmic Suspension [Lotemax] Lotemax 0.5% Ophthalmic Suspension Lotemax 0.5% Ophthalmic Suspension 12/06/2020 12:00:00 AM EDT active lotepred nol etabonate 5 MG/ML Ophthalmic Suspension [Lotemax] MARIEL ([facility]) 20 mEq 12/04/2020 12:00:00 AM EDT tablet [...] ER 12/03/2020 12:00:00 AM EDT completed MEDENT ([facility]) loteprednol etabonate 5 MG/ML Ophthalmic Suspension Loteprednol Etabonate 0.5% Ophthalmic Suspension Loteprednol Etabonate 0.5% Ophthalmic Suspension 11/20/2020 12:00:00 AM EDT active loteprednol etabonate 5 MG/ML Ophthalmic Suspension MARIEL ([facility]) 0.5 % 11/20/2020 12:00:00 AM EDT drops,suspension [...] 11/13/2020 12:00:00 AM EDT ORAL completed MEDENT ([facility], [facility]) 1,250 mcg (50,000 unit) 11/02/2020 12:00:00 AM [...] MOUTH EVERY DAY SOLD: 11/18/2020 [facility] [id number] 10/04/2020 12:00:00 AM EST suspension 200 SWISH AND SPIT 15 ML BY MOUTH EVERY 4 HOURS NEEDED FOR PAIN SWISH AND SPIT 15 ML BY MOUTH EVERY 4 HOURS NEEDED FOR PAIN SOLD: 10/05/2020 [facility] [id number] 10/01/2020 12:00:00 AM EST suspension 200 SWISH AND SPIT 15 ML BY MOUTH EVERY 4 HOURS NEEDED FOR PAIN SWISH AND SPIT 15 ML BY MOUTH EVERY 4 HOURS NEEDED FOR PAIN SOLD: 10/01/2020 [facility] Magic Mouth Wash 10/01/2020 12:00:00 AM EST c ompleted MEDENT ([facility], [facility]) 290 mcg 09/18/2020 12:00:00 AM EST capsule [...] BY MOUTH EVERY DAY SOLD: 09/19/2020 [facility] linaclotide 0.29 MG Oral Capsule [Linzess] Linzess 09/17/2020 12:00:00 AM EST ORAL active MEDENT ([facility]) 5 mg 09/09/2020 12:00:00 AM EST tablet 14 TAKE 1/2 TABLET BY MOUTH TWO TIMES A DAY NEEDED FOR NECK SPASMS TAKE 1/2 TABLET BY MOUTH TWO TIMES A DAY NEEDED FOR NECK SPASMS SOLD: 09/09/2020 [facility] Potassium Chloride 10 MEQ Extended Release Oral Tablet Potas sium Chloride ER 09/07/2020 12:00:00 AM EST completed MEDENT ([facility]) Potassium Chloride 10 MEQ Extended Release Oral Capsule POTA SSIUM CHLORIDE 08/29/2020 12:00:00 AM EST capsule, extended release 60 TAKE TWO CAPSULES BY MOUTH EVERY DAY TAKE TWO CAPSULES BY MOUTH EVERY DAY SOLD: 08/29/2020 [facility] Covid-19 vaccine, Unspecified 08/29/2020 12:00:00 AM EST completed MEDENT ([facility]) Medication administered onsite Potassium Chloride 10 MEQ Extended Release Oral Tablet POTAS SIUM CHLORIDE 08/22/2020 12:00:00 AM EST tablet extended release 14 TAKE TWO TABLETS BY MOUTH DAILY TAKE TWO TABLETS BY MOUTH DAILY SOLD: 08/22/2020 [facility] NITROFURANTOIN, MACROCRYSTALS 100 MG Oral Capsule Nitrofuran toin Macrocrystal 08/17/2020 12:00:00 AM EST ORAL completed MEDENT ([facility], [facility]) Phenazopyridine hydrochloride 200 MG Delayed Release O ral Tablet Phenazopyridine HCL 08/17/2020 12:00:00 AM EST ORAL completed MEDENT ([facility]) 100 mg 08/17/2020 12:00:00 AM EST capsule [...] Ophthalmic Solution [Bepreve] [facility]IEL ([facility]) 0.1 % 07/24/2020 12:00:00 AM EST cream [...] ovate 07/17/2020 12:00:00 AM EST completed MEDENT ([facility]) Therapeutic Injection 07/06/2020 12:00:00 AM EST completed MEDENT ([facility]) Medication administered onsite Prolia (denosumab) 60mg,SC injection, [facility]#[id number] 07/06/2020 12:00:00 AM EST completed MEDENT ([facility]) Medication administered onsite Cyclobenzaprine hydrochloride 5 MG Oral Tablet Cyclobenzapri ne HCL 06/19/2020 12:00:00 AM EST ORAL active M EDENT ([facility]) Cyclobenzaprine hydrochloride 5 MG Oral Tablet [...] 06/06/2020 12:00:00 AM EST ORAL completed MEDENT ([facility], [facility] 100 mg 06/06/2020 12:00:00 AM EST tablet [...] Ophthalmic Suspension [Inveltys] [facility] ([facility]) Cequa 0.09% Ophthalmic Solution Cequa 0.09% Ophthalmic Solut ion 05/15/2020 12:00:00 AM EDT active cyclosporine 0.9 MG/ML Ophthalmic Solution [Cequa] [facility]IEL ([facility]) Administration Of Flu Vaccine 05/02/2020 12:00:00 AM EDT completed [facility] ([facility]) Medication administered onsite 290 mcg 04/13/2020 12:00:00 [...] HCL 04/05/2020 12:00:00 AM EDT active MEDENT ([facility]) Medrol Medrol 04/05/2020 12:00:00 AM EDT completed MEDENT ([facility]) 4 mg 04/05/2020 12:00:00 AM EDT tablet 14 TAKE ONE TABLET BY MOUTH TWICE A DAY NEEDED TAKE ONE TABLET BY MOUTH TWICE A DAY NEEDED SOLD: 04/05/2020 [facility] Klor-Con Klor-Con 03/28/2020 12:00:00 AM EDT ORAL compl eted MEDENT ([facility]) 20 mEq 03/28/2020 12:00:00 AM EDT [...] Ophthalmic Suspension [Restasis] MARIEL ([facility]) Cyclosporine 0.9 MG/ML Ophthalmic Solution [Cequa] 0.09 [...] Ophthalmic Solution [Xiidra] MARIEL ([facility]) Cequa 0.09% Ophthalmic Solution Cequa 0.09% Ophthalmic Solut ion 03/15/2020 12:00:00 AM EDT aborted cyclosporine 0.9 MG/ML Ophthalmic Solution [Cequa] MARIEL ([facility]) 2.5 % 03/07/2020 12:00:00 AM EDT cream [...] ER 02/13/2020 12:00:00 AM EDT completed MEDENT ([facility]) 1 % 02/03/2020 12:00:00 AM EDT [...] Ophthalmic Suspension [Inveltys] MARIEL ([facility]) atorvastatin 10 MG Oral Tablet ATORVASTATIN CALCIUM [...] nol etabonate 5 MG/ML Ophthalmic Suspension [Lotemax] [place] ([facility]) 1,250 mcg (50,000 unit) 09/16/2019 12:00:00 AM [...] Ophthalmic Solution [Bepreve] MARIEL ([facility]) Insurance Providers Payer name Policy type / Coverage type Policy ID Covered green party ID Covered green party's relationship to [place] Policy [place] Plan Information MEDICARE [id number] Vi [id number] A MEDICARE A [id number] Self [id number] MEDICARE A [id number] Self [id number] A [facility] [employer] Compensation [id number] 2.16.840.1.020167.3.227.99.991.57585.0 Self [id number] [facility] Workers Compensation [id number] 2.16.840.1.965162.3.227.99.991.91041.0 Self [id number] [facility] Workers Compensation [id number] 2.16.840.1.599323.3.227.99.991.57887.0 Self [id number] [facility] Workers Compensation [id number] 2.16.840.1.650113.3.227.99.991.36013.0 Self [id number] [facility] Workers Compensation [id number] 2.16.840.1.000991.3.227.99.991.18194.0 Self [id number] [facility] Workers Compensation [id number] 2.16.840.1.038983.3.227.99.991.34743.0 Self [id number] [facility] Workers Compensation [id number] 2.16.840.1.807772.3.227.99.991.76288.0 Self [id number] [facility] [employer] Compensation [id number] 2.16.840.1.017188.3.227.99.991.19185.0 Self [id number] [facility] Workers Compensation [id number] 2.16840.1.913809.3.227.99.991.09853.0 Self [id number] [facility] Workers Compensation [id number] MRN.[id number] Self [id number] [facility] Workers Compensation [id number] MRN.[id number] Self [id number] [facility] Workers Compensation [id number] 2.16.840.1.255509.3.227.99.991.87520.0 Self [id number] [facility] [employer] Compensation [id number] 2.16.840.1.466490.3.227.99.991.20562.0 Self [id number] [facility] Workers [facility] [id number] MRN.[id number] Self [id number] [facility] Workers Compensation [id number] 2.16.840.1.853439.3.227.99.991.82748.0 Self [id number] [facility] Workers Compensation [id number] 2.16.840.1.732529.3.227.99.991.00805.0 Self [id number] [facility] Workers Compensation [id number] 2.16.840.1.663387.3.227.99.991.05175.0 Self [id number] [facility] Workers Compensation [id number] 2.16.840.1.086218.3.227.99.991.42968.0 Self [id number] [facility] Workers Compensation [id number] 2.16.840.1.144483.3.227.99.991.06934.0 Self [id number] [facility] Workers Compensation [id number] 2.16.840.1.673149.3.227.99.991.80795.0 Self [id number] [facility] Workers Compensation [id number] 2.16.840.1.978457.3.227.99.991.68341.0 Self [id number] [facility] [employer] Compensation [id number] 2.16.840.1.988445.3.227.99.991.37663.0 Self [id number] [id number] [facility] Workers Compensation [id number] 2.16.840.1.865835.3.227.99.991.07951.0 Self [id number] [facility] Workers Compensation [id number] 2.16.840.1.679868.3.227.99.991.96538.0 Self [id number] [facility] Workers Compensation [id number] 2.16.840.1.552476.3.227.99.991.05132.0 Self [id number] [facility] Workers Compensation [id number] 2.16.840.1.787058.3.227.99.991.94628.0 Self [id number] [facility] Workers Compensation [id number] 2.16.840.1.000441.3.227.99.991.74437.0 Self [id number] [facility] Workers Compensation [id number] 2.16.840.1.081209.3.227.99.991.01464.0 Self [id number] [facility] Workers Compensation [id number] 2.16.840.1.737402.3.227.99.991.68524.0 Self [id number] [facility] Workers Compensation [id number] 2.16.840.1.170513.3.227.99.991.25596.0 Self [id number] [facility] Workers Compensation [id number] 2.16.840.1.641767.3.227.99.991.43690.0 Self [id number] [id number] [facility] Workers Compensation [id number] 2.16.840.1.128828.3.227.99.991.85517.0 Self [id number] [facility] Workers Compensation [id number] 2.16.840.1.496434.3.227.99.991.72465.0 Self [id number] Medicare Natl Gov't Servi Medicare Primary [id number] 2.16.840.1.131383.3.227.99.1767.8525.0 Self 0 [id number] Medicare Natl Gov't Servi Medicare Primary [id number] Self Medicare Natl Govt Servic Medicare Primary [id number] 2.840.1.944291.3.227.99.4595.18299.0 Self [id number] Medicare [place]l Gov't Servi Medicare Primary [id number] 2.840.1.303323.3.227.99.1767.8525.0 Self [id number] Medicare Natl Gov't Servi Medicare Primary [id number] 2.0.1.993957.3.227.99.1767.8525.0 Self 0 [id number] MEDICARE [id number] SP [id number] A Medicare Natl Govt Servic Medicare Primary [id number] Self Medicare Natl Govt Servic Medicare Primary [id number] 2.0.1.908171.3.227.99.4595.33962.0 Self [id number] FOR LIFE [id number] SP [id number] FOR LIFE [id number] SP [id number] Medicare Natl Govt Servic Medicare Primary [id number].[id number] Self [id number] Medicare Natl Govt Servic Medicare Primary [id number] 2.0.1.248584.3.227.99.4595.23082.0 Self [id number] Medicare Natl Govt Servic Medicare Primary [id number] 2.840.1.613707.3.227.99.4595.80049.0 Self [id number] Medicare Natl Gov't Servi Medicare Primary [id number] 2.0.1.320794.3.227.99.1767.8525.0 Self 0 [id number] Medicare Natl Gov't Servi Medicare Primary [id number] 2.840.1.859604.3.227.99.1767.8525.0 Self 0 [id number] Medicare Natl Gov't Servi Medicare Primary [id number] 2.840.1.593030.3.227.99.1767.8525.0 Self 0 [id number] Medicare Natl Govt Servic Medicare Primary [id number] 2.840.1.729752.3.227.99.4595.30001.0 Self [id number] Medicare Natl Govt Servic Medicare Primary [id number] 2.0.1.085409.3.227.99.4595.63287.0 Self [id number] Medicare Natl Gov't Servi Medicare Primary [id number] 2.0.1.183051.3.227.99.1767.8525.0 Self [id number] Medicare Natl Govt Servic Medicare Primary [id number] 2.0.1.695816.3.227.99.4595.26425.0 Self [id number] MEDICARE [id number] SP [id number] Medicare Natl Govt Servic Medicare Primary [id number] 2.0.1.169775.3.227.99.4595.47839.0 Self [id number] [facility] Medigap Part B [id number] Self [facility] Medigap Part B [id number] 2.0.1.083265.3.227.99.991.26321.0 Self 0 [id number] [place] [id number] MRN.[id number] Self [id number] [place] Medicare Primary [id number] 2.0.1.131707.3.227.99.991.75767.0 Self 5 [id number] [place] Medicare Primary [id number] MRN.[id number] Self [id number] [place] Medicare Primary [id number] 2.0.1.011053.3.227.99.991.30962.0 Self 5 [id number] [place] Medicare Primary [id number] MRN.[id number] Self [id number] [place] Medicare Primary [id number] 2.0.1.445626.3.227.99.991.78637.0 Self 5 [id number] [place] Medicare Primary [id number] 2..1.514702.3.227.99.991.98442.0 Self 5 [id number] FOR LIFE [id number] SP [id number] FOR LIFE [id number] SP [id number] [place] [facility]TFL[facility] Part B [id number] 2..1.309729.3.227.99.991.72566.0 Self 0 [id number] [place] [facility]TFL[facility] Part B [id number] 2..1.773680.3.227.99.991.11765.0 Self 0 [id number] [place] [facility] (TFL[facility] Part B [id number] 2..1.347209.3.227.99.991.85198.0 Self [id number] [place] [facility] (TFL[facility] Part B [id number] MRN.[id number] Self [id number] [place] [facility] (TFL[facility] Part B [id number] 2..1.220197.3.227.99.991.71716.0 Self 0 [id number] [place] [facility] (TFL[facility] Part B [id number] 2.16.840.1.729465.3.227.99.991.33466.0 Self 0 [id number] [place] [facility] (TFL[facility] B [id number] 2.16.840.1.697411.3.227.99.991.42821.0 Self 0 [id number] [place] [facility]TFL[facility] [id number] 2.16.840.1.070268.3.227.99.991.33843.0 Self 0 [id number] [place] [facility] (TFL[facility] [id number] 2.16.840.1.613561.3.227.99.991.18803.0 Self 0 [id number] [place] [facility] (TFL[facility] [id number] 2.16.840.1.011222.3.227.99.991.74789.0 Self 0 [id number] [place] [facility] (TFL[facility] [id number] 2.16.840.1.818241.3.227.99.991.45804.0 Self 0 [id number] [place] [facility] (TFL[facility] [id number] 2.16.840.1.017860.3.227.99.991.02922.0 Self 0 [id number] [place] [facility] (TFL) [facility] [id number] Self [id number] [place] [facility] (TFL) [facility] [id number] 2.16.840.1.894031.3.227.99.991.03101.0 Self 0 [id number] [place] [facility] (TFL[facility] B [id number] 2.16.840.1.684530.3.227.99.991.29239.0 Self 0 [id number] [place] [facility] (TFL[facility] [id number] 2.16.840.1.634300.3.227.99.991.60557.0 Self 0 [id number] [place] [facility] (TFL[facility] B [id number] 2.16.840.1.167474.3.227.99.991.18154.0 Self 0 [id number] [place] [facility] (TFL[facility] B [id number] 2.16.840.1.675760.3.227.99.991.19429.0 Self 0 [id number] [place] [facility] (TFL[facility] B [id number] 2.16.840.1.060303.3.227.99.991.98231.0 Self 0 [id number] [place] [facility] (TFL) [facility] [id number] 2.16.840.1.007810.3.227.99.991.36821.0 Self 0 [id number] [place] [facility] (TFL) [facility] B [id number] 2.16.840.1.372397.3.227.99.991.38362.0 Self 0 [id number] [place] [facility] (TFL[facility] B [id number] 2.16.840.1.615940.3.227.99.991.09342.0 Self 0 [id number] [place] [facility] (TFL) [facility] B [id number] 2.16.840.1.563905.3.227.99.991.14950.0 Self 0 [id number] [place] [facility] (TFL) [facility] B [id number] 2.16.840.1.879468.3.227.99.991.39520.0 Self 0 [id number] [place] [facility] (TFL) [facility] B [id number] 2.16.840.1.001983.3.227.99.991.01839.0 Self 0 [id number] [place] [facility] (TFL[facility] B [id number] 2.16.840.1.797690.3.227.99.991.04172.0 Self 0 [id number] [place] [facility] (TFL[facility] B [id number] 2.16.840.1.853789.3.227.99.991.34767.0 Self 0 [id number] [place] [facility] (TFL[facility] B [id number] 2.16.840.1.532496.3.227.99.991.10951.0 Self 0 [id number] [place] [facility] (TFL[facility] B [id number] 2.16.840.1.987942.3.227.99.991.27779.0 Self 0 [id number] [place] [facility] (TFL[facility] B [id number] Self [place] [facility] (TFL) [facility] B [id number] Self [id number] [place] [facility] (TFL) [facility] B [id number] 2.16.840.1.126490.3.227.99.991.32885.0 Self 0 [id number] [place] [facility] (TFL) [facility] B [id number] 2.16.840.1.378315.3.227.99.991.83305.0 Self 0 [id number] [place] [facility] (TFL) [facility] B [id number] 2.16.840.1.978204.3.227.99.991.25331.0 Self 0 [id number] [place] Med[place] Part B [id number] 2.16.840.1.390379.3.227.99.991.33168.0 Self 0 [id number] [place] Med[place] Part B [id number] 2.16.840.1.267970.3.227.99.991.84973.0 Self 0 [id number] [place] Medicare Primary [id number] 2.16.840.1.623248.3.227.99.991.02768.0 Self 0 [id number] [place] Medicare Primary [id number] 2.16.840.1.810108.3.227.99.991.09059.0 Self 0 [id number] [place] Medicare Primary [id number] 2.16.840.1.539283.3.227.99.991.91432.0 Self 0 [id number] [place] Medicare Primary [id number] 2.16.840.1.087598.3.227.99.991.79742.0 Self 0 [id number] [place] Med[place] Part B [id number] 2.16.840.1.066193.3.227.99.991.53520.0 Self 0 [id number] [place] Medicare Primary [id number] 2.16.840.1.301646.3.227.99.991.54446.0 Self 0 [id number] [place] Med[place] Part B [id number] 2.16.840.1.563910.3.227.99.991.98091.0 Self 0 [id number] [place] Med[place] Part B [id number] 2.16.840.1.445719.3.227.99.991.04846.0 Self 0 [id number] [place] Med[place] Part B [id number] 2.16.840.1.246111.3.227.99.991.29140.0 Self 0 [id number] [place] Medicare Primary [id number] 2.16.840.1.735632.3.227.99.991.86097.0 Self 0 [id number] [place] [id number] 2.16.840.1.337248.3.227.99.991.81880.0 Self 0 [id number] [place] [id number] 2.16.840.1.112264.3.227.99.991.49643.0 Self 0 [id number] [place] [id number] 2.840.1.505141.3.227.99.991.16034.0 Self 0 [id number] [place] [id number] 2.840.1.246653.3.227.99.991.09288.0 Self 0 [id number] [place] [id number] 2.840.1.849657.3.227.99.991.52143.0 Self 0 [id number] [place] [id number] Self [id number] [place] [id number] 2.0.1.326846.3.227.99.991.76859.0 Self 0 [id number] [place] [id number] Self [id number] [place] Primary [id number] 2.0.1.749477.3.227.99.991.47129.0 Self 0 [id number] [place] [id number] 2.0.1.393540.3.227.99.991.47296.0 Self 0 [id number] [place] [id number] 2.0.1.229600.3.227.99.991.53191.0 Self 0 [id number] [place] [id number] Self [id number] [place] [id number] Self [place] Primary [id number] 2.840.1.352238.3.227.99.991.08444.0 Self 0 [id number] [place] Primary [id number] 2.840.1.641971.3.227.99.991.12341.0 Self 0 [id number] [place] Primary [id number] 2.16.840.1.128068.3.227.99.991.24262.0 Self 0 [id number] [place] Primary [id number] 2.16.840.1.222418.3.227.99.991.82443.0 Self 0 [id number] [place] [id number] 2.16.840.1.175856.3.227.99.991.61928.0 Self 0 [id number] [place] Primary [id number] 2.16.840.1.159472.3.227.99.991.30162.0 Self 0 [id number] [place] B [id number] 2.16.840.1.991820.3.227.99.991.99591.0 Self 0 [id number] [place] [id number] 2.16.840.1.298133.3.227.99.991.89667.0 Self 0 [id number] [place] [id number] 2.16.840.1.501033.3.227.99.991.89293.0 Self 0 [id number] Vi [id number] [employer] Compensation [id number] Self [id number] WPS For Life [facility] Part B [id number] 2.16840.1.167770.3.227.99.8646.39441.0 Self [id number] [facility] [id number] Self [id number] MEDICARE A [id number] Self [id number] A FOR LIFE [id number] Self [id number] For Life Commercial [id number] Self Medicare Medicare Primary [id number] Self [employer] Workers Compensation 2.16.840.1.531683. 3.227.99.991.54670.0 Self Medicare [employer] Medigap Part B [id number] Self [employer] [place] Workers Compensation 2.16.840.1.407062. 3.227.99.991.33485.0 Self MEDICARE [id number] SP [id number] A MEDICARE [id number] SP [id number] A [employer] Workers Compensation [id number] Self [employer] [place]) Workers Compensation [id number] Self [employer] Medigap Part B [id number] Self WPS For Life Medigap Part B [id number] [place] Primary [id number] Self [employer] Workers Compensation [id number] Self [employer] [place]) Workers Compensation [id number] Self For Life Medigap Part B [id number] [place] [id number] Self FOR LIFE-O/P [id number] 18 [id number] MEDICARE -O/P [id number] 20 [id number] FOR LIFE S [id number] S 0 [id number] FOR LIFE [id number] SP [id number] MEDICARE [id number] SP [id number] Medicare Part B of [facility] Other 0 [id number] 6 Self 0 Medicare Part B of [facility] Other 0 [id number] 6 Self 0 Medicare Part B of [facility] Other 0 [id number] 6 Self 0 Medicare Part B of [facility] Other 0 [id number] 6 Self 0 Medicare Part B of [facility] Other 0 [id number] 6 Self 0 Medicare Part B of [facility] Other 0 [id number] 6 Self 0 Medicare Part B of [facility] Other 0 [id number] 6 Self 0 Medicare Part B of [facility] Other 0 [id number] 6 Self 0 Medicare Part B of [facility] Other 0 [id number] 6 Self 0 Medicare Part B of [facility] Other 0 [id number] 6 Self 0 Medicare Part B of [facility] Other 0 [id number] 6 Self 0 Medicare Part B of [facility] Other 0 [id number] 6 Self 0 Medicare Part B of [facility] Other 0 [id number] 6 Self 0 Medicare Part B of [facility] Other 0 [id number] 6 Self 0 Medicare Part B of [facility] Other 0 [id number] 6 Self 0 Medicare Part B of [facility] Other 0 [id number] 6 Self 0 Medicare Part B of [facility] Other 0 [id number] 6 Self 0 MEDICARE C [id number] S [id number] FOR LIFE O [id number] S [id number] Medicare Part B of [facility] Other 0 [id number] 6 Self 0 Medicare Part B of [facility] Other 0 [id number] 6 Self 0 [employer] Compensation [id number] MRN.[id number] Self [id number] Medicare Dme Supplies Medigap Part B [id number] MRN.[id number] Self [id number] [employer] Workers Compensation [id number] MRN.[id number] Self [id number] Medicare Dme Supplies Medig[employer] Part B [id number] MRN.[id number] Self [id number] [employer] Workers Compensation [id number] MRN.[id number] Self [id number] Medicare Dme Supplies Medigap Part B [id number] MRN.[id number] Self [id number] [employer] Medigap Part B [id number] MRN.[id number] Self [id number] Medicare [facility] Medicare Primary [id number] MRN.[id number] Self [id number] WPS For Life Medigap Part B [id number] MRN.[id number] Self [id number] [facility] Healthcare Opt Medigap Part B [id number] MRN.4595.[id number] Self [id number] [employer] Workers Compensation [id number] 2..840.1.149394.3.227.99.991.15895.0 Self [id number] Medicare Dme Supplies Medigap Part B [id number] 2.160.1.126627.3.227.99.991.54004.0 Self 0 [id number] [employer] Workers Compensation [id number] [id number] 2.16.840.1.825927.3.227.99.991.91787.0 Self [id number] Medicare Dme Supplies [facility] [id number] 2.16.840.1.589106.3.227.99.991.40243.0 Self 0 [id number] [employer] Workers Compensation [id number] [id number] 2.16.840.1.937969.3.227.99.991.10830.0 Self [id number] Medicare Dme Supplies [facility] Part B [id number] 2.16.840.1.361899.3.227.99.991.46568.0 Self 0 [id number] [employer] Workers Compensation [id number] [id number] 2.16.840.1.223306.3.227.99.991.61066.0 Self [id number] Medicare Dme Supplies [facility] Part B [id number] 2.16.840.1.047525.3.227.99.991.85453.0 Self 0 [id number] [facility] [id number] 2.16.840.1.552066.3.227.99.8646.1 7127.0 Self [id number] [place] Medicare Primary [id number] 2.16.840.1.434855.3.227.99.8646.82791.0 Self [id number] For Life [facility] [id number] 2.16.840.1.242302.3.227.99.1767.8525.0 Self 1 [id number] WPS [facility] Life [facility] [id number] 2.16.840.1.174385.3.227.99.4595.26836.0 Self [id number] [employer] Workers Compensation [id number] [id number] 2.16.840.1.126396.3.227.99.991.26546.0 Self [id number] Medicare Dme Supplies [facility] Part B [id number] 2.16.840.1.879587.3.227.99.991.03865.0 Self 0 [id number] [place] Primary [id number] 2.16.840.1.857613.3.227.99.991.40545.0 Self 5 [id number] For Life S [facility] Part B [id number] 2.16.840.1.250595.3.227.99.1767.8525.0 Self 1 [id number] [employer] Workers Compensation [id number] [id number] 2.16.840.1.475516.3.227.99.991.59594.0 Self [id number] Medicare Dme Supplies [facility] Part B [id number] 2.16.840.1.914450.3.227.99.991.10191.0 Self 0 [id number] [place] Primary [id number] 2.16.840.1.894862.3.227.99.991.36920.0 Self 5 [id number] MEDICARE C [id number] S [id number] [employer] Workers Compensation [id number] 2.16.840.1.289431.3.227.99.991.29349.0 Self [id number] Medicare Dme Supplies [facility] Part B [id number] 2.16.840.1.597289.3.227.99.991.97103.0 Self 0 [id number] [place] Primary [id number] 2.16.840.1.823248.3.227.99.991.44214.0 Self 5 [id number] [employer] Workers Compensation [id number] 2.16.840.1.013912.3.227.99.991.96723.0 Self [id number] Medicare Dme Supplies [facility] B [id number] 2.16.840.1.257142.3.227.99.991.77234.0 Self 0 [id number] [place] Primary [id number] 2.16.840.1.161057.3.227.99.991.89611.0 Self 5 [id number] [employer] Workers Compensation [id number] [id number] 2.16.840.1.140310.3.227.99.991.07375.0 Self [id number] Medicare Dme Supplies [facility] Part B [id number] 2.16.840.1.908582.3.227.99.991.45503.0 Self 0 [id number] [place] Primary [id number] 2.16.840.1.040767.3.227.99.991.93245.0 Self 5 [id number] [employer] Workers Compensation [id number] [id number] 2.16.840.1.141935.3.227.99.991.38391.0 Self [id number] Medicare Dme Supplies [facility] B [id number] 2.16.840.1.819901.3.227.99.991.18814.0 Self 0 [id number] [place] Primary [id number] 2.16.840.1.841432.3.227.99.991.92054.0 Self 5 [id number] [employer] Workers Compensation [id number] 2.16.840.1.573048.3.227.99.991.75364.0 Self [id number] Medicare Dme Supplies [facility] Part B [id number] 2.16.840.1.108300.3.227.99.991.26980.0 Self 0 [id number] [place] Primary [id number] 2.16.840.1.457703.3.227.99.991.38525.0 Self 5 [id number] [employer] Workers Compensation [id number] [id number] 2.16.840.1.156531.3.227.99.991.86753.0 Self [id number] Medicare Dme Supplies [facility] Part B [id number] 2.16.840.1.783228.3.227.99.991.78559.0 Self 0 [id number] For Life WPS [facility] Part B [id number] 2.16.840.1.787041.3.227.99.1767.8525.0 Self 1 [id number] [employer] Workers Compensation [id number] 2.16.840.1.758337.3.227.99.991.87108.0 Self [id number] Medicare Dme Supplies [facility] Part B [id number] 2.16.840.1.857982.3.227.99.991.77344.0 Self 0 [id number] WPS For Life [employer] Part B [id number] 2.16.840.1.091624.3.227.99.4595.99998.0 Self [id number] [facility] Life [facility] [id number] 2.16.840.1.221166.3.227.99.1767.8525.0 Self 1 [id number] [employer] Workers Compensation [id number] [id number] 2.16.840.1.516844.3.227.99.991.21765.0 Self [id number] Medicare Dme Supplies [facility] Part B [id number] 2.16.840.1.944013.3.227.99.991.21650.0 Self 0 [id number] [employer] Workers Compensation [id number] [id number] 2.16.840.1.417251.3.227.99.991.30153.0 Self [id number] Medicare Dme Supplies [facility] Part B [id number] 2.16.840.1.139738.3.227.99.991.22946.0 Self 0 [id number] [employer] Workers Compensation [id number] 2.16.840.1.382889.3.227.99.991.85119.0 Self [id number] Medicare Dme Supplies [facility] Part B [id number] 2.16.840.1.162066.3.227.99.991.00509.0 Self 0 [id number] [employer] Workers Compensation [id number] [id number] 2.16.840.1.654428.3.227.99.991.23230.0 Self [id number] Medicare Dme Supplies [facility] Part B [id number] 2.16.840.1.218914.3.227.99.991.25075.0 Self 0 [id number] [employer] Workers Compensation [id number] [id number] 2.16.840.1.822748.3.227.99.991.33836.0 Self [id number] Medicare Dme Supplies [facility] Part B [id number] 2.16.840.1.115416.3.227.99.991.30555.0 Self 0 [id number] Medicare Dme [facility] [id number] 2.16.840.1.468263.3.227.99 .936.58016.0 Self [id number] For Life Commercial [id number] 2.16.840.1.985478.3.227. 99.936.71109.0 Self [id number] Medicare Medicare Primary [id number] 2.16.840.1.485196.3.227. 99.936.82079.0 Self [id number] [employer] Workers Compensation [id number] [id number] 2.16.840.1.481636.3.227.99.991.87955.0 Self [id number] Medicare Dme Supplies [facility] Part B [id number] 2.16.840.1.169577.3.227.99.991.68283.0 Self 0 [id number] WPS [facility] [id number] 2.16.840.1.241311.3.227.99.4595.45789.0 Self [id number] [employer] Workers Compensation [id number] [id number] 2.16.840.1.801394.3.227.99.991.21999.0 Self [id number] Medicare Dme Supplies [facility] [id number] 2.16.840.1.590440.3.227.99.991.40335.0 Self 0 [id number] [employer] Workers Compensation [id number] [id number] 2.16.840.1.941796.3.227.99.991.45234.0 Self [id number] Medicare Dme Supplies [facility] B [id number] 2.16.840.1.109207.3.227.99.991.00759.0 Self 0 [id number] [employer] Workers Compensation [id number] [id number] 2.16.840.1.553465.3.227.99.991.66911.0 Self [id number] Medicare Dme Supplies [facility] B [id number] 2.16.840.1.241891.3.227.99.991.61726.0 Self 0 [id number] [employer] Workers Compensation [id number] [id number] 2.16.840.1.625411.3.227.99.991.63434.0 Self [id number] Medicare Dme Supplies [facility] Part B [id number] 2.16.840.1.000272.3.227.99.991.85530.0 Self 0 [id number] [employer] Workers Compensation [id number] [id number] 2.16.840.1.962925.3.227.99.991.76387.0 Self [id number] Medicare Dme Supplies [facility] [id number] 2.16.840.1.749927.3.227.99.991.40133.0 Self 0 [id number] Medicare Dme [facility] [id number] 2.16.840.1.119786.3.227.99 .936.70719.0 Self [id number] For Life Commercial [id number] 2.16.840.1.484856.3.227. 99.936.80930.0 Self [id number] Medicare Medicare Primary [id number] 2.16.840.1.634366.3.227. 99.936.99517.0 Self [id number] Medicare Dme [facility] [id number] 2.16.840.1.884143.3.227.99 .936.73275.0 Self [id number] For Life Commercial [id number] 2.16.840.1.525482.3.227. 99.936.13817.0 Self [id number] Medicare Medicare Primary [id number] 2.16.840.1.975841.3.227. 99.936.30356.0 Self [id number] [employer] Workers Compensation [id number] [id number] 2.16.840.1.546497.3.227.99.991.11277.0 Self [id number] Medicare Dme Supplies [facility] [id number] 2.16.840.1.643269.3.227.99.991.21536.0 Self 0 [id number] WPS [employer] Life Medig[employer] Part B [id number] 2.16.840.1.526526.3.227.99.4595.10569.0 Self [id number] [employer] Workers Compensation [id number] [id number] 2.16.840.1.157259.3.227.99.991.14861.0 Self [id number] Medicare Dme Supplies [employer] Part B [id number] 2.16.840.1.915856.3.227.99.991.92778.0 Self 0 [id number] WPS For Life Medigap Part B [id number] 2.16.840.1.796215.3.227.99.4595.60756.0 Self [id number] [employer] Med[employer] Part B [id number] 2.16.840.1.125346.3.227.99.8646.1 7127.0 Self [id number] WPS For Life Medigap Part B [id number] 2.16.840.1.737671.3.227.99.8646.53562.0 Self [id number] Medicare [facility] Medicare Primary [id number] 2.16.840.1.712617.3.227.99.8646.04408.0 Self [id number] [employer] Workers Compensation [id number] 2.16.840.1.379681.3.227.99.991.82174.0 Self [id number] Medicare Dme Supplies [employer] Part B [id number] 2.16.840.1.479400.3.227.99.991.65874.0 Self 0 [id number] [employer] Workers Compensation [id number] 2.16.840.1.229957.3.227.99.991.36510.0 Self [id number] Medicare Dme Supplies Med[employer] Part B [id number] 2.16.840.1.250053.3.227.99.991.21620.0 Self 0 [id number] Medicare Dme Medigap Part B [id number] 2.16.840.1.826200.3.227.99 .936.21426.0 Self [id number] For Life Commercial [id number] 2.16.840.1.924356.3.227. 99.936.39293.0 Self [id number] Medicare Medicare Primary [id number] 2.16.840.1.223736.3.227. 99.936.89467.0 Self [id number] WPS For Life Medigap Part B [id number] 2.840.1.190578.3.227.99.4595.34327.0 Self [id number] For Life WPS Med[employer] Part B [id number] 2.840.1.274915.3.227.99.1767.8525.0 Self 1 [id number] Medicare Dme Medigap Part B [id number] 2.840.1.158095.3.227.99 .936.24143.0 Self [id number] For Life Commercial [id number] 2.840.1.182700.3.227. 99.936.06339.0 Self [id number] Medicare Medicare Primary [id number] 2.840.1.848458.3.227. 99.936.02674.0 Self [id number] For Life WPS Med[employer] Part B [id number] 2.16840.1.563906.3.227.99.1767.8525.0 Self 1 [id number] Medicare Dme Medigap Part B [id number] 2.16840.1.413879.3.227.99 .936.07661.0 Self [id number] For Life Commercial [id number] 2.16840.1.471056.3.227. 99.936.34419.0 Self [id number] Medicare Medicare Primary [id number] 2.16.840.1.902606.3.227. 99.936.83869.0 Self [id number] [employer] Workers Compensation [id number] 2.16.840.1.558462.3.227.99.991.48097.0 Self [id number] Medicare Dme Supplies Med[employer] Part B [id number] 2.16840.1.290771.3.227.99.991.84730.0 Self 0 [id number] WPS For Life Medigap Part B [id number] 2.160.1.728797.3.227.99.4595.61049.0 Self [id number] For Life WPS Med[employer] Part B [id number] 2.0.1.941393.3.227.99.1767.8525.0 Self 1 [id number] [employer] Workers Compensation [id number] 2.160.1.872161.3.227.99.991.79463.0 Self [id number] Medicare Dme Supplies Medig[employer] Part B [id number] 2.160.1.475298.3.227.99.991.99843.0 Self 0 [id number] WPS For Life Medigap Part B [id number] 2.16840.1.005170.3.227.99.4595.33180.0 Self [id number] For Life WPS Medigap Part B [id number] Self [facility] Healthcare Opt Medigap Part B 32071 Self WPS For Life Medigap Part B [id number] Self Medicare Dme Medicare Primary 2.16840.1.808809.3.227.99.936 .95223.0 Self Problems, Conditions, and Diagnoses Code Display Name Description Problem Type Effective Dates Data Source(s) 7.812 194064279 Facet arthropathy, cervical Problem 04/24/2021 12:00:00 AM EDT eCW1 ([facility]) M43.02 859224438 Cervical spondylolysis Problem 04/24/2021 12 :00:00 AM EDT eCW1 ([facility]) G89.29 79009918 Other chronic pain Problem 04/17/2021 12:00: 00 AM EDT eCW1 ([facility]) 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 Problem 10/10/2020 12:00:00 AM EDT MARIEL (Joel Gonzalez MD [facility]) 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 Problem 10/10/2020 12:00:00 AM EDT MARIEL (Joel Gonzalez MD [facility]) 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 Problem 10/10/2020 12:00:00 AM EDT MARIEL (Joel Gonzalez MD [facility]) 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 Problem 10/10/2020 12:00:00 AM EDT MARIEL (Joel Gonzalez MD [facility]) 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 Problem 10/10/2020 12:00:00 AM EDT MARIEL (Joel Gonzalez MD [facility]) 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 Problem 10/10/2020 12:00:00 AM EDT MARIEL (Joel Gonzalez MD [facility]) 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 Problem 10/10/2020 12:00:00 AM EDT MARIEL (Joel Gonzalez MD [facility]) 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 Problem 10/10/2020 12:00:00 AM EDT MARIEL (Joel Gonzalez MD [facility]) 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 Problem 10/10/2020 12:00:00 AM EDT MARIEL (Joel Gonzalez MD [facility]) 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 Problem 10/10/2020 12:00:00 AM EDT MARIEL (Joel Gonzalez MD [facility]) 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 Problem 10/10/2020 12:00:00 AM EDT MARIEL (Joel Gonzalez MD [facility]) 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 Problem 10/10/2020 12:00:00 AM EDT MARIEL (Joel Gonzalez MD [facility]) 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 Problem 10/10/2020 12:00:00 AM EDT MARIEL (Joel Gonzalez MD [facility]) 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 Problem 10/10/2020 12:00:00 AM EDT MARIEL (Joel Gonzalez MD [facility]) 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 Problem 10/10/2020 12:00:00 AM EDT MARIEL (Joel Gonzalez MD [facility]) 372.02 Conjunctivitis Acute Follicular Conjunctivitis Acute F ollicular Problem 05/15/2020 12:00:00 AM EDT - 09/21/2020 12:00:00 AM EST MARIEL (Joel Gonzalez MD [facility]) 372.02 Conjunctivitis Acute Follicular Conjunctivitis Acute F ollicular Problem 05/15/2020 12:00:00 AM EDT - 09/21/2020 12:00:00 AM EST MARIEL (Joel Gonzalez MD [facility]) 372.02 Conjunctivitis Acute Follicular Conjunctivitis Acute F ollicular Problem 05/15/2020 12:00:00 AM EDT - 09/21/2020 12:00:00 AM EST MARIEL (Joel Gonzalez MD [facility]) 372.02 Conjunctivitis Acute Follicular Conjunctivitis Acute F ollicular Problem 05/15/2020 12:00:00 AM EDT - 09/21/2020 12:00:00 AM EST MARIEL (Joel Gonzalez MD [facility]) 372.02 Conjunctivitis Acute Follicular Conjunctivitis Acute F ollicular Problem 05/15/2020 12:00:00 AM EDT - 09/21/2020 12:00:00 AM EST MARIEL (Joel Gonzalez MD [facility]) 372.02 Conjunctivitis Acute Follicular Conjunctivitis Acute F ollicular Problem 05/15/2020 12:00:00 AM EDT - 09/21/2020 12:00:00 AM EST MARIEL (Joel Gonzalez MD [facility]) 372.02 Conjunctivitis Acute Follicular Conjunctivitis Acute F ollicular Problem 05/15/2020 12:00:00 AM EDT - 09/21/2020 12:00:00 AM EST MARIEL (Joel Gonzalez MD [facility]) 372.02 Conjunctivitis Acute Follicular Conjunctivitis Acute F ollicular Problem 05/15/2020 12:00:00 AM EDT - 09/21/2020 12:00:00 AM EST MARIEL (Joel Gonzalez MD [facility]) 372.02 Conjunctivitis Acute Follicular Conjunctivitis Acute F ollicular Problem 05/15/2020 12:00:00 AM EDT - 09/21/2020 12:00:00 AM EST MARIEL (Joel Gonzalez MD [facility]) 372.02 Conjunctivitis Acute Follicular Conjunctivitis Acute F ollicular Problem 05/15/2020 12:00:00 AM EDT - 09/21/2020 12:00:00 AM EST MARIEL (Joel Gonzalez MD [facility]) 372.02 Conjunctivitis Acute Follicular Conjunctivitis Acute F ollicular Problem 05/15/2020 12:00:00 AM EDT - 09/21/2020 12:00:00 AM EST MARIEL (Joel Gonzalez MD [facility]) 372.02 Conjunctivitis Acute Follicular Conjunctivitis Acute F ollicular Problem 05/15/2020 12:00:00 AM EDT - 09/21/2020 12:00:00 AM EST MARIEL (Joel Gonzalez MD [facility]) 372.02 Conjunctivitis Acute Follicular Conjunctivitis Acute F ollicular Problem 05/15/2020 12:00:00 AM EDT - 09/21/2020 12:00:00 AM EST MARIEL (Joel Gonzalez MD [facility]) 372.02 Conjunctivitis Acute Follicular Conjunctivitis Acute F ollicular Problem 05/15/2020 12:00:00 AM EDT - 09/21/2020 12:00:00 AM EST MARIEL (Joel Gonzalez MD [facility]) 372.02 Conjunctivitis Acute Follicular Conjunctivitis Acute F ollicular Problem 05/15/2020 12:00:00 AM EDT - 09/21/2020 12:00:00 AM EST MARIEL (Joel Gonzalez MD [facility]) 372.02 Conjunctivitis Acute Follicular Conjunctivitis Acute F ollicular Problem 05/15/2020 12:00:00 AM EDT - 09/21/2020 12:00:00 AM EST MARIEL (Joel Gonzalez MD [facility]) 372.02 Conjunctivitis Acute Follicular Conjunctivitis Acute F ollicular Problem 05/15/2020 12:00:00 AM EDT MARIEL (Joel Gonzalez MD [facility]) 372.02 Conjunctivitis Acute Follicular Conjunctivitis Acute F ollicular Problem 05/15/2020 12:00:00 AM EDT MARIEL (Joel Gonzalez MD [facility]) Surgeries/Procedures Procedure Description Date Indications Data Source(s) OFFICE OUTPATIENT VISIT 15 MINUTES 05/10/2021 12:00:00 AM EDT [facility] ([facility]) ARTHROCENTESIS ASPIR&/INJECTION MAJOR JT/BURSA 12:00:00 AM EDT [facility] ([facility]) OFFICE OUTPATIENT VISIT 15 MINUTES 05/02/2021 12:00:00 AM EDT [facility] ([facility]) Remove Impacted Cerumen 04/10/2021 12:00:00 AM EDT [facility] ([facility]) OFFICE OUTPATIENT VISIT 15 MINUTES 04/10/2021 12:00:00 AM EDT [facility] ([facility]) OFFICE OUTPATIENT VISIT 15 MINUTES 04/05/2021 12:00:00 AM EDT [facility] ([facility]) Complex Chronic Care Management SVC 1St 60 Min 021 12:00:00 AM EDT [facility] ([facility]) INJECTION SINGLE/CHIP UNLOADER TRIGGER POINT /2 MUSCLES 12:00:00 AM EDT [facility] ([facility]) ARTHROCENTESIS ASPIR&/INJECTION MAJOR JT/BURSA 12:00:00 AM EDT [facility] ([facility]) ARTHROCENTESIS ASPIR&/INJECTION MAJOR JT/BURSA 021 12:00:00 AM EDT [facility] ([facility]) OFFICE OUTPATIENT VISIT 25 MINUTES 03/11/2021 12:00:00 AM EDT [facility] ([facility]) Complex Chronic Care Management SVC 1St 60 Min 12:00:00 AM EDT [facility] ([facility]) OFFICE OUTPATIENT VISIT 15 MINUTES 01/24/2021 12:00:00 AM EDT [facility] ([facility], ) Complex Chronic Care Management SVC 1St 60 Min 12:00:00 AM EDT [facility] ([facility]) ARTHROCENTESIS ASPIR&/INJECTION MAJOR JT/BURSA 021 12:00:00 AM EDT [facility] ([facility]) OFFICE OUTPATIENT VISIT 15 MINUTES 01/16/2021 12:00:00 AM EDT [facility] ([facility]) OFFICE OUTPATIENT VISIT 15 MINUTES 01/15/2021 12:00:00 AM EDT [facility] ([facility]) THERAPEUTIC PROPHYLACTIC/DX INJECTION SUBQ/IM 01/12/20 12:00:00 AM EDT [facility] ([facility]) OFFICE OUTPATIENT VISIT 25 MINUTES 01/09/2021 12:00:00 AM EDT [facility] ([facility]) OFFICE OUTPATIENT VISIT 25 MINUTES 01/02/2021 12:00:00 AM EDT [facility] ([facility]) OFFICE OUTPATIENT VISIT 15 MINUTES 12/25/2020 12:00:00 AM EDT [facility] ([facility], [facility]) Complex Chronic Care Management SVC 1St 60 Min 12:00:00 AM EDT [facility] ([facility]) OFFICE OUTPATIENT VISIT 15 MINUTES 12/05/2020 12:00:00 AM EDT [facility] ([facility], ) OFFICE OUTPATIENT VISIT 25 MINUTES 11/30/2020 12:00:00 AM EDT [facility] ([facility], [facility]) OFFICE OUTPATIENT VISIT 15 MINUTES 11/13/2020 12:00:00 AM EDT [facility] ([facility], [facility]) OFFICE OUTPATIENT VISIT 15 MINUTES 11/07/2020 12:00:00 AM EDT [facility] ([facility]) ECG ROUTINE ECG W/LEAST 12 LDS W/I&R 10/16/2020 12:00: 00 AM EDT [facility] ([facility], [facility]) OFFICE OUTPATIENT VISIT 25 MINUTES 10/16/2020 12:00:00 AM EDT MED[facility] ([facility]) INJECTION SINGLE/CHIP UNLOADER TRIGGER POINT 1/2 MUSCLES 021 12:00:00 AM EDT MED[facility] ([facility]) ARTHROCENTESIS ASPIR&/INJECTION MAJOR JT/BURSA 021 12:00:00 AM EDT MEDENT ([facility]) OFFICE OUTPATIENT VISIT 25 MINUTES 10/11/2020 12:00:00 AM EDT MED[facility] ([facility]) CORRECTION TRICHIASIS EPILATION FORCEPS ONLY Epilation of Trichiasis (Left side) 10/10/2020 12:00:00 AM EDT MARIEL (Rafael Gonzalez MD [facility]) Intermediate Eye Exam Established Patient Intermediate Eye Exam Established Patient 09/21/2020 12:00:00 AM EST MARIEL (Rafael Gonzalez MD [facility]) Intermediate Eye Exam Established Patient Intermediate Eye Exam Established Patient 09/21/2020 12:00:00 AM EST MARIEL (Rafael Gonzalez MD [facility]) OFFICE OUTPATIENT VISIT 15 MINUTES 09/19/2020 12:00:00 AM EST MED[facility] ([facility] ) OFFICE OUTPATIENT VISIT 15 MINUTES 09/12/2020 12:00:00 AM EST MED[facility] ([facility]) OFFICE OUTPATIENT VISIT 15 MINUTES 09/07/2020 12:00:00 AM EST [facility] ([facility]) OFFICE OUTPATIENT VISIT 15 MINUTES 07/17/2020 12:00:00 AM EST MED[facility] ([facility]) ARTHROCENTESIS ASPIR&/INJECTION MAJOR JT/BURSA 020 12:00:00 AM EST MED[facility] ([facility]) THERAPEUTIC PROPHYLACTIC/DX INJECTION SUBQ/IM 07/06/20 12:00:00 AM EST MED[facility] ([facility]) ARTHROCENTESIS ASPIR&/INJECTION MAJOR JT/BURSA 12:00:00 AM EST MED[facility] ([facility]) Mammogram 05/17/2020 12:00:00 AM EDT M EDKENDY ([facility]) Intermediate Eye Exam Established Patient Intermediate Eye Exam Established Patient 05/15/2020 12:00:00 AM EDT MARIEL (Rafael Gonzalez MD [facility]) Intermediate Eye Exam Established Patient Intermediate Eye Exam Established Patient 05/15/2020 12:00:00 AM EDT [place] (Rafael id A Sagar Gonzalez MD [facility]) INJECTION SINGLE/CHIP UNLOADER TRIGGER POINT 1/2 MUSCLES 12:00:00 AM EDT [facility] ([facility] ) ARTHROCENTESIS ASPIR&/INJECTION MAJOR JT/BURSA 12:00:00 AM EDT [facility] ([facility]) Results ID Date Data Source [id number] 05/10/2021 12:41:00 PM EDT MEDENT ([facility]) Name Value Range Interpretation Code Description Data Nemo rce(s) Supporting Document(s) Bacteria identified in Urine by Culture Laboratory [facility]) ID Date Data Source [id number] 04/24/2021 12:05:00 PM EDT MEDENT ([facility]) Name Value Range Interpretation Code Description Data Nemo rce(s) Supporting Document(s) Magnesium 2.2 mg/dL 1.8-2.4 [facility] ([facility]) ID Date Data Source [id number] 04/24/2021 12:05:00 PM EDT MED[facility] ([facility]) Name Value Range Interpretation Code Description Data Nemo rce(s) Supporting Document(s) Glucose [Mass/volume] in Serum or Plasma 76 mg/dL 74-99 [facility] ([facility]) 100-125 mg/dL PRE-DIABETES/FASTING >126 mg/dL DIABETES/FASTING Creatinine 0.6 mg/dL 0.6-1.3 [facility]) Urea nitrogen [Mass/volume] in Serum or Plasma 22 mg/dL 7-18 [facility] ([facility]) Chloride [Moles/volume] in Serum or Plasma 107 meq/L 98-107 [facility] ([facility]) Sodium [Moles/volume] in Serum or Plasma 142 meq/L 136-145 [facility] ([facility]) Potassium [Moles/volume] in Serum or Plasma 3.7 meq/L 3.5-5.1 [facility] ([facility]) Carbon dioxide, total [Moles/volume] in Serum or Plasma 25 meq/L 21 -32 [facility] ([facility]) Glomerular filtration rate/1.73 sq M pre dicted among non-blacks [Volume Rate/Area] in Serum or Plasma by Creatinine-based formula (MDRD) Laboratory test result [facility] ([facility] ) Calcium [Mass/volume] in Serum or Plasma 9.4 mg/dL 8.5-10.1 [facility] Glomerular filtration rate/1.73 sq M pre dicted among blacks [Volume Rate/Area] in Serum or Plasma by Creatinine-based formula (MDRD) Laboratory test result [facility] ([facility]) <content>CHRONIC KIDNEY DISEASE STAGING PER NKF</content>
<content></content>
<content>STAGE I & II GFR >= 60 NORMAL TO MILDLY DECREASED</content>
<content>STAGE III GFR 30-59 MODERATELY DECREASED</content>
<content>STAGE IV GFR 15-29 SEVERELY DECREASED</content>
<content>STAGE V GFR <15 VERY LITTLE GFR LEFT</content>
<content>ESRD GFR <15 ON TELEPHONE ADVICE NURSE</content>
<content></content> ID Date Data Source [id number] 04/15/2021 02:04:00 PM EDT [facility] Name Value Range Interpretation Code Description Data Nemo rce(s) Supporting Document(s) Bacteria identified in Urine by Culture Laboratory test result [facility] ([facility]) FULL REPORT IN LAB NOTES (eCW and Med[facility] ). NO GROWTH ID Date Data Source [id number] 04/15/2021 02:03:00 PM EDT [facility] Name Value Range Interpretation Code Description Data Nemo rce(s) Supporting Document(s) Urine Color Laboratory [facility] ([facility]) Urine PH 6.0 units 5.0-9.0 [facility] ([facility]) Urine Appearance Laboratory test result [facility] ([facility]) Urine Leukocytes Laboratory test result [facility] ([facility]) Urine Blood Laboratory test [facility] Specific gravity of Urine 1.010 1.005-1.030 [facility] ([facility]) Glucose [Presence] in Urine Laboratory test result [facility] ([facility]) Urine Protein Laboratory test result 0-0 [facility] ([facility]) Urine Nitrite Laboratory test result [facility] ([facility]) Urine Ketone Laboratory test result [facility] ([facility]) Bilirubin.total [Mass/volume] in Serum or Plasma Laboratory test resu lt MEDENT ([facility]) Urine Urobilinogen 0.2 mg/dL 0.2-1.0 [facility] ([facility]) ID Date Data Source [id number] 04/06/2021 12:00:00 AM EDT [facility] Name Value Range Interpretation Code Description Data Nemo rce(s) Supporting Document(s) SARS-CoV2 Rapid Antigen Negative [facility] This lab was reported by [facility]. ID Date Data Source [id number] 03/27/2021 07:42:00 AM EDT [facility] ([facility] Name Value Range Interpretation Code Description Data Nemo rce(s) Supporting Document(s) Urea nitrogen [Mass/volume] in Serum or Plasma 20 mg/dL 7-18 [facility] ([facility]) Glucose [Mass/volume] in Serum or Plasma 76 mg/dL 74-99 [facility] ([facility]) 100-125 mg/dL PRE-DIABETES/FASTING >126 mg/dL DIABETES/FASTING Creatinine 0.7 mg/dL 0.6-1.3 [facility] ([facility]) Potassium [Moles/volume] in Serum or Plasma 4.0 meq/L 3.5-5.1 [facility] ([facility]) Sodium [Moles/volume] in Serum or Plasma 138 meq/L 136-145 [facility] ([facility]) Chloride [Moles/volume] in Serum or Plasma 103 meq/L 98-107 [facility] ([facility]) Carbon dioxide, total [Moles/volume] in Serum or Plasma 30 meq/L 21 -32 [facility] ([facility]) Glomerular filtration rate/1.73 sq M pre dicted among non-blacks [Volume Rate/Area] in Serum or Plasma by Creatinine-based formula (MDRD) Laboratory [facility] ([facility] Glomerular filtration rate/1.73 sq M pre dicted among blacks [Volume Rate/Area] in Serum or Plasma by Creatinine-based formula (MDRD) Laboratory test result [facility] ([facility]) <content>CHRONIC KIDNEY DISEASE STAGING PER NKF</content>
<content></content>
<content>STAGE I & II GFR >= 60 NORMAL TO MILDLY DECREASED</content>
<content>STAGE III GFR 30-59 MODERATELY DECREASED</content>
<content>STAGE IV GFR 15-29 SEVERELY DECREASED</content>
<content>STAGE V GFR <15 VERY LITTLE GFR LEFT</content>
<content>ESRD GFR <15 ON TELEPHONE ADVICE NURSE</content>
<content></content> Calcium [Mass/volume] in Serum or Plasma 9.5 mg/dL 8.5-10.1 [facility] ([facility]) ID Date Data Source [id number] 03/14/2021 10:25:00 AM EDT [facility] ([facility]) Name Value Range Interpretation Code Description Data Nemo rce(s) Supporting Document(s) Glucose [Mass/volume] in Serum or Plasma 74 mg/dL 74-99 [facility] ([facility]) 100-125 mg/dL PRE-DIABETES/FASTING >126 mg/dL DIABETES/FASTING Creatinine 0.7 mg/dL 0.6-1.3 [facility] Urea nitrogen [Mass/volume] in Serum or Plasma 26 mg/dL 7-18 [facility] ([facility]) Sodium [Moles/volume] in Serum or Plasma 136 meq/L 136-145 [facility] ([facility]) Potassium [Moles/volume] in Serum or Plasma 3.4 meq/L 3.5-5.1 [facility] ([facility]) Chloride [Moles/volume] in Serum or Plasma 102 meq/L 98-107 [facility] ([facility]) Calcium [Mass/volume] in Serum or Plasma 9.8 mg/dL 8.5-10.1 [facility] ([facility]) Carbon dioxide, total [Moles/volume] in Serum or Plasma 23 meq/L 21 -32 [facility] ([facility]) Glomerular filtration rate/1.73 sq M pre dicted among non-blacks [Volume Rate/Area] in Serum or Plasma by Creatinine-based formula (MDRD) Laboratory test result [facility] ([facility] Glomerular filtration rate/1.73 sq M pre dicted among blacks [Volume Rate/Area] in Serum or Plasma by Creatinine-based formula (MDRD) Laboratory test result [facility] ([facility]) <content>CHRONIC KIDNEY DISEASE STAGING PER NKF</content>
<content></content>
<content>STAGE I & II GFR >= 60 NORMAL TO MILDLY DECREASED</content>
<content>STAGE III GFR 30-59 MODERATELY DECREASED</content>
<content>STAGE IV GFR 15-29 SEVERELY DECREASED</content>
<content>STAGE V GFR <15 VERY LITTLE GFR LEFT</content>
<content>ESRD GFR <15 ON TELEPHONE ADVICE NURSE</content>
<content></content> ID Date Data Source [id number] 03/01/2021 10:18:00 AM EDT MED[facility] ([facility]) Name Value Range Interpretation Code Description Data Nemo rce(s) Supporting Document(s) Glucose [Mass/volume] in Serum or Plasma 51 mg/dL 74-99 [facility] ([facility]) NOTE: RESULT VERIFIED. 100-125 mg/dL PRE-DIABETES/FASTING >126 mg/dL DIABETES/FASTING Urea nitrogen [Mass/volume] in Serum or Plasma 24 mg/dL 7-18 [facility] ([facility]) Creatinine 0.6 mg/dL 0.6-1.3 [facility] ([facility]) Potassium [Moles/volume] in Serum or Plasma 3.5 meq/L 3.5-5.1 [facility] ([facility]) Sodium [Moles/volume] in Serum or Plasma 138 meq/L 136-145 [facility] ([facility]) Chloride [Moles/volume] in Serum or Plasma 101 meq/L 98-107 [facility] ([facility]) Carbon dioxide, total [Moles/volume] in Serum or Plasma 28 meq/L 21 -32 [facility] ([facility]) Calcium [Mass/volume] in Serum or Plasma 9.5 mg/dL 8.5-10.1 [facility] ([facility] Glomerular filtration rate/1.73 sq M pre dicted among non-blacks [Volume Rate/Area] in Serum or Plasma by Creatinine-based formula (MDRD) Laboratory test result [facility] ([facility] Glomerular filtration rate/1.73 sq M pre dicted among blacks [Volume Rate/Area] in Serum or Plasma by Creatinine-based formula (MDRD) Laboratory test result [facility] ([facility]) <content>CHRONIC KIDNEY DISEASE STAGING PER NKF</content>
<content></content>
<content>STAGE I & II GFR >= 60 NORMAL TO MILDLY DECREASED</content>
<content>STAGE III GFR 30-59 MODERATELY DECREASED</content>
<content>STAGE IV GFR 15-29 SEVERELY DECREASED</content>
<content>STAGE V GFR <15 VERY LITTLE GFR LEFT</content>
<content>ESRD GFR <15 ON TELEPHONE ADVICE NURSE</content>
<content></content> ID Date Data Source [id number] 02/23/2021 11:50:00 AM EDT [facility] Name Value Range Interpretation Code Description Data Nemo rce(s) Supporting Document(s) SARS-CoV-2 (COVID-19) RNA [Presence] in Respiratory specimen by RENETTA with probe detection Not Detected [facility] This lab was ordered by [facility] and reported by [employer] ID Date Data Source [id number] 01/09/2021 07:51:00 AM EDT MED[facility] ([facility] Name Value Range Interpretation Code Description Data Nemo rce(s) Supporting Document(s) Aldos/Renin Ratio 31.1 0.0-30.0 MED[facility] ([facility]) Units: ng/dL per ng/mL/hr Performed at: [address] [id number] [employer] Lighting: Reji Ramos MD, Phone: [phone] Aldosterone 119.3 ng/dL 0.0-30.0 [facility] ([facility]) Renin Activity 3.831 ng/mL/hr 0.167-5.380 [facility] ( [facility]) ID Date Data Source [id number] 01/09/2021 07:51:00 AM EDT [facility] ([facility]) Name Value Range Interpretation Code Description Data Nemo rce(s) Supporting Document(s) Aldosterone/Renin [Ratio] in Plasma Laboratory test result [facility] ([facility]) ID Date Data Source [id number] 01/09/2021 07:50:00 AM EDT [facility] ([facility]) Name Value Range Interpretation Code Description Data Nemo rce(s) Supporting Document(s) Leukocytes [#/volume] in Blood by Automated count 5.2 x10*3/UL 4.1-10 .9 [facility] ([facility] Erythrocytes [#/volume] in Blood by Automated count 4.94 x10*6/UL 4.2 0-6.30 [facility] ([facility] Hemoglobin [Mass/volume] in Blood 14.5 g/dL 12.0-18.0 [facility] ([facility]) MCH 29.4 pg 26.0-32.0 [facility] ([facility]) MCV 87.9 fL 80.0-97.0 [facility] ([facility]) Hematocrit [Volume Fraction] of Blood by Automated count 43.5 % 3 7.0-51.0 [facility] ([facility] Platelets [#/volume] in Blood by Automated count 223 x10*3/UL 140-440 [facility] ([facility] MCHC 33.4 g/dL 31.0-38.0 [facility]) Erythrocyte distribution width [Ratio] by Automated count 13.5 % 11.6-13.7 [facility] ([facility]) Lymph % 28.5 % 10.0-58.5 [facility] ([facility]) MPV 9.2 FL 7.8-11.0 [facility] ([facility]) Neut % 64.7 % 37.0-92.0 [facility] ([facility]) Mid % 6.8 % 1.7-9.3 [facility] ([facility]) Mid # 0.4 x10*3/UL 0.1-0.6 [facility] ([facility]) Lymph # 1.4 x10*3/UL 0.6-4.1 [facility] ([facility]) Neut # 3.4 x10*3/UL 2.0-7.8 [facility] ([facility]) ID Date Data Source [id number] 01/09/2021 07:50:00 AM EDT [facility] ([facility]) Name Value Range Interpretation Code Description Data Nemo rce(s) Supporting Document(s) Triglyceride [Mass/volume] in Serum or Plasma 74 mg/dL 30-150 [facility] ([facility]) Cholesterol [Mass/volume] in Serum or Plasma 223 mg/dL 131-200 [facility] ([facility]) Cholesterol in LDL [Mass/volume] in Serum or Plasma by calcu lation 108 CALC 50-159 [facility] ([facility]) Cholesterol in HDL [Mass/volume] in Serum or Plasma 100 mg/dL 35-60 [facility] ([facility]) ID Date Data Source [id number] 01/09/2021 07:50:00 AM EDT [facility] ([facility]) Name Value Range Interpretation Code Description Data Nemo rce(s) Supporting Document(s) Magnesium 2.0 mg/dL 1.8-2.4 [facility] ID Date Data Source [id number] 01/09/2021 07:50:00 AM EDT [facility] ([facility]) Name Value Range Interpretation Code Description Data Nemo rce(s) Supporting Document(s) Phosphate [Moles/volume] in Serum or Plasma 4.2 mg/dL 2.5-4.9 [facility] ([facility]) ID Date Data Source [id number] 01/09/2021 07:50:00 AM EDT [facility] ([facility]) Name Value Range Interpretation Code Description Data Nemo rce(s) Supporting Document(s) Glucose [Mass/volume] in Serum or Plasma 71 mg/dL 74-99 [facility] ([facility]) 100-125 mg/dL PRE-DIABETES/FASTING >126 mg/dL DIABETES/FASTING Urea nitrogen [Mass/volume] in Serum or Plasma 19 mg/dL 7-18 [facility] ([facility]) Creatinine 0.6 mg/dL 0.6-1.3 [facility] Sodium [Moles/volume] in Serum or Plasma 142 meq/L 136-145 [facility] ([facility]) Potassium [Moles/volume] in Serum or Plasma 3.9 meq/L 3.5-5.1 [facility] ([facility]) Chloride [Moles/volume] in Serum or Plasma 104 meq/L 98-107 [facility] ([facility]) Carbon dioxide, total [Moles/volume] in Serum or Plasma 26 meq/L 21 -32 [facility] ([facility]) Calcium [Mass/volume] in Serum or Plasma 9.4 mg/dL 8.5-10.1 [facility] ([facility]) Total Bilirubin 0.3 mg/dL 0.2-1.0 [facility] ([facility]) Alkaline phosphatase isoenzyme [Units/volume] in Serum or Pl asma 72 mg/dL 46-116 [facility] ([facility]) Alanine aminotransferase [Enzymatic activity/volume] in Seru m or Plasma 52 U/L 12-78 [facility] ([facility]) Aspartate aminotransferase [Enzymatic activity/volume] in Serum or Plasma 26 U/L 15-37 [facility] ([facility] ) Albumin [Mass/volume] in Serum or Plasma 4.0 g/dL 3.4-5.0 [facility] ([facility]) A/G Ratio 1.38 CALC 1.00-1.90 [facility] ([facility]) Proteinase 3 Ab [Units/volume] in Serum 6.9 g/dL 6.4-8.2 [facility] ([facility]) Glomerular filtration rate/1.73 sq M pre dicted among blacks [Volume Rate/Area] in Serum or Plasma by Creatinine-based formula (MDRD) Laboratory test result [facility] ([facility]) <content>CHRONIC KIDNEY DISEASE STAGING PER NKF</content>
<content></content>
<content>STAGE I & II GFR >= 60 NORMAL TO MILDLY DECREASED</content>
<content>STAGE III GFR 30-59 MODERATELY DECREASED</content>
<content>STAGE IV GFR 15-29 SEVERELY DECREASED</content>
<content>STAGE V GFR <15 VERY LITTLE GFR LEFT</content>
<content>ESRD GFR <15 ON TELEPHONE ADVICE NURSE</content>
<content></content> Glomerular filtration rate/1.73 sq M pre dicted among non-blacks [Volume Rate/Area] in Serum or Plasma by Creatinine-based formula (MDRD) Laboratory [facility] ) ID Date Data Source [id number] 01/02/2021 03:26:00 PM EDT [facility] ([facility]) Name Value Range Interpretation Code Description Data Nemo rce(s) Supporting Document(s) Urine Appearance Laboratory test result [facility] ([facility]) Urine Color Laboratory test result [facility] ([facility]) Urine Leukocytes Laboratory [facility]) Specific gravity of Urine 1.020 1.005-1.030 [facility] ([facility]) Urine PH 6.5 units 5.0-9.0 [facility] ([facility]) Urine Blood Laboratory test result [facility] ([facility]) Urine Protein Laboratory test result 0-0 [facility] ([facility]) Glucose [Presence] in Urine Laboratory test result [facility] ([facility]) Urine Nitrite Laboratory test result [facility] ([facility]) Urine Ketone Laboratory test result [facility] ([facility]) Bilirubin.total [Mass/volume] in Serum or Plasma Laboratory test resu lt [facility] ([facility]) Urine Urobilinogen 0.2 mg/dL 0.2-1.0 [facility] ([facility]) ID Date Data Source [id number] 12/25/2020 07:09:00 PM EDT [facility] ([facility]) Name Value Range Interpretation Code Description Data Nemo rce(s) Supporting Document(s) Bacteria identified in Urine by Culture Laboratory test result [facility] ([facility]) FULL REPORT IN LAB NOTES (eCW and [facility] ). NO GROWTH CLINICAL SIGNIFICANCE 2 OR MORE ORGANISMS ID Date Data Source [id number] 11/28/2020 10:26:00 AM EDT [facility] ([facility]) Name Value Range Interpretation Code Description Data Nemo rce(s) Supporting Document(s) Potassium [Moles/volume] in Serum or Plasma 3.2 meq/L 3.5-5.1 [facility] ([facility]) NOTE: RESULT VERIFIED ID Date Data Source [id number] 11/13/2020 11:49:00 AM EDT [facility] ([facility]) Name Value Range Interpretation Code Description Data Nemo rce(s) Supporting Document(s) Bacteria identified in Urine by Culture Laboratory test result [facility] ([facility]) FULL REPORT IN LAB NOTES (eCW and [facility] ). NO GROWTH CLINICAL SIGNIFICANCE 2 OR MORE ORGANISMS ID Date Data Source [id number] 10/31/2020 10:07:00 AM EDT [facility] ([facility]) Name Value Range Interpretation Code Description Data Nemo rce(s) Supporting Document(s) Potassium [Moles/volume] in Serum or Plasma 3.3 meq/L 3.5-5.1 [facility] ([facility] NOTE: RESULT VERIFIED. ID Date Data Source [id number] 10/16/2020 03:37:00 PM EDT [facility] ([facility]) Name Value Range Interpretation Code Description Data Nemo rce(s) Supporting Document(s) Free T4 0.83 ng/dL 0.76-1.46 [facility] see Progress note Thyroid Stimulating Hormone 1.640 uIU/ML 0.358-3.740 [facility] ([facility]) see Progress note ID Date Data Source [id number] 10/16/2020 03:37:00 PM EDT [facility] ([facility]) Name Value Range Interpretation Code Description Data Nemo rce(s) Supporting Document(s) CPK Creatine Phosphokinase 73 U/L 26-192 [facility] ([facility]) see Progress note MB/CK Relative Index 4.38 [facility] ([facility]) see Progress note Troponin I Laboratory test result [facility] ([facility]) see Progress note CK-MB Value Mass 3.2 ng/mL [facility] ([facility]) see Progress note ID Date Data Source [id number] 10/16/2020 03:37:00 PM EDT [facility] ([facility]) Name Value Range Interpretation Code Description Data Nemo rce(s) Supporting Document(s) Glucose, Fasting 83 mg/dL 70-100 [facility] ([facility]) see Progress note Creatinine For GFR 0.68 mg/dL 0.55-1.30 [facility] ([facility]) see Progress note Blood Urea Nitrogen 22 mg/dL 7-18 [facility] ([facility]) see Progress note Glomerular Filtration Rate Laboratory test result [facility] ([facility]) see Progress note Sodium Level 141 meq/L 136-145 [facility] ([facility]) see Progress note Chloride Level 109 meq/L 98-107 [facility] ([facility]) see Progress note Potassium Serum 3.5 meq/L 3.5-5.1 [facility] ([facility]) see Progress note Anion Gap 5 meq/L 8-16 [facility] ([facility]) see Progress note Carbon Dioxide Level 27 meq/L 21-32 [facility] ([facility]) see Progress note Calcium Level 8.8 mg/dL 8.8-10.2 [facility] ([facility]) see Progress note Ast/Sgot 15 U/L 7-37 [facility] ([facility]) see Progress note Alkaline Phosphatase 61 U/L 45-117 [facility] ([facility]) see Progress note Alt/SGPT 42 U/L 12-78 [facility] ([facility]) see Progress note Bilirubin,Total 0.5 mg/dL 0.2-1.0 [facility] see Progress note Total Protein 6.6 GM/DL 6.4-8.2 [facility] ([facility], [facility]) see Progress note Albumin 3.9 GM/DL 3.2-5.2 [facility] ([place] [facility] Care, [facility]) see Progress note Albumin/Globulin Ratio 1.4 1.2-2.2 MEDENT ([facility], [facility]) see Progress note ID Date Data Source [id number] 10/16/2020 03:37:00 PM EDT MEDENT ([facility], [facility]) Name Value Range Interpretation Code Description Data Nemo rce(s) Supporting Document(s) White Blood Count 7.7 10 4.0-10.0 MEDENT ([facility], [facility]) see Progress note Red Blood Count 4.41 10 4.00-5.40 MEDENT ([facility], [facility]) see Progress note Hematocrit 40.5 % 36.0-47.0 [facility] ([facility]) see Progress note Hemoglobin 12.8 g/dL 12.0-15.5 MEDENT ([facility], [facility]) see Progress note Mean Corpuscular Volume 91.8 fl 80.0-96.0 M EDENT ([facility], [facility]) see Progress note Mean Corpuscular Hemoglobin 29.0 pg 27.0-33.0 MEDENT ([facility], [facility]) see Progress note Mean Corpuscular HGB Conc 31.6 g/dL 32.0-36.5 MEDENT ([facility], [facility]) see Progress note Red Cell Distribution Width 13.2 % 11.5-14.5 MEDENT ([facility], [facility]) see Progress note Neutrophils % 65.4 % 36.0-66.0 MEDENT ([facility], [facility]) see Progress note Platelet Count, Automated 268 10 150-450 MEDENT ([facility], [facility]) see Progress note Lymph % 24.5 % 24.0-44.0 MEDENT ([facility], [facility]) see Progress note [place] % 8.1 % 2.0-8.0 MEDENT ([facility]) see Progress note Baso % 0.8 % 0.0-1.0 MEDENT ([facility]) see Progress note Eos % 0.8 % 0.0-3.0 MEDENT ([facility]) see Progress note Nucleated Red Blood Cell % 0.0 % 0-0 MED ENT ([facility]) see Progress note Immature Granulocyte % 0.4 % 0-3.0 MEDENT ([facility]) see Progress note Neutrophils # 5.0 10 1.5-8.5 MEDENT ([facility]) see Progress note Lymph # 1.9 10 1.5-5.0 MEDENT ([facility], [facility]) see Progress note [place] # 0.6 10 0.0-0.8 MEDENT ([facility]) see Progress note Baso # 0.1 10 0.0-0.2 MEDENT ([facility]) see Progress note Eos # 0.1 10 0.0-0.5 MEDENT ([facility]) see Progress note ID Date Data Source [id number] 10/03/2020 10:22:00 AM EST MEDENT ([facility]) Name Value Range Interpretation Code Description Data Nemo rce(s) Supporting Document(s) Potassium [Moles/volume] in Serum or Plasma 3.4 meq/L 3.5-5.1 MEDENT ([facility]) ID Date Data Source [id number] 10/01/2020 12:00:00 AM EST [facility] Name Value Range Interpretation Code Description Data Nemo rce(s) Supporting Document(s) SARS-CoV2 Rapid Antigen Negative [facility] This lab was reported by [facility]. ID Date Data Source [id number] 09/19/2020 10:26:00 AM EST MEDENT ([facility]) Name Value Range Interpretation Code Description Data Nemo rce(s) Supporting Document(s) Potassium [Moles/volume] in Serum or Plasma 3.2 meq/L 3.5-5.1 [facility] ID Date Data Source [id number] 09/12/2020 02:25:00 PM EST [facility] Name Value Range Interpretation Code Description Data Nemo rce(s) Supporting Document(s) Urine Color Laboratory test result MEDEN T ([facility]) Urine Appearance Laboratory test result [facility] ([facility] Urine PH 6.0 units 5.0-9.0 [facility] ([facility]) Specific gravity of Urine 1.020 1.005-1.030 ND DENT ([facility]) Urine Leukocytes Laboratory test result Abnormal (applies to non-numeric results) MEDENT ([facility]) Urine Blood Laboratory test result MEDEN T ([facility]) Urine Protein Laboratory test result 0-0 MED ENT ([facility]) Urine Nitrite Laboratory test result MED ENT ([facility]) Glucose [Presence] in Urine Laboratory test result MEDENT ([facility]) Urine Ketone Laboratory test result MEDE NT ([facility] Bilirubin.total [Mass/volume] in Serum or Plasma Laboratory test resu lt MEDENT ([facility]) Urine Urobilinogen 0.2 mg/dL 0.2-1.0 [facility]) ID Date Data Source [id number] 09/12/2020 02:24:00 PM EST MEDENT ([facility] Name Value Range Interpretation Code Description Data Nemo rce(s) Supporting Document(s) Bacteria identified in Urine by Culture Laboratory test result [facility] <content>FULL REPORT IN LAB NOTES ([facility]</content>
<content></content>
<content>ORGANISM 1: STREP GALLOLYTICUS SP PASTEU</content>
[...] <=0.12 S</content>
<content></content> ID Date Data Source [id number] 09/03/2020 10:48:00 AM EST MEDENT ([facility]) Name Value Range Interpretation Code Description Data Nemo rce(s) Supporting Document(s) Magnesium 2.0 mg/dL 1.8-2.4 MED[facility] ([facility]) Potassium [Moles/volume] in Serum or Plasma 3.3 meq/L 3.5-5.1 MEDENT ([facility]) NOTE: RESULT VERIFIED. ID Date Data Source [id number] 08/27/2020 10:22:00 AM EST MEDENT ([facility]) Name Value Range Interpretation Code Description Data Nemo rce(s) Supporting Document(s) Glucose [Mass/volume] in Serum or Plasma 69 mg/dL 74-99 MEDENT ([facility]) 100-125 mg/dL PRE-DIABETES/FASTING >126 mg/dL DIABETES/FASTING Urea nitrogen [Mass/volume] in Serum or Plasma 24 mg/dL 7-18 MEDENT ([facility]) Creatinine 0.6 mg/dL 0.6-1.3 MEDENT ([facility]) Potassium [Moles/volume] in Serum or Plasma 3.8 meq/L 3.5-5.1 MEDENT ([facility]) Sodium [Moles/volume] in Serum or Plasma 142 meq/L 136-145 MEDENT ([facility]) Carbon dioxide, total [Moles/volume] in Serum or Plasma 26 meq/L 21 -32 MEDENT ([facility]) Chloride [Moles/volume] in Serum or Plasma 104 meq/L 98-107 MEDENT ([facility]) Calcium [Mass/volume] in Serum or Plasma 9.7 mg/dL 8.5-10.1 MEDENT ([facility]) Glomerular filtration rate/1.73 sq M pre dicted among non-blacks [Volume Rate/Area] in Serum or Plasma by Creatinine-based formula (MDRD) Laboratory test result MEDENT ([facility] ) Glomerular filtration rate/1.73 sq M pre dicted among blacks [Volume Rate/Area] in Serum or Plasma by Creatinine-based formula (MDRD) Laboratory test result MEDENT ([facility]) <content>CHRONIC KIDNEY DISEASE STAGING PER NKF</content>
<content></content>
<content>STAGE I & II GFR >= 60 NORMAL TO MILDLY DECREASED</content>
<content>STAGE III GFR 30-59 MODERATELY DECREASED</content>
<content>STAGE IV GFR 15-29 SEVERELY DECREASED</content>
<content>STAGE V GFR <15 VERY LITTLE GFR LEFT</content>
<content>ESRD GFR <15 ON TELEPHONE ADVICE NURSE</content>
<content></content> ID Date Data Source [id number] 08/27/2020 10:22:00 AM EST MEDENT ([facility]) Name Value Range Interpretation Code Description Data Nemo rce(s) Supporting Document(s) Magnesium 2.1 mg/dL 1.8-2.4 [facility] ([place] [facility]) ID Date Data Source [id number] 08/22/2020 10:17:00 AM EST MEDENT ([facility]) Name Value Range Interpretation Code Description Data Nemo rce(s) Supporting Document(s) Potassium [Moles/volume] in Serum or Plasma 2.7 meq/L 3.5- 5.1 Below lower panic limits MEDENT ([facility]) CRITICAL: RESULT VERIFIED. Provider notified. ID Date Data Source [id number] 08/17/2020 11:15:00 AM EST MEDENT ([facility], [facility]) Name Value Range Interpretation Code Description Data Nemo rce(s) Supporting Document(s) Bacteria identified in Urine by Culture Laboratory test result MEDENT ([facility], [facility]) advised to stop Macrobid ID Date Data Source [id number] 08/08/2020 12:00:00 AM EST [facility] Patient Name: AUGUSTINE SANTOYO [id number] [facility] Date of : [id number] Date of Exam: 08/08/2020THAO Bullard [id number]#: Fax: [phone] EXAM: MRI CERVICAL SPINE WITHOUT [...] rce(s) Supporting Document(s) ID Date Data Source [id number] 07/23/2020 10:22:00 AM EST MEDENT ([facility]) Name Value Range Interpretation Code Description Data Nemo rce(s) Supporting Document(s) Potassium [Moles/volume] in Serum or Plasma 3.3 meq/L 3.5-5.1 [facility] ID Date Data Source [id number] 07/17/2020 01:17:00 PM EST MEDENT ([facility]) Name Value Range Interpretation Code Description Data Nemo rce(s) Supporting Document(s) Urine Color Laboratory test result MEDEN T ([facility]) Urine Appearance Laboratory [facility]) Urine PH 6.0 units 5.0-9.0 [facility] Specific gravity of Urine 1.025 1.005-1.030 ME DENT ([facility]) Urine Leukocytes Laboratory test result MEDENT ([facility]) Urine Blood Laboratory test result MEDEN T ([facility]) Glucose [Presence] in Urine Laboratory test result MEDENT ([facility]) Urine Protein Laboratory test result 0-0 Abnormal (applies to non-numeric results) MEDENT ([facility]) Urine Ketone Laboratory test result MEDE NT ([facility]) Urine Nitrite Laboratory test result MED ENT ([facility]) Bilirubin.total [Mass/volume] in Serum or Plasma Laboratory test resu lt MEDENT ([facility]) Urine Urobilinogen 0.2 mg/dL 0.2-1.0 MEDENT ([facility]) ID Date Data Source [id number] 07/06/2020 08:10:00 AM EST MEDENT ([facility]) Name Value Range Interpretation Code Description Data Nemo rce(s) Supporting Document(s) Phosphate [Moles/volume] in Serum or Plasma 3.5 mg/dL 2.5-4.9 MEDENT ([facility]) ID Date Data Source [id number] 07/06/2020 08:09:00 AM EST MEDENT ([facility]) Name Value Range Interpretation Code Description Data Nemo rce(s) Supporting Document(s) Calcidiol [Mass/volume] in Serum or Plasma 29.5 24.0-80.0 MEDENT ([facility]) This test was performed using [employer] I P Vitamin D immunoassay kit. Values obtained with different assay methods should not be used interchangeably. ID Date Data Source [id number] 07/06/2020 08:09:00 AM EST MEDENT ([facility]) Name Value Range Interpretation Code Description Data Nemo rce(s) Supporting Document(s) Cholesterol [Mass/volume] in Serum or Plasma 207 mg/dL 131-200 MEDENT ([facility]) Triglyceride [Mass/volume] in Serum or Plasma 54 mg/dL 30-150 MEDENT ([facility]) Cholesterol in HDL [Mass/volume] in Serum or Plasma 110 mg/dL 35-60 MEDENT ([facility]) Cholesterol in LDL [Mass/volume] in Serum or Plasma by calcu lation 86 CALC 50-159 MEDENT ([facility]) ID Date Data Source [id number] 07/06/2020 08:09:00 AM EST MEDENT ([facility]) Name Value Range Interpretation Code Description Data Nemo rce(s) Supporting Document(s) Glucose [Mass/volume] in Serum or Plasma 74 mg/dL 74-99 MEDENT ([facility]) 100-125 mg/dL PRE-DIABETES/FASTING >126 mg/dL DIABETES/FASTING Urea nitrogen [Mass/volume] in Serum or Plasma 18 mg/dL 7-18 MEDENT ([facility]) Creatinine 0.6 mg/dL 0.6-1.3 MEDENT ([facility]) Sodium [Moles/volume] in Serum or Plasma 142 meq/L 136-145 MEDENT ([facility]) Potassium [Moles/volume] in Serum or Plasma 3.1 meq/L 3.5-5.1 MEDENT ([facility]) Chloride [Moles/volume] in Serum or Plasma 104 meq/L 98-107 MEDENT ([facility]) Carbon dioxide, total [Moles/volume] in Serum or Plasma 27 meq/L 21 -32 MEDENT ([facility]) Calcium [Mass/volume] in Serum or Plasma 8.6 mg/dL 8.5-10.1 MEDENT ([facility]) Alkaline phosphatase isoenzyme [Units/volume] in Serum or Pl asma 58 mg/dL 46-116 [facility] Total Bilirubin 0.6 mg/dL 0.2-1.0 MEDENT ([facility]) Aspartate aminotransferase [Enzymatic activity/volume] in Serum or Plasma 28 U/L 15-37 MEDENT ([facility] ) Alanine aminotransferase [Enzymatic activity/volume] in Seru m or Plasma 50 U/L 12-78 [facility] ([facility] Albumin [Mass/volume] in Serum or Plasma 3.8 g/dL 3.4-5.0 MEDENT ([facility]) Proteinase 3 Ab [Units/volume] in Serum 6.4 g/dL 6.4-8.2 MEDENT ([facility]) A/G Ratio 1.46 CALC 1.00-1.90 [facility] ([facility]) Glomerular filtration rate/1.73 sq M pre dicted among non-blacks [Volume Rate/Area] in Serum or Plasma by Creatinine-based formula (MDRD) Laboratory test result [facility] ([facility] Glomerular filtration rate/1.73 sq M pre dicted among blacks [Volume Rate/Area] in Serum or Plasma by Creatinine-based formula (MDRD) Laboratory test result MEDENT ([facility]) <content>CHRONIC KIDNEY DISEASE STAGING PER NKF</content>
<content></content>
<content>STAGE I & II GFR >= 60 NORMAL TO MILDLY DECREASED</content>
<content>STAGE III GFR 30-59 MODERATELY DECREASED</content>
<content>STAGE IV GFR 15-29 SEVERELY DECREASED</content>
<content>STAGE V GFR <15 VERY LITTLE GFR LEFT</content>
<content>ESRD GFR <15 ON TELEPHONE ADVICE NURSE</content>
<content></content> ID Date Data Source [id number] 07/06/2020 08:09:00 AM EST MEDENT ([facility]) Name Value Range Interpretation Code Description Data Nemo rce(s) Supporting Document(s) Magnesium 2.2 mg/dL 1.8-2.4 MEDENT ([facility]) ID Date Data Source [id number] 07/06/2020 08:09:00 AM EST MEDENT ([facility]) Name Value Range Interpretation Code Description Data Nemo rce(s) Supporting Document(s) Leukocytes [#/volume] in Blood by Automated count 5.3 x10*3/UL 4.1-10 .9 MEDENT ([facility]) Erythrocytes [#/volume] in Blood by Automated count 4.50 x10*6/UL 4.2 0-6.30 MEDENT ([facility]) Hemoglobin [Mass/volume] in Blood 13.3 g/dL 12.0-18.0 MEDENT ([facility]) Hematocrit [Volume Fraction] of Blood by Automated count 39.1 % 3 7.0-51.0 MED[facility] ([facility]) MCV 87.0 fL 80.0-97.0 [facility] ([place] [facility]) MCH 29.5 pg 26.0-32.0 [facility] ([facility]) MCHC 33.9 g/dL 31.0-38.0 [facility] ([facility]) Erythrocyte distribution width [Ratio] by Automated count 13.1 % 11.6-13.7 MEDENT ([facility]) Platelets [#/volume] in Blood by Automated count 291 x10*3/UL 140-440 MEDENT ([facility]) MPV 9.0 FL 7.8-11.0 [facility] Lymph % 32.1 % 10.0-58.5 MEDENT ([facility]) Neut % 61.1 % 37.0-92.0 MEDENT ([facility]) Mid % 6.8 % 1.7-9.3 [facility] ([facility]) Lymph # 1.7 x10*3/UL 0.6-4.1 MEDENT ([facility]) Mid # 0.4 x10*3/UL 0.1-0.6 MEDENT ([facility]) Neut # 3.2 x10*3/UL 2.0-7.8 [facility]) ID Date Data Source [id number] 05/23/2020 10:31:00 AM EDT [facility] Name Value Range Interpretation Code Description Data Nemo rce(s) Supporting Document(s) Potassium [Moles/volume] in Serum or Plasma 3.6 meq/L 3.5-5.1 [facility] ([facility] ID Date Data Source [id number] 05/15/2020 02:44:00 PM EDT [facility] Name Value Range Interpretation Code Description Data Nemo rce(s) Supporting Document(s) Urine Appearance Laboratory test result MEDENT ([facility]) Urine Color Laboratory test result MEDEN T ([facility] Urine PH 6.5 units 5.0-9.0 [facility] ([facility]) Specific gravity of Urine 1.020 1.005-1.030 ME DENT ([facility]) Urine Leukocytes Laboratory test [facility] Urine Protein Laboratory test result 0-0 Abnormal (applies to non-numeric results) [facility] ([facility] Urine Blood Laboratory test result MEDEN T ([facility]) Glucose [Presence] in Urine Laboratory test result MEDENT ([facility]) Urine Nitrite Laboratory test result MED ENT ([facility]) Urine Ketone Laboratory test result MEDE NT ([facility]) Urine Urobilinogen 0.2 mg/dL 0.2-1.0 [facility] ([facility]) Bilirubin.total [Mass/volume] in Serum or Plasma Laboratory test resu lt MEDENT ([facility]) ID Date Data Source [id number] 04/26/2020 10:36:00 AM EDT MEDENT ([facility]) Name Value Range Interpretation Code Description Data Nemo rce(s) Supporting Document(s) Potassium [Moles/volume] in Serum or Plasma 4.0 meq/L 3.5-5.1 [facility] ([facility]) ID Date Data Source [id number] 04/04/2020 10:28:00 AM EDT MEDENT ([facility]) Name Value Range Interpretation Code Description Data Nemo rce(s) Supporting Document(s) Potassium [Moles/volume] in Serum or Plasma 3.3 meq/L 3.5-5.1 [facility] ([facility]) NOTE: RESULT VERIFIED. ID Date Data Source [id number] 03/21/2020 10:25:00 AM EDT MEDENT ([facility]) Name Value Range Interpretation Code Description Data Nemo rce(s) Supporting Document(s) Potassium [Moles/volume] in Serum or Plasma 3.3 meq/L 3.5-5.1 [facility] ([facility]) Procedure Social History Code Duration Value Status Description Data Source(s ) Smoking 03/23/2021 10:29:11 PM EDT Never smoked tobacco (findi ng) completed Never smoked tobacco (finding) [place] (Joel Gonzalez MD [facility]) Smoking 03/06/2021 03:57:24 PM EDT Never smoked tobacco (findi ng) completed Never smoked tobacco (finding) [place] (Joel Gonzalez MD [facility]) Smoking 01/16/2021 04:16:21 PM EDT Never smoked tobacco (findi ng) completed Never smoked tobacco (finding) [place] (Joel Gonzalez MD [facility]) Smoking 01/16/2021 04:14:06 PM EDT Never smoked tobacco (findi ng) completed Never smoked tobacco (finding) [place] (Joel Gonzalez MD [facility]) Smoking 01/16/2021 04:13:38 PM EDT Never smoked tobacco (findi ng) completed Never smoked tobacco (finding) [place] (Joel Gonzalez MD [facility]) Smoking 01/16/2021 04:12:42 PM EDT Never smoked tobacco (findi ng) completed Never smoked tobacco (finding) [place] (Joel Gonzalez MD [facility]) Smoking 01/16/2021 04:11:25 PM EDT Never smoked tobacco (findi ng) completed Never smoked tobacco (finding) [place] (Joel Gonzalez MD [facility]) Smoking 01/16/2021 04:09:08 PM EDT Never smoked tobacco (findi ng) completed Never smoked tobacco (finding) [place] (Joel Gonzalez MD [facility]) Smoking 01/16/2021 04:08:33 PM EDT Never smoked tobacco (findi ng) completed Never smoked tobacco (finding) [place] (Joel Gonzalez MD [facility]) Smoking 12/25/2020 12:00:00 AM EDT Patient has never smoked co mpleted Patient has never smoked MEDENT ([facility]) Smoking 09/21/2020 02:42:24 PM EST Never smoked tobacco (findi ng) completed Never smoked tobacco (finding) [place] (Joel Gonzalez MD [facility]) Smoking 09/20/2020 01:38:50 PM EST Never smoked tobacco (findi ng) completed Never smoked tobacco (finding) [place] (Joel Gonzalez MD [facility]) Smoking 05/15/2020 01:29:15 PM EDT Never smoked tobacco (findi ng) completed Never smoked tobacco (finding) [place] (Joel Gonzalez MD [facility]) Vital Signs ID Date Data Source UNK Name Value Range Interpretation Code Description Data Source(s) Systolic blood pressure 126 mm[Hg] 126 mm[Hg] M EDENT ([facility]) Heart rate 93 /min 93 /min MEDENT ([facility]) Oxygen saturation in Arterial blood by Pulse oximetry 96 % 96 % MEDENT ([facility]) Diastolic blood pressure 77 mm[Hg] 77 mm[Hg] MEDENT ([facility]) Respiratory rate 16 /min 16 /min MEDENT ( [facility], [facility]) Body weight 94.00 [lb_av] 94.00 [lb_av] MEDENT ([facility], [facility]) Body temperature 97.5 [degF] 97.5 [degF] MED[facility] ([facility], [facility]) Body height 61 [in_i] 61 [in_i] MEDENT ([facility], [facility]) 5'1" Body mass index (BMI) [Ratio] 17.8 kg/m2 17.8 k g/m2 MEDENT ([facility], [facility]) Body temperature 97.5 [degF] 97.5 [degF] MEDENT ([facility]) Body height 61 [in_i] 61 [in_i] MEDENT ([facility]) 5'1" Body weight 94.00 [lb_av] 94.00 [lb_av] MEDENT ([facility]) Body mass index (BMI) [Ratio] 17.8 kg/m2 17.8 k g/m2 MEDENT ([facility]) Body height 61 [in_i] 61 [in_i] MEDENT ([facility]) 5'1" Body weight 97.00 [lb_av] 97.00 [lb_av] MEDENT ([facility]) Oxygen saturation in Arterial blood by Pulse oximetry 98 % 98 % MEDENT ([facility]) Body mass index (BMI) [Ratio] 18.3 kg/m2 18.3 k g/m2 MEDENT ([facility]) Systolic blood pressure 110 mm[Hg] 110 mm[Hg] EDENT ([facility]) Diastolic blood pressure 68 mm[Hg] 68 mm[Hg] MEDENT ([facility]) Heart rate 68 /min 68 /min MEDENT ([facility]) Body weight 96.8 [lb_av] 96.8 [lb_av] W1 ([facility]) Body weight 43.91 kg 43.91 kg eCW1 ([facility]) Body height 61 [in_i] 61 [in_i] eCW1 ([facility]) Body mass index (BMI) [Ratio] 18.29 kg/m2 18.29 kg/m2 eCW1 ([facility]) Heart rate 60 /min 60 /min eCW1 ([facility] Respiratory rate 16 /min 16 /min eCW1 ([facility]) Body temperature 97.5 [degF] 97.5 [degF] eCW1 ( [facility]) Systolic blood pressure 115 mm[Hg] 115 mm[Hg] e CW1 ([facility]) Diastolic blood pressure 61 mm[Hg] 61 mm[Hg] eCW1 ([facility]) Body height 61 [in_i] 61 [in_i] MEDENT ([facility]) 5'1" Body weight 94.12 [lb_av] 94.12 [lb_av] MEDENT ([facility]) Body mass index (BMI) [Ratio] 17.8 kg/m2 17.8 k g/m2 [facility] ([facility]) [place] body weight 105 [lb_av] 105 [lb_av] MEDEN T ([facility]) Body weight 42.695 kg 42.695 kg [facility] ([facility]) Body surface area Derived from formula 1.37 m2 1.37 m2 [facility] ([facility]) Respiratory rate 18 /min 18 /min MEDENT ( [facility], [facility]) Heart rate 59 /min 59 /min [facility]) Oxygen saturation in Arterial blood by Pulse oximetry 98 % 98 % [facility] ([facility], [facility]) Body temperature 97.9 [degF] 97.9 [degF] MEDENT ([facility], [facility]) Body height 61 [in_i] 61 [in_i] MEDENT ([facility], [facility]) 5'1" Body mass index (BMI) [Ratio] 17.8 kg/m2 17.8 k g/m2 MEDENT ([facility], [facility]) Systolic blood pressure 113 mm[Hg] 113 mm[Hg] M EDENT ([facility], [facility]) Diastolic blood pressure 71 mm[Hg] 71 mm[Hg] MEDENT ([facility]) Body weight 94.00 [lb_av] 94.00 [lb_av] MEDENT ([facility], [facility]) Body weight 97.0 [lb_av] 97.0 [lb_av] eCW1 ([facility]) Systolic blood pressure 140 mm[Hg] 140 mm[Hg] e CW1 ([facility]) Diastolic blood pressure 63 mm[Hg] 63 mm[Hg] eCW1 ([facility]) Body weight 44 kg 44 kg eCW1 ([facility]) Body height 61 [in_i] 61 [in_i] eCW1 ([facility]) Body mass index (BMI) [Ratio] 18.40 kg/m2 18.40 kg/m2 eCW1 ([facility]) Heart rate 68 /min 68 /min eCW1 ([facility]) Respiratory rate 18 /min 18 /min eCW1 ([facility]) Body temperature 97.0 [degF] 97.0 [degF] eCW1 ( [facility]) Body weight 97.4 [lb_av] 97.4 [lb_av] eCW1 ([facility]) Body height 61 [in_i] 61 [in_i] eCW1 ([facility]) Body mass index (BMI) [Ratio] 18.40 kg/m2 18.40 kg/m2 eCW1 ([facility]) Heart rate 66 /min 66 /min eCW1 ([facility] hospital) Respiratory rate 18 /min 18 /min eCW1 ([facility]) Body temperature 97.0 [degF] 97.0 [degF] eCW1 ( [facility]) Systolic blood pressure 116 mm[Hg] 116 mm[Hg] e CW1 ([facility]) Diastolic blood pressure 65 mm[Hg] 65 mm[Hg] eCW1 ([facility]) Body weight 44.113 kg 44.113 kg MEDENT ([facility] ) Systolic blood pressure 98 mm[Hg] 98 mm[Hg] M EDENT ([facility]) Diastolic blood pressure 60 mm[Hg] 60 mm[Hg] MEDENT ([facility]) Heart rate 56 /min 56 /min [facility] ([facility]) Oxygen saturation in Arterial blood by Pulse oximetry 99 % 99 % [facility] ([facility]) Body height 61 [in_i] 61 [in_i] [facility] ([facility]) 5'1" Body weight 97.25 [lb_av] 97.25 [lb_av] [facility] ([facility]) Body mass index (BMI) [Ratio] 18.4 kg/m2 18.4 k g/m2 [facility] ([facility]) [place] body weight 105 [lb_av] 105 [lb_av] MEDEN T ([facility]) Body surface area Derived from formula 1.39 m2 1.39 m2 [facility] ([facility]) Respiratory rate 18 /min 18 /min eCW1 ([facility]) Body temperature 98.2 [degF] 98.2 [degF] eCW1 ( [facility]) Systolic blood pressure 108 mm[Hg] 108 mm[Hg] e CW1 ([facility]) Diastolic blood pressure 55 mm[Hg] 55 mm[Hg] eCW1 ([facility]) Body weight 97.8 [lb_av] 97.8 [lb_av] eCW1 ([facility]) Body height 61 [in_i] 61 [in_i] eCW1 ([facility]) Body mass index (BMI) [Ratio] 18.48 kg/m2 18.48 kg/m2 eCW1 ([facility]) Heart rate 55 /min 55 /min eCW1 ([facility]) Systolic blood pressure 102 mm[Hg] 102 mm[Hg] M EDENT ([facility]) Diastolic blood pressure 60 mm[Hg] 60 mm[Hg] MEDENT ([facility]) Body height 61 [in_i] 61 [in_i] MEDENT ([facility]) 5'1" Body weight 97.00 [lb_av] 97.00 [lb_av] MEDENT ([facility]) Oxygen saturation in Arterial blood by Pulse oximetry 98 % 98 % MEDENT ([facility]) Body mass index (BMI) [Ratio] 18.3 kg/m2 18.3 k g/m2 MEDENT ([facility]) Heart rate 58 /min 58 /min MEDENT ([facility]) Body weight 98.00 [lb_av] 98.00 [lb_av] [facility] Body mass index (BMI) [Ratio] 18.5 kg/m2 18.5 k g/m2 [facility] Systolic blood pressure 100 mm[Hg] 100 mm[Hg] [facility] Diastolic blood pressure 58 mm[Hg] 58 mm[Hg] [facility] Heart rate 68 /min 68 /min MEDENT ([facility]) Body height 61 [in_i] 61 [in_i] [facility] ([facility]) 5'1" Body weight 97.00 [lb_av] 97.00 [lb_av] [facility] Oxygen saturation in Arterial blood by Pulse oximetry 98 % 98 % [facility] Systolic blood pressure 92 mm[Hg] 92 mm[Hg] [facility] Diastolic blood pressure 56 mm[Hg] 56 mm[Hg] [facility] Heart rate 76 /min 76 /min [facility] Body height 61 [in_i] 61 [in_i] [facility] ([facility]) 5'1" Body mass index (BMI) [Ratio] 18.3 kg/m2 18.3 k g/m2 [facility] Heart rate 56 /min 56 /min [facility], [facility]) Systolic blood pressure 110 mm[Hg] 110 mm[Hg] [facility]) Diastolic blood pressure 71 mm[Hg] 71 mm[Hg] [facility], [facility]) Respiratory rate 16 /min 16 /min MEDENT ( [facility], [facility]) Oxygen saturation in Arterial blood by Pulse oximetry 98 % 98 % MEDENT ([facility], [facility]) Body height 61 [in_i] 61 [in_i] MEDENT ([facility], [facility]) 5'1" Body mass index (BMI) [Ratio] 17.8 kg/m2 17.8 k g/m2 MEDENT ([facility], [facility]) Body temperature 97.0 [degF] 97.0 [degF] MEDENT ([facility], [facility]) Body weight 94.00 [lb_av] 94.00 [lb_av] MEDENT ([facility], [facility]) Body weight 99.0 [lb_av] 99.0 [lb_av] W1 ([facility]) Body height 61 [in_i] 61 [in_i] eCW1 ([facility]) Body mass index (BMI) [Ratio] 18.70 kg/m2 18.70 kg/m2 W1 ([facility]) Heart rate 62 /min 62 /min eCW1 ([facility] hospital) Respiratory rate 18 /min 18 /min eCW1 ([facility]) Body temperature 97.0 [degF] 97.0 [degF] eCW1 ( [facility]) Systolic blood pressure 118 mm[Hg] 118 mm[Hg] e CW1 ([facility]) Diastolic blood pressure 64 mm[Hg] 64 mm[Hg] eCW1 ([facility]) Heart rate 52 /min 52 /min MEDENT ([facility], [facility]) Systolic blood pressure 113 mm[Hg] 113 mm[Hg] M EDENT ([facility], [facility]) Respiratory rate 16 /min 16 /min MEDENT ( [facility], [facility]) Diastolic blood pressure 77 mm[Hg] 77 mm[Hg] MEDENT ([facility], [facility]) Body temperature 97.3 [degF] 97.3 [degF] MEDENT ([facility], [facility]) Body weight 94.00 [lb_av] 94.00 [lb_av] [facility] ([facility], [facility]) Oxygen saturation in Arterial blood by Pulse oximetry 99 % 99 % [facility] ([facility], [facility]) Body height 61 [in_i] 61 [in_i] [facility] ([facility]) 5'1" Body mass index (BMI) [Ratio] 17.8 kg/m2 17.8 k g/m2 [facility] ([facility], [facility]) Systolic blood pressure 108 mm[Hg] 108 mm[Hg] M EDENT ([facility], [facility]) Diastolic blood pressure 67 mm[Hg] 67 mm[Hg] [facility] ([facility], [facility]) Heart rate 74 /min 74 /min [facility] ([facility], [facility]) Respiratory rate 12 /min 12 /min [facility] ( [facility], [facility]) Oxygen saturation in Arterial blood by Pulse oximetry 98 % 98 % [facility] ([facility], [facility]) Body temperature 97.1 [degF] 97.1 [degF] [facility] ([facility], [facility]) Body weight 94.00 [lb_av] 94.00 [lb_av] [facility] ([facility], [facility]) Body height 61 [in_i] 61 [in_i] [facility] ([facility]) 5'1" Body mass index (BMI) [Ratio] 17.8 kg/m2 17.8 k g/m2 [facility] ([facility], [facility]) Heart rate 72 /min 72 /min [facility] Body height 61 [in_i] 61 [in_i] [facility]) 5'1" Oxygen saturation in Arterial blood by Pulse oximetry 98 % 98 % [facility]) Systolic blood pressure 110 mm[Hg] 110 mm[Hg] M EDENT ([facility]) Diastolic blood pressure 60 mm[Hg] 60 mm[Hg] MEDENT ([facility]) Body weight 97.00 [lb_av] 97.00 [lb_av] [facility] Body mass index (BMI) [Ratio] 18.3 kg/m2 18.3 k g/m2 MEDENT ([facility]) Diastolic blood pressure 74 mm[Hg] 74 mm[Hg] MEDENT ([facility], [facility]) Heart rate 64 /min 64 /min MEDENT ([facility], [facility]) Body weight 94.00 [lb_av] 94.00 [lb_av] MEDENT ([facility], [facility]) Body height 61 [in_i] 61 [in_i] MEDENT ([facility], [facility]) 5'1" Body mass index (BMI) [Ratio] 17.8 kg/m2 17.8 k g/m2 MEDENT ([facility], [facility]) Body temperature 97.5 [degF] 97.5 [degF] MEDENT ([facility], [facility]) Systolic blood pressure 126 mm[Hg] 126 mm[Hg] M EDENT ([facility], [facility]) Respiratory rate 16 /min 16 /min MEDENT ( [facility], [facility]) Oxygen saturation in Arterial blood by Pulse oximetry 99 % 99 % MEDENT ([facility], [facility]) Respiratory rate 12 /min 12 /min MEDENT ( [facility], [facility]) Oxygen saturation in Arterial blood by Pulse oximetry 99 % 99 % [facility]) Systolic blood pressure 107 mm[Hg] 107 mm[Hg] M EDENT ([facility], [facility]) Diastolic blood pressure 71 mm[Hg] 71 mm[Hg] MEDENT ([facility], [facility]) Heart rate 68 /min 68 /min MEDENT ([facility], [facility]) Body temperature 97.7 [degF] 97.7 [degF] MEDENT ([facility], [facility]) Body weight 94.00 [lb_av] 94.00 [lb_av] MEDENT ([facility], [facility]) Body height 61 [in_i] 61 [in_i] MEDENT ([facility], [facility]) 5'1" Body mass index (BMI) [Ratio] 17.8 kg/m2 17.8 k g/m2 [facility] ([facility], [facility]) Systolic blood pressure 104 mm[Hg] 104 mm[Hg] M EDENT ([facility]) Diastolic blood pressure 65 mm[Hg] 65 mm[Hg] [facility] ([facility]) [place] body weight 105 [lb_av] 105 [lb_av] MEDEN T ([facility]) Body weight 44.453 kg 44.453 kg [facility] ([facility]) Body surface area Derived from formula 1.39 m2 1.39 m2 [facility] ([facility]) Body height 61 [in_i] 61 [in_i] [facility] ([facility]) 5'1" Body weight 98.00 [lb_av] 98.00 [lb_av] [facility] ([facility]) Body mass index (BMI) [Ratio] 18.5 kg/m2 18.5 k g/m2 [facility] ([facility]) Body height 61 [in_i] 61 [in_i] MEDENT ([facility]) 5'1" Body weight 98.00 [lb_av] 98.00 [lb_av] [facility] ([facility]) Body mass index (BMI) [Ratio] 18.5 kg/m2 18.5 k g/m2 [facility] ([facility]) [place] body weight 105 [lb_av] 105 [lb_av] MEDEN T ([facility]) Body weight 44.453 kg 44.453 kg [facility] ([facility]) Body surface area Derived from formula 1.39 m2 1.39 m2 [facility] ([facility]) Body weight 98.00 [lb_av] 98.00 [lb_av] [facility] ([facility]) Body mass index (BMI) [Ratio] 18.5 kg/m2 18.5 k g/m2 [facility] ([facility]) Systolic blood pressure 100 mm[Hg] 100 mm[Hg] [facility] Diastolic blood pressure 68 mm[Hg] 68 mm[Hg] [facility] Body height 61 [in_i] 61 [in_i] MEDENT ([facility]) 5'1" Body height 61 [in_i] 61 [in_i] MEDENT ([facility]) 5'1" Body weight 96.00 [lb_av] 96.00 [lb_av] MEDENT ([facility]) Body mass index (BMI) [Ratio] 18.1 kg/m2 18.1 k g/m2 [facility] Oxygen saturation in Arterial blood by Pulse oximetry 98 % 98 % [facility] ([facility]) Body temperature 98.0 [degF] 98.0 [degF] [facility] ([facility], [facility]) Systolic blood pressure 96 mm[Hg] 96 mm[Hg] [facility]) Diastolic blood pressure 65 mm[Hg] 65 mm[Hg] [facility] ([facility], [facility]) Heart rate 84 /min 84 /min [facility], [facility]) Respiratory rate 14 /min 14 /min [facility] ( [facility], [facility]) Body weight 94.00 [lb_av] 94.00 [lb_av] [facility] ([facility], [facility]) Diastolic blood pressure 66 mm[Hg] 66 mm[Hg] [facility] ([facility]) Heart rate 58 /min 58 /min [facility] Body height 61 [in_i] 61 [in_i] MEDENT ([facility]) 5'1" Body weight 97.00 [lb_av] 97.00 [lb_av] [facility]) Systolic blood pressure 108 mm[Hg] 108 mm[Hg] [facility] Body mass index (BMI) [Ratio] 18.3 kg/m2 18.3 k g/m2 [facility] Body weight 96.00 [lb_av] 96.00 [lb_av] MEDENT ([facility]) Body mass index (BMI) [Ratio] 18.1 kg/m2 18.1 k g/m2 MEDENT ([facility]) Systolic blood pressure 102 mm[Hg] 102 mm[Hg] [facility] Diastolic blood pressure 70 mm[Hg] 70 mm[Hg] [facility] ([facility]) Body height 61 [in_i] 61 [in_i] [facility] ([facility]) 5'1" Systolic blood pressure 110 mm[Hg] 110 mm[Hg] [facility]) Diastolic blood pressure 78 mm[Hg] 78 mm[Hg] [facility] ([facility], [facility]) Heart rate 65 /min 65 /min [facility] ([facility], [facility]) Respiratory rate 16 /min 16 /min [facility] ( [facility], [facility]) Oxygen saturation in Arterial blood by Pulse oximetry 98 % 98 % [facility] ([facility], [facility]) Body temperature 98.4 [degF] 98.4 [degF] [facility] ([facility], [facility]) Body weight 94.00 [lb_av] 94.00 [lb_av] [facility] ([facility], [facility]) Body height 61 [in_i] 61 [in_i] [facility] ([facility], [facility]) 5'1" Body mass index (BMI) [Ratio] 17.8 kg/m2 17.8 k g/m2 [facility] ([facility], [facility]) Systolic blood pressure 100 mm[Hg] 100 mm[Hg] [facility] Diastolic blood pressure 68 mm[Hg] 68 mm[Hg] [facility] Heart rate 67 /min 67 /min [facility] ([facility]) Body height 61 [in_i] 61 [in_i] [facility] ([facility]) 5'1" Body weight 94.00 [lb_av] 94.00 [lb_av] [facility] ([facility]) Oxygen saturation in Arterial blood by Pulse oximetry 99 % 99 % [facility] ([facility]) Body mass index (BMI) [Ratio] 17.8 kg/m2 17.8 k g/m2 [facility] ([facility]) Patient Treatment Plan of Care Planned Activity Planned Date Details Description Data Source (s) loteprednol etabonate 5 MG/ML Ophthalmic Suspension [L otemax] 04/03/2021 12:00:00 AM EDT MARIEL (Joel Gonzalez MD [facility]) Xiidra 5% Ophthalmic Solution 03/06/2021 12:00:00 AM EDT MARIEL (Joel Gonzalez MD [facility]) Inveltys 1% Ophthalmic Suspension 01/09/2021 12:00:00 AM EDT MARIEL (Joel Gonzalez MD [facility]) Ibuprofen 800 MG Oral Tablet 12/19/2020 12:00:00 AM EDT eCW1 ([facility]) Ibuprofen 800 MG Oral Tablet 12/19/2020 12:00:00 AM EDT eCW1 ([facility]) Ibuprofen 800 MG Oral Tablet 12/19/2020 12:00:00 AM EDT eCW1 ([facility]) Ibuprofen 800 MG Oral Tablet 12/19/2020 12:00:00 AM EDT eCW1 ([facility]) Ibuprofen 800 MG Oral Tablet 12/19/2020 12:00:00 AM EDT eCW1 ([facility]) loteprednol etabonate 5 MG/ML Ophthalmic Suspension [L otemax] 12/06/2020 12:00:00 AM EDT MARIEL (Joel Gonzalez MD [facility]) loteprednol etabonate 5 MG/ML Ophthalmic Suspension 11/21/19 12:00:00 AM EDT MARIEL (Joel Gonzalez MD [facility]) bepotastine besilate 15 MG/ML Ophthalmic Solution [Bep reve] 07/25/2020 12:00:00 AM EST MARIEL (Joel Gonzalez MD [facility]) Inveltys 1% Ophthalmic Suspension 05/15/2020 12:00:00 AM EDT MARIEL (Joel Gonzalez MD [facility]) Cequa 0.09% Ophthalmic Solution 05/15/2020 12:00:00 AM EDT MARIEL (Joel Gonzalez MD [facility]) Xiidra 5% Ophthalmic Solution 03/21/2020 12:00:00 AM EDT MARIEL (Joel Gonzalez MD [facility]) Cyclosporine 0.5 MG/ML Ophthalmic Suspension [Restasis ] 03/21/2020 12:00:00 AM EDT MARIEL (Joel KAY) Cequa 0.09% Ophthalmic Solution 03/15/2020 12:00:00 AM EDT MARIEL (Joel KAY) Inveltys 1% Ophthalmic Suspension 01/20/2020 12:00:00 AM EDT MARIEL (Joel KAY) loteprednol etabonate 5 MG/ML Ophthalmic Suspension [L otemax] 10/10/2019 12:00:00 AM EDT MARIEL (Joel KAY) bepotastine besilate 15 MG/ML Ophthalmic Solution [Bep reve] 07/14/2019 12:00:00 AM EST MARIEL (Joel KAY)
[2021-05-19] MEDS ORDERED: NS 1,000 ML IV ONE (13:00)
[2021-05-19] MEDS ORDERED: ACETAMINOPHEN 325 MG TAB PO ONE (13:05)
[2021-05-19 13:27] LABS: BASO % 0.2 % (0.0-1.0); EOS # 0.2 10^3/uL (0.0-0.5); EOS % 2.2 % (0.0-3.0); HEMATOCRIT 35.9 % (36.0-47.0); HEMOGLOBIN 11.8 g/dl (12.0-15.5); LYMPH # 0.5 10^3/uL (1.5-5.0); LYMPH % 4.5 % (24.0-44.0); MEAN CORPUSCULAR HEMOGLOBIN 29.6 pg (27.0-33.0); MEAN CORPUSCULAR HGB CONC 32.9 g/dl (32.0-36.5); MEAN CORPUSCULAR VOLUME 90.2 fl (80.0-96.0); MONO # 0.6 10^3/uL (0.0-0.8); MONO % 5.8 % (2.0-8.0); NEUTROPHILS # 8.8 10^3/uL (1.5-8.5); NEUTROPHILS % 86.9 % (36.0-66.0); PLATELET COUNT, AUTOMATED 189 10^3/uL (150-450); RED BLOOD COUNT 3.98 10^6/uL (4.00-5.40); WHITE BLOOD COUNT 10.1 10^3/uL (4.0-10.0)
[2021-05-19 13:37] LABS: INR 1.09; PROTHROMBIN TIME 14.6 SECONDS (12.7-14.5)
[2021-05-19 13:38] LABS: PARTIAL THROMBOPLASTIN TIME 32.3 SECONDS (25.9-37.0)
[2021-05-19] MEDS ORDERED: ISOVUE-370 76% 100ML VIAL As Ordered ONE (13:40)
[2021-05-19 13:50] LABS: ERYTHROCYTE SEDIMENTATION RATE 56 mm/hr (0-30)
--- NOTE | 2021-05-19 13:52 | ECGEPIP ---
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
[2021-05-19 13:55] LABS: ALBUMIN 2.9 GM/DL (3.2-5.2); ALT/SGPT 51 U/L (12-78); BILIRUBIN,DIRECT < 0.1 MG/DL (0.0-0.2); BILIRUBIN,TOTAL 0.6 MG/DL (0.2-1.0); CK-MB VALUE MASS < 1.0 NG/ML (<3.6); CPK CREATINE PHOSPHOKINASE 200 U/L (26-192); TOTAL PROTEIN 6.5 GM/DL (6.4-8.2); TROPONIN I < 0.02 NG/ML (< 0.10)
--- NOTE | 2021-05-19 14:15 | REP ---
INDICATION: chills, dizziness. COMPARISON: PA and lateral chest, 11/07/2020. TECHNIQUE: Portable upright AP chest image was obtained. FINDINGS: There is pleural-parenchymal scarring in both lung apices. The lungs are otherwise clear. The heart borders and mediastinum are normal. The upper abdominal bowel gas pattern is normal. Status post right rotator cuff repair. IMPRESSION: No evidence of acute cardiopulmonary pathology. No significant change. <Electronically signed by Speedy Stapleton > 05/19/21 [id number]
--- NOTE | 2021-05-19 14:42 | REP ---
INDICATION: BARRERA, dizziness, neck pain. COMPARISON: CTA head and neck same day TECHNIQUE: Contiguous 5 mm thick axial projection images were obtained through the head. 2D coronal reconstructions were performed. FINDINGS: There is ventricular dilatation without concomitant cerebral atrophy suggesting communicating hydrocephalus. There is no evidence of acute intracranial hemorrhage or infarction. There are no abnormal intracranial masses or mass effects. The skull base and calvarium are normal. The intraorbital and visualized extracranial soft tissues are unremarkable. IMPRESSION: Ventriculomegaly suggesting communicating hydrocephalus. Pertinent findings: Possible communicating hydrocephalus. The critical information above was relayed directly by me by telephone to TAMY PEARSON on 05/19/2021 at 2:37 pm with readback verification. <Electronically signed by Speedy Stapleton > 05/19/21 [id number]
--- NOTE | 2021-05-19 14:52 | REPVR ---
PROCEDURE INFORMATION: Exam: CT Angiography Head With Contrast, Arteriography Exam date and time: 05/19/2021 1:50 PM Age: 71 years old Clinical indication: Pain; Dizziness and giddiness; Headache; Additional info: BARRERA, dizziness, neck pain TECHNIQUE: Imaging protocol: Computed tomography angiography of the head with contrast. Exam focused on the arteries. 3D rendering (Not supervised by radiologist): MIP and/or 3D reconstructed images were created by the technologist. Radiation optimization: All CT scans at this facility use at least one of these dose optimization techniques: automated exposure control; mA and/or kV adjustment per patient size (includes targeted exams where dose is matched to clinical indication); or iterative reconstruction. Contrast material: ISOVUE 370; Contrast volume: 100 ml; Contrast route: INTRAVENOUS (IV); COMPARISON: CR SINUSES COMPLETE 04/25/2021 2:02 PM FINDINGS: ANTERIOR CIRCULATION: Right internal carotid artery: Unremarkable. Intracranial segment is patent with no significant stenosis. No aneurysm. Right middle cerebral artery: Unremarkable. No occlusion or significant stenosis. No aneurysm. Right anterior cerebral artery: Unremarkable. No occlusion or significant stenosis. No aneurysm. Left internal carotid artery: Unremarkable. Intracranial segment is patent with no significant stenosis. No aneurysm. Left middle cerebral artery: Unremarkable. No occlusion or significant stenosis. No aneurysm. Left anterior cerebral artery: Unremarkable. No occlusion or significant stenosis. No aneurysm. POSTERIOR CIRCULATION: Right vertebral artery: The right vertebral artery is dominant. Patent. 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 Patent. Basilar artery: Unremarkable. No occlusion or significant stenosis. No aneurysm. Right posterior cerebral artery: Unremarkable. No occlusion or significant stenosis. No aneurysm. Left posterior cerebral artery: Unremarkable. No occlusion or significant stenosis. No aneurysm. Brain: No overt hemorrhage or edema. Cerebral ventricles: The ventricles are enlarged probably reflecting volume loss. Orbital cavity: Thinning of the lenses of the globes consistent with prior lens surgery. Bones/joints: Unremarkable. No acute fracture. IMPRESSION: No proximal intracranial arterial occlusion or stenosis. Electronically signed by: Isabella Larios On 05/19/2021 14:52:14 PM
--- NOTE | 2021-05-19 15:00 | REPVR ---
PROCEDURE INFORMATION: Exam: CT Angiography Neck With Contrast Exam date and time: 05/19/2021 1:50 PM Age: 71 years old Clinical indication: Pain; Dizziness and giddiness; Headache; Additional info: BARRERA, dizziness, neck pain TECHNIQUE: Imaging protocol: Computed tomography angiography of the neck with contrast. 3D rendering (Not supervised by radiologist): MIP and/or 3D reconstructed images were created by the technologist. Radiation optimization: All CT scans at this facility use at least one of these dose optimization techniques: automated exposure control; mA and/or kV adjustment per patient size (includes targeted exams where dose is matched to clinical indication); or iterative reconstruction. Contrast material: ISOVUE 370; Contrast volume: 100 ml; Contrast route: INTRAVENOUS (IV); COMPARISON: CR SINUSES COMPLETE 04/25/2021 2:02 PM FINDINGS: Right common carotid artery: No stenosis. No dissection or occlusion. Right internal carotid artery: No stenosis of the extracranial segment. No dissection or occlusion. Right external carotid artery: No occlusion or stenosis of the origin. Left common carotid artery: No stenosis. No dissection or occlusion. Left internal carotid artery: No stenosis of the extracranial segment. No dissection or occlusion. Left external carotid artery: No occlusion or stenosis of the origin. Right vertebral artery: The right vertebral artery is dominant. Patent. 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 Patent. Soft tissues: Normal. No significant soft tissue swelling. Bones/joints: Mild cervical dextroconvex scoliosis. There is cervical degenerative disc disease from C3-C4 through C6-C7, in particular C5-C6 and C6-C7 levels. 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 No severe central spinal canal stenoses. There are neural foraminal stenoses due to uncovertebral and facet arthropathy. IMPRESSION: 1. No acute vascular findings in the neck. 2. 0% right ICA stenosis. 3. 0% left ICA stenosis. 4. The vertebral arteries are patent without stenoses. REFERENCES: NASCET CRITERIA. The degree of internal carotid artery stenosis is based on NASCET criteria. Normal is no stenosis. Mild is less than 50% stenosis. Moderate is 50-69% stenosis. Severe is 70% to 99% stenosis. Total occlusion is no detectable patent lumen. Electronically signed by: Isabella Larios On 05/19/2021 14:59:55 PM
[2021-05-19] MEDS ORDERED: POTASSIUM CHLORIDE 10MEQ SR TABLET PO ONE (15:15)
[2021-05-19 16:36] VITALS: BP 96/50
== END 2021-05-19 16:41 | disposition home or self-care (01) ==
LOC: M ED 11:48
DX: G91.0 Communicating hydrocephalus (principal); E87.6 Hypokalemia; R51.9 Headache, unspecified; R42 Dizziness and giddiness; R68.83 Chills (without fever); E78.5 Hyperlipidemia, unspecified; K58.9 Irritable bowel syndrome, unspecified; Z88.0 Allergy status to penicillin; Z88.5 Allergy status to narcotic agent; Z88.8 Allergy status to other drugs, medicaments and biological substances; Z88.6 Allergy status to analgesic agent; Z79.899 Other long term (current) drug therapy; Z79.82 Long term (current) use of aspirin
CPT/HCPCS: 70450; 70496; 70498; 71045; 80047; 80076; 81001; 82550; 82553; 84484; 85025; 85610; 85652; 85730; 86140; 87798; 93005; 96360; 96361; 99284; Q9967

== ENCOUNTER → 2021-05-23 | Outpatient (CLI) | payer MEDICARE, OTHER ==
[~2021-05-23] MED LIST changes: +ECOT81TA5 PO; +K-TA10TA PO
== END ==
LOC: M LABSMTC 11:15
PROVIDERS: ATTEND Anesthesiology
DX: Z01.812 Encounter for preprocedural laboratory examination (principal); Z20.822 Contact with and (suspected) exposure to COVID-19

== ENCOUNTER → 2021-05-24 | Outpatient (REF) | payer MEDICARE, OTHER ==
[2021-05-24 18:10] LABS: PERCENT SATURATION 4.3 % (13.2-45.0)
[2021-05-24 18:18] LABS: FOLATE 6.5 NG/ML
== END ==
LOC: M LAB REF 17:17
PROVIDERS: ATTEND Internal Medicine
DX: D64.9 Anemia, unspecified (principal)

== ENCOUNTER → 2021-05-28 | Outpatient (CLI) | payer MEDICARE, OTHER ==
[~2021-05-28] MED LIST changes: +BUPIVACAINE HCL 0.25% 10ML VIAL As Ordered ONE; +BUPIVACAINE HCL 0.25% 30ML VIAL As Ordered ONE; +TRIAMCINOLONE ACETONIDE SUSP 40 MG/ML VIAL (J3301) As Ordered ONE
== END ==
LOC: M PAIN 14:20
PROVIDERS: ATTEND Anesthesiology
DX: M79.18 Myalgia, other site (principal); M54.2 Cervicalgia; E78.00 Pure hypercholesterolemia, unspecified; K58.9 Irritable bowel syndrome, unspecified; E55.9 Vitamin D deficiency, unspecified; M81.0 Age-related osteoporosis without current pathological fracture; F41.9 Anxiety disorder, unspecified; Z79.82 Long term (current) use of aspirin; Z79.899 Other long term (current) drug therapy; Z88.0 Allergy status to penicillin; Z88.8 Allergy status to other drugs, medicaments and biological substances
CPT/HCPCS: 20552; J3301

== ENCOUNTER → 2021-06-05 | Outpatient (CLI) | payer MEDICARE, OTHER ==
[~2021-06-05] MED LIST changes: -BUPIVACAINE HCL 0.25% 10ML VIAL As Ordered ONE; -BUPIVACAINE HCL 0.25% 30ML VIAL As Ordered ONE; -TRIAMCINOLONE ACETONIDE SUSP 40 MG/ML VIAL (J3301) As Ordered ONE
--- NOTE | 2021-06-05 14:17 | REPMRS ---
Patient History The patient states she has not had a clinical breast exam in over a year. No known family history of cancer. Benign radio exam breast specimen, June 01, 2015. Benign localization of breast nodule of the left breast, June 01, 2015. Benign radio exam breast specimen of the left breast, November 27, 2014. Benign localization of breast nodule of the left breast, November 27, 2014. Tomosynthesis is performed. Volpara breast density is d. Tyrer-zick lifetime risk of breast cancer 2.9%. Patient states no breast complaints today. Patient has signed MRS History Sheet. Digital Woman Screen Mammo: June 05, 2021 - Exam #: [id number] Bilateral CC and MLO view(s) were taken. Technologist: Tarun Vargasologist Prior study comparison: May 17, 2020, bilateral digital woman screen mammo performed at [facility]. January 16, 2016, digital mammo diagnostic bilateral, performed at [facility]. FINDINGS: The breast tissue is heterogeneously dense. This may lower the sensitivity of mammography. There has been no change in the appearance of the mammogram from the prior studies. There is a moderate amount of residual fibroglandular tissue which is fairly symmetric. There is no interval development of dominant mass, areas of architectural distortion, or clustered microcalcification typical of malignancy. Assessment: BI-RADS/ACR category 1 mammogram. Negative Mammogram. Recommendation Routine screening mammogram in 1 year (for women over age 40). This mammogram was interpreted with the aid of an FDA-approved computer-aided dectection system. Electronically Signed By: Len Vick MD 06/05/21 [id number]
--- NOTE | 2021-06-05 17:48 | REP ---
INDICATION: ENCNTR SCREEN MAMMOGRAM FOR MALIGNANT NEOPLASM OF BREAST. COMPARISON: Mammogram 06/05/2021. TECHNIQUE: Real-time sonographic evaluation of entire bilateral breasts performed. FINDINGS: No cystic or solid nodule is seen in any portion of the bilateral breasts. IMPRESSION: BIRADS/ACR category 1, negative whole breast bilateral ultrasound. RECOMMENDATION: Follow-up screening in 1 year. <Electronically signed by Len Vick > 06/05/21 [id number]
== END ==
LOC: M WHC 13:37
PROVIDERS: ATTEND Internal Medicine
DX: Z12.31 Encounter for screening mammogram for malignant neoplasm of breast (principal)

== ENCOUNTER → 2021-07-10 | Outpatient (REF) | payer MEDICARE, OTHER | LOC: M LAB REF 16:44 | PROVIDERS: ATTEND Internal Medicine | DX: Z79.899 Other long term (current) drug therapy (principal) ==

== ENCOUNTER → 2021-09-05 | Outpatient (CLI) | payer MEDICARE, OTHER | LOC: M WUC 11:20 | PROVIDERS: ATTEND Internal Medicine | DX: M25.512 Pain in left shoulder (principal) ==

== ENCOUNTER → 2021-11-16 | Outpatient (CLI) | payer MEDICARE, OTHER ==
[~2021-11-16] MED LIST changes: +HYDR50TA70; +POTA1TAB14 PO; +SPIR-10
== END ==
LOC: M LABSMTC 10:23
PROVIDERS: ATTEND Anesthesiology
DX: Z01.812 Encounter for preprocedural laboratory examination (principal); Z20.822 Contact with and (suspected) exposure to COVID-19

== ENCOUNTER 2021-11-21 10:10 | Day surgery (SDC) | payer MEDICARE, OTHER ==
[~2021-11-21] VITALS: Ht 154.9 cm; Wt 43.9 kg
[~2021-11-21 10:10] MED LIST changes: +LIDOCAINE 2% 100MG/5ML SDV (FOR ANES.) As Ordered ONE; +NS 1,000 ML IV ONE; +propofoL 200 MG/20 ML VIAL As Ordered ONE
[2021-11-21 11:50] VITALS: BP 104/50
== END 2021-11-21 11:49 | disposition home or self-care (01) ==
LOC: M OPP 10:10
PROVIDERS: ATTEND Surgery
DX: K63.89 Other specified diseases of intestine (principal); R19.5 Other fecal abnormalities; Z80.0 Family history of malignant neoplasm of digestive organs; Z79.82 Long term (current) use of aspirin; Z79.899 Other long term (current) drug therapy; Z88.0 Allergy status to penicillin; Z88.5 Allergy status to narcotic agent; Z88.6 Allergy status to analgesic agent; Z88.8 Allergy status to other drugs, medicaments and biological substances

== ENCOUNTER → 2021-12-04 | Outpatient (CLI) | payer MEDICARE, OTHER ==
[~2021-12-04] MED LIST changes: -LIDOCAINE 2% 100MG/5ML SDV (FOR ANES.) As Ordered ONE; -NS 1,000 ML IV ONE; -propofoL 200 MG/20 ML VIAL As Ordered ONE
== END ==
LOC: M PAIN 14:15
PROVIDERS: ATTEND Nurse Practitioner Family
DX: M79.10 Myalgia, unspecified site (principal); E55.9 Vitamin D deficiency, unspecified; Z86.59 Personal history of other mental and behavioral disorders; Z88.0 Allergy status to penicillin; Z88.8 Allergy status to other drugs, medicaments and biological substances; Z79.82 Long term (current) use of aspirin; Z79.899 Other long term (current) drug therapy

== ENCOUNTER → 2022-01-10 | Outpatient (REF) | payer MEDICARE, OTHER | LOC: M LAB REF 11:57 | PROVIDERS: ATTEND Internal Medicine | DX: M81.0 Age-related osteoporosis without current pathological fracture (principal); Z79.899 Other long term (current) drug therapy ==

== ENCOUNTER → 2022-02-10 | Outpatient (CLI) | payer MEDICARE, OTHER | LOC: M PAIN 14:30 | PROVIDERS: ATTEND Anesthesiology | DX: M54.2 Cervicalgia (principal); M79.10 Myalgia, unspecified site; M79.18 Myalgia, other site; Z78.0 Asymptomatic menopausal state; E78.00 Pure hypercholesterolemia, unspecified; K58.9 Irritable bowel syndrome, unspecified; E55.9 Vitamin D deficiency, unspecified; M81.0 Age-related osteoporosis without current pathological fracture; F41.9 Anxiety disorder, unspecified; E87.6 Hypokalemia; Z79.82 Long term (current) use of aspirin; Z79.899 Other long term (current) drug therapy; Z88.0 Allergy status to penicillin; Z88.8 Allergy status to other drugs, medicaments and biological substances ==

== ENCOUNTER → 2022-05-14 | Outpatient (CLI) | payer MEDICARE, OTHER | LOC: M PAIN 11:45 | PROVIDERS: ATTEND Anesthesiology | DX: M54.2 Cervicalgia (principal); G89.29 Other chronic pain; M79.18 Myalgia, other site; E55.9 Vitamin D deficiency, unspecified; Z86.59 Personal history of other mental and behavioral disorders; Z88.0 Allergy status to penicillin; Z88.8 Allergy status to other drugs, medicaments and biological substances; Z79.82 Long term (current) use of aspirin; Z79.899 Other long term (current) drug therapy ==

== ENCOUNTER → 2022-06-06 | Outpatient (CLI) | payer MEDICARE, OTHER | LOC: M WHC 14:12 | PROVIDERS: ATTEND Internal Medicine | DX: Z12.31 Encounter for screening mammogram for malignant neoplasm of breast (principal) ==

== ENCOUNTER → 2022-06-12 | Outpatient (REF) | payer MEDICARE, OTHER | LOC: M LAB REF 16:04 | PROVIDERS: ATTEND Registered Nurse | DX: N39.0 Urinary tract infection, site not specified (principal) ==

== ENCOUNTER → 2022-06-18 | Outpatient (CLI) | payer MEDICARE, OTHER | LOC: M WHC 13:11 | PROVIDERS: ATTEND Internal Medicine | DX: R92.2 Inconclusive mammogram (principal) | CPT/HCPCS: 76642; 77065; G0279 ==

== ENCOUNTER → 2022-07-16 | Outpatient (REF) | payer MEDICARE, OTHER | LOC: M LAB REF 11:58 | PROVIDERS: ATTEND Internal Medicine | DX: Z79.899 Other long term (current) drug therapy (principal) ==

== ENCOUNTER → 2022-10-10 | Outpatient (CLI) | payer MEDICARE, OTHER | LOC: M WHC 13:09 | PROVIDERS: ATTEND Internal Medicine | DX: M81.0 Age-related osteoporosis without current pathological fracture (principal) ==

== ENCOUNTER → 2022-11-06 | Outpatient (CLI) | payer MEDICARE, OTHER | LOC: M WUC 14:07 | PROVIDERS: ATTEND Nurse Practitioner Family | DX: M79.661 Pain in right lower leg (principal) ==

== ENCOUNTER → 2022-11-20 | Outpatient (REF) | payer MEDICARE, OTHER | LOC: M SFHCWAGY 08:29 | PROVIDERS: ATTEND Nurse Practitioner Family | DX: Z12.4 Encounter for screening for malignant neoplasm of cervix (principal); N95.8 Other specified menopausal and perimenopausal disorders | CPT/HCPCS: 87624; G0123 ==

== ENCOUNTER → 2023-01-09 | Outpatient (REF) | payer MEDICARE, OTHER ==
[~2023-01-09] MED LIST changes: -K-TA10TA PO; -K-TA10TA2 PO; +POTA-164 PO; +POTA-165 PO; +POTA-298 PO; -POTA1TAB14 PO
== END ==
LOC: M LAB REF 16:55
PROVIDERS: ATTEND Internal Medicine
DX: M81.0 Age-related osteoporosis without current pathological fracture (principal)

== ENCOUNTER → 2023-01-28 | Outpatient (REF) | payer MEDICARE, OTHER | LOC: M LAB REF 16:44 | PROVIDERS: ATTEND Nurse Practitioner Family | DX: N39.0 Urinary tract infection, site not specified (principal) ==

== ENCOUNTER → 2023-02-09 | Outpatient (CLI) | payer MEDICARE, OTHER, MEDICAID ==
[~2023-02-09] MED LIST changes: +ISOVUE-370 76% 100ML VIAL ONE
== END ==
LOC: M PLAIMG 08:56
PROVIDERS: ATTEND Nurse Practitioner Family
DX: R10.9 Unspecified abdominal pain (principal)
CPT/HCPCS: 74177; Q9967

== ENCOUNTER → 2023-04-15 | Outpatient (CLI) | payer MEDICARE, OTHER, MEDICAID ==
[~2023-04-15] MED LIST changes: -ISOVUE-370 76% 100ML VIAL ONE
== END ==
LOC: M SOG 08:04
PROVIDERS: ATTEND Orthopaedic Surgery
DX: M25.562 Pain in left knee (principal); M25.561 Pain in right knee

== ENCOUNTER → 2023-07-02 | Outpatient (REF) | payer MEDICARE, OTHER | LOC: M SFHCDERM 17:00 | PROVIDERS: ATTEND Physician Assistant | DX: R21 Rash and other nonspecific skin eruption (principal) ==

== ENCOUNTER → 2023-07-29 | Outpatient (REF) | payer MEDICARE, OTHER | LOC: M LAB REF 12:26 | PROVIDERS: ATTEND Internal Medicine | DX: Z79.899 Other long term (current) drug therapy (principal) ==

== ENCOUNTER → 2023-10-01 | Outpatient (CLI) | payer MEDICARE, OTHER | LOC: M RAD 10:21 | PROVIDERS: ATTEND Nurse Practitioner Family | DX: R10.11 Right upper quadrant pain (principal) ==

== ENCOUNTER → 2023-10-27 | Outpatient (CLI) | payer MEDICARE, OTHER | LOC: M SOG 14:15 | PROVIDERS: ATTEND Orthopaedic Surgery | DX: M25.551 Pain in right hip (principal) ==

== ENCOUNTER → 2023-10-28 | Outpatient (CLI) | payer MEDICARE, OTHER | LOC: M RAD 13:07 | PROVIDERS: ATTEND Surgery | DX: R10.11 Right upper quadrant pain (principal) | CPT/HCPCS: 78226; A9537 ==

== ENCOUNTER → 2023-11-13 | Outpatient (CLI) | payer MEDICARE, OTHER ==
[~2023-11-13] MED LIST changes: +methylPREDNISolone SUSP 40MG/ML 1ML VIAL (DEPO MEDROL) As Ordered ONE
== END ==
LOC: M IRPRO 13:08
PROVIDERS: ATTEND Orthopaedic Surgery
DX: M70.61 Trochanteric bursitis, right hip (principal); Z53.9 Procedure and treatment not carried out, unspecified reason

== ENCOUNTER 2023-12-10 08:17 | Day surgery (SDC) | payer MEDICARE, OTHER ==
[~2023-12-10] VITALS: Ht 152.4 cm; Wt 43.2 kg
[~2023-12-10 08:17] MED LIST changes: +ACETAMINOPHEN 1000MG 100ML IV BAG As Ordered ONE; +GABA-1171 PO; +GAS-CAP4 PO; +KETOROLAC 60MG 2ML VIAL As Ordered ONE; +LIDOCAINE 2% 100MG/5ML SDV (FOR ANES.) As Ordered ONE; +LOTE0.5S OS; +MELO7.5T35 PO; +MIDAZOLAM INJ 2MG/2ML VIAL As Ordered ONE; +OMEP-173 PO; +ONDANSETRON 4MG 2ML VIAL As Ordered ONE; +PANT40TA29 PO; +ROCURONIUM BROMIDE 50MG/5ML VIAL As Ordered ONE; -SPIR-10; +SPIR-10 PO; +SUGAMMADEX SODIUM 500 MG/5 ML VIAL (BRIDION) As Ordered ONE; +fentaNYL 100 MCG/2 ML INJECTION As Ordered ONE; -methylPREDNISolone SUSP 40MG/ML 1ML VIAL (DEPO MEDROL) As Ordered ONE; +propofoL 200 MG/20 ML VIAL As Ordered ONE
[2023-12-10] MEDS: LR 1,000 ML IV SCH (09:12)
[2023-12-10] MEDS ORDERED: ePHEDrine SULFATE 25 MG/5 ML(5MG/ML) SYRINGE As Ordered ONE (10:25)
[2023-12-10] MEDS ORDERED: ONDANSETRON 4MG 2ML VIAL IV PRN (10:25)
[2023-12-10] MEDS ORDERED: LR 1,000 ML IV SCH (10:25)
[2023-12-10] MEDS ORDERED: NORCO, ANEXSIA 5/325MG TABLET (HYDROcodone/ACETAMINOPHEN) PO PRN (10:45)
[2023-12-10] MEDS: fentaNYL 100 MCG/2 ML INJECTION IV PRN (10:46)
[2023-12-10] MEDS: HYDROMORPHONE HCL 0.5 MG/ 0.5 ML SYRINGE IV PRN (11:01)
[2023-12-10 11:25] VITALS: BP 132/62; TEMP 97.5; O2SAT 99
== END 2023-12-10 11:55 | disposition home or self-care (01) ==
LOC: M SDC 08:17
PROVIDERS: ATTEND Surgery
DX: K81.1 Chronic cholecystitis (principal); Z88.5 Allergy status to narcotic agent; Z88.0 Allergy status to penicillin; Z88.8 Allergy status to other drugs, medicaments and biological substances; Z79.899 Other long term (current) drug therapy
CPT/HCPCS: 47562; 88304; J0131; J0665; J1100; J1170; J1885; J2250; J2405; J3010; S2900

== ENCOUNTER → 2024-02-15 | Outpatient (REF) | payer MEDICARE, OTHER, MEDICAID ==
[~2024-02-15] MED LIST changes: -ACETAMINOPHEN 1000MG 100ML IV BAG As Ordered ONE; -KETOROLAC 60MG 2ML VIAL As Ordered ONE; -LIDOCAINE 2% 100MG/5ML SDV (FOR ANES.) As Ordered ONE; -MIDAZOLAM INJ 2MG/2ML VIAL As Ordered ONE; -ONDANSETRON 4MG 2ML VIAL As Ordered ONE; -ROCURONIUM BROMIDE 50MG/5ML VIAL As Ordered ONE; -SUGAMMADEX SODIUM 500 MG/5 ML VIAL (BRIDION) As Ordered ONE; -fentaNYL 100 MCG/2 ML INJECTION As Ordered ONE; -propofoL 200 MG/20 ML VIAL As Ordered ONE
== END ==
LOC: M LAB REF 12:46
PROVIDERS: ATTEND Internal Medicine
DX: Z79.899 Other long term (current) drug therapy (principal)

== ENCOUNTER → 2024-02-19 | Outpatient (REF) | payer MEDICARE, OTHER, MEDICAID | LOC: M LAB REF 18:08 | PROVIDERS: ATTEND Physician Assistant | DX: B37.31 Acute candidiasis of vulva and vagina (principal) ==

== ENCOUNTER → 2024-04-22 | Outpatient (REF) | payer MEDICARE, OTHER, MEDICAID ==
[2024-04-22 17:58] LABS: APPEARANCE, URINE MANUAL TURBID (CLEAR); COLOR, URINE MANUAL YELLOW (YELLOW)
[2024-04-22 18:00] LABS: BILIRUBIN, URINE MANUAL NEGATIVE (NEGATIVE); BLOOD URINE MANUAL NEGATIVE (NEGATIVE); GLUCOSE, URINE (UA) MANUAL NEGATIVE (NEGATIVE); KETONE, URINE MANUAL NEGATIVE (NEGATIVE); LEUKOCYTE ESTERASE, URINE MAN TRACE (NEGATIVE); NITRITE, URINE MANUAL NEGATIVE (NEGATIVE); PROTEIN, URINE MANUAL NEGATIVE (NEGATIVE); UROBILINOGEN, URINE MANUAL NORMAL (NORMAL)
[2024-04-22 19:16] LABS: AMORPHOUS SEDIMENT, URINE LARGE AMOUNT (NEGATIVE); RBC, URINE NONE SEEN /hpf (0-3); WBC, URINE 0-1 /hpf (0-3)
[2024-04-22 19:17] LABS: BACTERIA, URINE NONE SEEN; HYALINE CAST, URINE NONE SEEN /lpf (0-1)
[2024-04-22 19:18] LABS: SQUAMOUS EPITHELIAL CELL URINE NONE SEEN /hpf (SMALL AMT)
== END ==
LOC: M LABSMT 14:33
PROVIDERS: ATTEND Urology
DX: R30.0 Dysuria (principal); N94.9 Unspecified condition associated with female genital organs and menstrual cycle

== ENCOUNTER → 2024-04-27 | Outpatient (CLI) | payer MEDICARE, OTHER, MEDICAID | LOC: M PAIN 14:30 | PROVIDERS: ATTEND Anesthesiology | DX: M79.12 Myalgia of auxiliary muscles, head and neck (principal); M54.2 Cervicalgia; M79.18 Myalgia, other site; E78.00 Pure hypercholesterolemia, unspecified; K58.9 Irritable bowel syndrome, unspecified; E55.9 Vitamin D deficiency, unspecified; M81.0 Age-related osteoporosis without current pathological fracture; F41.9 Anxiety disorder, unspecified; Z79.82 Long term (current) use of aspirin; Z79.899 Other long term (current) drug therapy; Z88.0 Allergy status to penicillin; Z88.8 Allergy status to other drugs, medicaments and biological substances ==

== ENCOUNTER → 2024-05-04 | Outpatient (REF) | payer MEDICARE, OTHER, MEDICAID | LOC: M LAB REF 13:03 | PROVIDERS: ATTEND Internal Medicine | DX: E87.6 Hypokalemia (principal) ==

== ENCOUNTER → 2024-06-02 | Outpatient (CLI) | payer MEDICARE, OTHER, MEDICAID | LOC: M WHC 13:01 | PROVIDERS: ATTEND Internal Medicine | DX: Z12.31 Encounter for screening mammogram for malignant neoplasm of breast (principal) ==

== ENCOUNTER → 2024-06-14 | Outpatient (REF) | payer MEDICARE, OTHER, MEDICAID ==
[2024-06-14 19:04] LABS: LIPASE 43 U/L (12-53)
[2024-06-14 19:06] LABS: AMYLASE 68 U/L (30-118)
== END ==
LOC: M LAB REF 17:17
PROVIDERS: ATTEND Internal Medicine
DX: R10.9 Unspecified abdominal pain (principal)

== ENCOUNTER → 2024-06-21 | Outpatient (CLI) | payer MEDICARE, OTHER, MEDICAID ==
[~2024-06-21] MED LIST changes: +ISOVUE-370 76% 100ML VIAL As Ordered ONE
== END ==
LOC: M RAD 14:43
PROVIDERS: ATTEND Nurse Practitioner Family
DX: R10.84 Generalized abdominal pain (principal)
CPT/HCPCS: 74177; Q9967

== ENCOUNTER 2024-07-18 12:33 | Outpatient (CLI) | payer MEDICARE, OTHER, MEDICAID ==
[~2024-07-18] VITALS: Ht 152.4 cm; Wt 42.7 kg
[~2024-07-18 12:33] MED LIST changes: -ISOVUE-370 76% 100ML VIAL As Ordered ONE
[2024-07-18 12:50] VITALS: BP 150/63; O2SAT 98
[2024-07-18] MEDS: KCL 10MEQ/100ML SWI (KRUN) IV ONE (12:50)
[2024-07-18] MEDS ORDERED: HYALURONIDASE 15UNIT/ML 1ML SYRINGE (AMPHADASE) SC ONE (14:15)
[2024-07-18] MEDS ORDERED: HYALURONIDASE 150UNIT/ML 1ML VIAL (AMPHADASE) SQ ONE (14:20)
[2024-07-18] MEDS: HYALURONIDASE 15 UNITS/ML 1ML *SC SC ONE (14:41)
[2024-07-18 15:35] VITALS: BP 128/77; O2SAT 98
== END 2024-07-18 15:35 | disposition home or self-care (01) ==
LOC: M INFU 12:33
PROVIDERS: ATTEND Nurse Practitioner Family
DX: E87.6 Hypokalemia (principal); Z88.0 Allergy status to penicillin; Z88.5 Allergy status to narcotic agent; Z88.8 Allergy status to other drugs, medicaments and biological substances
CPT/HCPCS: 96365; J3470

== ENCOUNTER → 2024-08-08 | Outpatient (CLI) | payer MEDICARE, OTHER, MEDICAID | LOC: M SOG 12:49 | PROVIDERS: ATTEND Orthopaedic Surgery | DX: M16.12 Unilateral primary osteoarthritis, left hip (principal) ==

== ENCOUNTER → 2024-08-19 | Outpatient (CLI) | payer MEDICARE, OTHER, MEDICAID | LOC: M PLARAD 14:22 | PROVIDERS: ATTEND Physician Assistant | DX: M70.62 Trochanteric bursitis, left hip (principal) ==

== ENCOUNTER → 2024-09-15 | Outpatient (REF) | payer MEDICARE, OTHER, MEDICAID ==
[~2024-09-15] MED LIST changes: -AMIT24CA7 PO; +LUBI24CA32 PO
== END ==
LOC: M LAB REF 12:02
PROVIDERS: ATTEND Internal Medicine
DX: Z79.899 Other long term (current) drug therapy (principal)

== ENCOUNTER → 2024-10-03 | Outpatient (CLI) | payer MEDICARE, OTHER, MEDICAID ==
[~2024-10-03] MED LIST changes: +ISOVUE-300 61% 100ML VIAL As Ordered ONE; +LIDOCAINE 1% MDV 20ML VIAL As Ordered ONE; +methylPREDNISolone SUSP 40MG/ML 1ML VIAL (DEPO MEDROL) As Ordered ONE
== END ==
LOC: M RAD 14:04
PROVIDERS: ATTEND Physician Assistant
DX: M16.12 Unilateral primary osteoarthritis, left hip (principal)
CPT/HCPCS: 20610; 77002; J1010; Q9967

== ENCOUNTER → 2024-11-05 | Outpatient (CLI) | payer MEDICARE, OTHER, MEDICAID ==
[~2024-11-05] MED LIST changes: +DENO60SY2 IM; -ISOVUE-300 61% 100ML VIAL As Ordered ONE; -LIDOCAINE 1% MDV 20ML VIAL As Ordered ONE; -PROL60SO IM; -methylPREDNISolone SUSP 40MG/ML 1ML VIAL (DEPO MEDROL) As Ordered ONE
== END ==
LOC: M LAB 09:48
PROVIDERS: ATTEND Physician Assistant
DX: R19.7 Diarrhea, unspecified (principal)

== ENCOUNTER → 2024-11-11 | Outpatient (REF) | payer MEDICARE, OTHER, MEDICAID ==
[2024-11-11 15:41] LABS: AMORPHOUS SEDIMENT SMALL (NEGATIVE); APPEARANCE, URINE CLEAR (CLEAR); BACTERIA, URINE AUTO NEGATIVE (NEGATIVE); BILIRUBIN, URINE AUTO NEGATIVE (NEGATIVE); BLOOD, URINE BLOOD NEGATIVE (NEGATIVE); COLOR, URINE AMBER (YELLOW); GLUCOSE, URINE (UA) AUTO NEGATIVE (NEGATIVE); KETONE, URINE AUTO TRACE mg/dL (NEGATIVE); LEUKOCYTE ESTERASE, URINE AUTO TRACE (NEGATIVE); MUCUS, URINE SMALL (NEGATIVE); NITRITE, URINE AUTO NEGATIVE (NEGATIVE); PROTEIN, URINE AUTO 1+ mg/dL (NEGATIVE); RBC, URINE AUTO 1 /HPF (0-3); SPECIFIC GRAVITY URINE AUTO 1.025 (1.002-1.035); SQUAMOUS EPITHELIAL CELL UR AU 0 /HPF (0-6); UROBILINOGEN, URINE AUTO 0.2 mg/dL (0.0-2.0); WBC, URINE AUTO 5 /HPF (0-3)
== END ==
LOC: M LAB REF 15:09
PROVIDERS: ATTEND Urology
DX: N39.0 Urinary tract infection, site not specified (principal)

== ENCOUNTER → 2024-12-08 | Outpatient (REF) | payer MEDICARE, OTHER, MEDICAID | LOC: M LAB REF 12:00 | PROVIDERS: ATTEND Internal Medicine | DX: R30.0 Dysuria (principal) ==

== ENCOUNTER → 2025-03-01 | Outpatient (CLI) | payer MEDICARE, OTHER, MEDICAID | LOC: M SOG 06:54 | PROVIDERS: ATTEND Physician Assistant | DX: Z53.9 Procedure and treatment not carried out, unspecified reason (principal) ==

== ENCOUNTER → 2025-03-06 | Outpatient (CLI) | payer MEDICARE, OTHER, MEDICAID | LOC: M WUC 11:08 | PROVIDERS: ATTEND Nurse Practitioner Adult Health | DX: M54.14 Radiculopathy, thoracic region (principal) ==

== ENCOUNTER → 2025-04-07 | Outpatient (CLI) | payer MEDICARE, OTHER, MEDICAID | LOC: M SOG 07:34 | PROVIDERS: ATTEND Neuromusculoskeletal Medicine, Sports Medicine | DX: M19.041 Primary osteoarthritis, right hand (principal) ==

== ENCOUNTER → 2025-06-07 | Outpatient (REF) | payer MEDICARE, OTHER, MEDICAID | LOC: M LAB REF 14:41 | PROVIDERS: ATTEND Internal Medicine | DX: N39.0 Urinary tract infection, site not specified (principal) ==

== ENCOUNTER → 2025-06-16 | Outpatient (REF) | payer MEDICARE, OTHER, MEDICAID | LOC: M LAB REF 12:03 | PROVIDERS: ATTEND Internal Medicine | DX: N39.0 Urinary tract infection, site not specified (principal) ==